=== PATIENT | female | born 1940 | race Caucasian/White ===

== ENCOUNTER → 2017-02-19 | Outpatient (CLI) | payer MEDICARE, OTHER ==
--- NOTE | 2017-02-19 15:47 | US ---
EXAMINATION TYPE: US kidneys/renal and bladder DATE OF EXAM: 02/19/2017 COMPARISON: Ultrasound 03/15/2015 CLINICAL HISTORY: CKD Stage 3 N18.3. EXAM MEASUREMENTS: Right Kidney: 10.0 x 4.0 x 4.2 cm Left Kidney: 10.3 x 4.0 x 4.9 cm Post Void Residual Volume: 36mL Right Kidney: No hydronephrosis or masses seen Left Kidney: No hydronephrosis or masses seen Bladder: wnl Bilateral Jets seen: No Normal Post Void Residual: Yes Cortical thinning is present bilaterally as on previous exam. There is some increase in cortical echo genicity. IMPRESSION: Findings compatible with medical renal disease. The previously identified 1 cm mass at the upper pole the right kidney is not seen definitively on today's exam.
== END | disposition home or self-care (01) ==
LOC: RADUSWWP 14:48
PROVIDERS: ATTEND Internal Medicine Nephrology
DX: N18.3 Chronic kidney disease, stage 3 (moderate) (principal)
CPT/HCPCS: 76770

== ENCOUNTER 2017-10-02 16:03 | Inpatient (IN) | payer MEDICARE, OTHER ==
--- NOTE | 2017-10-02 16:59 | ED ---
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 Per report was 6.9. Patient states she's had some dizziness today no fevers chills nausea vomiting sweats no palpitations no focal weakness or other symptoms reported. No other modifying factors. MD Complaint: abnormal lab - Related Data Home Medications Medication Instructions Recorded Confirmed Raloxifene [Evista] 60 mg PO DAILY 11/05/13 10/02/17 Atorvastatin [Lipitor] 80 mg PO HS 10/15/14 10/02/17 Metoprolol Tartrate [Lopressor] 50 mg PO BID 10/15/14 10/02/17 Spironolactone [Aldactone] 25 mg PO DAILY 11/02/14 10/02/17 Allopurinol [Zyloprim] 100 mg PO DAILY 02/07/17 10/02/17 Cinacalcet HCl [Sensipar] 30 mg PO MOWEFR 02/07/17 10/02/17 Furosemide [Lasix] 40 mg PO DAILY 02/07/17 10/02/17 Insuln Asp Prt/Insulin Aspart 35 units SQ HS 02/07/17 10/02/17 [NovoLOG MIX 70-30 VIAL] Magnesium Oxide [Mag-Ox] 400 mg PO DAILY 02/07/17 10/02/17 cloNIDine HCL [Catapres] 0.2 mg PO BID 02/07/17 10/02/17 Captopril [Capoten] 100 mg PO TID 05/19/17 10/02/17 Rivaroxaban [Xarelto] 20 mg PO HS 05/19/17 10/02/17 Terazosin HCl 1 mg PO HS 05/19/17 10/02/17 Previous Rx's Medication Instructions Recorded Metoprolol Tartrate [Lopressor] 50 mg PO BID tab 05/21/17 Allergies Allergy/AdvReac Type Severity Reaction Status Date / Time No Known Allergies Allergy Verified 10/02/17 16:38 Review of Systems ROS Statement: Those systems with pertinent positive or pertinent negative responses have been documented in the HPI. ROS Other: All systems not noted in ROS Statement are negative. Past Medical History Past Medical History: Coronary Artery Disease (CAD), Chest Pain / Angina, Heart Failure, CVA/TIA, Diabetes Mellitus, Eye Disorder, Hyperlipidemia, Hypertension , Myocardial Infarction ([place]), Osteoarthritis (OA), Renal Disease, Syncope Additional Past Medical History / Comment(s): HX ANEMIA WITH IV IRON 10/12/14. DIABETIC RETINOPATHY. GOUT. SINUS PROBLEMS. CRF Last Myocardial Infarction Date:: UNKNOWN History of Any Multi-Drug Resistant Organisms: None Reported Past Surgical History: Appendectomy, Cardiac Valve Replacement, Cholecystectomy , Coronary Bypass/CABG, Hysterectomy, Tonsillectomy Additional Past Surgical History / Comment(s): TRIPLE BYPASS 1999. colonoscopy. BILAT cataract removal. TILT TABLE-+ RESULT Past Anesthesia/Blood Transfusion Reactions: No Reported Reaction Past Psychological History: No Psychological Hx Reported Smoking Status: Never smoker Past Alcohol Use History: Rare Past Drug Use History: None Reported - Past Family History Father Family Medical History: Pneumonia Additional Family Medical History / Comment(s): Father had TB Mother Family Medical History: Congestive Heart Failure (CHF) Additional Family Medical History / Comment(s): Mother young of CHF General Exam - General Exam Comments Initial Comments: This is a well-developed well-nourished awake alert oriented 3 female Limitations: no limitations General appearance: alert, in no apparent distress Head exam: Present: atraumatic, normocephalic, normal inspection Eye exam: Present: normal appearance, PERRL, EOMI. Absent: scleral icterus, conjunctival injection, periorbital swelling ENT exam: Present: mucous membranes dry Neck exam: Present: normal inspection. Absent: tenderness, meningismus, lymphadenopathy Respiratory exam: Present: normal lung sounds bilaterally. Absent: respiratory distress, wheezes, rales, rhonchi, stridor Cardiovascular Exam: Present: regular rate, normal rhythm, normal heart sounds. Absent: systolic murmur, diastolic murmur, rubs, gallop, clicks GI/Abdominal exam: Present: soft, normal bowel sounds. Absent: distended, tenderness, guarding, rebound, rigid Extremities exam: Present: normal inspection, full ROM, normal capillary refill. Absent: tenderness, pedal edema, joint swelling, calf tenderness Back exam: Present: normal inspection Neurological exam: Present: alert, oriented X3, CN II-XII intact Psychiatric exam: Present: normal affect, normal mood Skin exam: Present: warm, dry, intact, normal color. Absent: rash Course Vital Signs 10/02/17 16:36 Temperature 97.9 F Pulse Rate 59 L Respiratory 20 Rate Blood Pressure 131/66 O2 Sat by Pulse 98 Oximetry Medical Decision Making - Medical Decision Making Review of labs demonstrates a 6.7 potassium also worsening renal function. I did discuss the findings with the patient family members as well as with Dr. Medrano the patient will be admitted for treatment of hyperkalemia also evaluation by nephrology. - Lab Data Result diagrams: 10/02/17 16:44 Lab Results 10/02/17 Range/Units 16:44 Sodium 136 L (137-145) mmol/L Potassium 6.7 H* (3.5-5.1) mmol/L Chloride 105 (98-107) mmol/L Carbon Dioxide 16 L (22-30) mmol/L Anion Gap 15 mmol/L BUN 92 H* (7-17) mg/dL Creatinine 1.97 H (0.52-1.04) mg/dL Est GFR (CKD-EPI)AfAm 28 (>60 ml/min/1.73 sqM) Est GFR (CKD-EPI)NonAf 24 (>60 ml/min/1.73 sqM) Glucose 387 H (74-99) mg/dL Calcium 10.4 H (8.4-10.2) mg/dL Total Bilirubin 0.3 (0.2-1.3) mg/dL AST 19 (14-36) U/L ALT 17 (9-52) U/L Alkaline Phosphatase 125 (38-126) U/L Total Protein 7.0 (6.3-8.2) g/dL Albumin 3.8 (3.5-5.0) g/dL - EKG Data -: EKG Interpreted by Me (Sinus bradycardia rate of 56 TX interval 186 QRS duration 96 QT since QTC 4) Critical Care Time Critical Care Time: Yes Critical Care Time: 31 minutes of critical care time which includes initial presentation with history physical labs x-rays. Reevaluation the patient. Admission orders discussed with the patient family discuss with the admitting physician documentation of the above Disposition Clinical Impression: Hyperkalemia, Renal failure syndrome Disposition: ADMITTED IP TO THIS HOSP Condition: Stable Is patient prescribed a controlled substance at discharge?: No Referrals: Saurabh Medrano MD [Primary Care Provider] - 1-2 days
[2017-10-02 17:22] LABS: Albumin 3.8 g/dL (3.5-5.0); Calcium 10.4 mg/dL (8.4-10.2); Total Bilirubin 0.3 mg/dL (0.2-1.3)
[2017-10-02 17:24] LABS: Potassium 6.7 mmol/L (3.5-5.1)
[2017-10-02] MEDS ORDERED: SODIUM CHLORIDE 0.9% 1,000 ML IV STA ×2 (17:28)
[2017-10-02] MEDS ORDERED: SODIUM POLYSTYRENE SULFONATE 15 GM/60 ML BOTTLE PO ONE (17:29)
[2017-10-02] MEDS ORDERED: INSULIN REGULAR 100 UNIT/ML VIAL IV ONE (17:30)
[2017-10-02] MEDS ORDERED: DEXTROSE 50%-WATER 50 ML SYRINGE IVP STA (17:31)
[2017-10-02] MEDS ORDERED: NALOXONE 0.4 MG/ML 1 ML VIAL IV PRN (18:01)
[2017-10-02] MEDS ORDERED: FUROSEMIDE 10 MG/ML 4 ML VIAL IV STA (18:09)
[2017-10-02 21:53] LABS: Glucose,Whole Blood 181 mg/dL (75-99)
[2017-10-02] MEDS: METOPROLOL TARTRATE 50 MG TAB PO SCH (21:59)
[2017-10-02] MEDS: ATORVASTATIN 80 MG TAB PO SCH (21:59)
[2017-10-02] MEDS: CINACALCET 30 MG TAB PO SCH (22:00)
[2017-10-02] MEDS ORDERED: CAPTOPRIL 50 MG TAB PO SCH (22:00)
[2017-10-02] MEDS: DOXAZOSIN 1 MG TAB PO SCH (22:00)
[2017-10-02] MEDS: cloNIDine HCL 0.2 MG TAB PO SCH ×2 (22:00→22:01)
[2017-10-02] MEDS: RIVAROXABAN 20 MG TAB PO SCH (22:00)
[2017-10-02] MEDS: INSULN ASP PRT/INSULIN ASPART 100 UNIT/ML 10 ML VIAL SQ SCH (22:01)
[2017-10-02] MEDS ORDERED: SODIUM BICARB 8.4% 50 ML SYR (1 MEQ/ML) IV STA (22:45)
[2017-10-03 03:23] VITALS: BMI 27.8
[2017-10-03 07:54] LABS: Glucose,Whole Blood 94 mg/dL (75-99)
[2017-10-03 08:04] LABS: Calcium 9.7 mg/dL (8.4-10.2); Potassium 4.9 mmol/L (3.5-5.1)
[2017-10-03] MEDS ORDERED: FUROSEMIDE 40 MG TAB PO SCH (09:00)
[2017-10-03] MEDS: RALOXIFENE 60 MG TAB PO SCH (09:16)
[2017-10-03] MEDS: MAGNESIUM OXIDE 400 MG TAB PO SCH (09:16)
[2017-10-03] MEDS: ALLOPURINOL 100 MG TAB PO SCH (09:16)
[2017-10-03] MEDS: METOPROLOL TARTRATE 50 MG TAB PO SCH ×2 (09:16→21:17)
--- NOTE | 2017-10-03 10:18 | P.NPCON ---
History of Present Illness - Reason for Consult acute renal failure, hyperkalemia - History of Present Illness Reason for consultation: Acute kidney injury and hyperkalemia History of present illness: Patient is a 77-year-old female seen in renal consultation for acute kidney injury on chronic kidney disease. Patient has chronic kidney disease stage III secondary to nephrosclerosis with baseline creatinine near 1.7-1.8. Her creatinine was 1.97 on admission and is down to 1.72 today. Yesterday the lab called me to alert me about her potassium level of 6.7. I subsequently spoke to her daughter and advised her to go to the hospital. Patient states he does take Motrin about once every day for arthritic pain. Additionally she is also on captopril and spironolactone for blood pressure control. It is also noted that her blood sugar was 387 upon admission. She received IV Lasix along with IV insulin, IV bicarb and Kayexalate in the emergency room. Potassium level this morning is 4.9. Admits to good urine output. No hematuria or dysuria. Hemodynamically stable. No vomiting or diarrhea. Denies chest pain or shortness of breath. Does have history of diabetes mellitus. Vital signs are stable. General: The patient appeared well nourished and normally developed. HEENT: Head exam is unremarkable. Neck is without jugular venous distension. LUNGS: Lungs are clear to auscultation and percussion. Breath sounds decreased. HEART: Rate and Rhythm are regular. First and second heart sounds normal. No murmurs, rubs or gallops. ABDOMEN: Abdominal exam reveals normal bowel sounds. Non-tender and non- distended. No evidence of peritonitis. EXTREMITITES: No clubbing, cyanosis, or edema. Past Medical History Past Medical History: Coronary Artery Disease (CAD), Chest Pain / Angina, Heart Failure, CVA/TIA, Diabetes Mellitus, Eye Disorder, Hyperlipidemia, Hypertension , Myocardial Infarction ([place]), Osteoarthritis (OA), Renal Disease, Syncope Additional Past Medical History / Comment(s): HX ANEMIA WITH IV IRON 10/12/14. DIABETIC RETINOPATHY. GOUT. SINUS PROBLEMS. CRF, blind in right eye Last Myocardial Infarction Date:: UNKNOWN History of Any Multi-Drug Resistant Organisms: None Reported Past Surgical History: Appendectomy, Cardiac Valve Replacement, Cholecystectomy , Coronary Bypass/CABG, Hysterectomy, Tonsillectomy Additional Past Surgical History / Comment(s): TRIPLE BYPASS 1999. colonoscopy. BILAT cataract removal. TILT TABLE-+ RESULT Past Anesthesia/Blood Transfusion Reactions: No Reported Reaction Past Psychological History: No Psychological Hx Reported Additional Psychological History / Comment(s): Pt lives with her daughter, Mary. She is fairly independent. She uses a walker at times. She has no home care agency. She gets to appt with her daughter driving her or uses a cab. Smoking Status: Former smoker Past Alcohol Use History: Rare Additional Past Alcohol Use History / Comment(s): Pt states she started smoking when she was 18 or 19yrs old and quit in 1996 Past Drug Use History: None Reported - Past Family History Father Family Medical History: Pneumonia Additional Family Medical History / Comment(s): Father had TB Mother Family Medical History: Congestive Heart Failure (CHF) Additional Family Medical History / Comment(s): Mother young of CHF Medications and Allergies Home Medications Medication Instructions Recorded Confirmed Type Raloxifene [Evista] 60 mg PO DAILY 11/05/13 10/02/17 History Atorvastatin [Lipitor] 80 mg PO HS 10/15/14 10/02/17 History Spironolactone [Aldactone] 25 mg PO DAILY 11/02/14 10/02/17 History Allopurinol [Zyloprim] 100 mg PO DAILY 02/07/17 10/02/17 History Cinacalcet HCl [Sensipar] 30 mg PO DIRECTED 02/07/17 10/02/17 History Furosemide [Lasix] 40 mg PO DAILY 02/07/17 10/02/17 History Insuln Asp Prt/Insulin Aspart 27 units SQ HS 02/07/17 10/02/17 History [NovoLOG MIX 70-30 VIAL] Magnesium Oxide [Mag-Ox] 400 mg PO DAILY 02/07/17 10/02/17 History cloNIDine HCL [Catapres] 0.2 mg PO BID 02/07/17 10/02/17 History Rivaroxaban [Xarelto] 20 mg PO W/SUPPER 05/19/17 10/02/17 History Terazosin HCl 1 mg PO HS 05/19/17 10/02/17 History Metoprolol Tartrate [Lopressor] 50 mg PO BID tab 05/21/17 10/02/17 Rx Albuterol Nebulized [Ventolin 2.5 mg INHALATION RT-Q6H PRN 10/02/17 10/02/17 History Nebulized] Ibuprofen 800 mg PO QID PRN 10/02/17 10/02/17 History Insuln Asp Prt/Insulin Aspart 130 unit SQ QAM 10/02/17 10/02/17 History [NovoLOG MIX 70-30 VIAL] Lisinopril 40 mg PO DAILY 10/02/17 10/02/17 History Allergies Allergy/AdvReac Type Severity Reaction Status Date / Time No Known Allergies Allergy Verified 10/02/17 18:46 Physical Exam Vitals: Vital Signs Temp Pulse Pulse Resp BP BP Pulse Ox 10/03/17 08:40 97.4 F L 62 18 145/57 99 10/03/17 03:00 18 10/03/17 02:48 96.2 F L 56 L 18 117/54 95 10/03/17 01:56 97.4 F L 55 L 18 112/55 96 10/03/17 01:00 97.5 F L 56 L 18 123/56 98 10/02/17 22:00 68 18 167/72 99 10/02/17 20:20 64 16 134/64 98 10/02/17 19:44 59 L 18 127/69 98 10/02/17 18:20 64 18 137/62 97 10/02/17 16:36 97.9 F 59 L 20 131/66 98 Intake and Output 10/02/17 10/03/17 10/03/17 22:59 06:59 14:59 Intake Total 700 Balance 700 Intake: Intake, IV Titration 450 Amount Sodium Chloride 0.9% 1, 450 000 ml @ 75 mls/hr IV . [id number] [facility] Rx#:[id number] Oral 250 Other: Voiding Method Diaper # Voids 2 Weight 76 kg 76.5 kg Results - Lab Results Most recent lab results Calcium 9.7 mg/dL (8.4-10.2) 10/03/17 07:04 10/03/17 07:04 Assessment and Plan Plan: assessment: #1. Nonoliguric acute kidney injury mostly prerenal secondary to diuresis. Creatinine was 1.97 on admission and is down to 1.72 today. #2. Hyperkalemia which is multifactorial - etiologies include use of nonsteroidals, captopril and Aldactone. Additionally hyperglycemia and metabolic acidosis are also contributing factors. Improved with medical management. #3. Metabolic acidosis secondary to acute kidney injury. Improved. #4. Chronic kidney disease stage III secondary to nephrosclerosis with baseline creatinine in the range of 1.7-1.8. #5. Hypertension with chronic kidney disease. Controlled. #6. Insulin-dependent diabetes mellitus. Plan: Continue normal saline at 50 mL an hour. Continue to hold spironolactone and MIGUEL inhibitor for now. Hold Lasix for now as well. I advised her to avoid nonsteroidals on a regular basis. I also advised her to maintain tighter control of her blood sugars. Potential discharge today. She will need to follow-up as an outpatient in the next 1 week. Thank you for the consultation. I will continue to follow the patient with you during her hospital stay.
[2017-10-03] MEDS ORDERED: ALBUTEROL NEBULIZED 2.5 MG/3 ML INHALATION PRN (11:08)
[2017-10-03 11:30] LABS: Cholesterol 112 mg/dL (<200); HDL Cholesterol 26 mg/dL (40-60); LDL Cholesterol,Calculated 64 mg/dL (0-99); Triglycerides 112 mg/dL (<150)
[2017-10-03 11:46] LABS: Glucose,Whole Blood 154 mg/dL (75-99)
[2017-10-03] MEDS: SODIUM CHLORIDE 0.9% 1,000 ML IV SCH (14:22)
[2017-10-03 15:29] LABS: Hemoglobin A1C 8.1 % (4.0-6.0)
--- NOTE | 2017-10-03 18:01 | PN ---
PROGRESS NOTE DATE OF SERVICE: 10/03/2017. CHIEF COMPLAINT: Acute exacerbation of chronic renal failure. HISTORY OF PRESENT ILLNESS: This lady is feeling well. She has had no nausea. She waits Nephrology evaluation. PHYSICAL EXAM: CHEST: Clear. Cardiac exam is normal. Abdomen is soft, nontender. IMPRESSION: 1. Acute exacerbation chronic renal failure. 2. Hyperkalemia. 3. Poorly-controlled insulin dependent diabetes mellitus. 4. Hypertension. PLAN: Continue current program and repeat potassium and renal function. MMODL / IJN: [id number] /
--- NOTE | 2017-10-03 18:16 | HP ---
HISTORY AND PHYSICAL CHIEF COMPLAINT: Elevated potassium. HISTORY OF PRESENT ILLNESS: This is another admission for this 77-year-old white female who has end-stage renal disease, hypertension and diabetes. She went to her grinder watch parts, who kelsie some blood and called her that her potassium was over 6. She feels fine. She came to the emergency room, where she was admitted. REVIEW OF SYSTEMS: She is having no lightheadedness, dizziness, fatigue, shortness of breath, nausea, vomiting, palpitations, weakness, muscle cramps, etc. She is having no other complaints, including vomiting, diarrhea, etc. Past medical history, family history, and personal and social histories reveal that she is NOT ALLERGIC TO ANY MEDICATIONS. She is on: 1. Lisinopril 40 mg once a day. 2. Spironolactone 25 mg once a day. 3. Clonidine 0.2 twice a day. 4. Metoprolol 50 mg twice a day. 5. Atorvastatin 80 mg at bedtime. 6. Allopurinol 100 mg once a day. 7. Captopril 100 mg 3 times a day. 8. Furosemide 40 mg once a day. 9. Vitamin D. 10.NovoLog 70/30 130 units in the morning and 70 at night. 11.Raloxifene 60 mg once a day. 12.Albuterol nebulizer. 13.Terazosin 1 mg once a day. Remainder of her history is unremarkable and unchanged otherwise. She has had some difficulty with congestive heart failure, and her diabetes and blood pressure are rarely under good control. It is not certain that she follows medication directions. She smoked, but has quit. PHYSICAL EXAMINATION: Blood pressure 124/76, pulse 66, respirations 14. She is afebrile. GENERAL: She appeared to be slightly pale and in no acute distress. Skin color is normal. Skin is warm and dry. Lymph nodes are not enlarged. Head, ears, eyes, nose, mouth and throat are normal. Neck veins are not distended. Thyroid is not enlarged. Chest is clear. Cardiac exam is normal. The abdomen is soft, nontender without any visceromegaly or masses. Bowel sounds are present. Extremities are normal. Neurologically she is intact. She is admitted to the hospital with the diagnoses: 1. Hyperkalemia. 2. Chronic renal failure. 3. Acute exacerbation of renal failure, probably due to prerenal azotemia. 4. Uncontrolled insulin-dependent diabetes mellitus. 5. Poorly controlled hypertension. PLAN: 1. Bed rest. 2. IV fluids. 3. Lower potassium. 4. Consult with Nephrology. MEHRAN / LUCIANN: [id number] /
[2017-10-03 19:53] LABS: Glucose,Whole Blood 364 mg/dL (75-99)
[2017-10-03] MEDS: cloNIDine HCL 0.2 MG TAB PO SCH (21:16)
[2017-10-03] MEDS: DOXAZOSIN 1 MG TAB PO SCH (21:16)
[2017-10-03] MEDS: ATORVASTATIN 80 MG TAB PO SCH (21:16)
[2017-10-03] MEDS: INSULN ASP PRT/INSULIN ASPART 100 UNIT/ML 10 ML VIAL SQ SCH (21:16)
[2017-10-03] MEDS: RIVAROXABAN 20 MG TAB PO SCH (21:17)
[2017-10-04] MEDS ORDERED: INSULN ASP PRT/INSULIN ASPART 100 UNIT/ML 10 ML VIAL SQ SCH (07:30)
[2017-10-04 07:53] LABS: Glucose,Whole Blood 65 mg/dL (75-99)
[2017-10-04 07:56] LABS: Glucose,Whole Blood 95 mg/dL (75-99)
[2017-10-04 08:02] VITALS: RESP 20; TEMP 97.3
[2017-10-04] MEDS: cloNIDine HCL 0.2 MG TAB PO SCH (08:11)
[2017-10-04] MEDS: MAGNESIUM OXIDE 400 MG TAB PO SCH (08:11)
[2017-10-04] MEDS: RALOXIFENE 60 MG TAB PO SCH (08:11)
[2017-10-04] MEDS: ALLOPURINOL 100 MG TAB PO SCH (08:11)
[2017-10-04] MEDS: METOPROLOL TARTRATE 50 MG TAB PO SCH (08:11)
[2017-10-04] MEDS: SODIUM CHLORIDE 0.9% 1,000 ML IV SCH (08:14)
[2017-10-04 08:17] LABS: Calcium 9.7 mg/dL (8.4-10.2); Potassium 4.5 mmol/L (3.5-5.1)
[2017-10-04] MEDS ORDERED: LISINOPRIL 20 MG TAB PO SCH (09:00)
[2017-10-04 11:16] LABS: Glucose,Whole Blood 106 mg/dL (75-99)
[2017-10-04] MEDS: CINACALCET 30 MG TAB PO SCH (13:30)
--- NOTE | 2017-10-04 13:52 | P.PN ---
Subjective Patient is seen in follow-up for acute kidney injury on chronic kidney disease. Patient has chronic kidney disease stage III secondary to nephrosclerosis with baseline creatinine in the range of 1.7-1.9. Patient presented to the hospital with hyperkalemia. Potassium level was 6.7 on admission and improved with medical management. It is 4.5 today. Creatinine was also 1.9 on admission and is down to 1.45 today. Blood pressure was high this morning. Spironolactone and Lasix were held at this time. She is eager to go home. No active complaints at this time. Vital signs are stable. General: The patient appeared well nourished and normally developed. HEENT: Head exam is unremarkable. Neck is without jugular venous distension. LUNGS: Lungs are clear to auscultation and percussion. Breath sounds decreased. HEART: Rate and Rhythm are regular. First and second heart sounds normal. No murmurs, rubs or gallops. ABDOMEN: Abdominal exam reveals normal bowel sounds. Non-tender and non- distended. No evidence of peritonitis. EXTREMITITES: No clubbing, cyanosis, or edema. Objective - Vital Signs Vital signs: Vital Signs Temp 97.3 F L 10/04/17 07:00 Pulse 83 10/04/17 07:00 Resp 20 10/04/17 07:00 BP 193/82 10/04/17 07:00 Pulse Ox 98 10/04/17 07:00 Intake & Output 10/03/17 10/04/17 10/04/17 18:59 06:59 18:59 Intake Total 1820 Balance 1820 Weight 77.5 kg Intake: Intake, IV Titration 300 Amount Sodium Chloride 0.9% 1, 300 000 ml @ 50 mls/hr IV . Q20H [facility] Rx#:[id number] Oral 1520 Other: Voiding Method Diaper Diaper # Voids 3 1 - Labs CBC & Chem 7: 10/04/17 07:27 Labs: Abnormal Lab Results - Last 24 Hours (Table) 10/03/17 10/03/17 10/04/17 Range/Units 07:04 19:50 07:27 Chloride 108 H (98-107) mmol/L BUN 67 H (7-17) mg/dL Creatinine 1.45 H (0.52-1.04) mg/dL Glucose 56 L (74-99) mg/dL POC Glucose (mg/dL) 364 H (75-99) mg/dL Hemoglobin A1c 8.1 H (4.0-6.0) % 10/04/17 10/04/17 Range/Units 07:33 11:13 Chloride (98-107) mmol/L BUN (7-17) mg/dL Creatinine (0.52-1.04) mg/dL Glucose (74-99) mg/dL POC Glucose (mg/dL) 65 L 106 H (75-99) mg/dL Hemoglobin A1c (4.0-6.0) % Assessment and Plan Plan: assessment: #1. Nonoliguric acute kidney injury mostly prerenal secondary to diuresis. Creatinine was 1.97 on admission and is down to 1.45 today. #2. Hyperkalemia which is multifactorial - etiologies include use of nonsteroidals, captopril and Aldactone. Additionally hyperglycemia and metabolic acidosis are also contributing factors. Improved with medical management. #3. Metabolic acidosis secondary to acute kidney injury. Improved. #4. Chronic kidney disease stage III secondary to nephrosclerosis with baseline creatinine near 1.7. #5. Hypertension with chronic kidney disease. #6. Insulin-dependent diabetes mellitus. Plan: Hep-Lock IV fluids. Continue to hold spironolactone and diuretics for now. I advised her to avoid nonsteroidals on a regular basis. I also advised her to maintain tighter control of her blood sugars. Potential discharge today if blood pressure better controlled. She has an appointment in the office for next week.
[2017-10-04 13:55] VITALS: BP 137/62; PULSE 58
--- NOTE | 2017-10-04 15:39 | CDI ---
Last Revision, May 2017 Documentation Clarification Form Date: 10/04/18 From: Cat Boyle RN, CCDS Admit Date: 10/02/2017 6:01:00 PM Patient Name: Anya Mejia Visit Number: [id number] Discharge Date: ATTENTION: The Clinical Documentation Specialists (CDI) and [facility] Coding Staff appreciate your assistance in clarifying documentation. Please respond to the clarification below the line at the bottom and electronically sign. The CDI & [facility] Coding staff will review the response and follow-up if needed. Please note: Queries are made part of the Legal Health Record. If you have any questions, please contact the author of this message via ITS. Dr. Saurabh Medrano The patient has diabetes, as indicated on progress note 10/13/17. History/Risk Factors: Coronary Artery disease, CVA/TIA, Diabetes mellitus, Hypertension Heart failure Clinical Indicators: In your H/P uncontrolled insulin-dependent diabetes mellitus is documented. Glucose, 10/02 181, 10/03 94, 154, 364 Hwmoglobin Alc 8.1 Treatment: Monitor Glucose Insulin coverage Per orders In order to capture the severity of Illness and necessary documentation specificity, please clarify: DM Type 1 DM Type 2 Other, please specify Unable to Determine Please continue to document in your progress notes and discharge summary in order to capture severity of illness and risk of mortality. Include clinical findings that support your diagnosis. MTDD
--- NOTE | 2017-10-04 20:59 | DS ---
DISCHARGE SUMMARY CHIEF COMPLAINT: Renal failure and hyperkalemia. HISTORY OF PRESENT ILLNESS AND PHYSICAL EXAM: Details of this lady's history and physical can be found in the initial workup. LABORATORY STUDIES: While she was in the hospital, she had laboratory studies details of which can be found in the laboratory section of her chart. COURSE IN THE HOSPITAL: After admission, she was placed on bedrest, started on intravenous fluids and seen by Nephrology. Potassium came back down. Renal function improved. It is felt that she could go home on the and she will go home on her usual diet and activity and regular medications except she will be kept off of Motrin and Aldactone. She will be seen in the office in a day or 2. We will follow her renal function, electrolytes. FINAL DIAGNOSES: 1. Hyperkalemia. 2. Chronic renal failure. 3. Insulin-dependent diabetes mellitus. 4. Hypertension. OPERATIONS: None. CONSULTATION: Nephrology. She is improved. MMODL / LUCIANN: [id number] /
[2017-10-05 04:55] LABS: Glucose,Whole Blood 316 mg/dL (75-99)
--- NOTE | 2017-10-05 10:51 | MISC ---
MISCELLANOUS REPORT QUERY: Diabetes is type 2. MMODL / IJN: [id number] /
== END 2017-10-04 16:30 | disposition home or self-care (01) | DRG 641 ==
LOC: EC 16:03 → 6SEL 18:01 → 5MS5E 10-03 01:55
PROVIDERS: ADMIT Family Medicine; ATTEND Family Medicine
DX: E87.5 Hyperkalemia (principal); N17.9 Acute kidney failure, unspecified; I13.0 Hypertensive heart and chronic kidney disease with heart failure and stage 1 through stage 4 chronic kidney disease, or unspecified chronic kidney disease; E11.22 Type 2 diabetes mellitus with diabetic chronic kidney disease; E11.319 Type 2 diabetes mellitus with unspecified diabetic retinopathy without macular edema; E11.65 Type 2 diabetes mellitus with hyperglycemia; E78.5 Hyperlipidemia, unspecified; E87.2 Acidosis; H54.61 Unqualified visual loss, right eye, normal vision left eye; I25.10 Atherosclerotic heart disease of native coronary artery without angina pectoris; I25.2 Old myocardial infarction; I50.9 Heart failure, unspecified; T50.2X5A Adverse effect of carbonic-anhydrase inhibitors, benzothiadiazides and other diuretics, initial encounter; Z79.01 Long term (current) use of anticoagulants; Z79.4 Long term (current) use of insulin; Z79.899 Other long term (current) drug therapy; Z82.49 Family history of ischemic heart disease and other diseases of the circulatory system; Z86.73 Personal history of transient ischemic attack (TIA), and cerebral infarction without residual deficits; Z87.891 Personal history of nicotine dependence; Z90.710 Acquired absence of both cervix and uterus; Z95.1 Presence of aortocoronary bypass graft; Z95.2 Presence of prosthetic heart valve; N18.3 Chronic kidney disease, stage 3 (moderate); Z79.1 Long term (current) use of non-steroidal anti-inflammatories (NSAID); Z98.42 Cataract extraction status, left eye; Z98.41 Cataract extraction status, right eye
CPT/HCPCS: 36415; 80048; 80053; 80061; 81001; 82728; 83036; 83540; 83550; 83735; 83970; 84100; 84132; 84550; 85025; 93005; 96361; 96372; 96374; 96375; 99291

== ENCOUNTER → 2018-01-15 | Outpatient (CLI) | payer MEDICARE, OTHER ==
[2018-01-15 08:37] LABS: ALT 22 U/L (9-52); AST 23 U/L (14-36); Cholesterol 119 mg/dL (<200); Creatine Kinase 35 U/L (30-135); HDL Cholesterol 37 mg/dL (40-60); LDL Cholesterol,Calculated 57 mg/dL (0-99); Triglycerides 125 mg/dL (<150)
== END | disposition home or self-care (01) ==
LOC: LABWHC1 07:35
PROVIDERS: ATTEND Nurse Practitioner Adult Health
DX: E78.2 Mixed hyperlipidemia (principal)
CPT/HCPCS: 36415; 80061; 82550; 84450; 84460

== ENCOUNTER 2019-07-07 17:27 | Inpatient (IN) | payer MEDICARE, OTHER ==
[2019-07-07] MEDS ORDERED: ONDANSETRON 4 MG/2 ML VIAL IVP STA (17:51)
[2019-07-07] MEDS ORDERED: SODIUM CHLORIDE 0.9% 500 ML 500 ML IV STA ×2 (17:51→18:49)
[2019-07-07] MEDS ORDERED: SODIUM CHLORIDE 0.9% 1,000 ML IV STA ×2 (17:51→18:49)
[2019-07-07] MEDS ORDERED: DICYCLOMINE 10 MG/ML 2 ML AMP IM STA (17:52)
[2019-07-07] MEDS ORDERED: FAMOTIDINE 20 MG/2 ML VIAL IV STA (17:52)
--- NOTE | 2019-07-07 17:55 | ED ---
General Adult HPI - General Chief complaint: Nausea/Vomiting/Diarrhea Stated complaint: N/V/D Time Seen by Provider: 07/07/19 17:37 Source: patient, family, EMS, RN notes reviewed Mode of arrival: EMS Limitations: no limitations - History of Present Illness Initial comments: Patient is a pleasant 78-year-old female presenting to the emergency department with family with complaints of nausea vomiting diarrhea. Onset of symptoms was 3 days ago. Patient has approximate 2 episodes of vomiting as well as 2 episodes of diarrhea daily. Mild abdominal discomfort. Decreased oral intake however is tolerating some fluids. No fevers. No history of chronic abdominal problems. Patient states overall she does not feel that bad. Family member states blood sugars have been in the 300s. - Related Data Home Medications Medication Instructions Recorded Confirmed Raloxifene [Evista] 60 mg PO DAILY 11/05/13 04/17/18 Atorvastatin [Lipitor] 80 mg PO HS 10/15/14 04/17/18 Allopurinol [Zyloprim] 100 mg PO DAILY 02/07/17 04/17/18 Cinacalcet HCl [Sensipar] 30 mg PO DIRECTED 02/07/17 04/17/18 Furosemide [Lasix] 40 mg PO DAILY 02/07/17 04/17/18 Insuln Asp Prt/Insulin Aspart 27 units SQ HS 02/07/17 04/17/18 [NovoLOG MIX 70-30 VIAL] Magnesium Oxide [Mag-Ox] 400 mg PO DAILY 02/07/17 04/17/18 cloNIDine HCL [Catapres] 0.2 mg PO BID 02/07/17 04/17/18 Rivaroxaban [Xarelto] 20 mg PO W/SUPPER 05/19/17 04/17/18 Terazosin HCl 1 mg PO HS 05/19/17 04/17/18 Albuterol Nebulized [Ventolin 2.5 mg INHALATION RT-Q6H PRN 10/02/17 04/17/18 Nebulized] Insuln Asp Prt/Insulin Aspart 130 unit SQ QAM 10/02/17 04/17/18 [NovoLOG MIX 70-30 VIAL] Lisinopril 40 mg PO DAILY 10/02/17 04/17/18 Previous Rx's Medication Instructions Recorded Metoprolol Tartrate [Lopressor] 50 mg PO BID tab 05/21/17 Allergies Allergy/AdvReac Type Severity Reaction Status Date / Time No Known Allergies Allergy Verified 04/17/18 14:01 Review of Systems ROS Statement: Those systems with pertinent positive or pertinent negative responses have been documented in the HPI. ROS Other: All systems not noted in ROS Statement are negative. Constitutional: Denies: fever Eyes: Denies: eye pain ENT: Denies: ear pain Respiratory: Denies: cough, dyspnea Cardiovascular: Denies: chest pain Endocrine: Denies: fatigue Gastrointestinal: Reports: as per HPI, abdominal pain, nausea, vomiting, diarrhea Genitourinary: Denies: dysuria Musculoskeletal: Denies: back pain Skin: Denies: rash Neurological: Denies: confusion Past Medical History Past Medical History: Blood Disorder, Coronary Artery Disease (CAD), Chest Pain / Angina, Heart Failure, CVA/TIA, Diabetes Mellitus, Eye Disorder, Hyperlipidemia, Hypertension, Myocardial Infarction ([place]), Osteoarthritis (OA), Renal Disease, Syncope Additional Past Medical History / Comment(s): HX ANEMIA. DIABETIC RETINOPATHY. GOUT. SINUS PROBLEMS. CRF Last Myocardial Infarction Date:: UNKNOWN History of Any Multi-Drug Resistant Organisms: None Reported Past Surgical History: Appendectomy, Cardiac Valve Replacement, Cholecystectomy, Coronary Bypass/CABG, Hysterectomy, Tonsillectomy Additional Past Surgical History / Comment(s): TRIPLE BYPASS 1999. colonoscopy. BILAT cataract removal. TILT TABLE-+ RESULT Past Anesthesia/Blood Transfusion Reactions: No Reported Reaction Past Psychological History: No Psychological Hx Reported Smoking Status: Former smoker Past Alcohol Use History: None Reported Past Drug Use History: None Reported - Past Family History Father Family Medical History: Pneumonia Additional Family Medical History / Comment(s): Father had TB Mother Family Medical History: Congestive Heart Failure (CHF) Additional Family Medical History / Comment(s): Mother young of CHF General Exam Limitations: no limitations General appearance: alert, in no apparent distress Head exam: Present: normocephalic Eye exam: Present: normal appearance, PERRL ENT exam: Present: mucous membranes dry Neck exam: Present: normal inspection Respiratory exam: Present: normal lung sounds bilaterally Cardiovascular Exam: Present: tachycardia GI/Abdominal exam: Present: soft, tenderness (Mild tenderness epigastrium and mid to right lower abdomen). Absent: distended Extremities exam: Present: normal inspection. Absent: pedal edema, calf tenderness Neurological exam: Present: alert Psychiatric exam: Present: normal affect, normal mood Skin exam: Present: normal color Course Vital Signs 07/07/19 17:29 Temperature 97.5 F L Pulse Rate 124 H Respiratory 18 Rate Blood Pressure 144/71 O2 Sat by Pulse 98 Oximetry Medical Decision Making - Medical Decision Making Patient provide medications for hyperkalemia. He should reevaluated. Patient symptom-free at this time. Patient and family updated. Case discussed in detail with Dr. Medrano, who will admit his patient with nephrology consult. - Lab Data Result diagrams: 07/07/19 17:55 07/07/19 17:55 Lab Results 07/07/19 07/07/19 07/07/19 Range/Units 17:55 17:55 17:55 WBC 12.5 H (3.8-10.6) k/uL RBC 3.24 L (3.80-5.40) m/uL Hgb 9.9 L (11.4-16.0) gm/dL Hct 30.9 L (34.0-46.0) % MCV 95.2 (80.0-100.0) fL MCH 30.5 (25.0-35.0) pg MCHC 32.0 (31.0-37.0) g/dL RDW 14.0 (11.5-15.5) % Plt Count 263 (150-450) k/uL Neutrophils % 85 % Lymphocytes % 11 % Monocytes % 4 % Eosinophils % 0 % Basophils % 0 % Neutrophils # 10.6 H (1.3-7.7) k/uL Lymphocytes # 1.3 (1.0-4.8) k/uL Monocytes # 0.5 (0-1.0) k/uL Eosinophils # 0.0 (0-0.7) k/uL Basophils # 0.0 (0-0.2) k/uL PT 9.9 (9.0-12.0) sec INR 0.9 (<1.2) APTT 16.0 L (22.0-30.0) sec Sodium 141 (137-145) mmol/L Potassium 7.1 H* (3.5-5.1) mmol/L Chloride 115 H (98-107) mmol/L Carbon Dioxide 11 L (22-30) mmol/L Anion Gap 15 mmol/L BUN 119 H* (7-17) mg/dL Creatinine 2.56 H (0.52-1.04) mg/dL Est GFR (CKD-EPI)AfAm 20 (>60 ml/min/1.73 sqM) Est GFR (CKD-EPI)NonAf 18 (>60 ml/min/1.73 sqM) Glucose 365 H (74-99) mg/dL Calcium 11.3 H (8.4-10.2) mg/dL Total Bilirubin 0.6 (0.2-1.3) mg/dL AST 24 (14-36) U/L ALT 16 (4-34) U/L Alkaline Phosphatase 96 (38-126) U/L Total Protein 7.2 (6.3-8.2) g/dL Albumin 4.0 (3.5-5.0) g/dL Amylase 73 (30-110) U/L Lipase 512 H (23-300) U/L Acetone, Qual Negative (Negative) - Radiology Data Radiology results: report reviewed (Computed tomography scan of the abdomen pelvis shows no acute process) Critical Care Time Critical Care Time: Yes Total Critical Care Time: 33 Disposition Clinical Impression: Dehydration, Hyperkalemia Disposition: ADMITTED IP TO THIS [facility] Condition: Serious Is patient prescribed a controlled substance at d/c from ED?: No Referrals: Saurabh Medrano MD [Primary Care Provider] - 1-2 days Decision Time: 19:25
[2019-07-07 18:05] LABS: Basophils % (A) 0 %; Eosinophils % (A) 0 %; HCT 30.9 % (34.0-46.0); HGB 9.9 gm/dL (11.4-16.0); Lymphocytes # (A) 1.3 k/uL (1.0-4.8); Lymphocytes % (A) 11 %; MCH 30.5 pg (25.0-35.0); MCV 95.2 fL (80.0-100.0); Mean Platelet Volume 9.2; Monocytes # (A) 0.5 k/uL (0-1.0); Monocytes % (A) 4 %; Neutrophils # (A) 10.6 k/uL (1.3-7.7); Neutrophils % (A) 85 %; Platelet Count 263 k/uL (150-450); RBC 3.24 m/uL (3.80-5.40); WBC 12.5 k/uL (3.8-10.6)
[2019-07-07 18:18] LABS: ALT 16 U/L (4-34); AST 24 U/L (14-36); African American GFR (CKD) 20 (>60 ml/min/1.73 sqM); Alkaline Phosphatase 96 U/L (38-126); Amylase 73 U/L (30-110); Anion Gap 15 mmol/L; Calcium 11.3 mg/dL (8.4-10.2); Carbon Dioxide 11 mmol/L (22-30); Chloride 115 mmol/L (98-107); Glucose 365 mg/dL (74-99); Non-African American GFR(CKD) 18 (>60 ml/min/1.73 sqM); Sodium 141 mmol/L (137-145); Total Bilirubin 0.6 mg/dL (0.2-1.3); Total Protein 7.2 g/dL (6.3-8.2)
[2019-07-07 18:29] LABS: Blood Urea Nitrogen 119 mg/dL (7-17); Potassium 7.1 mmol/L (3.5-5.1)
[2019-07-07 18:39] LABS: INR 0.9 (<1.2); Prothrombin Time 9.9 sec (9.0-12.0)
[2019-07-07] MEDS ORDERED: INSULIN REGULAR 100 UNIT/ML VIAL IV ONE (18:49)
[2019-07-07] MEDS ORDERED: ALBUTEROL NEBULIZED 2.5 MG/3 ML INHALATION STA (18:49)
[2019-07-07] MEDS ORDERED: SODIUM POLYSTYRENE SULFONATE 15 GM/60 ML BOTTLE PO STA (18:50)
[2019-07-07] MEDS ORDERED: SODIUM BICARB 8.4% 50 ML SYR (1 MEQ/ML) IV STA (18:51)
--- NOTE | 2019-07-07 18:54 | CT ---
EXAMINATION TYPE: CT abdomen pelvis wo con DATE OF EXAM: 07/07/2019 COMPARISON: 03/24/2015 HISTORY: Abdominal pain and vomiting x3 days CT DLP: 577.9 mGycm Automated exposure control for dose reduction was used. Multiple axial sections were obtained from the diaphragm to the floor the pelvis with no contrast. Lung bases are clear of infiltrate. There is no pleural effusion. There is no pericardial effusion. G allbladder is absent. Bile ducts are not dilated. Liver shows no focal defect. Spleen is intact. Stom ach is intact. There is no evidence of pancreatic mass. There is no adrenal mass. Kidneys have normal size. There is no hydronephrosis. There is no retroperi toneal adenopathy. Bladder distends smoothly. There is no inguinal hernia. There is no free fluid in the pelvis. There is no mesenteric edema. There is no ascites or free air. There is no evidence of thickened appendix. There is no sign of a bowel obstruction. Abdominal aorta is atheromatous. Lumbar spine is intact. Bony pelvis is intact. There is mild narrowing of hip joint spaces. There is small umbilical hernia that contains fat. IMPRESSION: Heart appears slightly enlarged. No acute abnormality within the abdomen and pelvis. Mild atheroscler otic vascular disease. No adverse change compared to old exam.
[2019-07-07 19:03] LABS: Amorphous Sediment,Urine Occasional /hpf; Appearance,Urine Cloudy (Clear); Bacteria,Urine Many /hpf; Bilirubin,Urine Negative (Negative); Blood,Urine Moderate (Negative); Color,Urine Light Yellow; Glucose,Urine (UA) 3+ (Negative); Hyaline Casts,Urine 7 /lpf (0-2); Ketones,Urine Negative (Negative); Leukocyte Esterase,Urine Large (Negative); Mucus,Urine Rare /hpf; Nitrite,Urine Negative (Negative); Protein,Urine Negative (Negative); RBC,Urine 3 /hpf (0-5); Squamous Epithelial Cell,Urine 2 /hpf (0-4); Urobilinogen,Urine <2.0 mg/dL (<2.0); WBC,Urine >182 /hpf (0-5)
[2019-07-07] MEDS ORDERED: ONDANSETRON 4 MG/2 ML VIAL IVP PRN (19:25)
[2019-07-07] MEDS ORDERED: NALOXONE 0.4 MG/ML 1 ML VIAL IV PRN (19:25)
[2019-07-07] MEDS ORDERED: SODIUM CHLORIDE 0.9% 1,000 ML IV SCH (19:30)
[2019-07-07 19:46] LABS: Glucose,Whole Blood 219 mg/dL (75-99)
[2019-07-07 21:28] LABS: Glucose,Whole Blood 90 mg/dL (75-99)
[2019-07-07] MEDS ORDERED: DEXTROSE 5% IN WATER 1,000 ML with SODIUM BICARB (1 MEQ/ML) 150 ML IV SCH (22:30)
[2019-07-07 22:50] LABS: Calcium 10.5 mg/dL (8.4-10.2); Potassium 5.8 mmol/L (3.5-5.1)
[2019-07-08 06:03] LABS: Glucose,Whole Blood 224 mg/dL (75-99)
[2019-07-08 06:11] LABS: Basophils % (A) 0 %; Eosinophils # (A) 0.1 k/uL (0-0.7); Eosinophils % (A) 1 %; HCT 24.2 % (34.0-46.0); Lymphocytes # (A) 1.9 k/uL (1.0-4.8); Lymphocytes % (A) 18 %; MCH 30.6 pg (25.0-35.0); MCHC 32.4 g/dL (31.0-37.0); MCV 94.4 fL (80.0-100.0); Monocytes # (A) 0.7 k/uL (0-1.0); Monocytes % (A) 6 %; Neutrophils # (A) 7.6 k/uL (1.3-7.7); Neutrophils % (A) 73 %; Platelet Count 208 k/uL (150-450); RBC 2.57 m/uL (3.80-5.40); RDW 14.1 % (11.5-15.5); WBC 10.4 k/uL (3.8-10.6)
[2019-07-08 06:34] LABS: Calcium 9.8 mg/dL (8.4-10.2); Potassium 4.7 mmol/L (3.5-5.1)
[2019-07-08 07:09] LABS: HGB 7.9 gm/dL (11.4-16.0)
[2019-07-08] MEDS: PANTOPRAZOLE 40 MG/10 ML VIAL IV SCH (08:35)
[2019-07-08] MEDS: INSULIN ASPART (NovoLOG) 100 UNIT/ML VIAL SQ SCH ×4 (08:35→21:06)
[2019-07-08] MEDS ORDERED: LISINOPRIL 20 MG TAB PO SCH (09:00)
--- NOTE | 2019-07-08 09:09 | P.NPCON ---
History of Present Illness - Reason for Consult acute renal failure, hyperkalemia - History of Present Illness Reason for consultation: Acute kidney injury and hyperkalemia History of present illness: Patient is a 78-year-old female seen in renal consultation for acute kidney injury and hyperkalemia. Patient has history of chronic kidney disease stage III with creatinine of 1.8 in November 2018. Her creatinine was 2.56 on admission and is down to 2.0 today. Potassium level was 7.1 and is now normal with medical treatment. Patient presented to the hospital due to nausea vomiting and diarrhea which she states started 3 days ago. Oral intake has been poor. She was taking lisinopril and aldactone outpatient for blood pressure control. She does have history of diabetes mellitus. Denies chest pain or shortness of breath. Diarrhea and vomiting are both improved now. No fever or chills. She denies regular use of nonsteroidals. Denies family history of renal disease. No hematuria or dysuria. Hemodynamically stable. No acute abnormality noted on the CAT scan of abdomen and pelvis. Vital signs are stable. General: The patient appeared well nourished and normally developed. HEENT: Head exam is unremarkable. Neck is without jugular venous distension. LUNGS: Lungs are clear to auscultation and percussion. Breath sounds decreased. HEART: Rate and Rhythm are regular. First and second heart sounds normal. No murmurs, rubs or gallops. ABDOMEN: Abdominal exam reveals normal bowel sounds. Non-tender and non- distended. No evidence of peritonitis. EXTREMITITES: No clubbing, cyanosis, or edema. Past Medical History Past Medical History: Blood Disorder, Coronary Artery Disease (CAD), Chest Pain / Angina, Heart Failure, CVA/TIA, Diabetes Mellitus, Eye Disorder, Hyperlipidemia, Hypertension, Myocardial Infarction ([place]), Osteoarthritis (OA), Renal Disease, Syncope Additional Past Medical History / Comment(s): HX ANEMIA. DIABETIC RETINOPATHY. GOUT. SINUS PROBLEMS. CRF Last Myocardial Infarction Date:: UNKNOWN History of Any Multi-Drug Resistant Organisms: None Reported Past Surgical History: Appendectomy, Cardiac Valve Replacement, Cholecystectomy, Coronary Bypass/CABG, Hysterectomy, Tonsillectomy Additional Past Surgical History / Comment(s): TRIPLE BYPASS 1999. colonoscopy. BILAT cataract removal. TILT TABLE-+ RESULT Past Anesthesia/Blood Transfusion Reactions: No Reported Reaction Past Psychological History: No Psychological Hx Reported Additional Psychological History / Comment(s): Pt lives with her daughter, Mary. She is fairly independent. She uses a walker at times. She has no home care agency. She gets to appt with her daughter driving her or uses a cab. Smoking Status: Former smoker Past Alcohol Use History: None Reported Additional Past Alcohol Use History / Comment(s): Pt states she started smoking when she was 18 or 19yrs old and quit in 1996 Past Drug Use History: None Reported - Past Family History Father Family Medical History: Pneumonia Additional Family Medical History / Comment(s): Father had TB Mother Family Medical History: Congestive Heart Failure (CHF) Additional Family Medical History / Comment(s): Mother young of CHF Medications and Allergies Home Medications Medication Instructions Recorded Confirmed Type Raloxifene [Evista] 60 mg PO DAILY 11/05/13 07/07/19 History Allopurinol [Zyloprim] 200 mg PO DAILY 02/07/17 07/07/19 History Cinacalcet HCl [Sensipar] 30 mg PO WE 02/07/17 07/07/19 History Furosemide [Lasix] 40 mg PO DAILY 02/07/17 07/07/19 History Insuln Asp Prt/Insulin Aspart 45 units SQ HS 02/07/17 07/07/19 History [NovoLOG MIX 70-30 VIAL] Rivaroxaban [Xarelto] 20 mg PO HS 05/19/17 07/07/19 History Terazosin HCl 1 mg PO HS 05/19/17 07/07/19 History Metoprolol Tartrate [Lopressor] 50 mg PO BID tab 05/21/17 07/07/19 Rx Insuln Asp Prt/Insulin Aspart 110 unit SQ QAM 10/02/17 07/07/19 History [NovoLOG MIX 70-30 VIAL] Benazepril HCl 40 mg PO DAILY 07/07/19 07/07/19 History Spironolactone [Aldactone] 25 mg PO DAILY 07/07/19 07/07/19 History cloNIDine HCL 0.3 mg PO BID 07/07/19 07/07/19 History Allergies Allergy/AdvReac Type Severity Reaction Status Date / Time No Known Allergies Allergy Verified 07/07/19 19:42 Physical Exam Vitals: Vital Signs Temp Pulse Pulse Resp BP BP Pulse Ox 07/08/19 03:20 97.9 F 94 16 133/65 97 07/07/19 23:10 98 F 99 16 107/56 95 07/07/19 21:04 97.8 F 100 16 126/59 97 07/07/19 20:54 89 19 119/57 98 07/07/19 20:30 123/59 100 07/07/19 20:00 134/52 99 07/07/19 19:47 107 H 07/07/19 19:37 113 H 07/07/19 19:30 136/69 99 07/07/19 19:00 151/63 98 07/07/19 17:29 97.5 F L 124 H 18 144/71 98 Intake and Output 07/07/19 07/08/19 07/08/19 22:59 06:59 14:59 Intake Total 240 240 Output Total 600 Balance 240 -360 Intake: Oral 240 240 Output: Urine 600 Other: Voiding Method Toilet # Voids 1 Weight 81.647 kg Results - Lab Results Most recent lab results Calcium 9.8 mg/dL (8.4-10.2) 07/08/19 05:40 07/08/19 05:40 07/08/19 05:40 Assessment and Plan Plan: Assessment: 1. Acute kidney injury mostly prerenal secondary to intravascular volume depletion from vomiting and diarrhea and further worsened with the use of lisinopril. Creatinine was 2.56 on admission and is down to 2.0 today. 2. Metabolic acidosis secondary to acute kidney injury and diarrhea. Better. 3. Hyperkalemia secondary to acute kidney injury, metabolic acidosis, spironolactone and lisinopril. Better with medical management. 4. Chronic kidney disease stage III with baseline creatinine near 1.8 secondary to nephrosclerosis. No proteinuria noted on UA. 5. Hypercalcemia secondary to volume contraction. Patient has hypercalcemia even as outpatient and is maintained on Sensipar. 6. Nausea vomiting and diarrhea possibly due to gastroenteritis. Improved. 7. Insulin-dependent diabetes mellitus. Plan: Discontinue bicarbonate drip. Start normal saline at 50 mL an hour. Hold off on diuretics and lisinopril at this time. Add oral sodium bicarbonate. Hold off on Sensipar at this time as calcium level is in the normal range today. Repeat electrolytes in the morning. Thank you for the consultation. I will continue to follow the patient with you during her hospital stay.
[2019-07-08] MEDS: SODIUM BICARBONATE TAB 650 MG TAB PO SCH ×2 (12:05→21:06)
[2019-07-08] MEDS: SODIUM CHLORIDE 0.9% 1,000 ML IV SCH (12:05)
[2019-07-08 12:20] LABS: Glucose,Whole Blood 193 mg/dL (75-99)
[2019-07-08 17:15] LABS: Glucose,Whole Blood 167 mg/dL (75-99)
[2019-07-08 20:53] LABS: Glucose,Whole Blood 215 mg/dL (75-99)
[2019-07-08] MEDS ORDERED: RIVAROXABAN 20 MG TAB PO SCH (21:00)
--- NOTE | 2019-07-08 23:53 | HP ---
HISTORY AND PHYSICAL CHIEF COMPLAINT: Nausea, vomiting, diarrhea, dehydration and renal failure. HISTORY OF PRESENT ILLNESS: This lady developed probable viral gastroenteritis with nausea, vomiting, diarrhea. She normally has very poorly controlled diabetes and her hypertension has been well controlled of late. She has a history of CKD. In the emergency room, she was extremely dehydrated and she had a potassium over 7 and GFR was stage IV. She was admitted for rehydration. REVIEW OF SYSTEMS: She denies any neurologic problems, confusion, headaches, change in vision or hearing, chest pain, cough, hemoptysis, sputum production, orthopnea, PND, history of coronary artery disease, abdominal pain, hematemesis, melena, hematochezia, dysuria, frequency, urgency, arthralgias, etc. Past medical history, family history and personal and social histories were unchanged from her last admission. She does not smoke or drink. PHYSICAL EXAMINATION: Blood pressure is 143/79 with a pulse of 89, respirations of 35, and she is afebrile. In general, she appeared to be pale, chronically ill, very dehydrated. Head, ears, eyes, nose, mouth, throat were normal and oral mucosae were very dry. Neck is supple. Neck veins not distended. Carotids normal. Chest is clear. Cardiac exam demonstrates sinus tachycardia. Abdomen is soft and nontender without any masses or visceromegaly. Extremities are normal. Neurological she is intact. IMPRESSION: She is admitted to the hospital with diagnoses: 1. Viral gastroenteritis with intractable nausea, vomiting, diarrhea. 2. Dehydration. 3. Chronic renal failure. 4. Prerenal azotemia. 5. Poorly-controlled insulin-dependent diabetes mellitus. 6. Hypertension. 7. Hyperkalemia. PLAN: 1. Bed rest. 2. IV fluids. 3. Correct hyperkalemia. 4. Control nausea, vomiting, diarrhea. 5. Nephrology consult. MMODL / IJN: [id number] /
--- NOTE | 2019-07-08 23:56 | PN ---
PROGRESS NOTE DATE OF SERVICE: 07/08/2019. CHIEF COMPLAINT: Dehydration and renal failure. HISTORY OF PRESENT ILLNESS: This lady is feeling much better. Nausea is much improved. Vomiting stopped. Diarrhea is also stopped. PHYSICAL EXAMINATION: She is still quite dehydrated. Chest is clear. Cardiac exam is normal. Abdomen is soft, nontender. Extremities: Normal. IMPRESSION: 1. Gastroenteritis with intractable nausea, vomiting, diarrhea. 2. Dehydration. 3. Hyperkalemia. 4. Insulin-dependent diabetes mellitus. 5. Chronic renal failure. PLAN: Continue with rehydration and await any further recommendations from Nephrology at this time. MMODL / IJN: [id number] /
[2019-07-09 06:25] LABS: Glucose,Whole Blood 157 mg/dL (75-99)
[2019-07-09] MEDS: INSULIN ASPART (NovoLOG) 100 UNIT/ML VIAL SQ SCH ×4 (06:45→21:36)
[2019-07-09] MEDS: SODIUM CHLORIDE 0.9% 1,000 ML IV SCH (06:45)
[2019-07-09 06:48] LABS: Calcium 9.3 mg/dL (8.4-10.2); Magnesium 1.4 mg/dL (1.6-2.3); Potassium 4.8 mmol/L (3.5-5.1)
[2019-07-09] MEDS: SODIUM BICARBONATE TAB 650 MG TAB PO SCH ×2 (09:20→20:16)
[2019-07-09] MEDS: PANTOPRAZOLE 40 MG/10 ML VIAL IV SCH (09:20)
--- NOTE | 2019-07-09 10:32 | P.PN ---
Subjective Patient is seen in follow-up for acute kidney injury on chronic kidney disease. Renal function is improving. Creatinine 1.51 today. Oral intake is good. No vomiting or diarrhea. No chest pain or shortness of breath. Hemodynamically stable. Vital signs are stable. General: The patient appeared well nourished and normally developed. HEENT: Head exam is unremarkable. Neck is without jugular venous distension. LUNGS: Lungs are clear to auscultation and percussion. Breath sounds decreased. HEART: Rate and Rhythm are regular. First and second heart sounds normal. No murmurs, rubs or gallops. ABDOMEN: Abdominal exam reveals normal bowel sounds. Non-tender and non- distended. No evidence of peritonitis. EXTREMITITES: No clubbing, cyanosis, or edema. Objective - Vital Signs Vital signs: Vital Signs Temp 98.2 F 07/09/19 03:32 Pulse 85 07/09/19 03:32 Resp 16 07/09/19 03:32 BP 115/56 07/09/19 03:32 Pulse Ox 96 07/09/19 03:32 Intake & Output 07/08/19 07/09/19 07/09/19 18:59 06:59 18:59 Intake Total 960 Output Total 850 1000 Balance 110 -1000 Weight 76.2 kg Intake: Oral 960 Output: Urine 850 1000 Other: Voiding Method Toilet Toilet # Voids 1 - Labs CBC & Chem 7: 07/08/19 05:40 07/09/19 05:51 Labs: Abnormal Lab Results - Last 24 Hours (Table) 07/08/19 07/08/19 07/08/19 Range/Units 12:19 17:13 20:52 Chloride (98-107) mmol/L BUN (7-17) mg/dL Creatinine (0.52-1.04) mg/dL Glucose (74-99) mg/dL POC Glucose (mg/dL) 193 H 167 H 215 H (75-99) mg/dL Magnesium (1.6-2.3) mg/dL 07/09/19 07/09/19 Range/Units 05:51 06:22 Chloride 109 H (98-107) mmol/L BUN 61 H (7-17) mg/dL Creatinine 1.51 H (0.52-1.04) mg/dL Glucose 143 H (74-99) mg/dL POC Glucose (mg/dL) 157 H (75-99) mg/dL Magnesium 1.4 L (1.6-2.3) mg/dL Microbiology - Last 24 Hours (Table) 07/07/19 17:55 Urine Culture - Final Urine,Voided 07/08/19 04:30 Urine Culture - Preliminary Urine,Clean Catch Assessment and Plan Plan: Assessment: 1. Acute kidney injury mostly prerenal secondary to intravascular volume depletion from vomiting and diarrhea and further worsened with the use of lisinopril. Creatinine was 2.56 on admission and is down to 1.5 today. No proteinuria on UA. 2. Metabolic acidosis secondary to acute kidney injury and diarrhea. Better. 3. Hyperkalemia secondary to acute kidney injury, metabolic acidosis, spironolactone and lisinopril. Better with medical management. 4. Chronic kidney disease stage III with baseline creatinine near 1.8 secondary to nephrosclerosis. No proteinuria noted on UA. 5. Hypercalcemia secondary to volume contraction. Patient has hypercalcemia even as outpatient and is maintained on Sensipar. 6. Nausea vomiting and diarrhea possibly due to gastroenteritis. Improved. 7. Insulin-dependent diabetes mellitus. 8. Hypomagnesemia from poor oral intake and GI losses. Plan: Hep-Lock IV fluids. Hold off on diuretics and lisinopril at this time. Maintain oral sodium bicarbonate. Hold off on Sensipar at this time as calcium level is normal. Replace magnesium. 2 g IV today. Repeat electrolytes in the morning.
[2019-07-09 12:57] LABS: Glucose,Whole Blood 269 mg/dL (75-99)
[2019-07-09] MEDS: MAGNESIUM OXIDE 400 MG TAB PO SCH ×2 (13:03→20:16)
[2019-07-09] MEDS: METOPROLOL SUCCINATE (ER) 25 MG TAB.ER.24H PO SCH (13:03)
[2019-07-09] MEDS: MAGNESIUM SULFATE-D5W PMX 1 GM in DEXTROSE/WATER 1 100ML.BAG IVPB SCH ×2 (13:04→14:15)
--- NOTE | 2019-07-09 14:24 | CDI ---
Documentation Clarification Form Date: 07/09/2019 02:10:56 PM From: Ora Gupta CCS, CCDS Admit Date: 07/07/2019 07:25:00 PM Patient Name: Anya Mejia Visit Number: [id number] Discharge Date: ATTENTION: The Clinical Documentation Specialists (CDI) and [facility] Coding Staff appreciate your assistance in clarifying documentation. Please respond to the clarification below the line at the bottom and electronically sign. The CDI & [facility] Coding staff will review the response and follow-up if needed. Please note: Queries are made part of the Legal Health Record. If you have any questions, please contact the author of this message via ITS. Dr. Saurabh Medrano: Per the ED note & the Nephrology consult, CHF without further specificity is documented. History/Risk Factors: CAD, Angina, CVA/TIA, DM, Hyperlipidemia, Myocardial Infarction, OA, CKD III, former smoker. Clinical Indicators: Presented with nausea, vomiting & diarrhea x3 days, diagnosed with possible viral gastroenteritis. VS: T 97.5*, P 124^, R 18, BP 144/71^, PO 98 RA BMI: 28.8 BNP: Not done Echocardiogram Results (10/15/14): Atrial fibrillation, borderline concentric LVH, Left systolic function moderate-severely impaired w/EF 30-35%. RAD: CT Abdomen/Pelvis: Heart appears enlarged, Mild atherosclerotic vascular disease. Home Rx: Clonidine, Terazosin, Aldactone, Xarelto, Evista, Lopressor, insulin sq, Lasix 40 mg po, Sensipar, Benazepril, Zyloprim Treatment: IV Zofran, IV fl 100, IV fluid bolus, IM Bentyl, IV Pepcid, INH, IV Insulin, IV fluid bolus, IV Na Bicarb, IV Dextrose/Water w/Na Bicarb. Nephrology consult: JOSEPH on CKD III. Hold diuretics & Lisinopril. In your professional opinion, can you please clarify the acuity & type of CHF if known? Congestive Heart Failure ruled out Congestive Heart Failure ruled in, please specify type: o Acute, Chronic or Acute on Chronic o Systolic Heart Failure: o Diastolic Heart Failure: o Systolic & Diastolic Heart Failure: o Other, please specify: o Unable to Determine (Last Revision: September 2017) MTDD
[2019-07-09 17:07] LABS: Glucose,Whole Blood 235 mg/dL (75-99)
[2019-07-09] MEDS ORDERED: RIVAROXABAN 15 MG TAB PO SCH (21:00)
[2019-07-09 21:17] LABS: Glucose,Whole Blood 249 mg/dL (75-99)
--- NOTE | 2019-07-09 22:49 | PN ---
PROGRESS NOTE CHIEF COMPLAINT: Dehydration, renal failure, diabetes and prerenal azotemia. HISTORY OF PRESENT ILLNESS: This lady is feeling fine, is offering no complaints of chest pain, shortness of breath, abdominal pain, nausea, vomiting, etc. Vital signs are normal. She is in atrial fibrillation and her heart rate is 90 beats per minute. Hydration is slightly improved. She is still very dry. Chest is clear and the cardiac exam reveals her atrial fibrillation. Abdomen is soft, nontender. Extremities are normal. IMPRESSION: 1. Gastroenteritis with nausea, vomiting and dehydration. 2. Prerenal azotemia. 3. Chronic renal failure. 4. Hyperkalemia. PLAN: 1. Move to Med/Surg and stop telemetry. 2. Continue with hydration and monitoring of her renal function. MMODL / IJN: [id number] /
[2019-07-10 06:50] VITALS: BP 160/66; RESP 17; TEMP 98.3
[2019-07-10 06:59] LABS: Glucose,Whole Blood 194 mg/dL (75-99)
[2019-07-10 07:23] VITALS: PULSE 130
[2019-07-10] MEDS: MAGNESIUM OXIDE 400 MG TAB PO SCH (07:28)
[2019-07-10] MEDS: METOPROLOL SUCCINATE (ER) 25 MG TAB.ER.24H PO SCH (07:28)
[2019-07-10] MEDS: SODIUM BICARBONATE TAB 650 MG TAB PO SCH (07:28)
[2019-07-10] MEDS: INSULIN ASPART (NovoLOG) 100 UNIT/ML VIAL SQ SCH ×2 (07:37→11:52)
[2019-07-10 08:47] LABS: Calcium 9.9 mg/dL (8.4-10.2); Magnesium 1.8 mg/dL (1.6-2.3); Potassium 4.4 mmol/L (3.5-5.1)
[2019-07-10] MEDS ORDERED: PANTOPRAZOLE 40 MG TABLET PO SCH (09:00)
--- NOTE | 2019-07-10 10:16 | CDI ---
Documentation Clarification Form Date: 07/10/2019 10:06:31 AM From: Ora SilvestreGuptaPIERO, CCDS Admit Date: 07/07/2019 07:25:00 PM Patient Name: Anya Mejia Visit Number: [id number] Discharge Date: ATTENTION: The Clinical Documentation Specialists (CDI) and [facility] Coding Staff appreciate your assistance in clarifying documentation. Please respond to the clarification below the line at the bottom and electronically sign. The CDI & [facility] Coding staff will review the response and follow-up if needed. Please note: Queries are made part of the Legal Health Record. If you have any questions, please contact the author of this message via ITS. Dr. Saurabh Medrano: Atrial Fibrillation is documented in the 07/09 attending progress note without further specificity. History/Risk Factors: Clinical Indicators: Presented with nausea, vomiting, diarrhea, dehydration & renal failure. Diagnosed with viral gastroenteritis & JOSEPH. EKG/telemetry: R 105 sinus tachycardia. Noted to be in atrial fibrillation on telemetry 07/09 per progress note. Treatment: IV Zofran, IV fluid 100, IV fluid bolus x3, IM Bentyl, IV Pepcid, IV Insulin, IV Na Bicarb, IV Protonix. 07/08 po Xarelto. 07/09: IV Mag Sulfate, po Toprol & Xarelto. Home meds include: Xarelto, Aldactone, Evista, Lopressor, Insulin sq, Lasix, Zyloprim. Consults: Nephrology. In your professional opinion, can you please clarify the type of Atrial Fibrillation, if known? Chronic/Permanent Paroxysmal Persistent Other, please specify Unable to determine (Last Revision: September 2017) MTDD
--- NOTE | 2019-07-10 11:00 | ECHOF ---
Referral Reason:CHF MEASUREMENTS -------- HEIGHT: 162.6 cm WEIGHT: 75.7 kg BP: 140/73 RVIDd: 2.9 cm (< 3.3) IVSd: 1.2 cm (0.6 - 1.1) LVIDd: 4.9 cm (3.9 - 5.3) LVPWd: 1.2 cm (0.6 - 1.1) IVSs: 1.5 cm LVIDs: 3.0 cm LVPWs: 1.5 cm LA Diam: 3.5 cm (2.7 - 3.8) LAESV Index (A-L): 33.78 ml/m Ao Diam: 2.9 cm (2.0 - 3.7) AV Cusp: 2.0 cm (1.5 - 2.6) MV EXCURSION: 21.258 mm (> 18.000) MV EF SLOPE: 107 mm/s (70 - 150) EPSS: 0.5 cm MV E Pal: 0.82 m/s MV DecT: 232 ms MV A Pal: 0.71 m/s MV E/A Ratio: 1.15 RAP: 5.00 mmHg RVSP: 41.05 mmHg TAPSE: 18.22 mm FINDINGS -------- Sinus rhythm. This was a technically good study. The left ventricular size is normal. There is borderline concentric left ventricular hypertrophy. Overall left ventricular systolic function is normal with, an EF between 60 - 65 %. The right ventricle is normal in size. LA is midly dilated 29-33ml/m2. The right atrium is normal in size. Aneurysmal Interatrial septum. There is mild aortic valve sclerosis. The mitral valve leaflets are mildly thickened. Mild mitral annular calcification present. Mild m itral regurgitation is present. Moderate tricuspid regurgitation present. There is mild pulmonary hypertension. The right ventric ular systolic pressure, as measured by Doppler, is 41.05mmHg. Trace/mild (physiologic) pulmonic regurgitation. The aortic root size is normal. Normal inferior vena cava with normal inspiratory collapse consistent with estimated right atrial pre ssure of 5 mmHg. There is no pericardial effusion. CONCLUSIONS -------- 1. Sinus rhythm. 2. This was a technically good study. 3. The left ventricular size is normal. 4. There is borderline concentric left ventricular hypertrophy. 5. Overall left ventricular systolic function is normal with, an EF between 60 - 65 %. 6. The right ventricle is normal in size. 7. LA is midly dilated 29-33ml/m2. 8. The right atrium is normal in size. 9. Aneurysmal Interatrial septum. 10. There is mild aortic valve sclerosis. 11. The mitral valve leaflets are mildly thickened. 12. Mild mitral annular calcification present. 13. Mild mitral regurgitation is present. 14. Moderate tricuspid regurgitation present. 15. There is mild pulmonary hypertension. 16. The right ventricular systolic pressure, as measured by Doppler, is 41.05mmHg. 17. Trace/mild (physiologic) pulmonic regurgitation. 18. The aortic root size is normal. 19. Normal inferior vena cava with normal inspiratory collapse consistent with estimated right atrial pressure of 5 mmHg. 20. There is no pericardial effusion. LACE MENDER: Carolyn Morales RDCS
--- NOTE | 2019-07-10 11:10 | P.PN ---
Subjective Patient is seen in follow-up for acute kidney injury on chronic kidney disease. Renal function is improving. Creatinine 1.3 today. Oral intake is good. No vomiting or diarrhea. No chest pain or shortness of breath. Hemodynamically stable. No active complaints at this time. Vital signs are stable. General: The patient appeared well nourished and normally developed. HEENT: Head exam is unremarkable. Neck is without jugular venous distension. LUNGS: Lungs are clear to auscultation and percussion. Breath sounds decreased. HEART: Rate and Rhythm are regular. First and second heart sounds normal. No murmurs, rubs or gallops. ABDOMEN: Abdominal exam reveals normal bowel sounds. Non-tender and non- distended. No evidence of peritonitis. EXTREMITITES: No clubbing, cyanosis, or edema. Objective - Vital Signs Vital signs: Vital Signs Temp 98.3 F 07/10/19 06:49 Pulse 130 H 07/10/19 07:15 Resp 17 07/10/19 06:49 BP 160/66 07/10/19 06:49 Pulse Ox 95 07/10/19 06:49 Intake & Output 07/09/19 07/10/19 07/10/19 18:59 06:59 18:59 Intake Total 580 240 220 Output Total 900 Balance -320 240 220 Intake: Oral 580 240 220 Output: Urine 900 Other: Voiding Method Toilet Toilet Toilet # Voids 2 2 - Labs CBC & Chem 7: 07/08/19 05:40 07/10/19 07:55 Labs: Abnormal Lab Results - Last 24 Hours (Table) 07/09/19 07/09/19 07/09/19 Range/Units 12:24 17:05 21:12 BUN (7-17) mg/dL Creatinine (0.52-1.04) mg/dL Glucose (74-99) mg/dL POC Glucose (mg/dL) 269 H 235 H 249 H (75-99) mg/dL 07/10/19 07/10/19 Range/Units 06:57 07:55 BUN 34 H (7-17) mg/dL Creatinine 1.30 H (0.52-1.04) mg/dL Glucose 190 H (74-99) mg/dL POC Glucose (mg/dL) 194 H (75-99) mg/dL Microbiology - Last 24 Hours (Table) 07/08/19 04:30 Urine Culture - Final Urine,Clean Catch Assessment and Plan Plan: Assessment: 1. Acute kidney injury mostly prerenal secondary to intravascular volume depletion from vomiting and diarrhea and further worsened with the use of lisinopril. Creatinine was 2.56 on admission and is down to 1.3 today. No proteinuria on UA. 2. Metabolic acidosis secondary to acute kidney injury and diarrhea. Better. 3. Hyperkalemia secondary to acute kidney injury, metabolic acidosis, spironolactone and lisinopril. Better with medical management. 4. Chronic kidney disease stage III with baseline creatinine near 1.8 secondary to nephrosclerosis. No proteinuria noted on UA. 5. Hypercalcemia secondary to volume contraction. Patient has hypercalcemia even as outpatient and is maintained on Sensipar. 6. Nausea vomiting and diarrhea possibly due to gastroenteritis. Improved. 7. Insulin-dependent diabetes mellitus. 8. Hypomagnesemia from poor oral intake and GI losses. Better. 9. Hypertension with chronic kidney disease. Plan: Discontinue sodium bicarbonate. Hold off on Sensipar at this time as calcium level is normal. Resume lisinopril 20 mg once daily. Hold off on Lasix at this time. If notices worsening of edema or greater than 3 pound weight gain then she can resume Lasix 40 mg orally once daily. She will follow-up with her PCP next week and in our office in 1-2 weeks.
[2019-07-10] MEDS ORDERED: LISINOPRIL 20 MG TAB PO SCH (11:15)
[2019-07-10] MEDS ORDERED: BISACODYL 5 MG TABLET.DR PO STA (11:17)
[2019-07-10 11:51] LABS: Glucose,Whole Blood 274 mg/dL (75-99)
--- NOTE | 2019-07-11 07:23 | DS ---
DISCHARGE SUMMARY CHIEF COMPLAINT: Nausea and diarrhea, dehydration, hyperkalemia, and renal failure. HISTORY OF PRESENT ILLNESS AND PHYSICAL EXAM: Details of this lady's history and physical can be found in the initial workup. LABORATORY STUDIES: While she was in the hospital, she had laboratory studies, details of which can be found in the laboratory section of her chart. COURSE IN HOSPITAL: After admission, she was placed on bedrest, started on intravenous fluids and watched and followed by Nephrology. As she rehydrated, her kidney function improved and returned to baseline. She is doing well and it was felt that she could be discharged on 07/10 and she will go home on her usual activity and diet and medications except she will be kept off Aldactone. She will be followed up in the office in a few days. FINAL DIAGNOSES: 1. Viral gastroenteritis. 2. Dehydration. 3. Intractable nausea and vomiting. 4. Hyperkalemia. 5. Chronic renal failure. 6. Prerenal azotemia. 7. Insulin-dependent diabetes mellitus. OPERATIONS: None. CONSULTATIONS: Nephrology. She is improved. MMODL / LUCIANN: [id number] /
--- NOTE | 2019-07-16 10:46 | MISC ---
MISCELLANOUS REPORT Congestive heart failure, ruled in systolic and diastolic. Atrial fib, chronic permanent. MMODL / IJN: [id number] /
== END 2019-07-10 13:30 | disposition home or self-care (01) | DRG 392 ==
LOC: EC 17:27 → 3SCARD 19:25 → 6NMEDSUR 07-09 14:40
PROVIDERS: ADMIT Family Medicine; ATTEND Family Medicine
DX: A08.4 Viral intestinal infection, unspecified (principal); E87.2 Acidosis; N17.9 Acute kidney failure, unspecified; I13.0 Hypertensive heart and chronic kidney disease with heart failure and stage 1 through stage 4 chronic kidney disease, or unspecified chronic kidney disease; I50.42 Chronic combined systolic (congestive) and diastolic (congestive) heart failure; I48.20 Chronic atrial fibrillation, unspecified; E11.22 Type 2 diabetes mellitus with diabetic chronic kidney disease; E11.319 Type 2 diabetes mellitus with unspecified diabetic retinopathy without macular edema; E11.65 Type 2 diabetes mellitus with hyperglycemia; E78.5 Hyperlipidemia, unspecified; E83.42 Hypomagnesemia; E83.52 Hypercalcemia; E86.0 Dehydration; E87.5 Hyperkalemia; I25.10 Atherosclerotic heart disease of native coronary artery without angina pectoris; I25.2 Old myocardial infarction; N18.3 Chronic kidney disease, stage 3 (moderate); Z79.01 Long term (current) use of anticoagulants; Z79.4 Long term (current) use of insulin; Z79.899 Other long term (current) drug therapy; Z82.49 Family history of ischemic heart disease and other diseases of the circulatory system; Z86.73 Personal history of transient ischemic attack (TIA), and cerebral infarction without residual deficits; Z87.891 Personal history of nicotine dependence; Z90.710 Acquired absence of both cervix and uterus; Z90.49 Acquired absence of other specified parts of digestive tract; Z95.1 Presence of aortocoronary bypass graft; Z95.2 Presence of prosthetic heart valve
CPT/HCPCS: 36415; 74176; 80048; 80053; 81001; 82009; 82150; 83690; 83735; 83880; 85025; 85610; 85730; 87086; 93005; 93306; 94640; 96361; 96372; 96374; 96375; 99291

== ENCOUNTER 2019-07-17 04:25 | Emergency (ER) | payer MEDICARE, OTHER ==
[2019-07-17 04:35] VITALS: RESP 20
[2019-07-17 04:40] LABS: Glucose,Whole Blood 96 mg/dL (75-99)
--- NOTE | 2019-07-17 04:53 | ED ---
Recheck HPI - General Chief Complaint: Recheck/Abnormal Lab/Rx Stated Complaint: Altered Mental Status DM1 Source: EMS Mode of arrival: EMS Limitations: no limitations - History of Present Illness Initial Comments: Anya wilkerson 78-year-old female insulin-dependent diabetic is brought to the ER today for evaluation of hypoglycemia. Per family the patient seemed to be altered this morning not making any sense, she got very pale and diaphoretic, they checked her sugar noted that it was in the 40s. EMS was contacted. They did attempt to give the patient oral glucose and upon EMS arrival patient was still somewhat confused but her glucose was in the 90s, she was able take 2 more tubes of oral glucose and her mental status improved. Patient did take her normal insulin yesterday evening after eating [facility] for dinner but she did not have a bedtime snack which she usually has. She also manages her own insulin and there is possibility that she had a double dose prior to going to bed. - Related Data Home Medications Medication Instructions Recorded Confirmed Raloxifene [Evista] 60 mg PO DAILY 11/05/13 07/07/19 Allopurinol [Zyloprim] 200 mg PO DAILY 02/07/17 07/07/19 Cinacalcet HCl [Sensipar] 30 mg PO WE 02/07/17 07/07/19 Furosemide [Lasix] 40 mg PO DAILY 02/07/17 07/07/19 Insuln Asp Prt/Insulin Aspart 45 units SQ HS 02/07/17 07/07/19 [NovoLOG MIX 70-30 VIAL] Rivaroxaban [Xarelto] 20 mg PO HS 05/19/17 07/07/19 Benazepril HCl 40 mg PO DAILY 07/07/19 07/07/19 Previous Rx's Medication Instructions Recorded Metoprolol Tartrate [Lopressor] 50 mg PO BID tab 05/21/17 Magnesium Oxide [Mag-Ox] 400 mg PO BID #60 tab 07/10/19 Allergies Allergy/AdvReac Type Severity Reaction Status Date / Time No Known Allergies Allergy Verified 07/17/19 04:35 Review of Systems ROS Statement: Those systems with pertinent positive or pertinent negative responses have been documented in the HPI. ROS Other: All systems not noted in ROS Statement are negative. Past Medical History Past Medical History: Blood Disorder, Coronary Artery Disease (CAD), Chest Pain / Angina, Heart Failure, CVA/TIA, Diabetes Mellitus, Eye Disorder, Hyperlipidemia, Hypertension, Myocardial Infarction (ID), Osteoarthritis (OA), Renal Disease, Syncope Additional Past Medical History / Comment(s): HX ANEMIA. DIABETIC RETINOPATHY. GOUT. SINUS PROBLEMS. CRF Last Myocardial Infarction Date:: UNKNOWN History of Any Multi-Drug Resistant Organisms: None Reported Past Surgical History: Appendectomy, Cardiac Valve Replacement, Cholecystectomy, Coronary Bypass/CABG, Hysterectomy, Tonsillectomy Additional Past Surgical History / Comment(s): TRIPLE BYPASS 2000. colonoscopy. BILAT cataract removal. TILT TABLE-+ RESULT Past Anesthesia/Blood Transfusion Reactions: No Reported Reaction Past Psychological History: No Psychological Hx Reported Smoking Status: Former smoker Past Alcohol Use History: None Reported Past Drug Use History: None Reported - Past Family History Father Family Medical History: Pneumonia Additional Family Medical History / Comment(s): Father had TB Mother Family Medical History: Congestive Heart Failure (CHF) Additional Family Medical History / Comment(s): Mother young of CHF General Exam - General Exam Comments Initial Comments: Physical Exam GENERAL: Patient is well-developed and well-nourished. Patient is nontoxic and well-hydrated and is in no distress. HENT: Normocephalic, Atraumatic. EYES: PERRL, EOMI PULMONARY: Unlabored respirations. CARDIOVASCULAR: RRR Warm and well perfused extremities ABDOMEN: Non-distended SKIN: No rashes or bruising : Deferred NEUROLOGIC: Alert and oriented Normal speech Normal gait MUSCULOSKELETAL: Moving all extremities with no apparent injury PSYCHIATRIC: No SI/HI Limitations: no limitations Course Vital Signs 07/17/19 07/17/19 04:33 06:25 Pulse Rate 68 62 Respiratory 20 20 Rate Blood Pressure 169/68 144/98 O2 Sat by Pulse 99 98 Oximetry Medical Decision Making - Medical Decision Making The patient was seen and evaluated history was obtained from patient, history, medical record and EMS 78-year-old female insulin-dependent diabetic had a hypoglycemic episode with altered mental status at home today this resolved with oral glucose she is now back to her baseline she was recently admitted for dehydration and acute kidney injury with urinary tract infection therefore we will repeat urinalysis today, patient is awake alert oriented she's eating bread with peanut butter and drinking apple juice The patient ate 2 pieces of bread with peanut butter she drink 2 boxes of apple juice she was observed for 2 hours and remained awake alert oriented family is comfortable with plan for discharge home at this time Patient did provide a urine sample however was eager for discharge home and chose to be discharged prior to results - Lab Data Lab Results 07/17/19 07/17/19 Range/Units 04:39 05:41 POC Glucose (mg/dL) 96 101 H (75-99) mg/dL POC Glu Materials Analyst ID Dora Roy Frankie Lucia Disposition Clinical Impression: Hypoglycemia due to insulin Disposition: HOME SELF-CARE Condition: Stable Instructions (If sedation given, give patient instructions): Hypoglycemia in a Person with Diabetes (ED) Is patient prescribed a controlled substance at d/c from ED?: No Referrals: Saurabh Medrano MD [Primary Care Provider] - 1-2 days
[2019-07-17 05:45] LABS: Glucose,Whole Blood 101 mg/dL (75-99)
[2019-07-17 06:38] VITALS: BP 144/98; PULSE 62
== END 2019-07-17 06:38 | disposition home or self-care (01) ==
LOC: EC 04:25
DX: E10.649 Type 1 diabetes mellitus with hypoglycemia without coma (principal); T38.3X5A Adverse effect of insulin and oral hypoglycemic [antidiabetic] drugs, initial encounter; I25.119 Atherosclerotic heart disease of native coronary artery with unspecified angina pectoris; I13.0 Hypertensive heart and chronic kidney disease with heart failure and stage 1 through stage 4 chronic kidney disease, or unspecified chronic kidney disease; I50.9 Heart failure, unspecified; N18.9 Chronic kidney disease, unspecified; E10.22 Type 1 diabetes mellitus with diabetic chronic kidney disease; I25.2 Old myocardial infarction; M10.9 Gout, unspecified; E10.319 Type 1 diabetes mellitus with unspecified diabetic retinopathy without macular edema; D63.1 Anemia in chronic kidney disease; Z87.891 Personal history of nicotine dependence; Z79.01 Long term (current) use of anticoagulants; Z79.4 Long term (current) use of insulin; Z79.899 Other long term (current) drug therapy; Z86.73 Personal history of transient ischemic attack (TIA), and cerebral infarction without residual deficits; Z95.1 Presence of aortocoronary bypass graft; Z95.2 Presence of prosthetic heart valve
CPT/HCPCS: 36415; 99285

== ENCOUNTER → 2019-07-29 | Outpatient (CLI) | payer MEDICARE, OTHER ==
--- NOTE | 2019-07-30 08:05 | US ---
EXAMINATION TYPE: US kidneys/renal and bladder DATE OF EXAM: 07/29/2019 COMPARISON: CT 07/07/2019, US 02/19/2017 CLINICAL HISTORY: N18.3 Chronic kidney disease, stage 3 (moderate). Diabetic EXAM MEASUREMENTS: Right Kidney: 9.7 x 48 x 4.9 cm Left Kidney: 11.5x 5.5 x 4.2 cm Post Void Residual Volume: 150.0 mL Right Kidney: superior pole cyst was seen = 2.3 x 1.8 x 1.9cm as seen on the recent CT; hypoechoic cr escent shaped area noted adjacent to renal periphery suggests sonographic "sweat sign" for renal fail ure. Left Kidney: No hydronephrosis or masses seen Bladder: wnl Bilateral Jets seen: no,only left ureteral jet was seen Normal Post Void Residual: abnormal post void volume as is greater than 50.0ml There is no evidence for hydronephrosis at this point in time. Very mild cortical thinning bilaterall y. No nephrolithiasis is seen. No masses are identified. The urinary bladder is anechoic. IMPRESSION: 1. Abnormal post void residual in the urinary bladder of 150 mL. 2. Right renal cyst appears benign, Bosniak type I. 3. Very mild cortical thinning bilaterally, sequela of chronic medical renal disease. 4. Sonographic "sweat sign" can be seen in renal failure and is noted on the right.
== END | disposition home or self-care (01) ==
LOC: RADUSWWP 16:03
PROVIDERS: ATTEND Internal Medicine Nephrology
DX: N19 Unspecified kidney failure (principal); N28.1 Cyst of kidney, acquired; N32.89 Other specified disorders of bladder
CPT/HCPCS: 76770

== ENCOUNTER 2019-10-10 08:13 | Observation (INO) | payer MEDICARE, OTHER ==
--- NOTE | 2019-10-10 08:36 | ED ---
General Adult HPI - General Chief complaint: Shortness of Breath Stated complaint: SOB Time Seen by Provider: 10/10/19 08:19 Source: patient, RN notes reviewed Mode of arrival: ambulatory Limitations: no limitations - History of Present Illness Initial comments: Patient is a pleasant 79-year-old female presenting to the emergency department with difficulty breathing. Onset of symptoms was a couple of days ago. Patient is somewhat a poor historian. Patient does have some leg edema however states is fairly chronic for her. Patient has known history of CHF. Patient states dyspnea worsens with lying flat and somewhat with exertion. No chest pain. Symptoms are mild at this time. - Related Data Home Medications Medication Instructions Recorded Confirmed Raloxifene [Evista] 60 mg PO DAILY 11/05/13 07/07/19 Allopurinol [Zyloprim] 200 mg PO DAILY 02/07/17 07/07/19 Cinacalcet HCl [Sensipar] 30 mg PO WE 02/07/17 07/07/19 Furosemide [Lasix] 40 mg PO DAILY 02/07/17 07/07/19 Insuln Asp Prt/Insulin Aspart 45 units SQ HS 02/07/17 07/07/19 [NovoLOG MIX 70-30 VIAL] Rivaroxaban [Xarelto] 20 mg PO HS 05/19/17 07/07/19 Benazepril HCl 40 mg PO DAILY 07/07/19 07/07/19 Previous Rx's Medication Instructions Recorded Metoprolol Tartrate [Lopressor] 50 mg PO BID tab 05/21/17 Magnesium Oxide [Mag-Ox] 400 mg PO BID #60 tab 07/10/19 Allergies Allergy/AdvReac Type Severity Reaction Status Date / Time No Known Allergies Allergy Verified 10/10/19 08:24 Review of Systems ROS Statement: Those systems with pertinent positive or pertinent negative responses have been documented in the HPI. ROS Other: All systems not noted in ROS Statement are negative. Constitutional: Denies: fever Eyes: Denies: eye pain ENT: Denies: ear pain Respiratory: Reports: as per HPI, dyspnea Cardiovascular: Reports: edema. Denies: chest pain Endocrine: Reports: fatigue Gastrointestinal: Denies: abdominal pain Genitourinary: Denies: dysuria Musculoskeletal: Denies: back pain Skin: Denies: rash Neurological: Denies: weakness Past Medical History Past Medical History: Blood Disorder, Coronary Artery Disease (CAD), Chest Pain / Angina, Heart Failure, CVA/TIA, Diabetes Mellitus, Eye Disorder, Hyperlipidemia, Hypertension, Myocardial Infarction (AK), Osteoarthritis (OA), Renal Disease, Syncope Additional Past Medical History / Comment(s): HX ANEMIA. DIABETIC RETINOPATHY. GOUT. SINUS PROBLEMS. CRF Last Myocardial Infarction Date:: UNKNOWN History of Any Multi-Drug Resistant Organisms: None Reported Past Surgical History: Appendectomy, Cardiac Valve Replacement, Cholecystectomy, Coronary Bypass/CABG, Hysterectomy, Tonsillectomy Additional Past Surgical History / Comment(s): TRIPLE BYPASS 2000. colonoscopy. BILAT cataract removal. TILT TABLE-+ RESULT Past Anesthesia/Blood Transfusion Reactions: No Reported Reaction Past Psychological History: No Psychological Hx Reported Smoking Status: Former smoker Past Alcohol Use History: None Reported Past Drug Use History: None Reported - Past Family History Father Family Medical History: Pneumonia Additional Family Medical History / Comment(s): Father had TB Mother Family Medical History: Congestive Heart Failure (CHF) Additional Family Medical History / Comment(s): Mother young of CHF General Exam Limitations: no limitations General appearance: alert, in no apparent distress Head exam: Present: normocephalic Eye exam: Present: normal appearance Respiratory exam: Present: decreased breath sounds Cardiovascular Exam: Present: regular rate, normal rhythm GI/Abdominal exam: Present: soft. Absent: tenderness Extremities exam: Present: pedal edema (+2 bilaterally). Absent: calf tendernes s Back exam: Present: normal inspection Neurological exam: Present: alert Psychiatric exam: Present: normal affect, normal mood Skin exam: Present: normal color Course Vital Signs 10/10/19 10/10/19 10/10/19 08:18 09:40 10:14 Temperature 97.5 F L Pulse Rate 88 65 Respiratory 18 16 22 Rate Blood Pressure 162/92 160/96 O2 Sat by Pulse 100 96 Oximetry EKG Findings - EKG Comments: EKG Findings:: Normal sinus rhythm 87. CA 200. QRS 96. QT 406. QTc 48. Norm al axis. Normal QRS. No acute ST change. Medical Decision Making - Medical Decision Making Patient reevaluated and updated. Dr. Medrano has been paged for admission of this patient - Lab Data Result diagrams: 10/10/19 08:41 10/10/19 08:41 Lab Results 10/10/19 10/10/19 10/10/19 Range/Units 08:41 08:41 08:41 WBC 6.9 (3.8-10.6) k/uL RBC 3.59 L (3.80-5.40) m/uL Hgb 10.5 L (11.4-16.0) gm/dL Hct 34.4 (34.0-46.0) % MCV 95.9 (80.0-100.0) fL MCH 29.2 (25.0-35.0) pg MCHC 30.4 L (31.0-37.0) g/dL RDW 15.3 (11.5-15.5) % Plt Count 265 (150-450) k/uL Neutrophils % 64 % Lymphocytes % 26 % Monocytes % 7 % Eosinophils % 1 % Basophils % 0 % Neutrophils # 4.4 (1.3-7.7) k/uL Lymphocytes # 1.8 (1.0-4.8) k/uL Monocytes # 0.5 (0-1.0) k/uL Eosinophils # 0.0 (0-0.7) k/uL Basophils # 0.0 (0-0.2) k/uL Hypochromasia Marked PT 14.9 H (9.0-12.0) sec INR 1.5 H (<1.2) APTT 34.4 H (22.0-30.0) sec D-Dimer 0.99 H (<0.60) mg/L FEU Sodium 136 L (137-145) mmol/L Potassium 4.8 (3.5-5.1) mmol/L Chloride 105 (98-107) mmol/L Carbon Dioxide 21 L (22-30) mmol/L Anion Gap 10 mmol/L BUN 36 H (7-17) mg/dL Creatinine 1.25 H (0.52-1.04) mg/dL Est GFR (CKD-EPI)AfAm 48 (>60 ml/min/1.73 sqM) Est GFR (CKD-EPI)NonAf 42 (>60 ml/min/1.73 sqM) Glucose 339 H (74-99) mg/dL POC Glucose (mg/dL) (75-99) mg/dL POC Glu Felt Finishing Supervisor ID Plasma Lactic Acid Rick (0.7-2.0) mmol/L Calcium 9.5 (8.4-10.2) mg/dL Magnesium 1.8 (1.6-2.3) mg/dL Total Bilirubin 0.3 (0.2-1.3) mg/dL AST 18 (14-36) U/L ALT 14 (4-34) U/L Alkaline Phosphatase 105 (38-126) U/L Lactate Dehydrogenase 382 (313-618) U/L Troponin I (0.000-0.034) ng/mL C-Reactive Protein 11.4 H (<10.0) mg/L NT-Pro-B Natriuret Pep pg/mL Total Protein 6.3 (6.3-8.2) g/dL Albumin 3.4 L (3.5-5.0) g/dL Coronavirus (PCR) (Not Detectd) 10/10/19 10/10/19 10/10/19 Range/Units 08:41 08:41 08:41 WBC (3.8-10.6) k/uL RBC (3.80-5.40) m/uL Hgb (11.4-16.0) gm/dL Hct (34.0-46.0) % MCV (80.0-100.0) fL MCH (25.0-35.0) pg MCHC (31.0-37.0) g/dL RDW (11.5-15.5) % Plt Count (150-450) k/uL Neutrophils % % Lymphocytes % % Monocytes % % Eosinophils % % Basophils % % Neutrophils # (1.3-7.7) k/uL Lymphocytes # (1.0-4.8) k/uL Monocytes # (0-1.0) k/uL Eosinophils # (0-0.7) k/uL Basophils # (0-0.2) k/uL Hypochromasia PT (9.0-12.0) sec INR (<1.2) APTT (22.0-30.0) sec D-Dimer (<0.60) mg/L FEU Sodium (137-145) mmol/L Potassium (3.5-5.1) mmol/L Chloride (98-107) mmol/L Carbon Dioxide (22-30) mmol/L Anion Gap mmol/L BUN (7-17) mg/dL Creatinine (0.52-1.04) mg/dL Est GFR (CKD-EPI)AfAm (>60 ml/min/1.73 sqM) Est GFR (CKD-EPI)NonAf (>60 ml/min/1.73 sqM) Glucose (74-99) mg/dL POC Glucose (mg/dL) (75-99) mg/dL POC Glu Felt Finishing Supervisor ID Plasma Lactic Acid Rick 2.1 H* (0.7-2.0) mmol/L Calcium (8.4-10.2) mg/dL Magnesium (1.6-2.3) mg/dL Total Bilirubin (0.2-1.3) mg/dL AST (14-36) U/L ALT (4-34) U/L Alkaline Phosphatase (38-126) U/L Lactate Dehydrogenase (313-618) U/L Troponin I <0.012 (0.000-0.034) ng/mL C-Reactive Protein (<10.0) mg/L NT-Pro-B Natriuret Pep 23458 pg/mL Total Protein (6.3-8.2) g/dL Albumin (3.5-5.0) g/dL Coronavirus (PCR) (Not Detectd) 10/10/19 10/10/19 Range/Units 08:41 09:37 WBC (3.8-10.6) k/uL RBC (3.80-5.40) m/uL Hgb (11.4-16.0) gm/dL Hct (34.0-46.0) % MCV (80.0-100.0) fL MCH (25.0-35.0) pg MCHC (31.0-37.0) g/dL RDW (11.5-15.5) % Plt Count (150-450) k/uL Neutrophils % % Lymphocytes % % Monocytes % % Eosinophils % % Basophils % % Neutrophils # (1.3-7.7) k/uL Lymphocytes # (1.0-4.8) k/uL Monocytes # (0-1.0) k/uL Eosinophils # (0-0.7) k/uL Basophils # (0-0.2) k/uL Hypochromasia PT (9.0-12.0) sec INR (<1.2) APTT (22.0-30.0) sec D-Dimer (<0.60) mg/L FEU Sodium (137-145) mmol/L Potassium (3.5-5.1) mmol/L Chloride (98-107) mmol/L Carbon Dioxide (22-30) mmol/L Anion Gap mmol/L BUN (7-17) mg/dL Creatinine (0.52-1.04) mg/dL Est GFR (CKD-EPI)AfAm (>60 ml/min/1.73 sqM) Est GFR (CKD-EPI)NonAf (>60 ml/min/1.73 sqM) Glucose (74-99) mg/dL POC Glucose (mg/dL) 329 H (75-99) mg/dL POC Glu Felt Finishing Supervisor ID Brittany Freire Plasma Lactic Acid Rick (0.7-2.0) mmol/L Calcium (8.4-10.2) mg/dL Magnesium (1.6-2.3) mg/dL Total Bilirubin (0.2-1.3) mg/dL AST (14-36) U/L ALT (4-34) U/L Alkaline Phosphatase (38-126) U/L Lactate Dehydrogenase (313-618) U/L Troponin I (0.000-0.034) ng/mL C-Reactive Protein (<10.0) mg/L NT-Pro-B Natriuret Pep pg/mL Total Protein (6.3-8.2) g/dL Albumin (3.5-5.0) g/dL Coronavirus (PCR) Not Detected (Not Detectd) - Radiology Data Radiology results: report reviewed (CT angios chest negative for pulmonary embolism. Moderate to large right-sided effusion.), image reviewed (Chest x-ray shows cardiomegaly. Right base infiltrate with large effusion.) Disposition Clinical Impression: Pleural effusion, Congestive heart failure Disposition: ADMITTED IP TO THIS HOSP Is patient prescribed a controlled substance at d/c from ED?: No Referrals: Saurabh Medrano MD [Primary Care Provider] - 1-2 days Decision Time: 10:53
--- NOTE | 2019-10-10 08:59 | XR ---
EXAMINATION TYPE: XR chest 1V portable DATE OF EXAM: 10/10/2019 HISTORY: Suspected COVID-19 pneumonia. REFERENCE: Previous study dated 05/19/2017. FINDINGS: There has been a midline sternotomy. The heart is enlarged. There is a prominent right-sided pleural effusion. There is a new finding. The re is concomitant airspace disease in the right lung base. The left lung appears clear. IMPRESSION: 1. CARDIOMEGALY. 2. RIGHT BASILAR AIRSPACE DISEASE WITH A LARGE CONCOMITANT EFFUSION.
[2019-10-10 09:03] LABS: Basophils % (A) 0 %; Eosinophils % (A) 1 %; HCT 34.4 % (34.0-46.0); HGB 10.5 gm/dL (11.4-16.0); Hypochromasia Marked; Lymphocytes # (A) 1.8 k/uL (1.0-4.8); Lymphocytes % (A) 26 %; MCH 29.2 pg (25.0-35.0); MCHC 30.4 g/dL (31.0-37.0); MCV 95.9 fL (80.0-100.0); Mean Platelet Volume 8.1; Monocytes # (A) 0.5 k/uL (0-1.0); Monocytes % (A) 7 %; Neutrophils # (A) 4.4 k/uL (1.3-7.7); Neutrophils % (A) 64 %; Platelet Count 265 k/uL (150-450); RBC 3.59 m/uL (3.80-5.40); RDW 15.3 % (11.5-15.5); WBC 6.9 k/uL (3.8-10.6)
[2019-10-10 09:06] LABS: Albumin 3.4 g/dL (3.5-5.0); C Reactive Protein 11.4 mg/L (<10.0); Calcium 9.5 mg/dL (8.4-10.2); Magnesium 1.8 mg/dL (1.6-2.3); Potassium 4.8 mmol/L (3.5-5.1); Total Bilirubin 0.3 mg/dL (0.2-1.3); Total Protein 6.3 g/dL (6.3-8.2)
[2019-10-10 09:28] LABS: INR 1.5 (<1.2); Partial Thromboplastin Time 34.4 sec (22.0-30.0); Prothrombin Time 14.9 sec (9.0-12.0)
[2019-10-10 09:33] LABS: D-Dimer 0.99 mg/L FEU (<0.60)
[2019-10-10] MEDS: INSULIN ASPART (NovoLOG) 100 UNIT/ML VIAL SQ SCH ×4 (09:39→21:18)
[2019-10-10 09:47] LABS: Glucose,Whole Blood 329 mg/dL (75-99)
--- NOTE | 2019-10-10 10:39 | CT ---
EXAMINATION TYPE: CT angio chest DATE OF EXAM: 10/10/2019 10:21 AM COMPARISON: None. HISTORY: SOB, Dyspnea and PE Protocol CT DLP: 488.5 mGycm Automated exposure control for dose reduction was used. CONTRAST: CTA scan of the thorax is performed without and with IV Contrast, patient injected with 100 ml mL of Isovue 370, pulmonary embolism protocol. . FINDINGS: There is a large right-sided pleural effusion. There is associated relaxation atelectasis. There is no significant axillary, internal mammary, mediastinal or hilar adenopathy. There is no laila cardial effusion the heart is enlarged. There is no evidence of pulmonary embolus. There is a small hiatal hernia. Within the abdomen there is a small amount of ascites. There is a 1.9 cm, simple appearing right uppe r pole renal cyst. The gallbladder has been removed. There is mild hypertrophic spondylosis within the spine. IMPRESSION: #1 THIS EXAMINATION IS NEGATIVE FOR PULMONARY EMBOLUS. 2. MODERATE RIGHT-SIDED PLEURAL EFFUSION. 3. CARDIOMEGALY. 4. RIGHT RENAL CYST. 5. MILD DEGENERATIVE CHANGE WITHIN THE SPINE.
[2019-10-10] MEDS ORDERED: ASPIRIN 325 MG TAB PO STA (10:53)
[2019-10-10] MEDS: FUROSEMIDE 10 MG/ML 4 ML VIAL IV SCH ×2 (10:59→19:44)
[2019-10-10] MEDS ORDERED: FUROSEMIDE 40 MG TAB PO SCH (11:30)
[2019-10-10 12:28] VITALS: BMI 34.1
[2019-10-10 12:40] LABS: Glucose,Whole Blood 180 mg/dL (75-99)
[2019-10-10] MEDS: NITROGLYCERIN OINT 1 INCH/GM PACKET TOPICAL SCH ×3 (13:16→21:18)
[2019-10-10] MEDS: LISINOPRIL 20 MG TAB PO SCH (13:16)
[2019-10-10 16:49] LABS: Glucose,Whole Blood 183 mg/dL (75-99)
[2019-10-10 20:58] LABS: Glucose,Whole Blood 238 mg/dL (75-99)
[2019-10-10] MEDS: MAGNESIUM OXIDE 400 MG TAB PO SCH (21:18)
[2019-10-10] MEDS: RIVAROXABAN 20 MG TAB PO SCH (21:18)
[2019-10-10] MEDS: METOPROLOL TARTRATE 50 MG TAB PO SCH (21:18)
[2019-10-10] MEDS: INSULN ASP PRT/INSULIN ASPART 100 UNIT/ML 10 ML VIAL SQ SCH (21:19)
[2019-10-11] MEDS: FUROSEMIDE 10 MG/ML 4 ML VIAL IV SCH ×3 (03:29→19:17)
[2019-10-11 06:55] LABS: Glucose,Whole Blood 86 mg/dL (75-99)
[2019-10-11 07:02] LABS: Albumin 3.1 g/dL (3.5-5.0); Calcium 9.5 mg/dL (8.4-10.2); Total Bilirubin 0.2 mg/dL (0.2-1.3); Total Protein 5.9 g/dL (6.3-8.2)
[2019-10-11] MEDS: INSULIN ASPART (NovoLOG) 100 UNIT/ML VIAL SQ SCH ×4 (07:41→20:37)
[2019-10-11] MEDS ORDERED: ASPIRIN 325 MG TAB PO SCH (09:00)
[2019-10-11] MEDS: NITROGLYCERIN OINT 1 INCH/GM PACKET TOPICAL SCH ×4 (09:05→20:37)
[2019-10-11] MEDS: LISINOPRIL 20 MG TAB PO SCH (09:06)
[2019-10-11] MEDS: METOPROLOL TARTRATE 50 MG TAB PO SCH ×2 (09:06→20:37)
[2019-10-11] MEDS: MAGNESIUM OXIDE 400 MG TAB PO SCH ×2 (09:06→20:37)
[2019-10-11] MEDS: ALLOPURINOL 100 MG TAB PO SCH (09:06)
[2019-10-11 11:35] LABS: Glucose,Whole Blood 193 mg/dL (75-99)
[2019-10-11 17:42] LABS: Glucose,Whole Blood 295 mg/dL (75-99)
--- NOTE | 2019-10-11 17:54 | P.CRDCN ---
History of Present Illness Consult date: 10/11/19 History of present illness: This is Dr. NICHOLS dictating a consult note on this patient Impression:Impression Congestive heart failure That sternal border of the apex Pleural effusion Hypertension Diabetes type 2 Plan: Continue XARELTO Continue antihypertensivTherapy Continue IV Lasix 2-D echo Doppler study History of present illness: Patient presents to the emergency room with difficulty breathing for the last several days It was worse when she lay flat and with exertion She has a history of diabetes She takes XARELTO She has hypertension and dyslipidemia history of CAD and MS and diabetic retinopathy Review of systems No fever chills or rigors No cough phlegm or expectoration No nausea vomiting or diarrhea No hematuria dysuria No muscular skeletal complaints No neurologic complaints No skin lesions On examination Vitals Afebrile 97.6F pulse rate in the 60s Blood pressure 148 over 16 mmHg Soft systolic murmur, apical Normal S1 normal S2 Breath sounds are reduced bilaterallyshe paces Abdomen soft Mild lower extremity edema Review of data Twelve-lead ECG shows sinus rhythm normal AK and QRS Flattened ST segments in the inferior leads. Hemoglobin 10.5 D-dimer 0.99 Sodium 136 potassium 4.8 Elevated glucose BUN 36 creatinine 1.25 GFR in the mid 40s Coronavirus nondetected CT of the chest negative for pulmonary embolism Moderate right-sided pleural effusion 2-D echo Doppler study in June 2019 showed left regular hypertrophy mild with preserved LV systolic function EF 60% Past Medical History Past Medical History: Blood Disorder, Coronary Artery Disease (CAD), Chest Pain / Angina, Heart Failure, CVA/TIA, Diabetes Mellitus, Eye Disorder, Hyperlipidemia, Hypertension, Myocardial Infarction (MS), Osteoarthritis (OA), Renal Disease, Syncope Additional Past Medical History / Comment(s): HX ANEMIA. DIABETIC RETINOPATHY. GOUT. SINUS PROBLEMS. CRF Last Myocardial Infarction Date:: UNKNOWN History of Any Multi-Drug Resistant Organisms: None Reported Past Surgical History: Appendectomy, Cardiac Valve Replacement, Cholecystectomy, Coronary Bypass/CABG, Hysterectomy, Tonsillectomy Additional Past Surgical History / Comment(s): TRIPLE BYPASS 1999. colonoscopy. BILAT cataract removal. TILT TABLE-+ RESULT Past Anesthesia/Blood Transfusion Reactions: No Reported Reaction Past Psychological History: No Psychological Hx Reported Additional Psychological History / Comment(s): Pt lives with her daughterd, Mary and Madison. She is fairly independent. She uses a walker at times. She has no home care agency. She gets to appt with her daughter driving her or uses a cab. Smoking Status: Former smoker Past Alcohol Use History: None Reported Additional Past Alcohol Use History / Comment(s): Pt states she started smoking when she was 18 or 19yrs old and quit in 1996 Past Drug Use History: None Reported - Past Family History Father Family Medical History: Pneumonia Additional Family Medical History / Comment(s): Father had TB Mother Family Medical History: Congestive Heart Failure (CHF) Additional Family Medical History / Comment(s): Mother young of CHF Medications and Allergies Home Medications Medication Instructions Recorded Confirmed Type Raloxifene [Evista] 60 mg PO DAILY 11/05/13 10/10/19 History Allopurinol [Zyloprim] 200 mg PO DAILY 02/07/17 10/10/19 History Cinacalcet HCl [Sensipar] 30 mg PO WEFR 02/07/17 10/10/19 History Insuln Asp Prt/Insulin Aspart 40 units SQ HS 02/07/17 10/10/19 History [NovoLOG MIX 70-30 VIAL] Rivaroxaban [Xarelto] 20 mg PO HS 05/19/17 10/10/19 History Metoprolol Tartrate [Lopressor] 50 mg PO BID tab 05/21/17 10/10/19 Rx Benazepril HCl 40 mg PO DAILY 07/07/19 10/10/19 History Magnesium Oxide [Mag-Ox] 400 mg PO BID #60 tab 07/10/19 10/10/19 Rx Atorvastatin [Lipitor] 80 mg PO DAILY 10/10/19 10/10/19 History Cephalexin [Keflex] 500 mg PO QID 10/10/19 10/10/19 History Insuln Asp Prt/Insulin Aspart 95 unit SQ QAM 10/10/19 10/10/19 History [NovoLOG MIX 70-30 VIAL] Mupirocin 2% Oint [Bactroban 2% 1 applic TOPICAL BID 10/10/19 10/10/19 History Oint] Allergies Allergy/AdvReac Type Severity Reaction Status Date / Time No Known Allergies Allergy Verified 10/10/19 11:45 Physical Exam Vitals: Vital Signs Temp Pulse Resp BP Pulse Ox 10/10/19 11:42 65 18 150/77 97 10/10/19 10:54 64 16 169/91 97 10/10/19 10:14 22 10/10/19 09:40 65 16 160/96 96 10/10/19 08:18 97.5 F L 88 18 162/92 100 Intake and Output 10/10/19 10/10/19 10/10/19 06:59 14:59 22:59 Output Total 250 Balance -250 Output: Urine 250 Other: Voiding Method Toilet # Voids 1 Weight 92.986 kg Results 10/10/19 08:41 10/11/19 05:58 Cardiac Enzymes 10/10/19 10/10/19 Range/Units 08:41 08:41 AST 18 (14-36) U/L Lactate Dehydrogenase 382 (313-618) U/L Troponin I <0.012 (0.000-0.034) ng/mL Coagulation 10/10/19 Range/Units 08:41 PT 14.9 H (9.0-12.0) sec APTT 34.4 H (22.0-30.0) sec CBC 10/10/19 Range/Units 08:41 WBC 6.9 (3.8-10.6) k/uL RBC 3.59 L (3.80-5.40) m/uL Hgb 10.5 L (11.4-16.0) gm/dL Hct 34.4 (34.0-46.0) % Plt Count 265 (150-450) k/uL Comprehensive Metabolic Panel 10/10/19 Range/Units 08:41 Sodium 136 L (137-145) mmol/L Potassium 4.8 (3.5-5.1) mmol/L Chloride 105 (98-107) mmol/L Carbon Dioxide 21 L (22-30) mmol/L BUN 36 H (7-17) mg/dL Creatinine 1.25 H (0.52-1.04) mg/dL Glucose 339 H (74-99) mg/dL Calcium 9.5 (8.4-10.2) mg/dL AST 18 (14-36) U/L ALT 14 (4-34) U/L Alkaline Phosphatase 105 (38-126) U/L Total Protein 6.3 (6.3-8.2) g/dL Albumin 3.4 L (3.5-5.0) g/dL Current Medications Generic Name Dose Route Start Last Admin Trade Name Freq PRN Reason Stop Dose Admin Allopurinol 200 mg 10/11/19 09:00 Zyloprim PO DAILY [facility] Aspirin 325 mg 10/11/19 09:00 Aspirin PO DAILY [facility] Furosemide 40 mg 10/10/19 11:00 10/10/19 10:59 Lasix IV 40 mg Q8H VY Administration Insulin Aspart 0 unit 10/10/19 12:30 10/10/19 17:27 Novolog SQ 2 unit ACHS VY Administration Protocol Insulin Aspart 45 unit 10/10/19 21:00 Novolog Mix 70-30 Vial SQ HS [facility] Lisinopril 40 mg 10/10/19 11:30 10/10/19 13:16 Zestril PO 40 mg DAILY [facility] Administration Magnesium Oxide 400 mg 10/10/19 21:00 Mag-Ox PO BID [facility] Metoprolol Tartrate 50 mg 10/10/19 21:00 Lopressor PO BID [facility] Nitroglycerin 1 inch 10/10/19 13:00 10/10/19 17:27 Nitro-Bid Oint TOPICAL 1 inch QID [facility] Administration Rivaroxaban 20 mg 10/10/19 21:00 Xarelto PO HS [facility] Sodium Chloride 10 ml 10/10/19 21:00 Saline Flush IV BID [facility] Intake and Output 10/10/19 10/10/19 10/10/19 06:59 14:59 22:59 Output Total 250 Balance -250 Output: Urine 250 Other: Voiding Method Toilet # Voids 1 Weight 92.986 kg Patient Weight 10/11/19 06:59 Weight 92.986 kg 10/10/19 08:41 10/10/19 08:41
[2019-10-11 20:23] LABS: Glucose,Whole Blood 270 mg/dL (75-99)
[2019-10-11] MEDS: INSULN ASP PRT/INSULIN ASPART 100 UNIT/ML 10 ML VIAL SQ SCH (20:36)
[2019-10-11] MEDS: RIVAROXABAN 20 MG TAB PO SCH (20:37)
--- NOTE | 2019-10-12 01:19 | HP ---
HISTORY AND PHYSICAL CHIEF COMPLAINT: Acute shortness of breath. HISTORY OF PRESENT ILLNESS: This is another admission for this 79-year-old white female who has a longstanding history of poorly controlled IDDM as well as hypertension. She was seen in the office last week for paronychia of an index finger which was drained. She was doing well. On the day of admission, she suddenly became acutely dyspneic and was brought to the hospital with acute congestive heart failure and was found to have a right pleural effusion. She has had no chest pain, fever, chills, etc. REVIEW OF SYSTEMS: She has had no neurologic problems, abdominal pain, vomiting, diarrhea, melena, hematochezia, dysuria, frequency, urgency, etc. She does have renal failure. She does not smoke. Past medical history, family history and personal and social histories reveals that she has no allergies. She has currently been using Bactroban ointment on the finger along with Keflex 500 mg q.i.d. She takes magnesium 400 mg twice a day, benazepril 40 mg once a day, NovoLog mix 70/30, 80 in the morning and 40 at night, metoprolol 50 mg twice a day, Xarelto 20 mg once a day, raloxifene 60 mg once a day, allopurinol 100 mg twice a day, Sensipar 30 mg once a week, atorvastatin 80 mg at bedtime, furosemide 40 mg once a day, Vicodin p.r.n., albuterol nebulizer. PHYSICAL EXAMINATION: Blood pressure 122/78 with a pulse of 106, respirations of 39, and she is afebrile. In general, she appeared to be acutely short of breath. Skin was dry. Lymph nodes not enlarged. Head, ears, eyes, nose, mouth, and throat were normal. Neck veins were distended. Chest demonstrated poor breath sounds with wheezes, rales and rhonchi throughout. There was dullness at both bases. Cardiac exam demonstrated normal sinus rhythm with tachycardia. There was no definite S3 or S4. Abdomen is soft and nontender. There are no masses or visceromegaly. Extremities are normal. Neurologically, she is intact. She is admitted to the hospital with diagnoses. 1. Acute congestive heart failure. 2. Right pleural effusion. 3. Atherosclerotic cardiovascular disease. 4. History of hypertension. 5. History of uncontrolled insulin-dependent diabetes mellitus. 6. Chronic renal failure. PLAN: 1. Bed rest. 2. IV fluids. 3. IV diuretics. 4. Nasal O2. 5. Echocardiogram. 6. BNP. 7. Troponin. 8. Cardiology consult. MEHRAN / NADEEM: [id number] /
--- NOTE | 2019-10-12 01:36 | PN ---
PROGRESS NOTE DATE OF SERVICE: 10/11/2019 CHIEF COMPLAINT: Acute congestive heart failure. HISTORY OF PRESENT ILLNESS: This lady is doing much better. She has had perfuse diuresis and shortness of breath is much better. PHYSICAL EXAMINATION: Vital signs are normal. She is afebrile. Blood pressure is 148/69 with a pulse of 84, respirations of 32, and she is afebrile. In general, she appeared to be up and about. Color is good. She was not short of breath. Skin was dry. Head, ears, eyes, nose, mouth, and throat were normal. Breath sounds were much improved. There were only occasional rales and breath sounds are still decreased at the bases. Cardiac exam is normal sinus rhythm. Abdomen is soft, nontender. Extremities are normal. IMPRESSION: Acute congestive heart failure. PLAN: 1. Echocardiogram. 2. Continue diuresis. MMODL / IJN: [id number] /
[2019-10-12] MEDS: FUROSEMIDE 10 MG/ML 4 ML VIAL IV SCH (03:45)
[2019-10-12 03:51] LABS: Glucose,Whole Blood 41 mg/dL (75-99)
[2019-10-12 04:02] LABS: Glucose,Whole Blood 39 mg/dL (75-99)
[2019-10-12 04:26] LABS: Glucose,Whole Blood 61 mg/dL (75-99)
[2019-10-12 04:37] LABS: Glucose,Whole Blood 94 mg/dL (75-99)
[2019-10-12 06:15] VITALS: BP 126/84; PULSE 77; TEMP 97.3
[2019-10-12 07:13] LABS: Glucose,Whole Blood 143 mg/dL (75-99)
[2019-10-12] MEDS: INSULIN ASPART (NovoLOG) 100 UNIT/ML VIAL SQ SCH ×2 (07:29→12:34)
[2019-10-12 08:46] LABS: Calcium 9.5 mg/dL (8.4-10.2); Potassium 4.2 mmol/L (3.5-5.1)
[2019-10-12] MEDS ORDERED: INSULN ASP PRT/INSULIN ASPART 100 UNIT/ML 10 ML VIAL SQ SCH (09:00)
[2019-10-12] MEDS ORDERED: ASPIRIN 81 MG PO SCH (09:00)
[2019-10-12] MEDS: LISINOPRIL 20 MG TAB PO SCH (09:16)
[2019-10-12] MEDS: ALLOPURINOL 100 MG TAB PO SCH (09:17)
[2019-10-12] MEDS: METOPROLOL TARTRATE 50 MG TAB PO SCH (09:18)
[2019-10-12] MEDS: MAGNESIUM OXIDE 400 MG TAB PO SCH (09:18)
--- NOTE | 2019-10-12 10:34 | XR ---
EXAMINATION TYPE: XR chest 2V DATE OF EXAM: 10/12/2019 COMPARISON: 07/11/2019 HISTORY: Effusion and shortness of breath. TECHNIQUE: Frontal and lateral views of the chest are obtained. FINDINGS: Improvement in right-sided pleural effusion, previously moderate and now small. There is a ssociated right basilar airspace disease. Markedly enlarged cardiomediastinal silhouette is redemonst rated with post CABG changes. Mild pulmonary vascular congestion is seen. Cholecystectomy clips are n oted on the lateral view. Mild multilevel degenerative change of the spine. IMPRESSION: Improved right-sided pleural effusion previously moderate and now small. Associated left basilar airspace disease likely represents compressive atelectasis.
[2019-10-12 10:48] LABS: Glucose,Whole Blood 257 mg/dL (75-99)
--- NOTE | 2019-10-12 11:05 | P.PN ---
Subjective This is a pleasant 79-year-old female past medical history significant for paroxysmal atrial fibrillation on long-term anticoagulation, hypertension, dyslipidemia, diabetes mellitus and coronary artery disease. She follows in the office with Dr. Ibanez. She is currently being treated for acute exacerbation of diastolic heart failure maintained on IV Lasix. She is seen and examined sitting up at the edge of the bed in no acute distress. She states overall her breathing is greatly improved since admission. She feels that she is back to her baseline. She denies chest pain, orthopnea, dizziness or palpitations. Weight is down to 89 kg from 92 on admission. Blood pressure 126/84 heart rate 77 afebrile maintaining oxygen saturation on room air. Laboratory data reviewed, sodium 137, potassium 4.2 and creatinine 1.36 with a GFR of 38. GENERAL: Well-appearing, well-nourished and in no acute distress. NECK: Supple without JVD or thyromegaly. LUNGS: Breath sounds clear to auscultation bilaterally. Respiration equal and unlabored. No wheezes, rales or rhonchi. Diminished bilaterally. HEART: Regular rate and rhythm with systolic ejection murmur at the apex, no rubs or gallops. S1 and S2 heard. EXTREMITIES: Normal range of motion, no edema. No clubbing or cyanosis. Peripheral pulses intact. ASSESSMENT Acute on chronic diastolic heart failure Paroxysmal atrial fibrillation on long-term anticoagulation, currently maint aining sinus mechanism Chronic kidney disease Hypertension Dyslipidemia Diabetes mellitus PLAN Repeat chest x-ray. Transition to oral diuretics. Repeat renal function in 3-5 days. Clinically stable for discharge from a cardiac perspective if chest x-ray reveals improvement. Follow-up in the office with Dr. Ibanez upon discharge. Nurse Practitioner note has been reviewed, I agree with a documented findings and plan of care. Patient was seen and examined. Objective - Vital Signs Vital signs: Vital Signs Temp 97.3 F L 10/12/19 06:15 Pulse 77 10/12/19 06:15 Resp 20 10/12/19 06:15 BP 126/84 10/12/19 06:15 Pulse Ox 96 10/12/19 06:15 Intake & Output 10/11/19 10/12/19 10/12/19 18:59 06:59 18:59 Intake Total 340 Output Total 400 Balance -60 Weight 89.6 kg Intake: Oral 340 Output: Urine 400 Other: Voiding Method Toilet Toilet # Voids 3 1 1 - Labs CBC & Chem 7: 10/10/19 08:41 10/12/19 08:09 Labs: Abnormal Lab Results - Last 24 Hours (Table) 10/11/19 10/11/19 10/11/19 Range/Units 11:20 17:40 20:09 BUN (7-17) mg/dL Creatinine (0.52-1.04) mg/dL Glucose (74-99) mg/dL POC Glucose (mg/dL) 193 H 295 H 270 H (75-99) mg/dL 10/12/19 10/12/19 10/12/19 Range/Units 03:47 03:51 04:06 BUN (7-17) mg/dL Creatinine (0.52-1.04) mg/dL Glucose (74-99) mg/dL POC Glucose (mg/dL) 41 L 39 L 61 L (75-99) mg/dL 10/12/19 10/12/19 Range/Units 07:12 08:09 BUN 43 H (7-17) mg/dL Creatinine 1.36 H (0.52-1.04) mg/dL Glucose 142 H (74-99) mg/dL POC Glucose (mg/dL) 143 H (75-99) mg/dL Microbiology - Last 24 Hours (Table) 10/10/19 09:45 Blood Culture - Preliminary Blood No Growth after 24 hours
[2019-10-12 11:55] VITALS: RESP 18
[2019-10-12] MEDS ORDERED: FUROSEMIDE 40 MG TAB PO SCH (16:00)
--- NOTE | 2019-10-12 16:50 | DS ---
DISCHARGE SUMMARY CHIEF COMPLAINT: Shortness of breath. HISTORY OF PRESENT ILLNESS AND PHYSICAL EXAM: Details of this lady's history and physical can be found in the initial workup. COURSE IN THE HOSPITAL: After admission, she was placed on bedrest, started in intravenous fluids and diuresed. She was seen by Cardiology. BNP was significantly elevated. Her troponin was normal. After she diuresed, breathing improved and she was doing well it was felt she could go home on 10/11. She will be seen in the office in several days and she will go home on her usual activity, diet and medications in addition to Lasix 40 mg b.i.d. She will be seen in the office in a day or 2. FINAL DIAGNOSES: 1. Acute congestive heart failure (diastolic). 2. Uncontrolled insulin-dependent diabetes mellitus. 3. History of atrial fibrillation atrial fibrillation. 4. Hypertension. OPERATIONS: None. CONSULTATIONS: Cardiology. She is improved. MMTERESAL / LUCIANN: [id number] /
--- NOTE | 2019-10-13 09:00 | ECHOF ---
Referral Reason:CHF MEASUREMENTS -------- HEIGHT: 175.3 cm WEIGHT: 89.4 kg BP: 126/84 RVIDd: 3.9 cm (< 3.3) IVSd: 1.3 cm (0.6 - 1.1) LVIDd: 4.8 cm (3.9 - 5.3) LVPWd: 1.2 cm (0.6 - 1.1) IVSs: 1.9 cm LVIDs: 3.9 cm LVPWs: 1.8 cm LAESV Index (A-L): 37.58 ml/m Ao Diam: 2.1 cm (2.0 - 3.7) AV Cusp: 1.6 cm (1.5 - 2.6) LA Diam: 4.7 cm (2.7 - 3.8) MV EXCURSION: 13.261 mm (> 18.000) MV EF SLOPE: 51 mm/s (70 - 150) EPSS: 1.0 cm MV E Pal: 1.12 m/s MV DecT: 169 ms MV A Pal: 0.41 m/s MV E/A Ratio: 2.74 RAP: 20.00 mmHg RVSP: 56.05 mmHg FINDINGS -------- Sinus rhythm. This was a technically good study. The left ventricular size is normal. There is mild concentric left ventricular hypertrophy. Overa ll left ventricular systolic function is mild-moderately impaired with, an EF between 40 - 45 %. In creased LAP. Grade 3 Diastolic Dysfunction. The right ventricle is moderately enlarged. LA is moderately dilated 34-39 ml/m2 The right atrium is moderately enlarged. The aortic valve is trileaflet and appears structurally normal. The mitral valve is normal. The mitral valve leaflets are mildly thickened. Severe mitral regurgi tation is present. The tricuspid valve appears structurally normal. Severe tricuspid regurgitation present. There is moderate to severe pulmonary hypertension. The right ventricular systolic pressure, as measured by Doppler, is 56.05mmHg. There is no pulmonic regurgitation present. The aortic root size is normal. The inferior vena cava is dilated with no significant inspiratory collapse which is consistent estima florin right atrial pressure of >20 mmHg. There is no pericardial effusion. CONCLUSIONS -------- 1. Sinus rhythm. 2. This was a technically good study. 3. The left ventricular size is normal. 4. There is mild concentric left ventricular hypertrophy. 5. Overall left ventricular systolic function is mild-moderately impaired with, an EF between 40 - 45 %. 6. Increased LAP. Grade 3 Diastolic Dysfunction. 7. The right ventricle is moderately enlarged. 8. LA is moderately dilated 34-39 ml/m2 9. The right atrium is moderately enlarged. 10. The aortic valve is trileaflet and appears structurally normal. 11. The mitral valve is normal. 12. The mitral valve leaflets are mildly thickened. 13. Severe mitral regurgitation is present. 14. The tricuspid valve appears structurally normal. 15. Severe tricuspid regurgitation present. 16. There is moderate to severe pulmonary hypertension. 17. The right ventricular systolic pressure, as measured by Doppler, is 56.05mmHg. 18. There is no pulmonic regurgitation present. 19. The aortic root size is normal. 20. The inferior vena cava is dilated with no significant inspiratory collapse which is consistent es timated right atrial pressure of >20 mmHg. 21. There is no pericardial effusion. SELLING MANAGER: Sissy Mcnair RDCS
== END 2019-10-12 14:21 | disposition home or self-care (01) ==
LOC: EC 08:13 → INTOOBSV 10:53 → 5NMEDONC 10:53
PROVIDERS: ADMIT Family Medicine; ATTEND Family Medicine
DX: I13.0 Hypertensive heart and chronic kidney disease with heart failure and stage 1 through stage 4 chronic kidney disease, or unspecified chronic kidney disease (principal); I50.33 Acute on chronic diastolic (congestive) heart failure; I48.0 Paroxysmal atrial fibrillation; E11.22 Type 2 diabetes mellitus with diabetic chronic kidney disease; N18.9 Chronic kidney disease, unspecified; I25.10 Atherosclerotic heart disease of native coronary artery without angina pectoris; E78.5 Hyperlipidemia, unspecified; I25.2 Old myocardial infarction; E11.319 Type 2 diabetes mellitus with unspecified diabetic retinopathy without macular edema; Z03.818 Encounter for observation for suspected exposure to other biological agents ruled out; M19.90 Unspecified osteoarthritis, unspecified site; D64.9 Anemia, unspecified; M10.9 Gout, unspecified; E11.65 Type 2 diabetes mellitus with hyperglycemia; H57.9 Unspecified disorder of eye and adnexa; Z86.73 Personal history of transient ischemic attack (TIA), and cerebral infarction without residual deficits; Z95.1 Presence of aortocoronary bypass graft; Z87.891 Personal history of nicotine dependence; Z79.899 Other long term (current) drug therapy; Z79.01 Long term (current) use of anticoagulants; Z79.4 Long term (current) use of insulin; Z90.49 Acquired absence of other specified parts of digestive tract; Z90.710 Acquired absence of both cervix and uterus; Z95.2 Presence of prosthetic heart valve; Z82.49 Family history of ischemic heart disease and other diseases of the circulatory system; Z83.6 Family history of other diseases of the respiratory system
CPT/HCPCS: 96376 ×3; 96374; 99285; 36415; 93005; 93306; 85379; 83880; 80053 ×2; 80048; 82728; 83605; 83615; 83735; 84484; 85025; 85610; 85730; 86140; 87040; 84145; 87635; 71045; 71046; 71275; G0378 ×2; J1940 ×3; Q9967

== ENCOUNTER → 2019-10-23 | Outpatient (CLI) | payer MEDICARE, OTHER ==
[2019-10-23 10:32] LABS: Anisocytosis Slight; HCT 27.2 % (34.0-46.0); Hypochromasia Marked; MCH 27.9 pg (25.0-35.0); MCHC 29.8 g/dL (31.0-37.0); MCV 93.7 fL (80.0-100.0); Mean Platelet Volume 7.9; Platelet Count 235 k/uL (150-450); RDW 16.2 % (11.5-15.5); WBC 8.4 k/uL (3.8-10.6)
[2019-10-23 10:41] LABS: HGB 8.1 gm/dL (11.4-16.0)
[2019-10-23 10:57] LABS: Appearance,Urine Clear (Clear); Bilirubin,Urine Negative (Negative); Blood,Urine Negative (Negative); Color,Urine Light Yellow; Glucose,Urine (UA) Negative (Negative); Hyaline Casts,Urine 21 /lpf (0-2); Ketones,Urine Negative (Negative); Leukocyte Esterase,Urine Trace (Negative); Mucus,Urine Rare /hpf; Nitrite,Urine Negative (Negative); Protein,Urine 1+ (Negative); RBC,Urine 1 /hpf (0-5); Specific Gravity,Urine 1.015 (1.001-1.035); Squamous Epithelial Cell,Urine 1 /hpf (0-4); Urobilinogen,Urine <2.0 mg/dL (<2.0); WBC,Urine 9 /hpf (0-5)
[2019-10-23 16:29] LABS: % Iron Saturation 12.26 (12.00-45.00); African American GFR (CKD) 41.9 (60.0-200.0); Anion Gap 10.6 mmol/L (4.00-12.00); BUN/Creat Ratio 37.86 Ratio (12.00-20.00); Calcium 9.6 mg/dL (8.7-10.3); Carbon Dioxide 28.4 mmol/L (21.6-31.8); Magnesium 1.9 mg/dL (1.5-2.4); Non-African American GFR(CKD) 36.2 (60.0-200.0); Phosphorus 3.5 mg/dL (2.4-5.1); Potassium 4.5 mmol/L (3.5-5.5)
[2019-10-23 16:44] LABS: Hemoglobin A1C 8.1 % (4.0-6.0)
[2019-10-23 16:59] LABS: Ferritin 40.2 ng/mL (10.0-291.0)
== END | disposition home or self-care (01) ==
LOC: LABWHC1 09:37
PROVIDERS: ATTEND Internal Medicine Nephrology
DX: D50.9 Iron deficiency anemia, unspecified (principal); E11.22 Type 2 diabetes mellitus with diabetic chronic kidney disease; N18.3 Chronic kidney disease, stage 3 (moderate); E21.3 Hyperparathyroidism, unspecified
CPT/HCPCS: 36415; 80048; 81001; 82306; 82728; 83036; 83540; 83550; 83735; 83970; 84100; 84550; 85027

== ENCOUNTER 2019-10-24 11:01 | Inpatient (IN) | payer MEDICARE, OTHER ==
--- NOTE | 2019-10-24 11:24 | ED ---
General Adult HPI - General Chief complaint: Shortness of Breath Stated complaint: SOB Time Seen by Provider: 10/24/19 11:05 Source: patient, RN notes reviewed, old records reviewed Mode of arrival: wheelchair Limitations: physical limitation - History of Present Illness Initial comments: This is a 79-year-old female presents emergency Department complaining of shortness of breath per patient states she got up this morning and felt fine and she laid down to rest when she got up again she felt short of breath. Patient denies any chest pain or palpitations. Patient denies any recent fever chills cough. Patient states she has underlying congestive heart failure patient states she has not noticed any increased swelling to her legs. Patient denies any abdominal pain patient denies nausea vomiting diarrhea. Patient denies any lightheadedness or dizziness. Patient is currently oxygenating 100% on room air. - Related Data Home Medications Medication Instructions Recorded Confirmed Raloxifene [Evista] 60 mg PO DAILY 11/05/13 10/10/19 Allopurinol [Zyloprim] 200 mg PO DAILY 02/07/17 10/10/19 Cinacalcet HCl [Sensipar] 30 mg PO WEFR 02/07/17 10/10/19 Insuln Asp Prt/Insulin Aspart 40 units SQ HS 02/07/17 10/10/19 [NovoLOG MIX 70-30 VIAL] Rivaroxaban [Xarelto] 20 mg PO HS 05/19/17 10/10/19 Benazepril HCl 40 mg PO DAILY 07/07/19 10/10/19 Atorvastatin [Lipitor] 80 mg PO DAILY 10/10/19 10/10/19 Cephalexin [Keflex] 500 mg PO QID 10/10/19 10/10/19 Insuln Asp Prt/Insulin Aspart 95 unit SQ QAM 10/10/19 10/10/19 [NovoLOG MIX 70-30 VIAL] Mupirocin 2% Oint [Bactroban 2% 1 applic TOPICAL BID 10/10/19 10/10/19 Oint] Previous Rx's Medication Instructions Recorded Metoprolol Tartrate [Lopressor] 50 mg PO BID tab 05/21/17 Magnesium Oxide [Mag-Ox] 400 mg PO BID #60 tab 07/10/19 Aspirin 81 mg PO DAILY #100 chew 10/12/19 Furosemide [Lasix] 40 mg PO BID@0900,1600 #60 tab 10/12/19 Allergies Allergy/AdvReac Type Severity Reaction Status Date / Time No Known Allergies Allergy Verified 10/24/19 11:10 Review of Systems ROS Statement: Those systems with pertinent positive or pertinent negative responses have been documented in the HPI. ROS Other: All systems not noted in ROS Statement are negative. Past Medical History Past Medical History: Blood Disorder, Coronary Artery Disease (CAD), Chest Pain / Angina, Heart Failure, CVA/TIA, Diabetes Mellitus, Eye Disorder, Hyperlipidemia, Hypertension, Myocardial Infarction (MD), Osteoarthritis (OA), Renal Disease, Syncope Additional Past Medical History / Comment(s): HX ANEMIA, DIABETIC RETINOPATHY, GOUT, SINUS PROBLEMS, CRF Last Myocardial Infarction Date:: UNKNOWN History of Any Multi-Drug Resistant Organisms: None Reported Past Surgical History: Appendectomy, Cardiac Valve Replacement, Cholecystectomy, Coronary Bypass/CABG, Hysterectomy, Tonsillectomy Additional Past Surgical History / Comment(s): colonoscopy, BILAT cataract removal Past Anesthesia/Blood Transfusion Reactions: No Reported Reaction Past Psychological History: No Psychological Hx Reported Smoking Status: Former smoker Past Alcohol Use History: None Reported Past Drug Use History: None Reported - Past Family History Father Family Medical History: Pneumonia Additional Family Medical History / Comment(s): Father had TB Mother Family Medical History: Congestive Heart Failure (CHF) Additional Family Medical History / Comment(s): Mother young of CHF General Exam - General Exam Comments Initial Comments: GENERAL: Patient is well-developed and well-nourished. Patient is nontoxic and well- hydrated and is in no acute distress. ENT: Neck is soft and supple. No significant lymphadenopathy is noted. Oropharynx is clear. Moist mucous membranes. Neck has full range of motion without eliciting any pain. EYES: The sclera were anicteric and conjunctiva were pink and moist. Extraocular movements were intact and pupils were equal round and reactive to light. Eyelids were unremarkable. PULMONARY: Patient has diminished breath sounds in the right base CARDIOVASCULAR: There is a regular rate and rhythm without any murmurs gallops or rubs. ABDOMEN: Soft and nontender with normal bowel sounds. No palpable organomegaly was noted. There is no palpable pulsatile mass. SKIN: Skin is clear with no lesions or rashes and otherwise unremarkable. NEUROLOGIC: Patient is alert and oriented x3. Cranial nerves II through XII are grossly intact. Motor and sensory are also intact. Normal speech, volume and content. Symmetrical smile. MUSCULOSKELETAL: Normal extremities with adequate strength and full range of motion. 1+ edema bilaterally LYMPHATICS: No significant lymphadenopathy is noted PSYCHIATRIC: Normal psychiatric evaluation. Limitations: physical limitation Course Vital Signs 10/24/19 10/24/19 10/24/19 11:07 11:17 11:30 Temperature 97.4 F L Pulse Rate 64 65 60 Respiratory 20 23 13 Rate Blood Pressure 139/71 139/75 O2 Sat by Pulse 100 100 Oximetry 10/24/19 10/24/19 10/24/19 11:37 11:38 12:00 Temperature 97.9 F Pulse Rate 61 60 Respiratory 18 18 21 Rate Blood Pressure 139/75 143/77 O2 Sat by Pulse 100 100 Oximetry 10/24/19 12:30 Temperature Pulse Rate 60 Respiratory 20 Rate Blood Pressure 145/74 O2 Sat by Pulse 100 Oximetry Medical Decision Making - Medical Decision Making Patient's EKG shows normal sinus rhythm at 63 bpm MN interval is 204 QRS is 100 QT intervals 494 QTC is 505 per patient's EKG shows no ST segment elevation or depression however patient does have prolonged Q-wave. Patient had an elevated d-dimer however she was on Xarelto and Dr. Tucker and did not want a CT of the chest or VQ scan at this time he will evaluate the patient later. He did agree to admit the patient admitted the patient wrote admitting orders. I gave the patient Lasix in the emergency department he continued on the floor. - Lab Data Result diagrams: 10/24/19 11:30 10/24/19 11:30 Lab Results 10/24/19 10/24/19 10/24/19 Range/Units 11:25 11:30 11:30 WBC 8.1 (3.8-10.6) k/uL RBC 3.03 L (3.80-5.40) m/uL Hgb 8.5 L (11.4-16.0) gm/dL Hct 28.0 L (34.0-46.0) % MCV 92.4 (80.0-100.0) fL MCH 28.1 (25.0-35.0) pg MCHC 30.4 L (31.0-37.0) g/dL RDW 16.2 H (11.5-15.5) % Plt Count 268 (150-450) k/uL Neutrophils % 66 % Lymphocytes % 23 % Monocytes % 7 % Eosinophils % 1 % Basophils % 0 % Neutrophils # 5.4 (1.3-7.7) k/uL Lymphocytes # 1.9 (1.0-4.8) k/uL Monocytes # 0.6 (0-1.0) k/uL Eosinophils # 0.1 (0-0.7) k/uL Basophils # 0.0 (0-0.2) k/uL Hypochromasia Marked Anisocytosis Slight PT 13.0 H (9.0-12.0) sec INR 1.3 H (<1.2) APTT 28.3 (22.0-30.0) sec D-Dimer 0.84 H (<0.60) mg/L FEU Sodium (137-145) mmol/L Potassium (3.5-5.1) mmol/L Chloride (98-107) mmol/L Carbon Dioxide (22-30) mmol/L Anion Gap mmol/L BUN (7-17) mg/dL Creatinine (0.52-1.04) mg/dL Est GFR (CKD-EPI)AfAm (>60 ml/min/1.73 sqM) Est GFR (CKD-EPI)NonAf (>60 ml/min/1.73 sqM) Glucose (74-99) mg/dL Plasma Lactic Acid Rick (0.7-2.0) mmol/L Calcium (8.4-10.2) mg/dL Magnesium (1.6-2.3) mg/dL Total Bilirubin (0.2-1.3) mg/dL AST (14-36) U/L ALT (4-34) U/L Alkaline Phosphatase (38-126) U/L Troponin I (0.000-0.034) ng/mL NT-Pro-B Natriuret Pep pg/mL Total Protein (6.3-8.2) g/dL Albumin (3.5-5.0) g/dL Coronavirus (PCR) Not Detected (Not Detectd) 10/24/19 10/24/19 10/24/19 Range/Units 11:30 11:30 11:30 WBC (3.8-10.6) k/uL RBC (3.80-5.40) m/uL Hgb (11.4-16.0) gm/dL Hct (34.0-46.0) % MCV (80.0-100.0) fL MCH (25.0-35.0) pg MCHC (31.0-37.0) g/dL RDW (11.5-15.5) % Plt Count (150-450) k/uL Neutrophils % % Lymphocytes % % Monocytes % % Eosinophils % % Basophils % % Neutrophils # (1.3-7.7) k/uL Lymphocytes # (1.0-4.8) k/uL Monocytes # (0-1.0) k/uL Eosinophils # (0-0.7) k/uL Basophils # (0-0.2) k/uL Hypochromasia Anisocytosis PT (9.0-12.0) sec INR (<1.2) APTT (22.0-30.0) sec D-Dimer (<0.60) mg/L FEU Sodium 141 (137-145) mmol/L Potassium 4.6 (3.5-5.1) mmol/L Chloride 105 (98-107) mmol/L Carbon Dioxide 24 (22-30) mmol/L Anion Gap 12 mmol/L BUN 55 H (7-17) mg/dL Creatinine 1.45 H (0.52-1.04) mg/dL Est GFR (CKD-EPI)AfAm 40 (>60 ml/min/1.73 sqM) Est GFR (CKD-EPI)NonAf 35 (>60 ml/min/1.73 sqM) Glucose 119 H (74-99) mg/dL Plasma Lactic Acid Rick 2.3 H* (0.7-2.0) mmol/L Calcium 9.4 (8.4-10.2) mg/dL Magnesium 2.3 (1.6-2.3) mg/dL Total Bilirubin 0.5 (0.2-1.3) mg/dL AST 25 (14-36) U/L ALT 12 (4-34) U/L Alkaline Phosphatase 66 (38-126) U/L Troponin I <0.012 (0.000-0.034) ng/mL NT-Pro-B Natriuret Pep pg/mL Total Protein 6.3 (6.3-8.2) g/dL Albumin 3.4 L (3.5-5.0) g/dL Coronavirus (PCR) (Not Detectd) 10/24/19 Range/Units 11:30 WBC (3.8-10.6) k/uL RBC (3.80-5.40) m/uL Hgb (11.4-16.0) gm/dL Hct (34.0-46.0) % MCV (80.0-100.0) fL MCH (25.0-35.0) pg MCHC (31.0-37.0) g/dL RDW (11.5-15.5) % Plt Count (150-450) k/uL Neutrophils % % Lymphocytes % % Monocytes % % Eosinophils % % Basophils % % Neutrophils # (1.3-7.7) k/uL Lymphocytes # (1.0-4.8) k/uL Monocytes # (0-1.0) k/uL Eosinophils # (0-0.7) k/uL Basophils # (0-0.2) k/uL Hypochromasia Anisocytosis PT (9.0-12.0) sec INR (<1.2) APTT (22.0-30.0) sec D-Dimer (<0.60) mg/L FEU Sodium (137-145) mmol/L Potassium (3.5-5.1) mmol/L Chloride (98-107) mmol/L Carbon Dioxide (22-30) mmol/L Anion Gap mmol/L BUN (7-17) mg/dL Creatinine (0.52-1.04) mg/dL Est GFR (CKD-EPI)AfAm (>60 ml/min/1.73 sqM) Est GFR (CKD-EPI)NonAf (>60 ml/min/1.73 sqM) Glucose (74-99) mg/dL Plasma Lactic Acid Rick (0.7-2.0) mmol/L Calcium (8.4-10.2) mg/dL Magnesium (1.6-2.3) mg/dL Total Bilirubin (0.2-1.3) mg/dL AST (14-36) U/L ALT (4-34) U/L Alkaline Phosphatase (38-126) U/L Troponin I (0.000-0.034) ng/mL NT-Pro-B Natriuret Pep 7440 pg/mL Total Protein (6.3-8.2) g/dL Albumin (3.5-5.0) g/dL Coronavirus (PCR) (Not Detectd) Disposition Clinical Impression: Acute pulmonary edema Disposition: ADMITTED IP TO THIS HOSP Referrals: Saurabh Medrano MD [Primary Care Provider] - 1-2 days Time of Disposition: 12:36
[2019-10-24 11:50] LABS: Anisocytosis Slight; Basophils % (A) 0 %; Eosinophils # (A) 0.1 k/uL (0-0.7); Eosinophils % (A) 1 %; HGB 8.5 gm/dL (11.4-16.0); Hypochromasia Marked; Lymphocytes # (A) 1.9 k/uL (1.0-4.8); Lymphocytes % (A) 23 %; MCH 28.1 pg (25.0-35.0); MCHC 30.4 g/dL (31.0-37.0); MCV 92.4 fL (80.0-100.0); Mean Platelet Volume 8.4; Monocytes # (A) 0.6 k/uL (0-1.0); Monocytes % (A) 7 %; Neutrophils # (A) 5.4 k/uL (1.3-7.7); Neutrophils % (A) 66 %; Platelet Count 268 k/uL (150-450); RBC 3.03 m/uL (3.80-5.40); RDW 16.2 % (11.5-15.5); WBC 8.1 k/uL (3.8-10.6)
[2019-10-24 12:02] LABS: Albumin 3.4 g/dL (3.5-5.0); Calcium 9.4 mg/dL (8.4-10.2); Magnesium 2.3 mg/dL (1.6-2.3); Potassium 4.6 mmol/L (3.5-5.1); Total Bilirubin 0.5 mg/dL (0.2-1.3); Total Protein 6.3 g/dL (6.3-8.2)
[2019-10-24 12:05] LABS: INR 1.3 (<1.2); Partial Thromboplastin Time 28.3 sec (22.0-30.0)
--- NOTE | 2019-10-24 12:05 | XR ---
EXAMINATION TYPE: XR chest 2V DATE OF EXAM: 10/24/2019 HISTORY: difficulty breathing. REFERENCE: Previous study dated 10/12/2019. FINDINGS: There has been a midline sternotomy. The heart is enlarged. There is continuing right-sided pleural effusion, not much changed from previo us. There is some patchy airspace disease in the left upper lobe. I could not exclude a developing pn eumonia. IMPRESSION: 1. CARDIOMEGALY. 2. PERSISTENT RIGHT EFFUSION. 3. I COULD NOT EXCLUDE SOME DEVELOPING PNEUMONIA IN THE LEFT UPPER LOBE.
[2019-10-24 12:14] LABS: D-Dimer 0.84 mg/L FEU (<0.60)
[2019-10-24] MEDS ORDERED: FUROSEMIDE 10 MG/ML 4 ML VIAL IV STA (12:33)
[2019-10-24] MEDS ORDERED: FUROSEMIDE 40 MG TAB PO SCH (16:00)
[2019-10-24 17:01] LABS: Glucose,Whole Blood 173 mg/dL (75-99)
--- NOTE | 2019-10-24 17:08 | HP ---
HISTORY AND PHYSICAL CHIEF COMPLAINT: Shortness of breath. HISTORY OF PRESENT ILLNESS: This is another recent admission for this 79-year-old white female with a longstanding history of poorly controlled hypertension, diabetes mellitus. She was in the hospital recently for acute congestive heart failure and responded well. She went home and was doing well, but suddenly on the day of admission, apparently, she became very short of breath and canceled her appointment in the office and went to the emergency room where she was found to be in congestive heart failure. There is no history of chest pain, hemoptysis, pleurisy, fever and chills, etc. REVIEW OF SYSTEMS: Otherwise unremarkable. She has had no neurologic problems, chest pain, abdominal pain, vomiting, diarrhea, melena, hematochezia, renal failure, hematuria, dysuria, etc. Past medical history, family history personal and social histories reveal: ALLERGIC: She is not allergic to any medication. MEDICATIONS: She has been on atorvastatin 80 mg once a day, Lasix 40 mg twice a day, aspirin 81 mg once a day, Keflex and mupirocin for paronychia of the index finger, magnesium 40 mg twice a day, benazepril 40 mg once a day, NovoLog mix 70/ 30 80 in the morning, 40 at night, Metoprolol 50 mg twice a day, Xarelto 20 mg once a day, raloxifene 60 mg once a day, allopurinol 100 mg once a day, Sensipar 30 mg once a week, furosemide 40 mg. Updrafts with albuterol. Past medical history, family history, personal and social history is unremarkable and unchanged from her recent admitting and discharge summary. She used to smoke but does not any longer. She does not drink. PHYSICAL EXAMINATION: Blood pressure 144/88 with a pulse of 106, respirations of 18 and she is afebrile. In general, she appeared to be short of breath. She was slightly pale. Head, ears, eyes, nose, mouth, and throat were normal. Neck veins are not distended. Thyroid is not enlarged. Chest demonstrates poor breath sounds with scattered rales and rhonchi and dullness to percussion at the bases. Cardiac exam demonstrates tachycardia which sounds like atrial fibrillation. Abdomen is soft, nontender without any masses or visceromegaly. Extremities are normal. Neurological is intact. IMPRESSION: 1. Acute congestive heart failure. 2. Chronic diastolic congestive heart failure. 3. Poorly-controlled hypertension. 4. Poorly controlled insulin-dependent diabetes mellitus. PLAN: 1. Bed rest. 2. IV fluids. 3. Diuresis. 4. Cardiology consult. MMTERESAL / LUCIANN: [id number] /
[2019-10-24] MEDS: METOPROLOL TARTRATE 50 MG TAB PO SCH (19:55)
[2019-10-24] MEDS: FUROSEMIDE 10 MG/ML 4 ML VIAL IV SCH (19:55)
[2019-10-24] MEDS: MAGNESIUM OXIDE 400 MG TAB PO SCH (19:55)
[2019-10-24 20:33] LABS: Glucose,Whole Blood 251 mg/dL (75-99)
[2019-10-24] MEDS ORDERED: INSULN ASP PRT/INSULIN ASPART 100 UNIT/ML 10 ML VIAL SQ SCH (21:00)
[2019-10-24] MEDS ORDERED: RIVAROXABAN 20 MG TAB PO SCH (21:00)
[2019-10-25] MEDS: FUROSEMIDE 10 MG/ML 4 ML VIAL IV SCH ×3 (04:55→20:46)
[2019-10-25 06:13] LABS: Glucose,Whole Blood 53 mg/dL (75-99)
[2019-10-25 06:25] LABS: Glucose,Whole Blood 50 mg/dL (75-99)
[2019-10-25 06:45] LABS: Glucose,Whole Blood 81 mg/dL (75-99)
--- NOTE | 2019-10-25 08:57 | P.CRDCN ---
History of Present Illness Consult date: 10/25/19 Requesting physician: Saurabh Medrano Reason for Consult (text): CHF Chief complaint: shortness of breath History of present illness: This is a pleasant 79-year-old female patient who follows with Dr. Ibanez in the office. She'll history of prior CABG, hypertension, heart hyperli pidemia, paroxysmal atrial fibrillation which she is anticoagulated on Xarelto and congestive heart failure. Was recently admitted to the hospital with CHF at which time echocardiogram showed an ejection fraction of 40-45% with severe MR, severe TR and moderate to severe pulmonary hypertension with diastolic dysfunction. Of note in June EF was normal with mild MR, moderate TR and mild pulmonary hypertension. She was diuresed at that time and followed up with Dr. Castellanos in the office on October 21 at which time he was planning to schedule her for a EULALIA to further assess the mitral valve. Her Lasix was increased to 40 mg by mouth twice a day at that time. She presented yesterday after waking up and getting ready to go to her doctor's appointment with Dr. Medrano at which time she developed shortness of breath and a dull pain in her chest which lasted only a few minutes. Shortness of breath persisted and she had her daughter bring her to the emergency room as opposed to going to her physician's office. Upon admission chest x-ray showed cardiomegaly, persistent right pleural effusion and possibility of developing left upper lobe pneumonia. NT proBNP 7440 which was 13,500 during her previous admission but prior to that was 1640. She overall feels her edema is not too bad. She has no complaints of significant orthopnea or PND. She is unaware if she's had any weight gain as she does not weigh herself regularly at home. She tries to follow a low-sodium diet but did have a sub sandwich from a sub shop in the last couple of days. Laboratory values showed hemoglobin of 8.5 and hematocrit of 28 which were previously 10.5 and 34.4 during previous admission. She does admit to having black stools that she noticed yesterday and again this morning. BUN is 55 and creatinine 1.45 this admission which appears to be close to her baseline, creatinine was up to over 2 in June. She's been initiated on IV Lasix. Overall this morning, she feels quite a bit better. Her breathing has improved. She does not ambulate into the bathroom without any difficulties using a walker. Past Medical History Past Medical History: Blood Disorder, Coronary Artery Disease (CAD), Chest Pain / Angina, Heart Failure, CVA/TIA, Diabetes Mellitus, Eye Disorder, Hyperlipidemia, Hypertension, Myocardial Infarction (AR), Osteoarthritis (OA), Renal Disease, Syncope Additional Past Medical History / Comment(s): HX ANEMIA, DIABETIC RETINOPATHY, GOUT, SINUS PROBLEMS, CRF Last Myocardial Infarction Date:: UNKNOWN History of Any Multi-Drug Resistant Organisms: None Reported Past Surgical History: Appendectomy, Cardiac Valve Replacement, Cholecystectomy, Coronary Bypass/CABG, Hysterectomy, Tonsillectomy Additional Past Surgical History / Comment(s): colonoscopy, BILAT cataract removal Past Anesthesia/Blood Transfusion Reactions: No Reported Reaction Past Psychological History: No Psychological Hx Reported Additional Psychological History / Comment(s): Pt lives with her daughterMarlee escalera. She is fairly independent. She uses a walker at times. She has no home care agency. She gets to appt with her daughter driving her or uses a cab. Smoking Status: Former smoker Past Alcohol Use History: None Reported Additional Past Alcohol Use History / Comment(s): Pt states she started smoking when she was 18 or 19yrs old and quit in 1996 Past Drug Use History: None Reported - Past Family History Father Family Medical History: Pneumonia Additional Family Medical History / Comment(s): Father had TB Mother Family Medical History: Congestive Heart Failure (CHF) Additional Family Medical History / Comment(s): Mother young of CHF Medications and Allergies Home Medications Medication Instructions Recorded Confirmed Type Raloxifene [Evista] 60 mg PO DAILY 11/05/13 10/24/19 History Allopurinol [Zyloprim] 200 mg PO DAILY 02/07/17 10/24/19 History Cinacalcet HCl [Sensipar] 30 mg PO WEFR 02/07/17 10/24/19 History Insuln Asp Prt/Insulin Aspart 40 units SQ HS 02/07/17 10/24/19 History [NovoLOG MIX 70-30 VIAL] Rivaroxaban [Xarelto] 20 mg PO HS 05/19/17 10/24/19 History Metoprolol Tartrate [Lopressor] 50 mg PO BID tab 05/21/17 10/24/19 Rx Benazepril HCl 40 mg PO DAILY 07/07/19 10/24/19 History Magnesium Oxide [Mag-Ox] 400 mg PO BID #60 tab 07/10/19 10/24/19 Rx Atorvastatin [Lipitor] 80 mg PO DAILY 10/10/19 10/24/19 History Insuln Asp Prt/Insulin Aspart 95 unit SQ QAM 10/10/19 10/24/19 History [NovoLOG MIX 70-30 VIAL] Mupirocin 2% Oint [Bactroban 2% 1 applic TOPICAL BID 10/10/19 10/24/19 History Oint] Aspirin 81 mg PO DAILY #100 chew 10/12/19 10/24/19 Rx Furosemide [Lasix] 40 mg PO BID@0900,1600 #60 tab 10/12/19 10/24/19 Rx Allergies Allergy/AdvReac Type Severity Reaction Status Date / Time No Known Allergies Allergy Verified 10/24/19 13:01 Physical Exam Vitals: Vital Signs Temp Pulse Pulse Resp BP BP Pulse Ox 10/25/19 03:00 98 F 58 L 16 109/63 100 10/24/19 23:15 98.5 F 60 20 111/56 95 10/24/19 19:15 97.9 F 61 16 136/81 100 10/24/19 15:16 97.8 F 66 16 123/62 100 10/24/19 13:41 16 99 10/24/19 13:04 98 F 58 L 31 H 151/80 100 10/24/19 13:00 98 F 58 L 31 H 151/80 100 10/24/19 12:57 98.7 F 60 18 138/76 100 10/24/19 12:30 60 20 145/74 100 10/24/19 12:00 60 21 143/77 100 10/24/19 11:38 97.9 F 61 18 139/75 100 10/24/19 11:37 18 10/24/19 11:30 60 13 139/75 100 10/24/19 11:17 65 23 10/24/19 11:07 97.4 F L 64 20 139/71 100 Intake and Output 10/24/19 10/25/19 10/25/19 22:59 06:59 14:59 Output Total 900 Balance -900 Output: Urine 900 Other: Weight 82 kg PHYSICAL EXAMINATION: HEENT: Head is atraumatic, normocephalic. Pupils equal, round. Neck is supple. There is no elevated jugular venous pressure. No carotid bruit. HEART EXAMINATION: Heart sounds regular, S1 and S2 with a holosystolic murmur radiating to the axilla. CHEST EXAMINATION: Lungs are clear to auscultation but diminished in the right lower lobe. No chest wall tenderness is noted on palpation or with deep breathing. ABDOMEN: Soft, obese, nontender. Bowel sounds are heard. No organomegaly noted. EXTREMITIES: 2+ peripheral pulses with no evidence of peripheral edema and no calf tenderness noted. NEUROLOGIC patient is awake, alert and oriented x3. . Results 10/24/19 11:30 10/24/19 11:30 Cardiac Enzymes 10/24/19 10/24/19 Range/Units 11:30 11: AST 25 (14-36) U/L Troponin I <0.012 (0.000-0.034) ng/mL Coagulation 10/24/19 Range/Units 11:30 PT 13.0 H (9.0-12.0) sec APTT 28.3 (22.0-30.0) sec CBC 10/24/19 Range/Units 11:30 WBC 8.1 (3.8-10.6) k/uL RBC 3.03 L (3.80-5.40) m/uL Hgb 8.5 L (11.4-16.0) gm/dL Hct 28.0 L (34.0-46.0) % Plt Count 268 (150-450) k/uL Comprehensive Metabolic Panel 10/24/19 Range/Units 11:30 Sodium 141 (137-145) mmol/L Potassium 4.6 (3.5-5.1) mmol/L Chloride 105 (98-107) mmol/L Carbon Dioxide 24 (22-30) mmol/L BUN 55 H (7-17) mg/dL Creatinine 1.45 H (0.52-1.04) mg/dL Glucose 119 H (74-99) mg/dL Calcium 9.4 (8.4-10.2) mg/dL AST 25 (14-36) U/L ALT 12 (4-34) U/L Alkaline Phosphatase 66 (38-126) U/L Total Protein 6.3 (6.3-8.2) g/dL Albumin 3.4 L (3.5-5.0) g/dL Current Medications Generic Name Dose Route Start Last Admin Trade Name Freq PRN Reason Stop Dose Admin Allopurinol 200 mg 10/25/19 09:00 Zyloprim PO DAILY [facility] Aspirin 81 mg 10/25/19 09:00 Aspirin PO DAILY [facility] Atorvastatin Calcium 80 mg 10/25/19 09:00 Lipitor PO DAILY [facility] Cinacalcet 30 mg 10/28/19 09:00 Sensipar PO WEFR [facility] Furosemide 40 mg 10/24/19 21:00 10/25/19 04:55 Lasix IV 40 mg Q8H VY Administration Insulin Aspart 40 unit 10/24/19 21:00 10/24/19 19:55 Novolog Mix 70-30 Vial SQ 40 unit HS VY Administration Insulin Aspart 95 unit 10/25/19 09:00 Novolog Mix 70-30 Vial SQ QAM [facility] Lisinopril 40 mg 10/25/19 09:00 Zestril PO DAILY [facility] Magnesium Oxide 400 mg 10/24/19 21:00 10/24/19 19:55 Mag-Ox PO 400 mg BID VY Administration Metoprolol Tartrate 50 mg 10/24/19 21:00 10/24/19 19:55 Lopressor PO 50 mg BID VY Administration Raloxifene HCl 60 mg 10/25/19 09:00 Evista PO DAILY [facility] Rivaroxaban 20 mg 10/24/19 21:00 10/24/19 19:55 Xarelto PO 20 mg HS VY Administration Intake and Output 10/24/19 10/25/19 10/25/19 22:59 06:59 14:59 Output Total 900 Balance -900 Output: Urine 900 Other: Weight 82 kg 10/24/19 11:30 10/24/19 11:30 EKG Interpretations (text) Sinus rhythm Assessment and Plan Assessment: #1 symptoms of shortness of breath with dull chest discomfort likely secondary to combination of acute on chronic systolic and diastolic congestive heart failure, anemia and possibility of developing pneumonia #2 severe mitral regurgitation #3 paroxysmal atrial fibrillation, anticoagulated on Xarelto #4 anemia with complaints of black stools #5 hypertension #6 chronic kidney disease #7 diabetes #8 history of coronary artery disease status post CABG Plan: From a chemical operations specialist perspective, we recommend continue IV Lasix. We will check stool for occult blood and hold Xarelto for now. Continue to monitor daily weight, intake and output as well as renal function and electrolytes. We will continue to follow the patient for further recommendations accordingly. GENERATION ENGINEERING TECHNOLOGIST note has been reviewed, I agree with a documented findings and plan of care. Patient was seen and examined.
[2019-10-25] MEDS ORDERED: INSULN ASP PRT/INSULIN ASPART 100 UNIT/ML 10 ML VIAL SQ SCH (09:00)
[2019-10-25] MEDS: ALLOPURINOL 100 MG TAB PO SCH (09:38)
[2019-10-25] MEDS: LISINOPRIL 20 MG TAB PO SCH (09:38)
[2019-10-25] MEDS: METOPROLOL TARTRATE 50 MG TAB PO SCH ×2 (09:38→20:46)
[2019-10-25] MEDS: ATORVASTATIN 80 MG TAB PO SCH (09:38)
[2019-10-25] MEDS: RALOXIFENE 60 MG TAB PO SCH (09:39)
[2019-10-25] MEDS: ASPIRIN 81 MG PO SCH (09:39)
[2019-10-25] MEDS: MAGNESIUM OXIDE 400 MG TAB PO SCH ×2 (09:39→20:46)
[2019-10-25 10:30] LABS: Glucose,Whole Blood 114 mg/dL (75-99)
[2019-10-25 12:03] LABS: Glucose,Whole Blood 64 mg/dL (75-99)
[2019-10-25 12:27] LABS: Glucose,Whole Blood 46 mg/dL (75-99)
[2019-10-25 12:27] LABS: Glucose,Whole Blood 47 mg/dL (75-99)
[2019-10-25 12:44] LABS: Glucose,Whole Blood 61 mg/dL (75-99)
[2019-10-25 13:00] LABS: Glucose,Whole Blood 54 mg/dL (75-99)
[2019-10-25 13:17] LABS: Glucose,Whole Blood 65 mg/dL (75-99)
[2019-10-25 13:32] LABS: Glucose,Whole Blood 60 mg/dL (75-99)
[2019-10-25 13:59] LABS: Glucose,Whole Blood 64 mg/dL (75-99)
[2019-10-25 14:21] LABS: Glucose,Whole Blood 73 mg/dL (75-99)
[2019-10-25] MEDS ORDERED: DEXTROSE 50% SYRINGE 50 ML IVP STA (14:28)
[2019-10-25 15:02] LABS: Glucose,Whole Blood 111 mg/dL (75-99)
[2019-10-25 17:14] LABS: Glucose,Whole Blood 48 mg/dL (75-99)
[2019-10-25 17:14] LABS: Glucose,Whole Blood 43 mg/dL (75-99)
[2019-10-25 17:32] LABS: Glucose,Whole Blood 48 mg/dL (75-99)
[2019-10-25 17:50] LABS: Glucose,Whole Blood 65 mg/dL (75-99)
[2019-10-25 18:09] LABS: Glucose,Whole Blood 81 mg/dL (75-99)
[2019-10-25] MEDS ORDERED: DEXTROSE 5% IN WATER 1,000 ML IV SCH (18:15)
[2019-10-25 19:05] LABS: Glucose,Whole Blood 101 mg/dL (75-99)
[2019-10-25 20:00] LABS: Glucose,Whole Blood 93 mg/dL (75-99)
[2019-10-25 21:08] LABS: Glucose,Whole Blood 82 mg/dL (75-99)
[2019-10-25 22:01] LABS: Glucose,Whole Blood 70 mg/dL (75-99)
[2019-10-25 22:36] LABS: Glucose,Whole Blood 114 mg/dL (75-99)
[2019-10-25 23:02] LABS: Glucose,Whole Blood 106 mg/dL (75-99)
[2019-10-26 00:08] LABS: Glucose,Whole Blood 80 mg/dL (75-99)
[2019-10-26 00:58] LABS: Glucose,Whole Blood 69 mg/dL (75-99)
[2019-10-26 01:19] LABS: Glucose,Whole Blood 54 mg/dL (75-99)
[2019-10-26 01:35] LABS: Glucose,Whole Blood 89 mg/dL (75-99)
[2019-10-26 02:01] LABS: Glucose,Whole Blood 112 mg/dL (75-99)
[2019-10-26 02:53] LABS: Glucose,Whole Blood 100 mg/dL (75-99)
[2019-10-26] MEDS: DEXTROSE 5%-0.2% NACL 1,000 ML IV SCH ×2 (03:31→21:47)
[2019-10-26 04:13] LABS: Glucose,Whole Blood 109 mg/dL (75-99)
[2019-10-26 06:01] LABS: Glucose,Whole Blood 101 mg/dL (75-99)
[2019-10-26] MEDS: FUROSEMIDE 10 MG/ML 4 ML VIAL IV SCH ×3 (06:34→21:47)
[2019-10-26] MEDS: INSULIN DETEMIR (LEVEMIR) 100 UNIT/ML SYR SQ SCH ×2 (06:45→17:19)
[2019-10-26 06:54] LABS: Anisocytosis Slight; HCT 25.9 % (34.0-46.0); Hypochromasia Marked; MCH 28.8 pg (25.0-35.0); MCV 92.8 fL (80.0-100.0); Mean Platelet Volume 8.7; Platelet Count 253 k/uL (150-450); RBC 2.79 m/uL (3.80-5.40); RDW 16.6 % (11.5-15.5); WBC 9.3 k/uL (3.8-10.6)
[2019-10-26 07:10] LABS: Glucose,Whole Blood 84 mg/dL (75-99)
[2019-10-26 08:04] LABS: Glucose,Whole Blood 122 mg/dL (75-99)
[2019-10-26 09:01] LABS: Glucose,Whole Blood 121 mg/dL (75-99)
[2019-10-26] MEDS: ALLOPURINOL 100 MG TAB PO SCH (09:39)
[2019-10-26] MEDS: METOPROLOL TARTRATE 50 MG TAB PO SCH ×2 (09:40→21:46)
[2019-10-26] MEDS: ATORVASTATIN 80 MG TAB PO SCH (09:40)
[2019-10-26] MEDS: LISINOPRIL 20 MG TAB PO SCH (09:40)
[2019-10-26] MEDS: ASPIRIN 81 MG PO SCH (09:40)
[2019-10-26] MEDS: MAGNESIUM OXIDE 400 MG TAB PO SCH ×2 (09:40→21:46)
[2019-10-26] MEDS: RALOXIFENE 60 MG TAB PO SCH (09:46)
--- NOTE | 2019-10-26 10:21 | P.PN ---
Subjective Progress Note Date: 10/26/19 This is a pleasant 79-year-old female who follows regularly with Dr. Castellanos in the office. She has a known history of coronary artery disease with prior bypass surgery, hypertension, hyperlipidemia, paroxysmal atrial fibrillation. Patient was seen in consultation yesterday by Dr. Montenegro. Admitted to the hospital with heart failure exacerbation and is currently on IV Lasix. The patient had a recent echocardiogram with Doppler study performed in August which revealed an ejection fraction of 40-45%, severe mitral regurg and severe tricuspid regurg and severe pulmonary hypertension. She was scheduled by Dr. Castellanos to undergo a EULALIA as an outpatient. She presented to the hospital with symptoms of difficulty in breathing. Hemoglobin this morning 8.0. Stool for occult blood has been ordered but has not yet been obtained. Sodium today 133, potassium 5.0, BUN 54 and creatinine 1.5. Patient is currently on IV Lasix. Her weight is down 1 kg today. She sitting up in the chair at the time of my examination this morning, she states this morning that she feels well, through the night last night her sugars were up and down, she states she did not sleep well secondary to that. She continues to have significant bilateral peripheral edema. Objective - Vital Signs Vital signs: Vital Signs Temp 98.2 F 10/26/19 03:18 Pulse 63 10/26/19 03:18 Resp 18 10/26/19 03:18 BP 132/73 10/26/19 03:18 Pulse Ox 100 10/26/19 03:18 Intake & Output 10/25/19 10/26/19 10/26/19 18:59 06:59 18:59 Intake Total 1080 716 240 Output Total 1070 203 Balance 1080 -354 37 Weight 82 kg 81.3 kg Intake: Oral 1080 716 240 Output: Urine 1070 203 Other: # Voids 1 2 1 # Bowel Movements 1 1 - Exam PHYSICAL EXAMINATION: GENERAL: 79-year-old female in no acute distress at the time of my examination HEENT: Head is atraumatic, normocephalic. Pupils equal, round. Sclera anicteric. Conjunctiva are clear. Mucous membranes of the mouth are moist. Neck is supple. There is no elevated jugular venous pressure. No carotid bruit is heard. HEART EXAMINATION: Heart S1 S2 1 holosystolic murmur is heard CHEST EXAMINATION: Lungs are clear with diminished air entry to the bases bilaterally. ABDOMEN: Soft, obese, nontender. Bowel sounds are heard. No organomegaly noted. EXTREMITIES: 2+ peripheral pulses with 2+ evidence of peripheral edema and no calf tenderness noted. NEUROLOGIC patient is awake, alert and oriented 3 . . - Labs CBC & Chem 7: 10/26/19 06:35 10/26/19 06:35 Labs: Abnormal Lab Results - Last 24 Hours (Table) 10/25/19 10/25/19 10/25/19 Range/Units 10:28 12:02 12:22 RBC (3.80-5.40) m/uL Hgb (11.4-16.0) gm/dL Hct (34.0-46.0) % RDW (11.5-15.5) % Sodium (137-145) mmol/L BUN (7-17) mg/dL Creatinine (0.52-1.04) mg/dL POC Glucose (mg/dL) 114 H 64 L 46 L (75-99) mg/dL 10/25/19 10/25/19 10/25/19 Range/Units 12:26 12:42 12:58 RBC (3.80-5.40) m/uL Hgb (11.4-16.0) gm/dL Hct (34.0-46.0) % RDW (11.5-15.5) % Sodium (137-145) mmol/L BUN (7-17) mg/dL Creatinine (0.52-1.04) mg/dL POC Glucose (mg/dL) 47 L 61 L 54 L (75-99) mg/dL 10/25/19 10/25/19 10/25/19 Range/Units 13:15 13:30 13:56 RBC (3.80-5.40) m/uL Hgb (11.4-16.0) gm/dL Hct (34.0-46.0) % RDW (11.5-15.5) % Sodium (137-145) mmol/L BUN (7-17) mg/dL Creatinine (0.52-1.04) mg/dL POC Glucose (mg/dL) 65 L 60 L 64 L (75-99) mg/dL 10/25/19 10/25/19 10/25/19 Range/Units 14:20 15:00 17:10 RBC (3.80-5.40) m/uL Hgb (11.4-16.0) gm/dL Hct (34.0-46.0) % RDW (11.5-15.5) % Sodium (137-145) mmol/L BUN (7-17) mg/dL Creatinine (0.52-1.04) mg/dL POC Glucose (mg/dL) 73 L 111 H 48 L (75-99) mg/dL 10/25/19 10/25/19 10/25/19 Range/Units 17:12 17:30 17:49 RBC (3.80-5.40) m/uL Hgb (11.4-16.0) gm/dL Hct (34.0-46.0) % RDW (11.5-15.5) % Sodium (137-145) mmol/L BUN (7-17) mg/dL Creatinine (0.52-1.04) mg/dL POC Glucose (mg/dL) 43 L 48 L 65 L (75-99) mg/dL 10/25/19 10/25/19 10/25/19 Range/Units 19:04 22:00 22:35 RBC (3.80-5.40) m/uL Hgb (11.4-16.0) gm/dL Hct (34.0-46.0) % RDW (11.5-15.5) % Sodium (137-145) mmol/L BUN (7-17) mg/dL Creatinine (0.52-1.04) mg/dL POC Glucose (mg/dL) 101 H 70 L 114 H (75-99) mg/dL 10/25/19 10/26/19 10/26/19 Range/Units 23:01 00:56 01:19 RBC (3.80-5.40) m/uL Hgb (11.4-16.0) gm/dL Hct (34.0-46.0) % RDW (11.5-15.5) % Sodium (137-145) mmol/L BUN (7-17) mg/dL Creatinine (0.52-1.04) mg/dL POC Glucose (mg/dL) 106 H 69 L 54 L (75-99) mg/dL 10/26/19 10/26/19 10/26/19 Range/Units 01:59 02:52 04:12 RBC (3.80-5.40) m/uL Hgb (11.4-16.0) gm/dL Hct (34.0-46.0) % RDW (11.5-15.5) % Sodium (137-145) mmol/L BUN (7-17) mg/dL Creatinine (0.52-1.04) mg/dL POC Glucose (mg/dL) 112 H 100 H 109 H (75-99) mg/dL 10/26/19 10/26/19 10/26/19 Range/Units 06:00 06:35 06:35 RBC 2.79 L (3.80-5.40) m/uL Hgb 8.0 L (11.4-16.0) gm/dL Hct 25.9 L (34.0-46.0) % RDW 16.6 H (11.5-15.5) % Sodium 133 L (137-145) mmol/L BUN 54 H (7-17) mg/dL Creatinine 1.53 H (0.52-1.04) mg/dL POC Glucose (mg/dL) 101 H (75-99) mg/dL 10/26/19 10/26/19 Range/Units 08:03 09:00 RBC (3.80-5.40) m/uL Hgb (11.4-16.0) gm/dL Hct (34.0-46.0) % RDW (11.5-15.5) % Sodium (137-145) mmol/L BUN (7-17) mg/dL Creatinine (0.52-1.04) mg/dL POC Glucose (mg/dL) 122 H 121 H (75-99) mg/dL Assessment and Plan Plan: Assessment and plan #1 systolic congestive heart failure acute on chronic #2 anemia #3 possible pneumonia #4 severe mitral regurgitation #5 paroxysmal atrial fibrillation, anticoagulated with Xarelto at home, this is currently on hold. #6 chronic kidney disease #7 diabetes #8 coronary artery disease with prior bypass surgery. Plan From cardiology's perspective, we'll continue current dose of IV Lasix, continue to monitor the patient's intake and output. Xarelto continues to be on hold. Further recommendations to follow. DNP note has been reviewed, I agree with a documented findings and plan of care. Patient was seen and examined.
[2019-10-26 11:10] LABS: Glucose,Whole Blood 110 mg/dL (75-99)
--- NOTE | 2019-10-26 11:24 | CDI ---
Documentation Clarification Form Date: 10/26/2019 11:17:35 AM From: Ruby Wells RN, CCDS Admit Date: 10/24/2019 12:37:00 PM Patient Name: Anya Mejia Visit Number: [id number] ATTENTION: The Clinical Documentation Specialists (CDI) and [facility] Coding Staff appreciate your assistance in clarifying documentation. Please respond to the clarification below the line at the bottom and electronically sign. The CDI & [facility] Coding staff will review the response and follow-up if needed. Please note: Queries are made part of the Legal Health Record. If you have any questions, please contact the author of this message via ITS. Dr. Saurabh Medrano Anemia is documented in the cardiology and requires further specificity. History/Risk Factors Blood disorder, CAD, CHF, DM, HTN, VT, Chronic renal disease, Anemia: Clinical indicators: C/O black tarry stools this admission 10/23-10/25 Hemoglobin: 8.5/8 10/23-10/25 Hematocrit: 28/25.9 Treatment: ASA 81 mg PO QD D5.45 NS @ 50 cc/hr Labs as ordered. In order to capture the severity of condition, please clarify the type of anemia and etiology if known. Acute on chronic blood loss anemia Chronic blood loss anemia Iron deficiency anemia Drug induced anemia Nutritional anemia Anemia of chronic kidney disease Anemia of chronic disease Unable to determine Other, please specify (Last Form Revision: August 2019) MTDD
--- NOTE | 2019-10-26 11:35 | CDI ---
Documentation Clarification Form Date: 10/26/2019 11:32:30 AM From: Ruby Wells RN, CCDS Admit Date: 10/24/2019 12:37:00 PM Patient Name: Anya Mejia Visit Number: [id number] ATTENTION: The Clinical Documentation Specialists (CDI) and [facility] Coding Staff appreciate your assistance in clarifying documentation. Please respond to the clarification below the line at the bottom and electronically sign. The CDI & [facility] Coding staff will review the response and follow-up if needed. Please note: Queries are made part of the Legal Health Record. If you have any questions, please contact the author of this message via ITS. Dr. Saurabh Medrano CKD is documented in the cardiology consult and progress notes and requires further specificity. History/Risk Factors: 10/11 Patients Historical BUN/CR/GFR 43/1.36/38 Clinical Indicators: Current BUN: 55/54 CR: 1.45/1.53 GFR: 35/33 Treatment: D5.45 @ 50 In order to capture the severity of condition, please clarify the stage of the CKD, if known: CKD Stage 1 (GFR > 90) CKD Stage 2 (GFR 60-89) CKD Stage 3 (GFR 30-59) CKD Stage 4 (GFR 15-29) Other, please specify Unable to determine (Last Revision: July 2019) MTDD
[2019-10-26 13:07] LABS: Glucose,Whole Blood 149 mg/dL (75-99)
--- NOTE | 2019-10-26 15:36 | XR ---
EXAMINATION TYPE: XR chest 1V DATE OF EXAM: 10/26/2019 COMPARISON: Prior chest x-ray 10/24/2019 HISTORY: Congestive heart failure TECHNIQUE: frontal view of the chest is obtained on 2 images. FINDINGS: Patient is post median sternotomy. There is no focal air space opacity, pleural effusion, o r pneumothorax seen. The cardiac silhouette size is enlarged. There is persistent elevation of right hemidiaphragm. There are overlying cardiac leads. Aorta is dense. The osseous structures are intact . IMPRESSION: Findings are similar to prior exam. Cardiomegaly and elevated right hemidiaphragm, there may be basilar atelectasis, difficult to exclude effusion and pneumonia.
--- NOTE | 2019-10-26 16:03 | MISC ---
MISCELLANOUS REPORT QUERY: TYPE OF ANEMIA: Unable to determine. Type IIIB CKD. MMODL / IJN: [id number] /
[2019-10-26 16:39] LABS: Glucose,Whole Blood 310 mg/dL (75-99)
[2019-10-26 16:47] LABS: Glucose,Whole Blood 273 mg/dL (75-99)
--- NOTE | 2019-10-26 17:09 | PN ---
PROGRESS NOTE DATE OF SERVICE: 10/25/2019 CHIEF COMPLAINT: Congestive heart failure. HISTORY OF PRESENT ILLNESS: This lady is feeling better. She is less short of breath. She has had no fever, chills, etc. Her blood sugars have been quite low, however. PHYSICAL EXAMINATION: She is awake and alert. Head, ears, eyes, nose, mouth, and throat are normal. Chest demonstrates decreased breath sounds with scattered rales throughout. There is dullness to percussion at the right base. Cardiac exam is normal. Abdomen is soft, nontender. IMPRESSION: 1. Congestive heart failure. 2. Pleural effusion. 3. Hypoglycemia. 4. Insulin-dependent diabetes mellitus. PLAN: 1. Continue efforts to continue to bring blood sugars back up. 2. Stop insulin. 3. Continue to treat congestive heart failure. MMODL / IJN: [id number] /
[2019-10-26] MEDS: INSULIN ASPART (NovoLOG) 100 UNIT/ML VIAL SQ SCH ×2 (17:19→21:46)
--- NOTE | 2019-10-26 17:26 | PN ---
PROGRESS NOTE DATE OF SERVICE: 10/26/2019 CHIEF COMPLAINT: Congestive heart failure. HISTORY OF PRESENT ILLNESS: This lady is doing a little bit better. Breathing is improved. Blood sugars are still low. REVIEW OF SYSTEMS: She has had no chest pain, significant shortness of breath, abdominal pain, etc. PHYSICAL EXAMINATION: Chest demonstrates rales posteriorly with decreased breath sounds at the right base. Cardiac exam is normal and the abdomen is soft, nontender. IMPRESSION: 1. Acute congestive heart failure. 2. Pulmonary edema. 3. Anemia. 4. Chronic kidney disease. 5. Insulin-dependent diabetes mellitus. PLAN: 1. Continue with diuresis. 2. Continue to monitor blood sugars. 3. Continue to monitor hemoglobin. 4. She is being seen by Cardiology. MMODL / IJN: [id number] /
[2019-10-26 20:24] LABS: Glucose,Whole Blood 288 mg/dL (75-99)
[2019-10-26] MEDS ORDERED: ACETAMINOPHEN TAB 325 MG TAB PO PRN (23:51)
[2019-10-27] MEDS: FUROSEMIDE 10 MG/ML 4 ML VIAL IV SCH (05:58)
[2019-10-27] MEDS: INSULIN ASPART (NovoLOG) 100 UNIT/ML VIAL SQ SCH ×4 (05:59→21:02)
[2019-10-27 06:00] LABS: Glucose,Whole Blood 91 mg/dL (75-99)
[2019-10-27] MEDS: INSULIN DETEMIR (LEVEMIR) 100 UNIT/ML SYR SQ SCH (07:32)
[2019-10-27] MEDS: ATORVASTATIN 80 MG TAB PO SCH (08:43)
[2019-10-27] MEDS: ALLOPURINOL 100 MG TAB PO SCH (08:43)
[2019-10-27] MEDS: ASPIRIN 81 MG PO SCH (08:44)
[2019-10-27] MEDS: RALOXIFENE 60 MG TAB PO SCH (08:44)
[2019-10-27] MEDS: MAGNESIUM OXIDE 400 MG TAB PO SCH ×2 (08:44→21:02)
[2019-10-27] MEDS: METOPROLOL TARTRATE 50 MG TAB PO SCH ×2 (08:44→21:02)
[2019-10-27 11:47] LABS: Glucose,Whole Blood 207 mg/dL (75-99)
--- NOTE | 2019-10-27 12:19 | PN ---
PROGRESS NOTE Anya is a 79-year-old lady with severe mitral regurgitation who is admitted to hospital with acute exacerbation of chronic congestive heart failure. She has anemia, but is feeling much better today. PHYSICAL EXAM: Afebrile, heart rate is 64 beats per minute. Blood pressure is 133/70, respiratory rate is 18, O2 sat is 98% on room air. Chest exam reveals good air entry bilaterally. Heart exam reveals first and second heart sounds, systolic murmur at the apex. Abdomen is soft. Exam of the extremities did not reveal edema. Peripheral pulses are felt. The patient is currently on aspirin, Lipitor, Lasix 40 mg IV q.8, Zestril, and Lopressor. I will perform a EULALIA on her tomorrow. Xarelto is on hold because of the unexplained anemia and possible GI bleed. ASSESSMENT: 1. Severe mitral regurgitation. 2. Acute exacerbation of chronic congestive heart failure, probably systolic. 3. Coronary artery disease, status post coronary artery bypass grafting. 4. Paroxysmal atrial fibrillation. PLAN: Patient will switch to p.o. Lasix and will undergo EULALIA tomorrow. MMODL / IJN: [id number] /
--- NOTE | 2019-10-27 14:04 | PN ---
PROGRESS NOTE DATE OF SERVICE: 10/27/2019 CHIEF COMPLAINT: Congestive heart failure and uncontrolled diabetes. HISTORY OF PRESENT ILLNESS: This lady is feeling fairly well. Her sugars went up to over 300 yesterday because her Levemir was not given in the morning. She feels well today and she is having less shortness of breath. She has had no chest pain, fever and chills, etc. PHYSICAL EXAMINATION: Vital signs are normal. She is slightly pale. She is awake and alert. Chest is more clear than yesterday with many few rales and a few rhonchi. The cardiac exam is unremarkable and the abdomen is soft, nontender. Extremities are normal. IMPRESSION: 1. Congestive heart failure, acute. 2. Chronic congestive heart failure. 3. Atherosclerotic cardiovascular disease. 4. Uncontrolled insulin-dependent diabetes mellitus. 5. Renal failure. PLAN: Continue with diuresis and increase activity and continue to monitor blood sugars until they are brought under good control. MMODL / IJN: [id number] /
[2019-10-27] MEDS: FUROSEMIDE 40 MG TAB PO SCH ×2 (15:42→21:02)
[2019-10-27] MEDS: LISINOPRIL 20 MG TAB PO SCH (15:42)
[2019-10-27 17:08] LABS: Glucose,Whole Blood 217 mg/dL (75-99)
[2019-10-27 20:57] LABS: Glucose,Whole Blood 181 mg/dL (75-99)
[2019-10-28 06:17] LABS: Glucose,Whole Blood 138 mg/dL (75-99)
[2019-10-28] MEDS: INSULIN ASPART (NovoLOG) 100 UNIT/ML VIAL SQ SCH ×4 (06:18→21:06)
[2019-10-28] MEDS ORDERED: BENZOCAINE SPRAY 1 CAN MUCOUS MEM ONE ×2 (08:55→09:01)
[2019-10-28] MEDS ORDERED: IV FLUID CONTINUATION 1,000 ML IV ONE (08:55)
[2019-10-28] MEDS ORDERED: MIDAZOLAM 2 MG/2 ML VIAL IVP ONE (09:29)
[2019-10-28] MEDS ORDERED: fentaNYL (PF) 50 MCG/ML 2 ML AMP IVP ONE (09:29)
--- NOTE | 2019-10-28 10:25 | ECHOT ---
TRANSESOPHAGEAL ECHOCARDIOGRAM INDICATION: Mitral regurgitation. This is a 79-year-old lady with history of coronary artery disease, status post CABG, ischemic cardiomyopathy with ejection fraction of around 40% to 45%, Who has had episodes of congestive heart failure and has severe mitral regurgitation. The patient was advised to undergo a transesophageal echo to evaluate the mitral valve. The patient had been explained of risks, benefits, and alternatives, understood and accepted. PROCEDURE NOTE: After obtaining informed consent, transesophageal echocardiogram is performed in left lateral position using an Omniplane probe. Local and IV sedation were obtained using Xylocaine spray, intravenous Versed and fentanyl. Patient tolerated the procedure well without any immediate complications. Patient received moderate conscious sedation. Total sedation time was 10 minutes. FINDINGS: 1. Mitral valve appears anatomically normal. The mitral anulus appears dilated with poor coaptation of the mitral valve leaflets. There is severe somewhat of a posteriorly directed mitral regurgitation. 2. Aortic valve appears calcified. There is an echodense lesion attached to the aortic valve of the non coronary cup, which could represent a benign tumor involving the aortic valve or it could represent a healed vegetation. There is no evidence of aortic stenosis or aortic regurgitation. Tricuspid valve shows severe tricuspid regurgitation. 3. Right atrium appears severely enlarged. Right ventricle also appears enlarged. Left atrium appears moderately enlarged. Left ventricle, there is hypokinesis of the inferior wall with an ejection fraction of 40%-45%. 4. Aorta shows moderate to severe atherosclerotic changes. CONCLUSION: 1. Severe mitral regurgitation. 2. Severe tricuspid regurgitation. 3. Severe pulmonary hypertension with RVSP of around 80 mm. 4. Ischemic cardiomyopathy. 5. Possible benign tumor involving aortic valve. PLAN: I am going to review the information with the cardiothoracic surgeon and if they think she is a candidate, given the severe pulmonary hypertension, I am not quite sure if she is a surgical candidate. If she is, then I will perform a cardiac catheterization on her. MMODL / IJN: [id number] /
[2019-10-28] MEDS: MAGNESIUM OXIDE 400 MG TAB PO SCH ×2 (10:40→20:52)
[2019-10-28] MEDS: ALLOPURINOL 100 MG TAB PO SCH (10:40)
[2019-10-28] MEDS: METOPROLOL TARTRATE 50 MG TAB PO SCH ×2 (10:40→20:53)
[2019-10-28] MEDS: INSULIN DETEMIR (LEVEMIR) 100 UNIT/ML SYR SQ SCH (10:40)
[2019-10-28] MEDS: ATORVASTATIN 80 MG TAB PO SCH (10:41)
[2019-10-28] MEDS: FUROSEMIDE 40 MG TAB PO SCH ×3 (10:41→20:53)
[2019-10-28] MEDS: RALOXIFENE 60 MG TAB PO SCH (10:41)
[2019-10-28] MEDS: LISINOPRIL 20 MG TAB PO SCH (10:41)
[2019-10-28] MEDS: ASPIRIN 81 MG PO SCH (10:41)
[2019-10-28] MEDS: CINACALCET 30 MG TAB PO SCH (10:42)
[2019-10-28 10:53] LABS: Glucose,Whole Blood 151 mg/dL (75-99)
[2019-10-28 12:01] LABS: Glucose,Whole Blood 207 mg/dL (75-99)
[2019-10-28 16:36] LABS: Glucose,Whole Blood 220 mg/dL (75-99)
--- NOTE | 2019-10-28 17:11 | PN ---
PROGRESS NOTE DATE OF SERVICE: 10/28/2019 CHIEF COMPLAINT: Congestive heart failure, renal failure and diabetes. HISTORY OF PRESENT ILLNESS: This lady's blood sugars are doing a little bit better. She is being evaluated further by Cardiology. Echocardiogram suggests severe mitral and tricuspid insufficiency with right-sided congestive heart failure and pulmonary hypertension. This may require more aggressive cardiac management. History of present illness is otherwise unremarkable and she states that she is feeling well. PHYSICAL EXAMINATION: She still has rales bilaterally, posteriorly and the cardiac exam is unchanged and the abdomen is soft, nontender. IMPRESSION: 1. Acute congestive heart failure. 2. Chronic congestive heart failure. 3. Atherosclerotic cardiomyopathy. 4. Pulmonary hypertension. PLAN: Continue efforts to manage her heart failure while Cardiology investigate her right- sided failure. MMODL / IJN: [id number] /
[2019-10-28 21:06] LABS: Glucose,Whole Blood 246 mg/dL (75-99)
[2019-10-29 06:38] LABS: Glucose,Whole Blood 94 mg/dL (75-99)
[2019-10-29] MEDS: INSULIN ASPART (NovoLOG) 100 UNIT/ML VIAL SQ SCH ×4 (06:50→21:04)
[2019-10-29] MEDS: INSULIN DETEMIR (LEVEMIR) 100 UNIT/ML SYR SQ SCH (06:52)
[2019-10-29] MEDS: ASPIRIN 81 MG PO SCH (08:42)
[2019-10-29] MEDS: ALLOPURINOL 100 MG TAB PO SCH (08:42)
[2019-10-29] MEDS: LISINOPRIL 20 MG TAB PO SCH (08:42)
[2019-10-29] MEDS: FUROSEMIDE 40 MG TAB PO SCH ×3 (08:42→21:03)
[2019-10-29] MEDS: RALOXIFENE 60 MG TAB PO SCH (08:43)
[2019-10-29] MEDS: MAGNESIUM OXIDE 400 MG TAB PO SCH ×2 (08:43→21:03)
[2019-10-29] MEDS: ATORVASTATIN 80 MG TAB PO SCH (08:43)
[2019-10-29] MEDS: METOPROLOL TARTRATE 50 MG TAB PO SCH ×2 (08:43→21:03)
[2019-10-29 11:58] LABS: Anisocytosis Slight; Basophils % (A) 1 %; Eosinophils % (A) 1 %; HCT 27.3 % (34.0-46.0); HGB 8.2 gm/dL (11.4-16.0); Hypochromasia Marked; Lymphocytes # (A) 2.1 k/uL (1.0-4.8); Lymphocytes % (A) 31 %; MCH 28.2 pg (25.0-35.0); MCHC 30.1 g/dL (31.0-37.0); MCV 93.8 fL (80.0-100.0); Monocytes # (A) 0.5 k/uL (0-1.0); Monocytes % (A) 8 %; Neutrophils # (A) 3.7 k/uL (1.3-7.7); Neutrophils % (A) 56 %; Platelet Count 256 k/uL (150-450); RBC 2.91 m/uL (3.80-5.40); RDW 16.7 % (11.5-15.5); WBC 6.7 k/uL (3.8-10.6)
[2019-10-29 12:03] LABS: Glucose,Whole Blood 232 mg/dL (75-99)
[2019-10-29] MEDS ORDERED: NITROGLYCERIN SL TABS 0.4 MG TAB SUBLINGUAL PRN (12:07)
[2019-10-29] MEDS ORDERED: ATORVASTATIN 80 MG TAB PO STA (12:07)
[2019-10-29] MEDS ORDERED: ALPRAZolam 0.25 MG TAB PO PRN (12:07)
[2019-10-29] MEDS ORDERED: SODIUM CHLORIDE 0.9% 1,000 ML in EMPTY BAG 1 BAG IV ONE (12:07)
[2019-10-29] MEDS ORDERED: ASPIRIN 325 MG TAB PO STA (12:07)
[2019-10-29] MEDS ORDERED: ALPRAZolam 0.5 MG TAB PO PRN (12:07)
[2019-10-29 12:17] LABS: Albumin 3.3 g/dL (3.5-5.0); Calcium 8.9 mg/dL (8.4-10.2); Potassium 4.7 mmol/L (3.5-5.1); Total Bilirubin 0.3 mg/dL (0.2-1.3); Total Protein 6.2 g/dL (6.3-8.2)
--- NOTE | 2019-10-29 13:09 | P.PN ---
Subjective Progress Note Date: 10/29/19 This is a pleasant 79-year-old female who follows regularly with Dr. Castellanos in the office. She has a known history of coronary artery disease with prior bypass surgery, hypertension, hyperlipidemia, paroxysmal atrial fibrillation. Patient was seen in consultation yesterday by Dr. Montenegro. Admitted to the hospital with heart failure exacerbation and is currently on IV Lasix. The patient had a recent echocardiogram with Doppler study performed in August which revealed an ejection fraction of 40-45%, severe mitral regurg and severe tricuspid regurg and severe pulmonary hypertension. She was scheduled by Dr. Castellanos to undergo a EULALIA as an outpatient. She presented to the hospital with symptoms of difficulty in breathing. Hemoglobin this morning 8.0. Stool for occult blood has been ordered but has not yet been obtained. Sodium today 133, potassium 5.0, BUN 54 and creatinine 1.5. Patient is currently on IV Lasix. Her weight is down 1 kg today. She sitting up in the chair at the time of my examination this morning, she states this morning that she feels well, through the night last night her sugars were up and down, she states she did not sleep well secondary to that. She continues to have significant bilateral peripheral edema. 10/29/2019 Patient was seen and examined this morning, doing well overall, blood pressure 120/50. Underwent a EULALIA yesterday which revealed severe mitral regurgitation, severe TR, severe pulmonary hypertension and possible thrombus involving the a ortic valve. Dr. Ibanez did have a lengthy discussion with the patient regarding proceeding with cardiac catheterization, the risks and the benefits were also explained in detail. This will be scheduled for tomorrow. We will also obtain the patient's surgical report. Objective - Vital Signs Vital signs: Vital Signs Temp 97.9 F 10/29/19 12:00 Pulse 61 10/29/19 12:00 Resp 18 10/29/19 12:00 BP 133/61 10/29/19 12:00 Pulse Ox 98 10/29/19 12:00 Intake & Output 10/28/19 10/29/19 10/29/19 18:59 06:59 18:59 Intake Total 1700 240 Output Total 600 Balance 1100 240 Weight 85 kg Intake: IV 40 Invasive Line 1 30 Invasive Line 2 10 Oral 1660 240 Output: Urine 600 Other: Voiding Method Toilet Toilet # Voids 1 - Exam PHYSICAL EXAMINATION: GENERAL: 79-year-old female in no acute distress at the time of my examination HEENT: Head is atraumatic, normocephalic. Pupils equal, round. Sclera anicteric. Conjunctiva are clear. Mucous membranes of the mouth are moist. Neck is supple. There is no elevated jugular venous pressure. No carotid bruit is heard. HEART EXAMINATION: Heart S1 S2 1 holosystolic murmur is heard CHEST EXAMINATION: Lungs are clear with diminished air entry to the bases bilaterally. ABDOMEN: Soft, obese, nontender. Bowel sounds are heard. No organomegaly noted. EXTREMITIES: 2+ peripheral pulses with 1+ evidence of peripheral edema and no calf tenderness noted. NEUROLOGIC patient is awake, alert and oriented 3 . . - Labs CBC & Chem 7: 10/29/19 11:26 10/29/19 11:26 Labs: Abnormal Lab Results - Last 24 Hours (Table) 10/28/19 10/28/19 10/29/19 Range/Units 16:33 21:03 11:26 RBC 2.91 L (3.80-5.40) m/uL Hgb 8.2 L (11.4-16.0) gm/dL Hct 27.3 L (34.0-46.0) % MCHC 30.1 L (31.0-37.0) g/dL RDW 16.7 H (11.5-15.5) % Sodium (137-145) mmol/L BUN (7-17) mg/dL Creatinine (0.52-1.04) mg/dL Glucose (74-99) mg/dL POC Glucose (mg/dL) 220 H 246 H (75-99) mg/dL Total Protein (6.3-8.2) g/dL Albumin (3.5-5.0) g/dL 10/29/19 10/29/19 Range/Units 11:26 12:01 RBC (3.80-5.40) m/uL Hgb (11.4-16.0) gm/dL Hct (34.0-46.0) % MCHC (31.0-37.0) g/dL RDW (11.5-15.5) % Sodium 136 L (137-145) mmol/L BUN 57 H (7-17) mg/dL Creatinine 1.67 H (0.52-1.04) mg/dL Glucose 218 H (74-99) mg/dL POC Glucose (mg/dL) 232 H (75-99) mg/dL Total Protein 6.2 L (6.3-8.2) g/dL Albumin 3.3 L (3.5-5.0) g/dL Assessment and Plan Plan: Assessment and plan #1 systolic congestive heart failure acute on chronic #2 anemia #3 possible pneumonia #4 severe mitral regurgitation #5 paroxysmal atrial fibrillation, anticoagulated with Xarelto at home, this is currently on hold. #6 chronic kidney disease #7 diabetes #8 coronary artery disease with prior bypass surgery. #9 status post a EULALIA which revealed severe mitral regurgitation, severe tricuspid regurg, severe pulmonary hypertension, possible thrombus involving the aortic valve. Plan From cardiology's perspective, the patient has been advised to undergo cardiac catheterization tomorrow, the risks and the benefits were explained to the patient in detail and she is willing to proceed. We will obtain a surgical report from the patient's prior bypass surgery and scheduled for tomorrow with Dr. Ibanez. DNP note has been reviewed, I agree with a documented findings and plan of care. Patient was seen and examined.
--- NOTE | 2019-10-29 14:28 | XR ---
EXAMINATION TYPE: XR chest 2V DATE OF EXAM: 10/29/2019 COMPARISON: Prior chest x-ray 3 days ago. HISTORY: CHF progress study. Shortness of breath. TECHNIQUE: Frontal and lateral views of the chest are obtained. FINDINGS: Post-CABG changes with mediastinal clips and sternal wires redemonstrated. Elevated right h emidiaphragm is seen. There is chronic parenchyma change without suspicious focal air space opacity, pleural effusion, or pneumothorax seen. The cardiac silhouette size remains enlarged with atheroscle rotic aorta. Cholecystectomy clips redemonstrated. The osseous structures remain demineralized. IMPRESSION: Chronic changes and cardiomegaly without acute pulmonary process.
[2019-10-29 15:19] VITALS: BMI 31.1
[2019-10-29 16:55] LABS: Glucose,Whole Blood 176 mg/dL (75-99)
--- NOTE | 2019-10-29 18:34 | PN ---
PROGRESS NOTE CHIEF COMPLAINT: Acute congestive heart failure and cardiomyopathy. HISTORY OF PRESENT ILLNESS: This lady states she is feeling fine. She is not complaining of shortness of breath or chest pain. Echocardiogram is being evaluated by Cardiology, and there could be necessary evaluation by Cardiac Surgery. Blood sugars are stabilized. PHYSICAL EXAMINATION: She is awake and alert. Chest demonstrates scattered rales and rhonchi. Cardiac exam demonstrates what sounds like sinus rhythm with a faint grade 1/6 systolic murmur. Abdomen is soft. Extremities are normal. IMPRESSION: 1. Acute congestive heart failure. 2. Chronic diastolic congestive heart failure. 3. Mitral insufficiency. 4. Tricuspid insufficiency. 5. Poorly controlled insulin-dependent diabetes mellitus. PLAN: Await further guidelines and recommendations from Cardiology. MMODL / IJN: [id number] /
[2019-10-29 20:16] LABS: Glucose,Whole Blood 177 mg/dL (75-99)
[2019-10-30] MEDS: ASPIRIN 81 MG PO SCH (01:25)
[2019-10-30 01:58] LABS: Glucose,Whole Blood 167 mg/dL (75-99)
[2019-10-30 05:55] LABS: Glucose,Whole Blood 176 mg/dL (75-99)
[2019-10-30] MEDS: INSULIN DETEMIR (LEVEMIR) 100 UNIT/ML SYR SQ SCH (06:03)
[2019-10-30] MEDS: MAGNESIUM OXIDE 400 MG TAB PO SCH ×2 (06:06→20:31)
[2019-10-30] MEDS: METOPROLOL TARTRATE 50 MG TAB PO SCH ×2 (06:06→20:31)
[2019-10-30] MEDS: CINACALCET 30 MG TAB PO SCH (06:06)
[2019-10-30] MEDS: ATORVASTATIN 80 MG TAB PO SCH (06:06)
[2019-10-30] MEDS: LISINOPRIL 20 MG TAB PO SCH (06:06)
[2019-10-30] MEDS: FUROSEMIDE 40 MG TAB PO SCH ×3 (06:07→20:31)
[2019-10-30] MEDS: INSULIN ASPART (NovoLOG) 100 UNIT/ML VIAL SQ SCH ×4 (06:07→20:32)
[2019-10-30] MEDS: ALLOPURINOL 100 MG TAB PO SCH (06:07)
[2019-10-30] MEDS: RALOXIFENE 60 MG TAB PO SCH (06:07)
[2019-10-30 11:26] LABS: Glucose,Whole Blood 140 mg/dL (75-99)
[2019-10-30] MEDS ORDERED: fentaNYL (PF) 50 MCG/ML 2 ML AMP IVP ONE (11:47)
[2019-10-30] MEDS ORDERED: LIDOCAINE 1% INJ 10MG/ML (20 ML MDV) SQ ONE ×2 (11:47→11:51)
[2019-10-30] MEDS ORDERED: MIDAZOLAM 2 MG/2 ML VIAL IVP ONE (11:47)
[2019-10-30] MEDS ORDERED: fentaNYL (PF) 50 MCG/ML 2 ML AMP ONE (11:50)
[2019-10-30] MEDS ORDERED: LIDOCAINE 1% INJ 10MG/ML (20 ML MDV) ONE (11:50)
[2019-10-30] MEDS ORDERED: IV FLUID CONTINUATION 1,000 ML IV ONE (11:58)
[2019-10-30] MEDS ORDERED: IOPAMIDOL-370 100ML BTL INJ ONE (12:15)
[2019-10-30] MEDS ORDERED: RX INFO: IV CONTRAST WAS GIVEN 1 EACH MISC MISCELLANE PRN (12:24)
--- NOTE | 2019-10-30 15:20 | CC ---
CARDIAC CATHETERIZATION REPORT INDICATION: Severe mitral regurgitation and recurrent congestive heart failure. PROCEDURE NOTE: After obtaining informed consent, left heart catheterization, coronary angiogram with selective injection of the GIBBONS and the venous graft were performed via the right femoral artery using standard Cayla catheters. The patient has known CAD and has had prior bypass surgery with GIBBONS to LAD and venous graft to D1, D2 recently. She developed congestive heart failure and had severe mitral regurgitation, and I am thinking of referring her for , due to which I advised her to undergo cardiac catheterization. The patient has renal insufficiency and contrast-induced nephropathy and of contrast induced nephropathy. The patient received moderate conscious sedation and total sedation time was 28 minutes. The GIBBONS was engaged using a lucía catheter. The left and the right coronary were engaged using a Cayla size 4 right and left. FINDINGS: 1. HEMODYNAMICS: Left ventricular end-diastolic pressure is 12. There is no significant gradient across the aortic valve. 2. LEFT VENTRICULOGRAM: Not performed. 3. ANGIOGRAPHIC DATA: LEFT MAIN CORONARY ARTERY: Left main artery is a normal-sized vessel and is free of stenosis. Divides into left anterior descending coronary artery and circumflex coronary artery. LEFT ANTERIOR DESCENDING CORONARY ARTERY: LAD is totally occluded in its proximal portion. CIRCUMFLEX CORONARY ARTERY: Circumflex coronary artery gives off a large-caliber OM branch and there is a 60% to 70% ostial stenosis. RIGHT CORONARY ARTERY: Right coronary artery is a large dominant vessel with diffuse disease. In the proximal RCA there is a 40% to 50% stenosis noted. Selective injection of the GIBBONS to the LAD was suboptimal, but the GIBBONS appears patent. The venous graft to the D1, D2 appears patent. Proximal and distal anastomotic sites are free of significant disease, as is the cantwell diagonal branch. CONCLUSION: 1. Total occlusion of the LAD with patent GIBBONS to LAD and the venous graft to diagonal 1 and 2. 2. Mild to moderate nonobstructive disease above in circumflex coronary artery and right coronary artery. PLAN: Patient's management is going to be in the form of aggressive risk factor modification and optimal medical therapy, and she will be discharged home tomorrow. I will arrange for an outpatient evaluation for mitral surgery. MMODL / IJN: [id number] /
--- NOTE | 2019-10-30 16:05 | PN ---
PROGRESS NOTE DATE OF SERVICE: 10/30/2019. CHIEF COMPLAINT: Congestive heart failure and mitral valve disease. HISTORY OF PRESENT ILLNESS: This lady is going down for a cardiac cath today for coronary artery evaluation. Further recommendations will be made after that. At present time she is doing well and is not complaining of any chest pain, shortness of breath, etc. PHYSICAL EXAMINATION: She is awake and alert. Vital signs are normal. Chest is quite clear except for occasional scattered rales posteriorly. Cardiac exam is unchanged with a faint murmur. The abdomen is soft and nontender. IMPRESSION: 1. Acute congestive heart failure. 2. Atherosclerotic cardiomyopathy. 3. Chronic congestive heart failure. 4. Mitral valve and tricuspid valve insufficiency. 5. Diabetes. 6. Renal failure. PLAN: Await results of cardiac cath regarding any further recommendations. MMODL / IJN: [id number] /
[2019-10-30] MEDS: SODIUM CHLORIDE 0.9% 1,000 ML IV SCH (16:09)
[2019-10-30 16:34] LABS: Glucose,Whole Blood 167 mg/dL (75-99)
[2019-10-30 20:12] LABS: Glucose,Whole Blood 277 mg/dL (75-99)
[2019-10-31 00:05] VITALS: RESP 18
[2019-10-31] MEDS: SODIUM CHLORIDE 0.9% 1,000 ML IV SCH ×2 (02:50→08:51)
[2019-10-31 06:08] LABS: Glucose,Whole Blood 223 mg/dL (75-99)
[2019-10-31] MEDS: INSULIN DETEMIR (LEVEMIR) 100 UNIT/ML SYR SQ SCH (06:38)
[2019-10-31] MEDS: INSULIN ASPART (NovoLOG) 100 UNIT/ML VIAL SQ SCH ×2 (06:38→12:13)
[2019-10-31] MEDS: MAGNESIUM OXIDE 400 MG TAB PO SCH (08:47)
[2019-10-31] MEDS: ASPIRIN 81 MG PO SCH (08:47)
[2019-10-31] MEDS: ATORVASTATIN 80 MG TAB PO SCH (08:47)
[2019-10-31] MEDS: METOPROLOL TARTRATE 50 MG TAB PO SCH (08:47)
[2019-10-31] MEDS: FUROSEMIDE 40 MG TAB PO SCH (08:47)
[2019-10-31] MEDS: ALLOPURINOL 100 MG TAB PO SCH (08:47)
[2019-10-31] MEDS: RALOXIFENE 60 MG TAB PO SCH (08:48)
[2019-10-31] MEDS: LISINOPRIL 20 MG TAB PO SCH (08:48)
[2019-10-31 08:54] VITALS: TEMP 97.9
--- NOTE | 2019-10-31 11:05 | P.PN ---
Subjective Progress Note Date: 10/31/19 This is a pleasant 79-year-old female who follows regularly with Dr. Castellanos in the office. She has a known history of coronary artery disease with prior bypass surgery, hypertension, hyperlipidemia, paroxysmal atrial fibrillation. Patient was seen in consultation yesterday by Dr. Montenegro. Admitt ed to the hospital with heart failure exacerbation and is currently on IV Lasix. The patient had a recent echocardiogram with Doppler study performed in August which revealed an ejection fraction of 40-45%, severe mitral regurg and severe tricuspid regurg and severe pulmonary hypertension. She was scheduled by Dr. Castellanos to undergo a EULALIA as an outpatient. She presented to the hospital with symptoms of difficulty in breathing. Hemoglobin this morning 8.0. Stool for occult blood has been ordered but has not yet been obtained. Sodium today 133, potassium 5.0, BUN 54 and creatinine 1.5. Patient is currently on IV Lasix. Her weight is down 1 kg today. She sitting up in the chair at the time of my examination this morning, she states this morning that she feels well, through the night last night her sugars were up and down, she states she did not sleep well secondary to that. She continues to have significant bilateral peripheral edema. 10/29/2019 Patient was seen and examined this morning, doing well overall, blood pressure 120/50. Underwent a EULALIA yesterday which revealed severe mitral regurgitation, severe TR, severe pulmonary hypertension and possible thrombus involving the aortic valve. Dr. Ibanez did have a lengthy discussion with the patient regarding proceeding with cardiac catheterization, the risks and the benefits were also explained in detail. This will be scheduled for tomorrow. We will also obtain the patient's surgical report. 10/30: Yesterday, patient underwent heart catheterization with Dr. Minda Ibanez that revealed total occlusion of the LAD with patent GIBBONS to LAD and venous graft to diagonal 1 and 2. Mild to moderate nonobstructive disease in circumflex and right coronary artery. Plan for medical management. Patient denies having any chest pain, shortness of breath, lightheadedness or dizziness. She states she has been up and ambulating to the bathroom. No repeat lab work. Physical examination VS: Afebrile, heart rate 64, blood pressure 123/71, pulse ox 97% on room air Gen: This is a 79-year-old female. Patient is resting in bed and appears to be in no acute distress. HEENT: Head is atraumatic, normocephalic. Pupils equal, round. Sclerae is anicteric. NECK: Supple. No JVD. No lymphadenopathy. No thyromegaly. LUNGS: Clear to auscultation. No wheezes or rhonchi. No intercostal retractions. HEART: Regular rate and rhythm. Holosystolic murmur. ABDOMEN: Soft. Bowel sounds are present. No masses. No tenderness. EXTREMITIES: No pedal edema. No calf tenderness. NEUROLOGICAL: Patient is awake, alert and oriented x3. Cranial nerves 2 through 12 are grossly intact. Assessment: Acute on chronic systolic heart failure Anemia Possible pneumonia Severe mitral regurgitation Paroxysmal atrial fibrillation Chronic kidney disease Diabetes Coronary artery disease with prior CABG Status post EULALIA that revealed severe mitral regurgitation, severe tricuspid regurgitation, severe pulmonary hypertension, possible thrombus involving the aortic valve Plan: Patient is cleared for discharge from cardiology Patient will follow up with Dr. Castellanos in the office with plan for referral for mitral surgery. Nurse practitioner note has been reviewed, I agree with documented findings and plan of care. Patient was seen and examined. Objective - Vital Signs Vital signs: Vital Signs Temp 97.9 F 10/31/19 08:51 Pulse 64 10/31/19 08:51 Resp 18 10/31/19 08:51 BP 123/71 10/31/19 08:51 Pulse Ox 97 10/31/19 08:51 Intake & Output 10/30/19 10/31/19 10/31/19 18:59 06:59 18:59 Intake Total 630 462 300 Output Total 250 Balance 630 212 300 Weight 85.4 kg Intake: IV 150 Oral 480 462 300 Output: Urine 250 Other: Voiding Method Toilet # Voids 2 1 - Labs CBC & Chem 7: 10/29/19 11:26 10/29/19 11:26 Labs: Abnormal Lab Results - Last 24 Hours (Table) 10/30/19 10/30/19 10/30/19 Range/Units 11:24 16:32 20:11 POC Glucose (mg/dL) 140 H 167 H 277 H (75-99) mg/dL 10/31/19 Range/Units 06:07 POC Glucose (mg/dL) 223 H (75-99) mg/dL
[2019-10-31 11:33] VITALS: BP 121/75; PULSE 60
[2019-10-31 12:05] LABS: Glucose,Whole Blood 205 mg/dL (75-99)
--- NOTE | 2019-10-31 22:18 | DS ---
DISCHARGE SUMMARY CHIEF COMPLAINT: Difficulty breathing. HISTORY OF PRESENT ILLNESS AND PHYSICAL EXAMINATION: Details of this lady's history and physical can be found in the initial workup. LABORATORY STUDIES: While she was in the hospital, she had laboratory studies, details of which can be found in the laboratory section of her chart. COURSE IN HOSPITAL: After admission, she was placed on bedrest and started on intravenous fluids and treated for congestive heart failure. She was seen and followed by Cardiology. She eventually underwent a cardiac cath and was found to have significant coronary artery disease with an occluded LAD, but there was collateral circulation. It appeared that she had significant mitral insufficiency and though it was felt she could be discharged, arrangements will be made for her to be evaluated at a tertiary hospital. She will be sent home on her usual activity medications and be followed closely in the office. FINAL DIAGNOSES: 1. Acute congestive heart failure with pulmonary edema. 2. Atherosclerotic cardiomyopathy. 3. Coronary artery disease. 4. Mitral insufficiency. 5. Insulin-dependent diabetes mellitus. OPERATIONS: Cardiac cath. CONSULTATIONS: Cardiology. She is improved. MMUVALDO / LUCIANN: [id number] /
== END 2019-10-31 13:01 | disposition home or self-care (01) | DRG 286 ==
LOC: EC 11:01 → 3SCARD 12:37
PROVIDERS: ADMIT Family Medicine; ATTEND Family Medicine
PROC: B2131ZZ Fluoroscopy of Multiple Coronary Artery Bypass Grafts using Low Osmolar Contrast (ICD-10-PCS; principal; 2019-10-30 11:40)
PROC: B2111ZZ Fluoroscopy of Multiple Coronary Arteries using Low Osmolar Contrast (ICD-10-PCS; principal; 2019-10-30 11:40)
PROC: 4A023N7 Measurement of Cardiac Sampling and Pressure, Left Heart, Percutaneous Approach (ICD-10-PCS; principal; 2019-10-30 11:40)
DX: I13.0 Hypertensive heart and chronic kidney disease with heart failure and stage 1 through stage 4 chronic kidney disease, or unspecified chronic kidney disease (principal); I50.43 Acute on chronic combined systolic (congestive) and diastolic (congestive) heart failure; M19.90 Unspecified osteoarthritis, unspecified site; D64.9 Anemia, unspecified; E11.22 Type 2 diabetes mellitus with diabetic chronic kidney disease; E11.319 Type 2 diabetes mellitus with unspecified diabetic retinopathy without macular edema; E11.65 Type 2 diabetes mellitus with hyperglycemia; I25.10 Atherosclerotic heart disease of native coronary artery without angina pectoris; I08.1 Rheumatic disorders of both mitral and tricuspid valves; E78.5 Hyperlipidemia, unspecified; I27.20 Pulmonary hypertension, unspecified; I48.0 Paroxysmal atrial fibrillation; N18.9 Chronic kidney disease, unspecified; I42.9 Cardiomyopathy, unspecified; I25.82 Chronic total occlusion of coronary artery; Z11.59 Encounter for screening for other viral diseases; N14.1 Nephropathy induced by other drugs, medicaments and biological substances; T50.8X5A Adverse effect of diagnostic agents, initial encounter; Z79.82 Long term (current) use of aspirin; Z79.4 Long term (current) use of insulin; Z79.899 Other long term (current) drug therapy; Z79.01 Long term (current) use of anticoagulants; Z82.49 Family history of ischemic heart disease and other diseases of the circulatory system; Z95.1 Presence of aortocoronary bypass graft; Z95.2 Presence of prosthetic heart valve; Z87.891 Personal history of nicotine dependence; Z86.73 Personal history of transient ischemic attack (TIA), and cerebral infarction without residual deficits; Z90.710 Acquired absence of both cervix and uterus; Z90.49 Acquired absence of other specified parts of digestive tract; Z98.890 Other specified postprocedural states; Z98.42 Cataract extraction status, left eye; Z98.41 Cataract extraction status, right eye; Z83.6 Family history of other diseases of the respiratory system; I25.2 Old myocardial infarction
CPT/HCPCS: 36415; 71045; 71046; 80048; 80053; 81001; 82306; 82728; 83036; 83540; 83550; 83605; 83735; 83880; 83970; 84100; 84484; 84550; 85025; 85027; 85379; 85610; 85730; 87635; 93005; 93312; 93320; 93325; 93458; 96374; 99285

== ENCOUNTER 2019-11-26 07:42 | Day surgery (SDC) | payer MEDICARE, OTHER ==
[2019-11-24 13:21] VITALS: BMI 32.1
[~2019-11-26 07:42] MED LIST: ALPRAZolam 0.25 MG TAB PO PRN; ALPRAZolam 0.5 MG TAB PO PRN; ASPIRIN 325 MG TAB PO STA; NITROGLYCERIN SL TABS 0.4 MG TAB SUBLINGUAL PRN; SODIUM CHLORIDE 0.9% 1,000 ML in EMPTY BAG 1 BAG IV ONE
[2019-11-26] MEDS ORDERED: SODIUM CHLORIDE 0.9% 1,000 ML IV ONE (08:25)
[2019-11-26 08:26] LABS: Glucose,Whole Blood 376 mg/dL (75-99)
[2019-11-26] MEDS ORDERED: INSULIN ASPART (NovoLOG) 100 UNIT/ML VIAL SQ ONE (08:41)
[2019-11-26 10:02] LABS: Calcium 10.4 mg/dL (8.4-10.2); Potassium 4.6 mmol/L (3.5-5.1)
[2019-11-26 10:05] LABS: Anisocytosis Slight; Basophils # (A) 0.1 k/uL (0-0.2); Basophils % (A) 1 %; Eosinophils # (A) 0.1 k/uL (0-0.7); Eosinophils % (A) 1 %; HCT 34.1 % (34.0-46.0); HGB 10.2 gm/dL (11.4-16.0); Hypochromasia Moderate; Lymphocytes # (A) 3.1 k/uL (1.0-4.8); Lymphocytes % (A) 29 %; MCH 26.1 pg (25.0-35.0); MCHC 29.8 g/dL (31.0-37.0); Mean Platelet Volume 8.3; Monocytes # (A) 0.8 k/uL (0-1.0); Monocytes % (A) 7 %; Neutrophils # (A) 6.5 k/uL (1.3-7.7); Neutrophils % (A) 61 %; Platelet Count 316 k/uL (150-450); RDW 16.2 % (11.5-15.5); WBC 10.7 k/uL (3.8-10.6)
[2019-11-26 10:06] LABS: MCV 87.6 fL (80.0-100.0)
[2019-11-26 11:37] LABS: Glucose,Whole Blood 279 mg/dL (75-99)
== END 2019-11-26 13:03 | disposition home or self-care (01) ==
LOC: CATHCVL 07:42
PROVIDERS: ATTEND Internal Medicine Interventional Cardiology
DX: I34.0 Nonrheumatic mitral (valve) insufficiency (principal); Z95.1 Presence of aortocoronary bypass graft; I25.810 Atherosclerosis of coronary artery bypass graft(s) without angina pectoris; I11.0 Hypertensive heart disease with heart failure; I50.22 Chronic systolic (congestive) heart failure; E78.5 Hyperlipidemia, unspecified; E11.9 Type 2 diabetes mellitus without complications; M19.90 Unspecified osteoarthritis, unspecified site; I48.0 Paroxysmal atrial fibrillation; I65.23 Occlusion and stenosis of bilateral carotid arteries; Z80.9 Family history of malignant neoplasm, unspecified; Z82.49 Family history of ischemic heart disease and other diseases of the circulatory system; Z79.01 Long term (current) use of anticoagulants; Z79.818 Long term (current) use of other agents affecting estrogen receptors and estrogen levels; Z79.890 Hormone replacement therapy; Z79.4 Long term (current) use of insulin; Z79.899 Other long term (current) drug therapy; Z53.9 Procedure and treatment not carried out, unspecified reason
CPT/HCPCS: 80048; 85025

== ENCOUNTER → 2019-11-30 | Outpatient (CLI) | payer MEDICARE, OTHER ==
[2019-11-30 19:06] LABS: African American GFR (CKD) 35.7 (60.0-200.0); Anion Gap 5.1 mmol/L (4.00-12.00); Carbon Dioxide 30.9 mmol/L (21.6-31.8); Non-African American GFR(CKD) 30.8 (60.0-200.0)
== END | disposition home or self-care (01) ==
LOC: LABWHC1 08:53
PROVIDERS: ATTEND Internal Medicine Interventional Cardiology
DX: I10 Essential (primary) hypertension (principal)
CPT/HCPCS: 36415; 80051; 82565; 84520

== ENCOUNTER → 2019-12-07 | Outpatient (CLI) | payer MEDICARE, OTHER ==
[2019-12-07 11:32] LABS: Anisocytosis Slight; HGB 9.2 gm/dL (11.4-16.0); Hypochromasia Marked; MCH 27.9 pg (25.0-35.0); MCHC 31.8 g/dL (31.0-37.0); MCV 87.8 fL (80.0-100.0); Mean Platelet Volume 8.5; Platelet Count 224 k/uL (150-450); RBC 3.31 m/uL (3.80-5.40); RDW 16.3 % (11.5-15.5); WBC 11.7 k/uL (3.8-10.6)
== END | disposition home or self-care (01) ==
LOC: LABPAT 10:37
PROVIDERS: ATTEND Internal Medicine Cardiovascular Disease
DX: Z01.818 Encounter for other preprocedural examination (principal); I34.0 Nonrheumatic mitral (valve) insufficiency
CPT/HCPCS: 36415; 80051; 82565; 84520; 85027

== ENCOUNTER 2019-12-11 06:14 | Day surgery (SDC) | payer MEDICARE, OTHER ==
[2019-12-11] MEDS ORDERED: SODIUM CHLORIDE 0.9% 1,000 ML in EMPTY BAG 1 BAG IV ONE (06:30)
[2019-12-11] MEDS ORDERED: NITROGLYCERIN SL TABS 0.4 MG TAB SUBLINGUAL PRN ×2 (06:30→08:24)
[2019-12-11] MEDS ORDERED: ALPRAZolam 0.25 MG TAB PO PRN (06:30)
[2019-12-11] MEDS ORDERED: ALPRAZolam 0.5 MG TAB PO PRN (06:30)
[2019-12-11 06:47] LABS: Glucose,Whole Blood 210 mg/dL (75-99)
[2019-12-11] MEDS ORDERED: INSULIN ASPART (NovoLOG) 100 UNIT/ML VIAL SQ ONE (06:57)
[2019-12-11] MEDS ORDERED: ASPIRIN 325 MG TAB PO ONE (07:00)
[2019-12-11] MEDS ORDERED: ATORVASTATIN 80 MG TAB PO ONE (07:00)
[2019-12-11] MEDS ORDERED: SODIUM CHLORIDE 0.9% 1,000 ML IV ONE (07:02)
[2019-12-11 07:11] LABS: Calcium 9.8 mg/dL (8.4-10.2); Potassium 4.7 mmol/L (3.5-5.1)
[2019-12-11] MEDS ORDERED: fentaNYL (PF) 50 MCG/ML 2 ML AMP ONE (07:16)
[2019-12-11] MEDS ORDERED: LIDOCAINE 1% INJ 10MG/ML (20 ML MDV) ONE (07:16)
[2019-12-11] MEDS ORDERED: fentaNYL (PF) 50 MCG/ML 2 ML AMP IV ONE (07:35)
[2019-12-11] MEDS ORDERED: LIDOCAINE 1% INJ 10MG/ML (20 ML MDV) SQ ONE (07:37)
[2019-12-11] MEDS ORDERED: HEPARIN SODIUM 1,000 UN/ML (10ML VL) ONE (07:39)
[2019-12-11] MEDS: HEPARIN SODIUM 1,000 UN/ML (10ML VL) IV ONE ×2 (07:39→07:48)
[2019-12-11] MEDS ORDERED: NITROGLYCERIN 1000MCG/10ML SYRINGE INTRACORON ONE (07:46)
[2019-12-11] MEDS ORDERED: CLOPIDOGREL 75 MG TAB ONE (07:51)
[2019-12-11] MEDS ORDERED: CLOPIDOGREL 75 MG TAB PO ONE (07:58)
[2019-12-11] MEDS ORDERED: IOPAMIDOL-370 100ML BTL INJ ONE (08:07)
[2019-12-11] MEDS ORDERED: ZOLPIDEM 5 MG TAB PO PRN (08:24)
[2019-12-11] MEDS ORDERED: ATROPINE SULFATE 0.1 MG/ML 10ML SYRINGE IV PRN (08:24)
[2019-12-11] MEDS ORDERED: MAG HYDROX/AL HYDROX/SIMETH 30 ML CUP PO PRN (08:24)
[2019-12-11] MEDS ORDERED: RX INFO: IV CONTRAST WAS GIVEN 1 EACH MISC MISCELLANE PRN (08:24)
[2019-12-11] MEDS ORDERED: SODIUM CHLORIDE 0.9% 1,000 ML IV SCH (08:30)
[2019-12-11] MEDS ORDERED: CINACALCET 30 MG TAB PO SCH (08:30)
[2019-12-11] MEDS ORDERED: METOPROLOL TARTRATE 50 MG TAB PO SCH (09:00)
--- NOTE | 2019-12-11 12:56 | PTCA ---
PERCUTANEOUSTRANS CORORONARY ANGIOGRAPHY CORONARY ANGIOPLASTY AND IFR: Mrs. Mejia is a 79-year-old female with known history of coronary artery disease, followed by Dr. Ibanez, who recently was evaluated, was found to have severe mitral regurgitation. She was evaluated for mitral valve clip, but she had a borderline lesion in the right coronary artery. In view of that, recommendation was made regarding physiological measurement and depending on that, further recommendations will be made. The procedure as well as risks, and complications were discussed with the patient who is in full understanding and agreement. PROCEDURE DETAILS: Patient was brought to [facility] in a fasting semisedated state. After receiving fentanyl and Benadryl and achieving moderate conscious sedated state, using Xylocaine anesthesia and Seldinger technique, a 6-Finnish sheath was introduced in the right femoral artery. Selective right coronary angiography performed using 6-Finnish FR4 guiding catheter and after cannulating the right coronary ostium, a CCBR-SYNARC plus pressure wire was advanced positioned distally, IFR was measured and at 85%. At that point a 3.5 x 18 mm Xience Keara stent was advanced, deployed and dilated at 16 atmospheres. Following that, the balloon was removed and a 4.0 x 12 mm NC emerge balloon was advanced and two inflations at a maximum of 14 atmospheres were done. Following that, the balloon was withdrawn back in the guiding catheter, and IFR was remeasured at 92%. At that point, the guiding catheter, the balloon and the guidewire were removed. The sheath was removed. Hemostasis was obtained with deployment of an Angio-Seal. There was no immediate complications. Patient was returned to her room in stable condition. Of note, the patient received a total of 8000 units of intravenous heparin, her ACT was measured and followed. She had no significant chest discomfort or EKG changes with the inflation. RESULTS: Successful stenting of the proximal right coronary artery with reduction of stenosis from 70% with abnormal IFR to 0%. RECOMMENDATIONS: Patient will be continued on aspirin, Plavix and statin. The importance of dual antiplatelet treatment were discussed with the patient and her family her are in full understanding and agreement. Once she is stabilized, she will be further evaluated for possible mitral valve clip. Duration of procedure is 37 minutes. MMODL / IJN: [id number] /
[2019-12-11] MEDS: LISINOPRIL 20 MG TAB PO SCH (14:35)
[2019-12-11] MEDS: ALLOPURINOL 100 MG TAB PO SCH (14:36)
[2019-12-11] MEDS: INSULN ASP PRT/INSULIN ASPART 100 UNIT/ML 10 ML VIAL SQ SCH (14:38)
[2019-12-11] MEDS: RALOXIFENE 60 MG TAB PO SCH (14:39)
[2019-12-11] MEDS: MAGNESIUM OXIDE 400 MG TAB PO SCH ×2 (14:39→21:09)
[2019-12-11 16:48] LABS: Glucose,Whole Blood 278 mg/dL (75-99)
[2019-12-11 20:13] LABS: Glucose,Whole Blood 333 mg/dL (75-99)
[2019-12-11] MEDS ORDERED: INSULN ASP PRT/INSULIN ASPART 100 UNIT/ML 10 ML VIAL SQ SCH (21:00)
[2019-12-11] MEDS: METOPROLOL TARTRATE 50 MG TAB PO SCH (21:09)
[2019-12-12 04:47] VITALS: RESP 18
[2019-12-12 06:08] LABS: Glucose,Whole Blood 133 mg/dL (75-99)
[2019-12-12] MEDS: ALLOPURINOL 100 MG TAB PO SCH (08:37)
[2019-12-12] MEDS: MAGNESIUM OXIDE 400 MG TAB PO SCH (08:38)
[2019-12-12] MEDS: LISINOPRIL 20 MG TAB PO SCH (08:38)
[2019-12-12] MEDS: INSULN ASP PRT/INSULIN ASPART 100 UNIT/ML 10 ML VIAL SQ SCH (08:38)
[2019-12-12] MEDS: RALOXIFENE 60 MG TAB PO SCH (08:39)
[2019-12-12] MEDS: METOPROLOL TARTRATE 50 MG TAB PO SCH (08:39)
[2019-12-12 08:43] LABS: Glucose,Whole Blood 218 mg/dL (75-99)
[2019-12-12] MEDS ORDERED: ASPIRIN 81 MG PO SCH (09:00)
[2019-12-12] MEDS ORDERED: ATORVASTATIN 80 MG TAB PO SCH (09:00)
[2019-12-12] MEDS ORDERED: CLOPIDOGREL 75 MG TAB PO SCH (09:00)
[2019-12-12 09:02] LABS: Calcium 9.2 mg/dL (8.4-10.2); Potassium 4.6 mmol/L (3.5-5.1)
--- NOTE | 2019-12-12 10:32 | PN ---
PROGRESS NOTE Mrs. Mejia is a 79-year-old female followed by Dr. Ibanez. History of coronary artery disease, history of mitral valve disease who has been evaluated for mitral valve clip, had a borderline lesion in the RCA. Underwent IFR yesterday that was hemodynamically significant, underwent stenting of that vessel. She is doing well today. Her breathing is stable. She denies any chest pain. No dizziness. No palpitation. She continues to be on aspirin once a day, Lipitor 80 mg daily, Sensipar, Plavix 75 mg daily, insulin, lisinopril 40 mg daily, metoprolol tartrate 50 mg twice a day, Evista. PHYSICAL EXAMINATION: Blood pressure 136/57 with a heart rate in 60s. Lungs: Clear. Heart regular rate and rhythm S1, S2. No S3 with a holosystolic murmur in the apex. No diastolic murmur. Abdomen soft, nontender. Extremities: No edema. Right femoral no hematoma. LAB DATA: BUN and creatinine 37 and 1.06. Potassium 4.6. EKG revealed no acute changes. IMPRESSION: 1. Status post stenting of the RCA with positive IFR. 2. History of mitral valve disease. 3. Hypertension. 4. Chronic kidney disease. 5. Diabetes. 6. Hyperlipidemia. RECOMMENDATION: Patient will be discharged home today and followed as an outpatient with Dr. Ibanez. MMODL / LUCIANN: [id number] /
[2019-12-12 11:49] VITALS: BP 147/63; PULSE 63; TEMP 98.3
[2019-12-12 12:01] LABS: Glucose,Whole Blood 93 mg/dL (75-99)
[2019-12-12 12:04] VITALS: BMI 33.3
--- NOTE | 2019-12-12 19:11 | PN ---
PROGRESS NOTE CHIEF COMPLAINT: Coronary artery disease. HISTORY OF PRESENT ILLNESS: This lady is doing well. She has had no issues. She has had no pain, arrhythmias, shortness of breath, etc. PHYSICAL EXAMINATION: Chest is clear. Cardiac exam is normal. Abdomen is soft, nontender. IMPRESSION: 1. Coronary artery disease. 2. Hypertension. 3. Uncontrolled insulin-dependent diabetes mellitus. PLAN: She may be going home today following her stenting of the proximal right coronary artery. MMODL / IJN: [id number] /
--- NOTE | 2019-12-12 20:11 | CONS ---
CONSULTATION CHIEF COMPLAINT: Right carotid occlusive disease and CAD. HISTORY OF PRESENT ILLNESS: This lady is brought in for evaluation for coronary artery disease. She has had a stent placed in the past. She has been found to have significant carotid stenosis on the right and is being evaluated for coronary artery disease in view of recent development of congestive heart failure and a prior history of stenting. REVIEW OF SYSTEMS: She has had no chest pain. She has had no recent syncope, particular difficulty with shortness of breath, fever, chills, etc. PAST MEDICAL HISTORY, FAMILY HISTORY AND PERSONAL AND SOCIAL HISTORIES: Can be found in her admitting workup. Her blood pressure has been well controlled lately, but not her blood sugars. She has not been very compliant with management of her diabetes over the years. She used to smoke but she does not any longer. PHYSICAL EXAMINATION: Blood pressure 132/70 with a pulse 65 and regular, respirations 16 and she is afebrile. In general, she appeared to be slightly overweight and in no acute distress. Skin color is normal, skin is warm, dry. Lymph nodes not enlarged. Head, ears, eyes, nose, mouth, and throat were normal and there was a right carotid bruit. Chest was clear to auscultate auscultation and percussion. Cardiac exam was normal sinus rhythm. The. abdomen is soft, nontender. Extremities normal. Neurologically she is intact. She was admitted to the hospital with diagnoses: 1. Coronary artery disease. 2. Carotid occlusive disease. 3. Atherosclerotic cardiovascular disease. 4. Hypertension. 5. Poorly controlled insulin-dependent diabetes mellitus. 6. Renal failure. RECOMMENDATION: None at this time. MMODL / IJN: [id number] /
== END 2019-12-12 13:10 | disposition home or self-care (01) ==
LOC: CATHCVL 06:14 → 3SCARD 08:07 → CATHCVL 12-12 13:10
PROVIDERS: ATTEND Internal Medicine Interventional Cardiology
DX: I25.10 Atherosclerotic heart disease of native coronary artery without angina pectoris (principal); I13.0 Hypertensive heart and chronic kidney disease with heart failure and stage 1 through stage 4 chronic kidney disease, or unspecified chronic kidney disease; E11.22 Type 2 diabetes mellitus with diabetic chronic kidney disease; E11.65 Type 2 diabetes mellitus with hyperglycemia; N18.9 Chronic kidney disease, unspecified; I50.22 Chronic systolic (congestive) heart failure; Z87.891 Personal history of nicotine dependence; R60.0 Localized edema; E78.5 Hyperlipidemia, unspecified; I65.23 Occlusion and stenosis of bilateral carotid arteries; I48.0 Paroxysmal atrial fibrillation; I25.5 Ischemic cardiomyopathy; Z95.1 Presence of aortocoronary bypass graft; Z79.01 Long term (current) use of anticoagulants; Z79.890 Hormone replacement therapy; Z79.4 Long term (current) use of insulin; Z79.899 Other long term (current) drug therapy
CPT/HCPCS: 93571; 80048 ×2; C9600; C1769 ×2; C1760; C1887; C1725; C1894; C1874; J2001; J3010; J1644; Q9967

== ENCOUNTER → 2019-12-29 | Outpatient (CLI) | payer MEDICARE, OTHER ==
[2019-12-30 01:35] LABS: African American GFR (CKD) 41.9 (60.0-200.0); Anion Gap 6.5 mmol/L (4.00-12.00); BUN/Creat Ratio 31.43 Ratio (12.00-20.00); Calcium 9.6 mg/dL (8.7-10.3); Carbon Dioxide 27.5 mmol/L (21.6-31.8); Non-African American GFR(CKD) 36.2 (60.0-200.0); Potassium 4.3 mmol/L (3.5-5.5)
== END | disposition home or self-care (01) ==
LOC: LABWHC1 13:26
PROVIDERS: ATTEND Internal Medicine Nephrology
DX: N18.3 Chronic kidney disease, stage 3 (moderate) (principal)
CPT/HCPCS: 36415; 80048

== ENCOUNTER → 2020-11-07 | Outpatient (CLI) | payer MEDICARE, OTHER ==
[2020-11-07 19:16] LABS: HCT 36.4 % (37.2-46.3); HGB 11.4 g/dL (12.0-15.0); MCH 30.2 pg (27.0-32.0); MCHC 31.3 g/dL (32.0-37.0); MCV 96.6 fL (80.0-97.0); Mean Platelet Volume 11.6 fL (9.5-12.2); Platelet Count 278 X 10*3/uL (140-440); RBC 3.77 X 10*6/uL (4.10-5.20); RDW 13.6 % (11.5-14.5); WBC 9.97 X 10*3/uL (4.50-10.00)
[2020-11-07 19:44] LABS: % Iron Saturation 19.53 (12.00-45.00); African American GFR (CKD) 45.5 (60.0-200.0); Albumin 4.1 g/dL (3.80-4.90); Albumin/Globulin Ratio 1.52 (1.60-3.17); Anion Gap 10.2 mmol/L (4.00-12.00); BUN/Creat Ratio 23.85 Ratio (12.00-20.00); Calcium 9.8 mg/dL (8.7-10.3); Carbon Dioxide 28.8 mmol/L (21.6-31.8); Chol/HDL Ratio 4.08; Globulin 2.7 g/dL (1.6-3.3); LDL Cholesterol,Calculated 88.4 mg/dL (0.0-131.0); Non-African American GFR(CKD) 39.3 (60.0-200.0); Phosphorus 3.6 mg/dL (2.4-5.1); Potassium 4.8 mmol/L (3.5-5.5); Total Bilirubin 0.3 mg/dL (0.2-1.2); Total Protein 6.8 g/dL (6.2-8.2); Uric Acid 7.5 mg/dL (2.9-7.7); VLDL Calculation 34.6 mg/dL (5.00-40.00)
[2020-11-07 19:52] LABS: Ferritin 76.6 ng/mL (10.0-291.0)
== END | disposition home or self-care (01) ==
LOC: LABWHC1 11:45
PROVIDERS: ATTEND Nurse Practitioner Family
DX: N18.30 Chronic kidney disease, stage 3 unspecified (principal); E78.2 Mixed hyperlipidemia; D64.9 Anemia, unspecified; N39.0 Urinary tract infection, site not specified; R80.9 Proteinuria, unspecified; N25.81 Secondary hyperparathyroidism of renal origin; E55.9 Vitamin D deficiency, unspecified
CPT/HCPCS: 36415; 80053; 80061; 82306; 82728; 83540; 83550; 83735; 83970; 84100; 84550; 85027

== ENCOUNTER → 2021-05-02 | Outpatient (CLI) | payer MEDICARE, OTHER ==
[2021-05-02 15:13] LABS: Basophils # (A) 0.05 X 10*3/uL (0.00-0.10); Basophils % (A) 0.6 %; Eosinophils # (A) 0.05 X 10*3/uL (0.04-0.35); Eosinophils % (A) 0.6 %; HCT 36.7 % (37.2-46.3); HGB 11.7 g/dL (12.0-15.0); Lymphocytes # (A) 2.81 X 10*3/uL (0.90-5.00); Lymphocytes % (A) 32.3 %; MCH 30.3 pg (27.0-32.0); MCHC 31.9 g/dL (32.0-37.0); MCV 95.1 fL (80.0-97.0); Mean Platelet Volume 11.6 fL (9.5-12.2); Monocytes # (A) 0.89 X 10*3/uL (0.20-1.00); Monocytes % (A) 10.2 %; Neutrophils # (A) 4.87 X 10*3/uL (1.80-7.70); Neutrophils % (A) 56.1 %; Platelet Count 256 X 10*3/uL (140-440); RBC 3.86 X 10*6/uL (4.10-5.20); RDW 13.4 % (11.5-14.5); WBC 8.69 X 10*3/uL (4.50-10.00)
[2021-05-02 18:51] LABS: % Iron Saturation 16.91 (12.00-45.00); African American GFR (CKD) 46.8 (60.0-200.0); Anion Gap 15.3 mmol/L (4.00-12.00); BUN/Creat Ratio 34.41 Ratio (12.00-20.00); Blood Urea Nitrogen 43.7 mg/dL (9.0-27.0); Calcium 10.8 mg/dL (8.7-10.3); Carbon Dioxide 20.8 mmol/L (21.6-31.8); Ferritin 80.1 ng/mL (10.0-291.0); Magnesium 2.2 mg/dL (1.5-2.4); Non-African American GFR(CKD) 40.4 (60.0-200.0); Phosphorus 3.6 mg/dL (2.4-5.1); Potassium 5.1 mmol/L (3.5-5.5)
== END | disposition home or self-care (01) ==
LOC: LABWHC1 09:25
PROVIDERS: ATTEND Internal Medicine Nephrology
DX: N18.32 Chronic kidney disease, stage 3b (principal); M10.9 Gout, unspecified; N39.0 Urinary tract infection, site not specified; D64.9 Anemia, unspecified; R80.9 Proteinuria, unspecified
CPT/HCPCS: 36415; 80048; 82040; 82306; 82728; 83540; 83550; 83735; 83970; 84100; 84550; 85025

== ENCOUNTER → 2021-06-05 | Outpatient (CLI) | payer MEDICARE, OTHER ==
--- NOTE | 2021-06-05 19:35 | US ---
EXAMINATION TYPE: US kidneys/renal and bladder DATE OF EXAM: 06/05/2021 COMPARISON: multiple US's , most recent dated 07/29/[address] dated 07/07/2019 CLINICAL HISTORY: N18.32 CHRONIC KIDNEY DISEASE STAGE 3. EXAM MEASUREMENTS: Right Kidney: 11.2 x 5.0 x 5.1 cm Left Kidney: 10.6 x 4.5 x 4.6 cm Post Void Residual Volume: 389.02 mL Right Kidney: fluid in renal pelvis , even post void Left Kidney: Cortical medullary differentiation maintained bilaterally, no masses seen Bladder: wnl Normal Post Void Residual: no Urinary bladder is anechoic. IMPRESSION: There is mild bilateral pelviectasis, interval finding. There is an elevated post void residual bladd er volume present
== END | disposition home or self-care (01) ==
LOC: RADUSWWP 16:21
PROVIDERS: ATTEND Internal Medicine Nephrology
DX: N18.32 Chronic kidney disease, stage 3b (principal)
CPT/HCPCS: 76770

== ENCOUNTER 2021-07-17 14:39 | Inpatient (IN) | payer MEDICARE, OTHER ==
[2021-07-17] MEDS ORDERED: SODIUM CHLORIDE 0.9% 1,000 ML IV STA (15:27)
[2021-07-17] MEDS ORDERED: SODIUM CHLORIDE 0.9% 1,000 ML IV ONE (15:28)
[2021-07-17 15:42] LABS: Basophils % (A) 0 %; Eosinophils % (A) 0 %; HCT 43.3 % (34.0-46.0); HGB 13.2 gm/dL (11.4-16.0); Hypochromasia Moderate; Lymphocytes # (A) 1.1 k/uL (1.0-4.8); Lymphocytes % (A) 10 %; MCH 30.5 pg (25.0-35.0); MCHC 30.6 g/dL (31.0-37.0); MCV 99.7 fL (80.0-100.0); Mean Platelet Volume 8.4; Monocytes # (A) 0.4 k/uL (0-1.0); Monocytes % (A) 4 %; Neutrophils # (A) 9.5 k/uL (1.3-7.7); Neutrophils % (A) 84 %; Platelet Count 466 k/uL (150-450); RBC 4.34 m/uL (3.80-5.40); RDW 13.3 % (11.5-15.5); WBC 11.2 k/uL (3.8-10.6)
[2021-07-17 15:53] LABS: ALT 15 U/L (4-34); AST 23 U/L (14-36); African American GFR (CKD) 30 (>60 ml/min/1.73 sqM); Albumin 3.4 g/dL (3.5-5.0); Alcohol <10 mg/dL; Alkaline Phosphatase 111 U/L (38-126); Anion Gap 17 mmol/L; Blood Urea Nitrogen 87 mg/dL (7-17); Calcium 12.6 mg/dL (8.4-10.2); Carbon Dioxide 17 mmol/L (22-30); Chloride 108 mmol/L (98-107); Lactic Acid, Venous 4.4 mmol/L (0.7-2.0); Non-African American GFR(CKD) 26 (>60 ml/min/1.73 sqM); Sodium 142 mmol/L (137-145); Total Bilirubin 0.9 mg/dL (0.2-1.3); Total Protein 6.8 g/dL (6.3-8.2)
[2021-07-17 15:54] LABS: INR 0.9 (<1.2); Partial Thromboplastin Time 24.9 sec (22.0-30.0); Prothrombin Time 10.2 sec (9.0-12.0)
[2021-07-17 15:58] LABS: Appearance,Urine Turbid (Clear); Bacteria,Urine Many /hpf; Bilirubin,Urine Negative (Negative); Blood,Urine Moderate (Negative); Budding Yeast,Urine Few /hpf; Color,Urine Light Yellow; Glucose,Urine (UA) 4+ (Negative); Ketones,Urine 1+ (Negative); Leukocyte Esterase,Urine Large (Negative); Mucus,Urine Occasional /hpf; Nitrite,Urine Negative (Negative); Protein,Urine Trace (Negative); RBC,Urine 7 /hpf (0-5); Specific Gravity,Urine 1.023 (1.001-1.035); Squamous Epithelial Cell,Urine 1 /hpf (0-4); Urobilinogen,Urine <2.0 mg/dL (<2.0); WBC,Urine >182 /hpf (0-5)
[2021-07-17 16:02] LABS: Amphetamine Screen,Urine Not Detected (NotDetected); Barbiturate Screen,Urine Not Detected (NotDetected); Benzodiazepines Screen,Urine Not Detected (NotDetected); Cocaine Screen,Urine Not Detected (NotDetected); Methadone Screen, Urine Not Detected (NotDetected); Opiate Screen,Urine Not Detected (NotDetected); Oxycodone Screen, Urine Not Detected (NotDetected); Phencyclidine Screen,Urine Not Detected (NotDetected); Tricyclic Antidepressant,Urine Not Detected (NotDetected); Urn Cannabinoid Scrn Not Detected (NotDetected)
[2021-07-17 16:06] LABS: Potassium 5.7 mmol/L (3.5-5.1)
[2021-07-17 16:07] LABS: Glucose 701 mg/dL (74-99)
--- NOTE | 2021-07-17 16:31 | CT ---
EXAMINATION TYPE: CT brain wo con DATE OF EXAM: 07/17/2021 HISTORY: altered mental status CT DLP: 1183 mGycm. Automated Exposure Control for Dose Reduction was Utilized. TECHNIQUE: CT scan of the head is performed without contrast. COMPARISON: CT brain May 19, 2017 FINDINGS: There is no acute intracranial hemorrhage or midline shift identified. 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 There is moderate to severe low-attenuation in the periventricu lar white matter consistent with chronic small vessel ischemic change. Dependent fluid left maxillary sinus. Patchy fluid left ethmoid sinuses. Posterior opacification right sphenoid sinus. Globes are i ntact bilaterally. IMPRESSION: No acute intracranial hemorrhage or midline shift. There is moderate to severe diffuse cerebral atrophy and chronic small vessel ischemic change redemonstrated with some interval progressi on from 2017 CT thought present. Acute paranasal sinus disease now suspected, correlate clinically.
--- NOTE | 2021-07-17 16:33 | XR ---
EXAMINATION TYPE: XR chest 2V DATE OF EXAM: 07/17/2021 COMPARISON: Chest x-ray 10/29/[address] 10/10/2019 HISTORY: Altered mental status TECHNIQUE: Frontal and lateral views of the chest are obtained. FINDINGS: There is no focal air space opacity, pleural effusion, or pneumothorax seen. The cardiac silhouette size is likely enlarged, patient is rotated. Patient is post median sternotomy. Aorta is d ense. There are overlying leads. The osseous structures are intact. There are coronary artery calcif ications. Interstitium appears somewhat increased. Surgical clips present in the upper abdomen. IMPRESSION: Postop changes. Suspect cardiomegaly. Coronary artery disease, there may be underlying i nterstitial changes within the lungs, follow-up as indicated.
[2021-07-17 17:18] LABS: T4, Free (Free Thyroxine) 1.79 ng/dL (0.78-2.19)
[2021-07-17] MEDS ORDERED: cefTRIAXone IN SWFI 1,000 MG/10 ML SYRINGE IVP STA (17:25)
[2021-07-17] MEDS: INSULIN REGULAR 100 UNIT in SODIUM CHLORIDE 0.9% 100 ML IV SCH (17:27)
--- NOTE | 2021-07-17 17:27 | ED ---
Altered Mental Status HPI - General Chief Complaint: Altered Mental Status Stated Complaint: AMS Source: patient, EMS Mode of arrival: EMS Limitations: no limitations - History of Present Illness Initial Comments: Patient is a 80-year-old female past medical history of diabetes, hypertension, diabetic retinopathy who presents to the emergency department with altered mental status. She does live with her daughters who are at bedside and provide a history. Daughter states that the patient has been confused for at least a week. She has been refusing to take her medications which include her insulin. She was refusing to go to the hospital. Today the patient became progressively altered and therefore they called an ambulance. EMS found her covered in feces and urine. They did an Accu-Chek and their meter read high. Family states the patient has recurrent issues with not taking her medications. They're concerned for UTI due to the odor of her urine. They deny that the patient sustained any type of fall. The remainder of the HPI is limited because of the patient's altered status. - Related Data Home Medications Medication Instructions Recorded Confirmed Raloxifene [Evista] 60 mg PO DAILY 11/05/13 07/17/21 Cinacalcet HCl [Sensipar] 30 mg PO MOWEFR 02/07/17 07/17/21 allopurinoL [Zyloprim] 100 mg PO BID 02/07/17 07/17/21 Rivaroxaban [Xarelto] 20 mg PO HS 05/19/17 07/17/21 Benazepril HCl 40 mg PO DAILY 07/07/19 07/17/21 Atorvastatin [Lipitor] 80 mg PO HS 10/10/19 07/17/21 Insuln Asp Prt/Insulin Aspart 38 units SQ HS 11/24/19 07/17/21 [NovoLOG MIX 70-30 VIAL] Insuln Asp Prt/Insulin Aspart 72 unit SQ DAILY 11/24/19 07/17/21 [NovoLOG MIX 70-30 VIAL] Albuterol Sulfate [Albuterol 2 puff PO Q6H PRN 07/17/21 07/17/21 Sulfate Hfa] Furosemide [Lasix] 40 mg PO BID 07/17/21 07/17/21 Previous Rx's Medication Instructions Recorded Metoprolol Tartrate [Lopressor] 50 mg PO BID tab 05/21/17 Clopidogrel [Plavix] 75 mg PO DAILY #90 tab 12/12/19 Allergies Allergy/AdvReac Type Severity Reaction Status Date / Time No Known Allergies Allergy Verified 07/17/21 16:49 Review of Systems ROS Statement: Those systems with pertinent positive or pertinent negative responses have been documented in the HPI. ROS Other: All systems not noted in ROS Statement are negative. Past Medical History Past Medical History: Blood Disorder, Coronary Artery Disease (CAD), Chest Pain / Angina, Heart Failure, CVA/TIA, Diabetes Mellitus, Eye Disorder, Hyperlipidemia, Hypertension, Myocardial Infarction (IN), Osteoarthritis (OA), Renal Disease, Syncope Additional Past Medical History / Comment(s): HX ANEMIA, DIABETIC RETINOPATHY, GOUT, SINUS PROBLEMS. Last Myocardial Infarction Date:: UNKNOWN History of Any Multi-Drug Resistant Organisms: None Reported Past Surgical History: Appendectomy, Cardiac Valve Replacement, Cholecystectomy, Coronary Bypass/CABG, Hysterectomy, Tonsillectomy Additional Past Surgical History / Comment(s): colonoscopy, bilat. cataract removal Past Anesthesia/Blood Transfusion Reactions: No Reported Reaction Past Psychological History: No Psychological Hx Reported Smoking Status: Former smoker Past Alcohol Use History: None Reported Past Drug Use History: None Reported - Past Family History Father Family Medical History: Pneumonia Additional Family Medical History / Comment(s): Father had TB Mother Family Medical History: Congestive Heart Failure (CHF) Additional Family Medical History / Comment(s): Mother young of CHF General Exam Limitations: no limitations Course Vital Signs 07/17/21 07/17/21 07/17/21 14:40 17:56 19:36 Temperature 97.4 F L Pulse Rate 114 H 90 108 H Respiratory 18 18 18 Rate Blood Pressure 125/68 131/88 143/77 O2 Sat by Pulse 94 L 95 96 Oximetry 07/17/21 21:20 Temperature Pulse Rate 104 H Respiratory 18 Rate Blood Pressure 145/80 O2 Sat by Pulse 95 Oximetry Medical Decision Making - Medical Decision Making Upon arrival patient was placed into room 8. A thorough history and physical e xam was performed. IV is established the patient started on 120 mL of normal saline per hour due to her history of congestive heart failure. Laboratory studies are conducted which demonstrates a creatinine of 1.8. Patient's baseline normally 1.3. Glucose is 701. Lactic acid 4.4. Urinalysis has greater than 182 white blood cells, many white blood cell clumps and many bacteria. Acetone is positive. Covid is detected. Patient is started on an insulin drip with every hour Accu-Cheks. Blood cultures obtained and patient given a dose of Rocephin as her previous medical biology demonstrated that she was sensitive to Rocephin. Patient will be admitted to [address] Medrano who agreed to admit the patient. She remained in serious condition awaiting a bed on the floor. - Lab Data Result diagrams: 07/17/21 15:27 07/17/21 19:28 Lab Results 07/17/21 07/17/21 07/17/21 Range/Units 15:27 15:27 15:27 WBC 11.2 H (3.8-10.6) k/uL RBC 4.34 (3.80-5.40) m/uL Hgb 13.2 (11.4-16.0) gm/dL Hct 43.3 (34.0-46.0) % MCV 99.7 (80.0-100.0) fL MCH 30.5 (25.0-35.0) pg MCHC 30.6 L (31.0-37.0) g/dL RDW 13.3 (11.5-15.5) % Plt Count 466 H (150-450) k/uL MPV 8.4 Neutrophils % 84 % Lymphocytes % 10 % Monocytes % 4 % Eosinophils % 0 % Basophils % 0 % Neutrophils # 9.5 H (1.3-7.7) k/uL Lymphocytes # 1.1 (1.0-4.8) k/uL Monocytes # 0.4 (0-1.0) k/uL Eosinophils # 0.0 (0-0.7) k/uL Basophils # 0.0 (0-0.2) k/uL Hypochromasia Moderate PT 10.2 (9.0-12.0) sec INR 0.9 (<1.2) APTT 24.9 (22.0-30.0) sec Sodium (137-145) mmol/L Potassium (3.5-5.1) mmol/L Chloride (98-107) mmol/L Carbon Dioxide (22-30) mmol/L Anion Gap mmol/L BUN (7-17) mg/dL Creatinine (0.52-1.04) mg/dL Est GFR (CKD-EPI)AfAm (>60 ml/min/1.73 sqM) Est GFR (CKD-EPI)NonAf (>60 ml/min/1.73 sqM) Glucose (74-99) mg/dL POC Glucose (mg/dL) (75-99) mg/dL POC Glu Cloth Weaver ID Lactic Ac Sepsis Rflx Plasma Lactic Acid Rick (0.7-2.0) mmol/L Calcium (8.4-10.2) mg/dL Total Bilirubin (0.2-1.3) mg/dL AST (14-36) U/L ALT (4-34) U/L Alkaline Phosphatase (38-126) U/L Ammonia (<30) umol/L Troponin I (0.000-0.034) ng/mL Total Protein (6.3-8.2) g/dL Albumin (3.5-5.0) g/dL TSH (0.465-4.680) mIU/L Free T4 (0.78-2.19) ng/dL Urine Color Light Yellow Urine Appearance Turbid H (Clear) Urine pH 5.0 (5.0-8.0) Ur Specific Alpine 1.023 (1.001-1.035) Urine Protein Trace H (Negative) Urine Glucose (UA) 4+ H (Negative) Urine Ketones 1+ H (Negative) Urine Blood Moderate H (Negative) Urine Nitrite Negative (Negative) Urine Bilirubin Negative (Negative) Urine Urobilinogen <2.0 (<2.0) mg/dL Ur Leukocyte Esterase Large H (Negative) Urine RBC 7 H (0-5) /hpf Urine WBC >182 H (0-5) /hpf Urine WBC Clumps Many H (None) /hpf Ur Squamous Epith Cells 1 (0-4) /hpf Urine Bacteria Many H (None) /hpf Urine Mucus Occasional H (None) /hpf Urine Yeast (Budding) Few H (None) /hpf Urine Opiates Screen Not Detected (NotDetected) Ur Oxycodone Screen Not Detected (NotDetected) Urine Methadone Screen Not Detected (NotDetected) Ur Propoxyphene Screen Not Detected (NotDetected) Ur Barbiturates Screen Not Detected (NotDetected) U Tricyclic Antidepress Not Detected (NotDetected) Ur Phencyclidine Scrn Not Detected (NotDetected) Ur Amphetamines Screen Not Detected (NotDetected) U Methamphetamines Scrn Not Detected (NotDetected) U Benzodiazepines Scrn Not Detected (NotDetected) Urine Cocaine Screen Not Detected (NotDetected) U Marijuana (THC) Screen Not Detected (NotDetected) Serum Alcohol mg/dL Acetone, Qual (Negative) 07/17/21 07/17/21 07/17/21 Range/Units 15:27 15:30 15:30 WBC (3.8-10.6) k/uL RBC (3.80-5.40) m/uL Hgb (11.4-16.0) gm/dL Hct (34.0-46.0) % MCV (80.0-100.0) fL MCH (25.0-35.0) pg MCHC (31.0-37.0) g/dL RDW (11.5-15.5) % Plt Count (150-450) k/uL MPV Neutrophils % % Lymphocytes % % Monocytes % % Eosinophils % % Basophils % % Neutrophils # (1.3-7.7) k/uL Lymphocytes # (1.0-4.8) k/uL Monocytes # (0-1.0) k/uL Eosinophils # (0-0.7) k/uL Basophils # (0-0.2) k/uL Hypochromasia PT (9.0-12.0) sec INR (<1.2) APTT (22.0-30.0) sec Sodium 142 (137-145) mmol/L Potassium 5.7 H (3.5-5.1) mmol/L Chloride 108 H (98-107) mmol/L Carbon Dioxide 17 L (22-30) mmol/L Anion Gap 17 mmol/L BUN 87 H (7-17) mg/dL Creatinine 1.82 H (0.52-1.04) mg/dL Est GFR (CKD-EPI)AfAm 30 (>60 ml/min/1.73 sqM) Est GFR (CKD-EPI)NonAf 26 (>60 ml/min/1.73 sqM) Glucose 701 H* (74-99) mg/dL POC Glucose (mg/dL) (75-99) mg/dL POC Glu Cloth Weaver ID Lactic Ac Sepsis Rflx Plasma Lactic Acid Rick 4.4 H* (0.7-2.0) mmol/L Calcium 12.6 H (8.4-10.2) mg/dL Total Bilirubin 0.9 (0.2-1.3) mg/dL AST 23 (14-36) U/L ALT 15 (4-34) U/L Alkaline Phosphatase 111 (38-126) U/L Ammonia <9 (<30) umol/L Troponin I 0.020 (0.000-0.034) ng/mL Total Protein 6.8 (6.3-8.2) g/dL Albumin 3.4 L (3.5-5.0) g/dL TSH 0.187 L (0.465-4.680) mIU/L Free T4 1.79 (0.78-2.19) ng/dL Urine Color Urine Appearance (Clear) Urine pH (5.0-8.0) Ur Specific Alpine (1.001-1.035) Urine Protein (Negative) Urine Glucose (UA) (Negative) Urine Ketones (Negative) Urine Blood (Negative) Urine Nitrite (Negative) Urine Bilirubin (Negative) Urine Urobilinogen (<2.0) mg/dL Ur Leukocyte Esterase (Negative) Urine RBC (0-5) /hpf Urine WBC (0-5) /hpf Urine WBC Clumps (None) /hpf Ur Squamous Epith Cells (0-4) /hpf Urine Bacteria (None) /hpf Urine Mucus (None) /hpf Urine Yeast (Budding) (None) /hpf Urine Opiates Screen (NotDetected) Ur Oxycodone Screen (NotDetected) Urine Methadone Screen (NotDetected) Ur Propoxyphene Screen (NotDetected) Ur Barbiturates Screen (NotDetected) U Tricyclic Antidepress (NotDetected) Ur Phencyclidine Scrn (NotDetected) Ur Amphetamines Screen (NotDetected) U Methamphetamines Scrn (NotDetected) U Benzodiazepines Scrn (NotDetected) Urine Cocaine Screen (NotDetected) U Marijuana (THC) Screen (NotDetected) Serum Alcohol <10 mg/dL Acetone, Qual Positive (Negative) 07/17/21 07/17/21 Range/Units 15:53 17:25 WBC (3.8-10.6) k/uL RBC (3.80-5.40) m/uL Hgb (11.4-16.0) gm/dL Hct (34.0-46.0) % MCV (80.0-100.0) fL MCH (25.0-35.0) pg MCHC (31.0-37.0) g/dL RDW (11.5-15.5) % Plt Count (150-450) k/uL MPV Neutrophils % % Lymphocytes % % Monocytes % % Eosinophils % % Basophils % % Neutrophils # (1.3-7.7) k/uL Lymphocytes # (1.0-4.8) k/uL Monocytes # (0-1.0) k/uL Eosinophils # (0-0.7) k/uL Basophils # (0-0.2) k/uL Hypochromasia PT (9.0-12.0) sec INR (<1.2) APTT (22.0-30.0) sec Sodium (137-145) mmol/L Potassium (3.5-5.1) mmol/L Chloride (98-107) mmol/L Carbon Dioxide (22-30) mmol/L Anion Gap mmol/L BUN (7-17) mg/dL Creatinine (0.52-1.04) mg/dL Est GFR (CKD-EPI)AfAm (>60 ml/min/1.73 sqM) Est GFR (CKD-EPI)NonAf (>60 ml/min/1.73 sqM) Glucose (74-99) mg/dL POC Glucose (mg/dL) 533 H (75-99) mg/dL POC Glu Cloth Weaver ID Dubois, Inna Lactic Ac Sepsis Rflx Y Plasma Lactic Acid Rick (0.7-2.0) mmol/L Calcium (8.4-10.2) mg/dL Total Bilirubin (0.2-1.3) mg/dL AST (14-36) U/L ALT (4-34) U/L Alkaline Phosphatase (38-126) U/L Ammonia (<30) umol/L Troponin I (0.000-0.034) ng/mL Total Protein (6.3-8.2) g/dL Albumin (3.5-5.0) g/dL TSH (0.465-4.680) mIU/L Free T4 (0.78-2.19) ng/dL Urine Color Urine Appearance (Clear) Urine pH (5.0-8.0) Ur Specific Alpine (1.001-1.035) Urine Protein (Negative) Urine Glucose (UA) (Negative) Urine Ketones (Negative) Urine Blood (Negative) Urine Nitrite (Negative) Urine Bilirubin (Negative) Urine Urobilinogen (<2.0) mg/dL Ur Leukocyte Esterase (Negative) Urine RBC (0-5) /hpf Urine WBC (0-5) /hpf Urine WBC Clumps (None) /hpf Ur Squamous Epith Cells (0-4) /hpf Urine Bacteria (None) /hpf Urine Mucus (None) /hpf Urine Yeast (Budding) (None) /hpf Urine Opiates Screen (NotDetected) Ur Oxycodone Screen (NotDetected) Urine Methadone Screen (NotDetected) Ur Propoxyphene Screen (NotDetected) Ur Barbiturates Screen (NotDetected) U Tricyclic Antidepress (NotDetected) Ur Phencyclidine Scrn (NotDetected) Ur Amphetamines Screen (NotDetected) U Methamphetamines Scrn (NotDetected) U Benzodiazepines Scrn (NotDetected) Urine Cocaine Screen (NotDetected) U Marijuana (THC) Screen (NotDetected) Serum Alcohol mg/dL Acetone, Qual (Negative) - EKG Data EKG Comments: EKG demonstrates A. fib with a rate of 110. QRS 96. QTC of 457. No acute ST segment elevations. Some ST depression in the inferior and lateral leads. PVC present. Disposition Clinical Impression: JOSEPH (acute kidney injury), DKA (diabetic ketoacidosis), UTI (urinary tract infection), Acute encephalopathy Disposition: ADMITTED IP TO THIS [facility] Condition: Serious Is patient prescribed a controlled substance at d/c from ED?: No Decision to Admit Reason: Admit from EC Decision Date: 07/17/21 Decision Time: 17:35
[2021-07-17 17:31] LABS: Glucose,Whole Blood 533 mg/dL (75-99)
[2021-07-17] MEDS ORDERED: NALOXONE 0.4 MG/ML 1 ML VIAL IV PRN (17:39)
[2021-07-17 18:39] LABS: Glucose,Whole Blood 474 mg/dL (75-99)
[2021-07-17 19:44] LABS: Glucose,Whole Blood 355 mg/dL (75-99)
[2021-07-17 19:56] LABS: Potassium 4.9 mmol/L (3.5-5.1)
[2021-07-17 21:11] LABS: Glucose,Whole Blood 220 mg/dL (75-99)
[2021-07-17] MEDS ORDERED: ALBUTEROL HFA INHALER INHALATION PRN (22:00)
[2021-07-17 22:17] LABS: Glucose,Whole Blood 109 mg/dL (75-99)
[2021-07-17] MEDS: D5-0.45% NACL WITH KCL 20MEQ/L 1,000 ML IV SCH (22:19)
[2021-07-17 23:16] LABS: Glucose,Whole Blood 93 mg/dL (75-99)
[2021-07-17 23:26] LABS: Potassium 4.1 mmol/L (3.5-5.1)
[2021-07-17] MEDS: CLOPIDOGREL 75 MG TAB PO SCH (23:32)
[2021-07-17] MEDS: ATORVASTATIN 80 MG TAB PO SCH (23:32)
[2021-07-17] MEDS: RIVAROXABAN 20 MG TAB PO SCH (23:32)
[2021-07-17 23:55] LABS: Glucose,Whole Blood 104 mg/dL (75-99)
[2021-07-18 01:08] LABS: Glucose,Whole Blood 125 mg/dL (75-99)
[2021-07-18 02:25] LABS: Glucose,Whole Blood 140 mg/dL (75-99)
[2021-07-18 03:38] LABS: Glucose,Whole Blood 143 mg/dL (75-99)
[2021-07-18 04:37] LABS: Glucose,Whole Blood 186 mg/dL (75-99)
[2021-07-18 05:21] LABS: Glucose,Whole Blood 228 mg/dL (75-99)
[2021-07-18 05:30] LABS: Basophils % (A) 0 %; Eosinophils # (A) 0.1 k/uL (0-0.7); Eosinophils % (A) 1 %; HGB 13.1 gm/dL (11.4-16.0); Hypochromasia Slight; Lymphocytes # (A) 1.3 k/uL (1.0-4.8); Lymphocytes % (A) 12 %; MCHC 31.1 g/dL (31.0-37.0); MCV 96.5 fL (80.0-100.0); Mean Platelet Volume 8.1; Monocytes # (A) 0.7 k/uL (0-1.0); Monocytes % (A) 6 %; Neutrophils # (A) 8.6 k/uL (1.3-7.7); Neutrophils % (A) 78 %; Platelet Count 432 k/uL (150-450); RBC 4.35 m/uL (3.80-5.40); RDW 13.8 % (11.5-15.5)
[2021-07-18 05:32] LABS: Calcium 12.1 mg/dL (8.4-10.2); Potassium 4.6 mmol/L (3.5-5.1)
[2021-07-18] MEDS: D5-0.45% NACL WITH KCL 20MEQ/L 1,000 ML IV SCH ×2 (05:58→13:59)
[2021-07-18 06:19] LABS: Glucose,Whole Blood 247 mg/dL (75-99)
[2021-07-18 07:33] LABS: Glucose,Whole Blood 358 mg/dL (75-99)
[2021-07-18 08:37] LABS: Glucose,Whole Blood 320 mg/dL (75-99)
[2021-07-18] MEDS: allopurinoL 100 MG TAB PO SCH ×2 (08:48→21:09)
[2021-07-18] MEDS: CLOPIDOGREL 75 MG TAB PO SCH (08:48)
[2021-07-18 09:35] LABS: Glucose,Whole Blood 354 mg/dL (75-99)
[2021-07-18 11:43] LABS: Glucose,Whole Blood 386 mg/dL (75-99)
[2021-07-18] MEDS ORDERED: VANCOMYCIN IV PER PHARMACY 1 EACH MISC MISCELLANE PRN (11:53)
[2021-07-18] MEDS: INSULIN ASPART (NovoLOG) 100 UNIT/ML VIAL SQ SCH ×3 (12:00→21:10)
[2021-07-18] MEDS: SODIUM CHLORIDE 0.9% 1,000 ML IV SCH ×2 (12:01→21:09)
[2021-07-18] MEDS: INSULIN REGULAR 100 UNIT in SODIUM CHLORIDE 0.9% 100 ML IV SCH (12:02)
[2021-07-18 12:22] VITALS: BMI 29.7
--- NOTE | 2021-07-18 12:49 | HP ---
HISTORY AND PHYSICAL CHIEF COMPLAINT: Dehydration, general debility and confusion. HISTORY OF PRESENT ILLNESS: This is another admission for this 80-year-old white female who is a fairly noncompliant individual. She has had coronary artery disease and has had a CABG. She has insulin-dependent diabetes, but never takes her insulin appropriately. She has been being maintained at home by her family. She was last in the office in March of 2021. The family states that she does not take her medications and has not eaten or had much to drink in the last 6 or 7 days. They brought her to the emergency room, where she was weak, dehydrated and disoriented. REVIEW OF SYSTEMS: Unobtainable. Past medical history, family history, and personal and social histories reveal that she has a history of coronary artery disease, hypertension, chronic renal failure, hyperlipidemia. She does not smoke or drink. She has had a hysterectomy, appendectomy, cholecystectomy, CABG. PHYSICAL EXAMINATION: Blood pressure is 125/68 with a pulse of 102, respirations of 18, temperature 97.4, pulse ox 95. She appears to be weak, lethargic and extremely dehydrated. Head, ears, eyes, nose, mouth and throat demonstrate skin dehydration and dry mucous membranes. Neck veins are not distended. Chest is clear. Cardiac exam demonstrates a regular rate and rhythm. The abdomen is soft and nontender without any visceromegaly or masses detectable. There is a midline sternotomy scar. Extremities are unremarkable except that her hands are slightly cyanotic, but there are adequate peripheral pulses. Neurologically she is confused, but does not have any focal neurologic findings. She is admitted to the hospital with the diagnoses: 1. Diabetic ketoacidosis. 2. Dehydration. 3. Delirium. 4. History of hypertension. 5. History of uncontrolled diabetes. 6. History of coronary artery disease, status post coronary artery bypass grafting. 7. History of renal failure. PLAN: 1. Bedrest. 2. IV fluids. 3. DKA protocol. 4. Rehydrate. 5. Child Protective Services Social Worker consult. MMODL / IJN: [id number] /
[2021-07-18] MEDS: VANCOMYCIN 1,500 MG in SODIUM CHLORIDE 0.9% 250 ML IVPB SCH (13:51)
[2021-07-18 16:33] LABS: Glucose,Whole Blood 491 mg/dL (75-99)
[2021-07-18] MEDS ORDERED: INSULIN DETEMIR (LEVEMIR) 100 UNIT/ML SYR SQ STA (16:48)
[2021-07-18] MEDS ORDERED: INSULIN ASPART (NovoLOG) 100 UNIT/ML VIAL SQ ONE (17:00)
--- NOTE | 2021-07-18 19:55 | PN ---
PROGRESS NOTE DATE OF SERVICE: 07/18/2021 CHIEF COMPLAINT: DKA, dehydration and delirium. HISTORY OF PRESENT ILLNESS: This lady has improved. She is a little bit more alert. Her blood sugar is still quite high, although she is out of ketoacidosis. PHYSICAL EXAMINATION: She is extremely dehydrated. She is awake but lethargic. She is not appropriate. Chest is clear. Cardiac exam demonstrates tachycardia. Abdomen is soft, nontender. Upper extremities are slightly cool and cyanotic, but the feet are well perfused. IMPRESSION: 1. Diabetic ketoacidosis. 2. Delirium. 3. Renal failure. 4. Sepsis with positive blood culture for Gram-positives. PLAN: 1. Continue with rehydration. 2. Stop insulin drip and go to a basal bolus program with sliding scale. 3. Marcell vancomycin based on positive blood culture. 4. Continue to monitor laboratory studies and manage her diabetes. MMODL / IJN: [id number] /
[2021-07-18 20:13] LABS: Glucose,Whole Blood 344 mg/dL (75-99)
[2021-07-18] MEDS: ATORVASTATIN 80 MG TAB PO SCH (21:09)
[2021-07-18] MEDS: RIVAROXABAN 20 MG TAB PO SCH (21:09)
[2021-07-19] MEDS: SODIUM CHLORIDE 0.9% 1,000 ML IV SCH ×4 (06:13→20:35)
[2021-07-19 06:14] LABS: Glucose,Whole Blood 75 mg/dL (75-99)
[2021-07-19] MEDS: INSULIN ASPART (NovoLOG) 100 UNIT/ML VIAL SQ SCH ×4 (06:15→20:34)
[2021-07-19] MEDS: INSULIN DETEMIR (LEVEMIR) 100 UNIT/ML SYR SQ SCH (06:21)
[2021-07-19] MEDS ORDERED: INSULIN DETEMIR (LEVEMIR) 100 UNIT/ML SYR SQ SCH (07:00)
[2021-07-19] MEDS: CLOPIDOGREL 75 MG TAB PO SCH (09:09)
[2021-07-19] MEDS: allopurinoL 100 MG TAB PO SCH ×2 (09:09→20:04)
[2021-07-19 11:20] LABS: Glucose,Whole Blood 222 mg/dL (75-99)
[2021-07-19] MEDS: VANCOMYCIN 1,500 MG in SODIUM CHLORIDE 0.9% 250 ML IVPB SCH (12:34)
--- NOTE | 2021-07-19 13:46 | CDI ---
Documentation Clarification Form Date: 07/19/2021 01:27:55 PM From: Cat Boyle RN, CCDS Admit Date: 07/17/2021 05:39:00 PM Patient Name: Anya Mejia Visit Number: [id number] Discharge Date: ATTENTION: The Clinical Documentation Specialists (CDI) and [facility] Coding Staff appreciate your assistance in clarifying documentation. Please respond to the clarification below the line at the bottom and electronically sign. The CDI & [facility] Coding staff will review the response and follow-up if needed. Please note: Queries are made part of the Legal Health Record. If you have any questions, please contact the author of this message via ITS. Dr. Saurabh Medrano Your patient has the documented symptom of Altered Mental Status emergency department acute encephalopathy is documented. Additional clarification regarding the etiology/cause of this symptom is requested. History/Risk Factors: Diabetes Mellitus, Hypertension, Diabetic retinopathy, Former smoker Clinical Indicators: 80-year-old female present to emergency department with altered mental status. She has been refusing to take her medications including her insulin. 07/17 Vital signs: 125/68 114 18 97.4 94 % RA 07/17 Labs: WBC 11,2, Glucose 433, 701, Na+ 148, BUN 88, CR 1.55; UA 4+ Glucose, 1+ ketones, Ur Leukocyte Esterase Large WBC .182; Ketones -positive, lactic acid 4.4 EKG: A. FIB rate 110 07/17 CXR: suspect cardiomegaly 07/17 CT Brain: No acute intracranial hemorrhage or midline shift Treatment: Telemetry monitoring Vancomycin HCL 1,500 MG IV Q 24 HRS (PTD) 07/18 Rocephin 1,000 MG IVP X1 (07/17) .9NS 1000 ML Bolus (07/17) Please clarify the etiology of the symptom of Altered Mental Status: [ ] Metabolic Encephalopathy due to (Specify cause) [ ] Other condition (please specify) [ ] Unable to determine (Template Last Revised: July 2020) MTDD
[2021-07-19 15:04] LABS: Basophils % (A) 0 %; Eosinophils % (A) 1 %; HCT 36.8 % (34.0-46.0); HGB 11.4 gm/dL (11.4-16.0); Hypochromasia Slight; Lymphocytes # (A) 1.6 k/uL (1.0-4.8); Lymphocytes % (A) 22 %; MCH 30.1 pg (25.0-35.0); MCV 97.3 fL (80.0-100.0); Mean Platelet Volume 9.2; Monocytes # (A) 0.4 k/uL (0-1.0); Monocytes % (A) 6 %; Neutrophils # (A) 5.2 k/uL (1.3-7.7); Neutrophils % (A) 70 %; Platelet Count 329 k/uL (150-450); RBC 3.78 m/uL (3.80-5.40); RDW 13.6 % (11.5-15.5); WBC 7.5 k/uL (3.8-10.6)
[2021-07-19 15:25] LABS: Albumin 2.5 g/dL (3.5-5.0); Calcium 10.4 mg/dL (8.4-10.2); Potassium 4.6 mmol/L (3.5-5.1); Total Bilirubin 0.3 mg/dL (0.2-1.3); Total Protein 5.3 g/dL (6.3-8.2)
[2021-07-19 16:22] LABS: Glucose,Whole Blood 260 mg/dL (75-99)
--- NOTE | 2021-07-19 16:40 | MISC ---
MISCELLANOUS REPORT Metabolic encephalopathy due to dehydration, chronic renal failure, diabetes, and ASCVD. MMODL / IJN: [id number] /
--- NOTE | 2021-07-19 16:59 | XR ---
EXAMINATION TYPE: XR chest 1V portable DATE OF EXAM: 07/19/2021 COMPARISON: 07/17/2021 HISTORY: Short of breath. COPD TECHNIQUE: FINDINGS: There is some patchy interstitial infiltrates in the periphery of both lungs. There is no o bvious heart failure. There are sternal wires. Heart is slightly enlarged. Thoracic aorta is atheroma tous. There are chest leads. . IMPRESSION: There is some patchy interstitial pneumonia increased compared to recent exam
--- NOTE | 2021-07-19 17:19 | PN ---
PROGRESS NOTE CHIEF COMPLAINT: Delirium, DKA, dehydration. HISTORY OF PRESENT ILLNESS: This lady is doing a little bit better. She is a little bit more alert, but very confused. Hydration is improving. Blood sugars are fluctuating. PHYSICAL EXAMINATION: She is still very dehydrated. Her chest is clear and her cardiac exam is normal. Abdomen is soft, nontender. IMPRESSION: 1. Diabetic ketoacidosis. 2. Dehydration. 3. Renal failure. 4. Uncontrolled diabetes. 5. Delirium. PLAN: 1. Repeat laboratory studies. 2. Slow down IV rate. MMODL / IJN: [id number] /
[2021-07-19] MEDS: RIVAROXABAN 20 MG TAB PO SCH (20:04)
[2021-07-19] MEDS: ATORVASTATIN 80 MG TAB PO SCH (20:05)
[2021-07-19 20:08] LABS: Glucose,Whole Blood 260 mg/dL (75-99)
[2021-07-20 06:02] LABS: Glucose,Whole Blood 192 mg/dL (75-99)
[2021-07-20] MEDS: SODIUM CHLORIDE 0.9% 1,000 ML IV SCH ×3 (06:38→18:36)
[2021-07-20] MEDS: INSULIN DETEMIR (LEVEMIR) 100 UNIT/ML SYR SQ SCH (06:40)
[2021-07-20] MEDS: INSULIN ASPART (NovoLOG) 100 UNIT/ML VIAL SQ SCH ×4 (06:40→21:15)
[2021-07-20] MEDS: allopurinoL 100 MG TAB PO SCH ×2 (08:55→21:15)
[2021-07-20] MEDS: CLOPIDOGREL 75 MG TAB PO SCH (08:55)
[2021-07-20 11:26] LABS: Glucose,Whole Blood 295 mg/dL (75-99)
[2021-07-20] MEDS: VANCOMYCIN 1,500 MG in SODIUM CHLORIDE 0.9% 250 ML IVPB SCH (12:53)
--- NOTE | 2021-07-20 15:32 | CDI ---
Documentation Clarification Form Date: 07/20/2021 03:14:00 PM From: Cat Boyle RN, CCDS Admit Date: 07/17/2021 05:39:00 PM Patient Name: Anya Mejia Visit Number: [id number] Discharge Date: ATTENTION: The Clinical Documentation Specialists (CDI) and [facility] Coding Staff appreciate your assistance in clarifying documentation. Please respond to the clarification below the line at the bottom and electronically sign. The CDI & [facility] Coding staff will review the response and follow-up if needed. Please note: Queries are made part of the Legal Health Record. If you have any questions, please contact the author of this message via ITS. Dr. Saurabh Medrano UTI is documented in the emergency department note on 07/17/21, but not noted in the attending H/P or subsequent documentations. Additional clarification regarding this diagnosis is requested. History/Risk Factors: Diabetes Mellitus, Hypertension, Diabetic retinopathy, Former smoker Clinical Indicators: 80-year-old female present to emergency department with altered mental status. .07/17 Vital signs: 125/68 114 18 97.4 94 % RA 07/17 Labs: WBC 11, 2 Glucose 433, 701, Na+ 148, BUN 88, CR 1.55; UA 4+ Glucose, 1+ ketones, Ur Leukocyte Esterase Large WBC .182; Ketones -positive, lactic acid 4.4 07/17 Urine Culture: >100,000 apparent skin and /or genital august Treatment .9NS 1,000 ML Bolus (07/17) then @130 MLS/HR IV (07/19 Vancomycin 1,500 MG IVPB Q 24 HRS 07/18 (PTD) Please clarify if there is an additional diagnosis associated with the UTI: [ ] UTI only, POA [ ] Sepsis due to UTI, POA [ } UTI ruled out [ ] Contaminated specimen [ ] Other, please specify [ ] Unable to determine (Template Last Revised: August 2020) BID
--- NOTE | 2021-07-20 16:06 | CDI ---
Documentation Clarification Form Date: 07/20/2021 03:38:32 PM From: Cat Boyle RN, CCDS Admit Date: 07/17/2021 05:39:00 PM Patient Name: Anya Mejia Visit Number: [id number] Discharge Date: ATTENTION: The Clinical Documentation Specialists (CDI) and [facility] Coding Staff appreciate your assistance in clarifying documentation. Please respond to the clarification below the line at the bottom and electronically sign. The CDI & [facility] Coding staff will review the response and follow-up if needed. Please note: Queries are made part of the Legal Health Record. If you have any questions, please contact the author of this message via ITS. Dr. Saurabh Medrano COVID is documented in the Emergency Department note with Coronavirus (PCR) Detected on 07/17/21 @ 17:56. but has not been noted by the attending. Please provide further clarification for this lab finding and what we may or may not be treating. Patient history/risk factors: Diabetes Mellitus, Hypertension, Diabetic retinopathy, Former smoker Clinical Indicators: 80-year-old female present to emergency department with altered mental status. she is extremely dehydrated , awake but lethargic. Cardiac exam demonstrates tachycardia. ED documentation has COVID-19 Detected. Patient maintained on COVID isolation per protocol. .07/17 Vital signs: 125/68 114 18 97.4 94 % RA 07/17 Labs: WBC 11, 2 Glucose 433, 701, Na+ 148, BUN 88, CR 1.55; UA 4+ Glucose, 1+ ketones, Ur Leukocyte Esterase Large WBC .182; Ketones -positive, lactic acid 4.4 07/17 Blood Cultures Final: Aerococcus viridans 07/17 CXR: Postop changes. Suspect cardiomegaly. Coronary artery disease, there may be underlying interstitial changes within the lungs. 07/19 CXR There is some patchy interstitial pneumonia increased compared to recent exam Treatment: Telemetry Monitoring CBC, Lytes, Lactic acid Q day per orders Ventolin Inhalers 2 Puff Q6 PRN Neuro check per protocal Monitor O2 Sat's (titrate) Covid-19 isolation per Protocol 9NS 1,000 ML Bolus (07/17) then @130 MLS/HR IV (07/19 - Vancomycin 1,500 MG IVPB Q 24 HRS 07/18 (PTD) In order to capture the severity of condition, please clarify if the above treatment/clinical indicators signify: [ ] COVID-19 Confirmed [ ] Other, please specify [ ] Unable to determine (Last Form Revision: August 2019) MTDD
[2021-07-20 16:16] LABS: Glucose,Whole Blood 267 mg/dL (75-99)
[2021-07-20 20:09] LABS: Glucose,Whole Blood 256 mg/dL (75-99)
--- NOTE | 2021-07-20 20:14 | PN ---
PROGRESS NOTE CHIEF COMPLAINT: Diabetic ketoacidosis, dehydration, renal failure and encephalopathy with delirium. HISTORY OF PRESENT ILLNESS: This lady is a little more alert every day. Hydration is improving. Her blood sugars are still somewhat elevated. PHYSICAL EXAMINATION: She still remains very dehydrated, but more alert. Chest is clear. Cardiac exam is normal. Abdomen is soft, nontender. IMPRESSION: 1. Diabetic ketoacidosis. 2. Dehydration. 3. Uncontrolled diabetes mellitus. 4. Renal failure. 5. Delirium. 6. Dementia. PLAN: Continue with resuscitative IV fluids and follow blood sugars. MMODL / IJN: [id number] /
[2021-07-20] MEDS: RIVAROXABAN 20 MG TAB PO SCH (21:15)
[2021-07-20] MEDS: ATORVASTATIN 80 MG TAB PO SCH (21:15)
[2021-07-21 05:49] LABS: Glucose,Whole Blood 155 mg/dL (75-99)
[2021-07-21] MEDS: INSULIN ASPART (NovoLOG) 100 UNIT/ML VIAL SQ SCH ×4 (06:18→20:37)
[2021-07-21] MEDS: INSULIN DETEMIR (LEVEMIR) 100 UNIT/ML SYR SQ SCH (06:18)
--- NOTE | 2021-07-21 09:17 | CDI ---
Documentation Clarification Form Date: 07/21/2021 08:48:34 AM From: Cat Boyle RN, CCDS Admit Date: 07/17/2021 05:39:00 PM Patient Name: Anya Mejia Visit Number: [id number] Discharge Date: ATTENTION: The Clinical Documentation Specialists (CDI) and [facility] Coding Staff appreciate your assistance in clarifying documentation. Please respond to the clarification below the line at the bottom and electronically sign. The CDI & [facility] Coding staff will review the response and follow-up if needed. Please note: Queries are made part of the Legal Health Record. If you have any questions, please contact the author of this message via ITS. Dr. Saurabh Medrano Unspecified CKD is documented in the H/P and subsequent progress notes. Additional clarification regarding the stage of CKD is requested. History/Risk Factors: Diabetes Mellitus, Hypertension, Diabetic retinopathy, Renal Failure, Heart failure Coronary artery disease Former smoker Patients Historical (10/12/2019) BUN 43, CR 1,36 GFR 38 07/17/21 on admission: BUN 87 CR 1.82 GFR 26 07/19 21 BUN 40 CR 0.92, GFR 60 Clinical Indicators: 80-year-old female present to emergency department with altered mental status, dehydration, Lactic acid 4.4. ED assessment of lab studies demonstrates a creatinine on 1.8. Patient's baseline normally 1.3 per emergency department note. ED impression: Acute kidney injury Treatment: 9NS 1,000 ML Bolus (07/17) then @130 MLS/HR IV (07/19 - Monitor renal function daily x3 and per orders Please clarify the stage of the CKD, and if you are also treating acute kidney injury per emergency department impression: [ ] CKD Stage 1 (GFR > 90) [ ] CKD Stage 2 (GFR 60-89) [ ] CKD Stage 3 (GFR 30-59) [ ] CKD Stage 3a (GFR 45-59) [ ] CKD Stage 3b (GFR 30-44) [ ] Other, please specify [ ] Unable to determine (Template Last revised: July 2020) MTDD
[2021-07-21] MEDS: CLOPIDOGREL 75 MG TAB PO SCH (10:02)
[2021-07-21] MEDS: allopurinoL 100 MG TAB PO SCH ×2 (10:02→20:36)
[2021-07-21 11:47] LABS: Glucose,Whole Blood 200 mg/dL (75-99)
[2021-07-21] MEDS ORDERED: VANCOMYCIN TROUGH DUE 1 EACH MISC MISCELLANE ONE (12:00)
[2021-07-21] MEDS: VANCOMYCIN 1,500 MG in SODIUM CHLORIDE 0.9% 250 ML IVPB SCH (13:09)
[2021-07-21 16:10] LABS: Basophils % (A) 0 %; Eosinophils % (A) 0 %; HCT 33.5 % (34.0-46.0); HGB 10.5 gm/dL (11.4-16.0); Hypochromasia Slight; Lymphocytes # (A) 1.3 k/uL (1.0-4.8); Lymphocytes % (A) 16 %; MCH 30.6 pg (25.0-35.0); MCHC 31.4 g/dL (31.0-37.0); MCV 97.4 fL (80.0-100.0); Mean Platelet Volume 9.3; Monocytes # (A) 0.4 k/uL (0-1.0); Monocytes % (A) 5 %; Neutrophils # (A) 6.6 k/uL (1.3-7.7); Neutrophils % (A) 78 %; Platelet Count 297 k/uL (150-450); RBC 3.43 m/uL (3.80-5.40); RDW 14.4 % (11.5-15.5); WBC 8.5 k/uL (3.8-10.6)
[2021-07-21 16:22] LABS: Albumin 2.1 g/dL (3.5-5.0); Calcium 9.4 mg/dL (8.4-10.2); Potassium 4.9 mmol/L (3.5-5.1); Total Bilirubin 0.3 mg/dL (0.2-1.3); Total Protein 4.7 g/dL (6.3-8.2)
[2021-07-21 16:37] LABS: Glucose,Whole Blood 217 mg/dL (75-99)
[2021-07-21] MEDS: SODIUM CHLORIDE 0.9% 1,000 ML IV SCH ×2 (19:59→20:40)
[2021-07-21 20:36] LABS: Glucose,Whole Blood 170 mg/dL (75-99)
[2021-07-21] MEDS: RIVAROXABAN 20 MG TAB PO SCH (20:36)
[2021-07-21] MEDS: ATORVASTATIN 80 MG TAB PO SCH (20:36)
[2021-07-22 06:21] LABS: Glucose,Whole Blood 156 mg/dL (75-99)
[2021-07-22] MEDS: INSULIN ASPART (NovoLOG) 100 UNIT/ML VIAL SQ SCH ×4 (06:31→20:55)
[2021-07-22] MEDS: SODIUM CHLORIDE 0.9% 1,000 ML IV SCH ×3 (06:32→12:11)
[2021-07-22] MEDS ORDERED: INSULIN DETEMIR (LEVEMIR) 100 UNIT/ML SYR SQ SCH (07:00)
[2021-07-22] MEDS: allopurinoL 100 MG TAB PO SCH ×2 (09:55→20:12)
[2021-07-22] MEDS: CLOPIDOGREL 75 MG TAB PO SCH (09:55)
[2021-07-22 11:35] LABS: Glucose,Whole Blood 312 mg/dL (75-99)
[2021-07-22] MEDS: VANCOMYCIN 1,500 MG in SODIUM CHLORIDE 0.9% 250 ML IVPB SCH (12:10)
[2021-07-22] MEDS: hydrALAZINE HCL 10 MG TAB PO SCH ×2 (12:44→20:12)
[2021-07-22 12:49] LABS: Basophils % (A) 0 %; Eosinophils # (A) 0.1 k/uL (0-0.7); Eosinophils % (A) 1 %; HCT 38.1 % (34.0-46.0); HGB 11.6 gm/dL (11.4-16.0); Hypochromasia Marked; Lymphocytes # (A) 1.5 k/uL (1.0-4.8); Lymphocytes % (A) 18 %; MCH 30.9 pg (25.0-35.0); MCHC 30.6 g/dL (31.0-37.0); Macrocytosis Slight; Mean Platelet Volume 8.7; Monocytes # (A) 0.5 k/uL (0-1.0); Monocytes % (A) 6 %; Neutrophils # (A) 6.1 k/uL (1.3-7.7); Neutrophils % (A) 73 %; Platelet Count 300 k/uL (150-450); RBC 3.77 m/uL (3.80-5.40); RDW 14.1 % (11.5-15.5); WBC 8.4 k/uL (3.8-10.6)
--- NOTE | 2021-07-22 14:02 | XR ---
EXAMINATION TYPE: XR chest 1V DATE OF EXAM: 07/22/2021 CLINICAL HISTORY: Difficulty breathing, CHF, pneumonitis progress study. TECHNIQUE: Single AP portable upright view of the chest is obtained. COMPARISON: Chest x-ray from 3 days earlier FINDINGS: Overlying sternal wires and mediastinal clips redemonstrated. Persistent cardiomegaly with bilateral multifocal increased opacities greatest in the periphery. Small to tiny left pleural effus ion is now felt present. Osseous structures are demineralized. IMPRESSION: Cardiomegaly with bilateral multifocal peripheral increased opacities raising concern for covid-19 infection, correlate clinically. New small to tiny left pleural effusion otherwise no signi ficant change from most recent x-ray.
--- NOTE | 2021-07-22 16:40 | PN ---
PROGRESS NOTE DATE OF SERVICE: 07/21/2021 CHIEF COMPLAINT: Dehydration, DKA and dementia. HISTORY OF PRESENT ILLNESS: This lady is slowly improving. Hydration continues to improve and she becomes more alert, but she is still confused. Blood sugars are improved. PHYSICAL EXAMINATION: Chest is clear. Cardiac exam is normal. Abdomen is soft and nontender. Hydration is much improved and nearly back to normal. IMPRESSION: 1. Diabetic ketoacidosis. 2. Dehydration. 3. Uncontrolled diabetes mellitus. 4. Dementia. 5. Delirium. 6. Generalized weakness and debility. PLAN: 1. Continue with IV fluids and continue to monitor her electrolytes and blood sugars. 2. Physical therapy and occupational therapy. MMODL / IJN: [id number] /
[2021-07-22 16:54] LABS: Glucose,Whole Blood 119 mg/dL (75-99)
--- NOTE | 2021-07-22 17:07 | PN ---
PROGRESS NOTE DATE OF SERVICE: 07/22/2021 CHIEF COMPLAINT: DKA, dementia, dehydration. HISTORY PRESENT ILLNESS: This lady continues to improve as her hydration improves. She is more awake and alert, but still confused. PHYSICAL EXAMINATION: Chest is fairly clear. The cardiac exam is unremarkable. Abdomen is soft, nontender. Extremities are normal. IMPRESSION: 1. Diabetic ketoacidosis, resolved. 2. Poorly controlled insulin-dependent diabetes mellitus. 3. Dementia with delirium. 4. Dehydration. PLAN: Continue with current management and start to think about discharge arrangements and plan. MMODL / IJN: [id number] /
[2021-07-22] MEDS: ATORVASTATIN 80 MG TAB PO SCH (20:12)
[2021-07-22] MEDS: RIVAROXABAN 20 MG TAB PO SCH (20:12)
[2021-07-22 20:35] LABS: Glucose,Whole Blood 136 mg/dL (75-99)
[2021-07-23 06:07] LABS: Glucose,Whole Blood 153 mg/dL (75-99)
[2021-07-23] MEDS: INSULIN ASPART (NovoLOG) 100 UNIT/ML VIAL SQ SCH ×4 (06:48→20:24)
[2021-07-23] MEDS: SODIUM CHLORIDE 0.9% 1,000 ML IV SCH ×4 (06:48→16:57)
[2021-07-23] MEDS: INSULIN DETEMIR (LEVEMIR) 100 UNIT/ML SYR SQ SCH (06:48)
[2021-07-23] MEDS: CLOPIDOGREL 75 MG TAB PO SCH (08:35)
[2021-07-23] MEDS: hydrALAZINE HCL 10 MG TAB PO SCH ×2 (08:35→20:24)
[2021-07-23] MEDS: allopurinoL 100 MG TAB PO SCH ×2 (08:36→20:24)
[2021-07-23 11:50] LABS: Glucose,Whole Blood 226 mg/dL (75-99)
[2021-07-23] MEDS: VANCOMYCIN 1,500 MG in SODIUM CHLORIDE 0.9% 250 ML IVPB SCH (12:45)
--- NOTE | 2021-07-23 13:45 | PN ---
PROGRESS NOTE CHIEF COMPLAINT: DKA, COVID, dehydration and dementia. HISTORY OF PRESENT ILLNESS: This lady is doing quite well. Laboratory studies are in the normal range now. X-ray does show small left pleural effusion and slight increase in lung infiltrates. There is cardiomegaly. PHYSICAL EXAMINATION: Her hydration is much better. Color is fairly normal. Her chest is clear. Cardiac exam is normal. Abdomen is soft, nontender. IMPRESSION: 1. Diabetic ketoacidosis. 2. Dehydration. 3. COVID. 4. Left pleural effusion. PLAN: Continue with current program and slow IV rate. MMODL / IJN: [id number] /
[2021-07-23 16:31] LABS: Glucose,Whole Blood 179 mg/dL (75-99)
[2021-07-23 20:12] LABS: Glucose,Whole Blood 181 mg/dL (75-99)
[2021-07-23] MEDS: RIVAROXABAN 20 MG TAB PO SCH (20:24)
[2021-07-23] MEDS: ATORVASTATIN 80 MG TAB PO SCH (20:24)
[2021-07-24 06:03] LABS: Glucose,Whole Blood 90 mg/dL (75-99)
[2021-07-24] MEDS: INSULIN ASPART (NovoLOG) 100 UNIT/ML VIAL SQ SCH ×4 (06:08→20:38)
[2021-07-24] MEDS: SODIUM CHLORIDE 0.9% 1,000 ML IV SCH ×2 (06:34→20:47)
[2021-07-24] MEDS: CLOPIDOGREL 75 MG TAB PO SCH (09:50)
[2021-07-24] MEDS: hydrALAZINE HCL 10 MG TAB PO SCH ×2 (09:50→20:47)
[2021-07-24] MEDS: INSULIN DETEMIR (LEVEMIR) 100 UNIT/ML SYR SQ SCH (09:50)
[2021-07-24] MEDS: allopurinoL 100 MG TAB PO SCH ×2 (09:50→20:47)
[2021-07-24] MEDS ORDERED: VANCOMYCIN TROUGH DUE 1 EACH MISC MISCELLANE ONE (12:00)
[2021-07-24 12:06] LABS: Glucose,Whole Blood 246 mg/dL (75-99)
--- NOTE | 2021-07-24 13:33 | PN ---
PROGRESS NOTE DATE OF SERVICE: 07/24/2021. CHIEF COMPLAINT: DKA, encephalopathy, dehydration, COVID. HISTORY OF PRESENT ILLNESS: This lady's numbers continue to improve and she is doing well. The initial plan was that she was refusing to go to extended care, now the family feels that this is a necessity and a bed will be sought. PHYSICAL EXAM: Hydration is complete. She is alert but confused. Chest is clear. Cardiac exam is normal. Abdomen is soft and nontender. IMPRESSION: 1. Diabetic ketoacidosis. 2. COVID. 3. Poorly controlled diabetes mellitus. 4. History of hypertension. 5. History of congestive heart failure. 6. History of renal failure. 7. COVID. PLAN: Continue supportive care. Fuel Cell Test Engineer working on discharge plan. ANNABELL / LUCIANN: [id number] /
[2021-07-24] MEDS: VANCOMYCIN 1,500 MG in SODIUM CHLORIDE 0.9% 250 ML IVPB SCH (13:45)
[2021-07-24 16:47] LABS: Glucose,Whole Blood 179 mg/dL (75-99)
[2021-07-24 20:19] LABS: Glucose,Whole Blood 94 mg/dL (75-99)
[2021-07-24] MEDS: ATORVASTATIN 80 MG TAB PO SCH (20:47)
[2021-07-24] MEDS: RIVAROXABAN 20 MG TAB PO SCH (20:47)
[2021-07-25] MEDS: SODIUM CHLORIDE 0.9% 1,000 ML IV SCH (03:14)
[2021-07-25 09:05] LABS: Glucose,Whole Blood 124 mg/dL (75-99)
[2021-07-25] MEDS: INSULIN ASPART (NovoLOG) 100 UNIT/ML VIAL SQ SCH ×2 (09:07→12:40)
[2021-07-25] MEDS: CLOPIDOGREL 75 MG TAB PO SCH (09:10)
[2021-07-25] MEDS: allopurinoL 100 MG TAB PO SCH (09:10)
[2021-07-25] MEDS: INSULIN DETEMIR (LEVEMIR) 100 UNIT/ML SYR SQ SCH (09:10)
[2021-07-25] MEDS: hydrALAZINE HCL 10 MG TAB PO SCH (09:10)
--- NOTE | 2021-07-25 10:18 | CDI ---
Documentation Clarification Form Date: 07/25/2021 09:37:51 AM From: Cat Boyle RN, CCDS Admit Date: 07/17/2021 05:39:00 PM Patient Name: Anya Mejia Visit Number: [id number] Discharge Date: ATTENTION: The Clinical Documentation Specialists (CDI) and [facility] Coding Staff appreciate your assistance in clarifying documentation. Please respond to the clarification below the line at the bottom and electronically sign. The CDI & [facility] Coding staff will review the response and follow-up if needed. Please note: Queries are made part of the Legal Health Record. If you have any questions, please contact the author of this message via ITS. Dr. Sauarbh Medrano Diabetes Mellitus with diabetic ketoacidosis is documented in the H/P and subsequent progress. Additional specificity regarding the diabetes diagnosis is requested. History/Risk Factors: Diabetes Mellitus, Hypertension, Coronary artery disease, Heart failure, renal disease Clinical Indicators: 80-year-old female present with altered mental status, weakness. Acetone is positive. 07/17 Vital signs: 125/68 114 18 97.4 94 % RA 07/17 Labs: WBC 11.2, NA+ 148, CL 114, BUN 88, CR 1.55, Lactic acid 4.4 Glucose 701, Acetone Positive Covid- Detected Treatment: Telemetry Monitoring Insulin Drip per orders (07/17-07/18) Levemir 28 U SQ Daily at 0700 .9ns 1,000 ML IV Bolus then 75 MLS/HR IV 07/17-07/24 Blood Sugar monitoring AC&HS with Standard scale coverage Please clarify the type of diabetes, if known: [ ] Diabetes Type 1 [ ] Diabetes Type 2 [ ] Other, please specify [ ] Unable to Determine (Template Last Revised: August 2020) MTDD
[2021-07-25 10:40] VITALS: BP 158/89; PULSE 81; RESP 16; TEMP 97.8
[2021-07-25 11:38] LABS: Glucose,Whole Blood 141 mg/dL (75-99)
[2021-07-25] MEDS: VANCOMYCIN 1,500 MG in SODIUM CHLORIDE 0.9% 250 ML IVPB SCH (12:42)
--- NOTE | 2021-07-25 12:49 | MISC ---
MISCELLANOUS REPORT QUERY: COVID-19 confirmed. MMODL / IJN: [id number] /
--- NOTE | 2021-07-25 12:49 | MISC ---
MISCELLANOUS REPORT QUERY: UTI only, present on admission. MMODL / IJN: [id number] /
--- NOTE | 2021-07-25 12:52 | MISC ---
MISCELLANOUS REPORT QUERY: Stage is stage IV. MMODL / IJN: [id number] /
--- NOTE | 2021-07-25 12:52 | MISC ---
MISCELLANOUS REPORT QUERY: Type 2 diabetes. MMODL / IJN: [id number] /
--- NOTE | 2021-07-25 15:19 | DS ---
DISCHARGE SUMMARY CHIEF COMPLAINT: DKA, dehydration, delirium. HISTORY OF PRESENT ILLNESS AND PHYSICAL EXAMINATION: Details of this lady's history and physical can be found in the initial workup. LABORATORY STUDIES: While she was in a hospital, laboratory studies, details of which, can be found in the laboratory section of her chart. COURSE IN THE HOSPITAL: After admission she was placed on bedrest on intravenous fluids and DKA protocol. Blood sugars were brought down and her profound 15% dehydration was gradually corrected over 6 or 7 days. She became more awake and alert and was able to move about and eat, but not ambulate. She still remained confused and it was felt that this was largely now related to dementia and not just delirium. She had no issues with her Covid positive chest. Kidney function returned to normal in number. Blood sugars are well controlled. It was felt that she could be transferred to [facility] and she will be followed there. FINAL DIAGNOSIS: 1. Diabetic ketoacidosis. 2. 15% dehydration. 3. Prerenal azotemia. 4. Delirium. 5. Dementia. 6. History of uncontrolled diabetes mellitus. 7. Covid-19. OPERATIONS: None. CONSULTATION: None she is improved. MMODL / IJN: [id number] /
== END 2021-07-25 14:34 | DRG 637 ==
LOC: EC 14:39 → 3SCARD 17:39 → 4SSUR 07-24 22:30
PROVIDERS: ADMIT Family Medicine; ATTEND Family Medicine
DX: E11.10 Type 2 diabetes mellitus with ketoacidosis without coma (principal); G93.41 Metabolic encephalopathy; U07.1 COVID-19; F05 Delirium due to known physiological condition; N17.9 Acute kidney failure, unspecified; N39.0 Urinary tract infection, site not specified; E87.2 Acidosis; N18.4 Chronic kidney disease, stage 4 (severe); E11.319 Type 2 diabetes mellitus with unspecified diabetic retinopathy without macular edema; E78.5 Hyperlipidemia, unspecified; E86.0 Dehydration; F03.90 Unspecified dementia, unspecified severity, without behavioral disturbance, psychotic disturbance, mood disturbance, and anxiety; I11.0 Hypertensive heart disease with heart failure; I25.10 Atherosclerotic heart disease of native coronary artery without angina pectoris; I25.2 Old myocardial infarction; I50.9 Heart failure, unspecified; Z79.01 Long term (current) use of anticoagulants; Z79.02 Long term (current) use of antithrombotics/antiplatelets; Z79.4 Long term (current) use of insulin; E11.65 Type 2 diabetes mellitus with hyperglycemia; E11.22 Type 2 diabetes mellitus with diabetic chronic kidney disease; I12.9 Hypertensive chronic kidney disease with stage 1 through stage 4 chronic kidney disease, or unspecified chronic kidney disease; Z82.49 Family history of ischemic heart disease and other diseases of the circulatory system; Z86.73 Personal history of transient ischemic attack (TIA), and cerebral infarction without residual deficits; Z87.891 Personal history of nicotine dependence; Z90.710 Acquired absence of both cervix and uterus; Z91.19 Patient's noncompliance with other medical treatment and regimen; Z95.1 Presence of aortocoronary bypass graft; Z95.2 Presence of prosthetic heart valve; Z90.89 Acquired absence of other organs; Z98.890 Other specified postprocedural states; Z90.49 Acquired absence of other specified parts of digestive tract; Z91.14 Patient's other noncompliance with medication regimen; Z98.42 Cataract extraction status, left eye; Z98.41 Cataract extraction status, right eye; Z83.6 Family history of other diseases of the respiratory system
CPT/HCPCS: 36415; 70450; 71045; 71046; 80048; 80051; 80053; 80202; 80306; 80320; 81001; 82009; 82140; 82565; 82947; 83036; 83605; 83880; 84100; 84439; 84443; 84484; 84520; 85025; 85610; 85730; 87040; 87086; 87635; 93005; 96361; 96365; 96366; 96375; 99285

== ENCOUNTER → 2021-11-24 | Outpatient (CLI) | payer MEDICARE, OTHER ==
[2021-11-24 12:33] LABS: Creatinine,Urine Random 17.9 mg/dL; Protein/Creatinine Ratio,Urine 0.782
[2021-11-24 18:48] LABS: Basophils # (A) 0.05 X 10*3/uL (0.00-0.10); Basophils % (A) 0.6 %; Eosinophils # (A) 0.06 X 10*3/uL (0.04-0.35); Eosinophils % (A) 0.7 %; HCT 41.2 % (37.2-46.3); HGB 12.6 g/dL (12.0-15.0); Immature Grans, Automated 0.4 %; Lymphocytes # (A) 2.85 X 10*3/uL (0.90-5.00); Lymphocytes % (A) 33.8 %; MCH 26.3 pg (27.0-32.0); MCHC 30.6 g/dL (32.0-37.0); Mean Platelet Volume 11.4 fL (9.5-12.2); Monocytes # (A) 0.68 X 10*3/uL (0.20-1.00); Monocytes % (A) 8.1 %; NRBC Per 100 WBC 0 /100 WBCS (0.0-0.0); Neutrophils # (A) 4.76 X 10*3/uL (1.80-7.70); Neutrophils % (A) 56.4 %; Platelet Count 272 X 10*3/uL (140-440); RBC 4.79 X 10*6/uL (4.10-5.20); RDW 18.7 % (11.5-14.5); WBC 8.43 X 10*3/uL (4.50-10.00)
[2021-11-24 19:12] LABS: % Iron Saturation 21.8 (12.00-45.00); African American GFR (CKD) 45.2 (60.0-200.0); Anion Gap 11.8 mmol/L (10.00-18.00); BUN/Creat Ratio 43.08 Ratio (12.00-20.00); Calcium 11.5 mg/dL (8.7-10.3); Carbon Dioxide 26.2 mmol/L (20.0-27.5); Magnesium 2.3 mg/dL (1.5-2.4); Phosphorus 3.5 mg/dL (2.4-5.1); Potassium 5.1 mmol/L (3.5-5.5); Uric Acid 4.1 mg/dL (2.9-7.7)
[2021-11-24 19:24] LABS: Albumin 4.4 g/dL (3.8-4.9); Ferritin 41.4 ng/mL (10.0-291.0)
[2021-11-24 20:16] LABS: Appearance,Urine Clear (Clear); Bilirubin,Urine Negative (Negative); Blood,Urine Negative (Negative); Color,Urine Yellow (Yellow); Ketones,Urine Negative (Negative); Nitrite,Urine Negative (Negative); Specific Gravity,Urine 1.011 (1.001-1.030); Urobilinogen,Urine 0.2 (0.2,1.0)
== END | disposition home or self-care (01) ==
LOC: LABWHC1 10:13
PROVIDERS: ATTEND Nurse Practitioner Family
DX: N18.32 Chronic kidney disease, stage 3b (principal); N25.81 Secondary hyperparathyroidism of renal origin; E55.9 Vitamin D deficiency, unspecified; M10.9 Gout, unspecified; D64.9 Anemia, unspecified; R80.9 Proteinuria, unspecified
CPT/HCPCS: 36415; 80048; 81003; 82040; 82306; 82570; 82728; 83540; 83550; 83735; 83970; 84100; 84156; 84550; 85025

== ENCOUNTER → 2021-12-08 | Outpatient (CLI) | payer MEDICARE, OTHER ==
[2021-12-08 14:42] LABS: African American GFR (CKD) 37.4 (60.0-200.0); Anion Gap 14.9 mmol/L (10.00-18.00); BUN/Creat Ratio 45.86 Ratio (12.00-20.00); Blood Urea Nitrogen 69.7 mg/dL (9.0-27.0); Calcium 10.2 mg/dL (8.7-10.3); Carbon Dioxide 25.3 mmol/L (20.0-27.5); Non-African American GFR(CKD) 32.3 (60.0-200.0); Potassium 4.9 mmol/L (3.5-5.5)
== END | disposition home or self-care (01) ==
LOC: LABWHC1 09:39
PROVIDERS: ATTEND Nurse Practitioner Family
DX: N18.32 Chronic kidney disease, stage 3b (principal)
CPT/HCPCS: 36415; 80048

== ENCOUNTER → 2022-03-09 | Outpatient (CLI) | payer MEDICARE, OTHER ==
[2022-03-09 22:54] LABS: Basophils # (A) 0.05 X 10*3/uL (0.00-0.10); Basophils % (A) 0.6 %; Eosinophils # (A) 0.03 X 10*3/uL (0.04-0.35); Eosinophils % (A) 0.3 %; HCT 40.3 % (37.2-46.3); HGB 12.8 g/dL (12.0-15.0); Immature Grans, Automated 0.3 %; Lymphocytes # (A) 1.85 X 10*3/uL (0.90-5.00); Lymphocytes % (A) 21.6 %; MCH 29.9 pg (27.0-32.0); MCHC 31.8 g/dL (32.0-37.0); MCV 94.2 fL (80.0-97.0); Mean Platelet Volume 12.2 fL (9.5-12.2); Monocytes # (A) 0.48 X 10*3/uL (0.20-1.00); Monocytes % (A) 5.6 %; NRBC Per 100 WBC 0 /100 WBCS (0.0-0.0); Neutrophils # (A) 6.14 X 10*3/uL (1.80-7.70); Neutrophils % (A) 71.6 %; Platelet Count 270 X 10*3/uL (140-440); RBC 4.28 X 10*6/uL (4.10-5.20); RDW 13.7 % (11.5-14.5); WBC 8.58 X 10*3/uL (4.50-10.00)
[2022-03-09 23:58] LABS: Magnesium 2.2 mg/dL (1.5-2.4); Phosphorus 4.2 mg/dL (2.4-5.1); Uric Acid 5.4 mg/dL (2.9-7.7)
[2022-03-10 00:42] LABS: African American GFR (CKD) 26.8 (60.0-200.0); BUN/Creat Ratio 35.95 Ratio (12.00-20.00); Blood Urea Nitrogen 71.9 mg/dL (9.0-27.0); Calcium 10.5 mg/dL (8.7-10.3); Carbon Dioxide 24.2 mmol/L (20.0-27.5); Non-African American GFR(CKD) 23.2 (60.0-200.0); Potassium 5.5 mmol/L (3.5-5.5)
== END | disposition home or self-care (01) ==
LOC: LABWHC1 13:52
PROVIDERS: ATTEND Nurse Practitioner Family
DX: E21.3 Hyperparathyroidism, unspecified (principal); N18.32 Chronic kidney disease, stage 3b; M10.9 Gout, unspecified; N39.0 Urinary tract infection, site not specified; D64.9 Anemia, unspecified
CPT/HCPCS: 36415; 80048; 82040; 82306; 82728; 83540; 83550; 83735; 83970; 84100; 84550; 85025

== ENCOUNTER 2022-11-01 16:01 | Inpatient (IN) | payer MEDICARE, OTHER ==
--- NOTE | 2022-11-01 17:08 | ED ---
Fall HPI - General Chief Complaint: Fall Stated Complaint: WEAKNESS Time Seen by Provider: 11/01/22 16:18 Source: patient, EMS Mode of arrival: EMS - History of Present Illness Initial Comments: Patient is an 82-year-old female presenting for evaluation post fall. Patient reportedly has been having multiple falls at home, she had a fall last night and hit the back of her head and had a fall today. At this time she is reporting left-sided hip pain. She denies any loss of consciousness, she is on Plavix. She states that when she stands up her legs feel weak and she gets a bit dizzy which causes her to fall. Denies any chest pain or difficulty breathing. No abdominal pain, nausea, vomiting. Answers questions appropriately. - Related Data Home Medications Medication Instructions Recorded Confirmed allopurinoL [Zyloprim] 100 mg PO BID 02/07/17 11/01/22 Furosemide [Lasix] 40 mg PO BID 07/17/21 11/01/22 Aspirin EC [Ecotrin Low Dose] 81 mg PO DAILY 07/28/22 11/01/22 Atorvastatin [Lipitor] 20 mg PO HS 07/28/22 11/01/22 Empagliflozin [Jardiance] 10 mg PO DAILY 07/28/22 11/01/22 Insulin Detemir (Levemir) [Levemir] 30 unit SQ DAILY 07/28/22 11/01/22 Montelukast [Singulair] 10 mg PO DAILY 07/28/22 11/01/22 Raloxifene HCl 60 mg PO DAILY 07/28/22 11/01/22 hydrALAZINE HCL [Apresoline] 25 mg PO TID 07/28/22 11/01/22 Clopidogrel [Plavix] 75 mg PO DAILY 11/01/22 11/01/22 INSULIN ASPART (NovoLOG) [NovoLOG See Protocol SQ ACHS PRN 11/01/22 11/01/22 (formulary)] lisinopriL 40 mg PO DAILY 11/01/22 11/01/22 Previous Rx's Medication Instructions Recorded Metoprolol Tartrate [Lopressor] 50 mg PO BID tab 05/21/17 Cinacalcet [Sensipar] 30 mg PO SuMoWeFr tab 08/01/22 Ferrous Sulfate [Iron (65 MG 325 mg PO BID #60 tab 08/01/22 Elemental)] polyethylene glycoL 3350 [Miralax] 17 gm PO DAILY PRN #21 packet 08/01/22 traMADol HCl [Ultram] 50 mg PO Q6H PRN #28 tab 08/01/22 Allergies Allergy/AdvReac Type Severity Reaction Status Date / Time No Known Allergies Allergy Verified 11/01/22 17:47 Review of Systems ROS Statement: Those systems with pertinent positive or pertinent negative responses have been documented in the HPI. ROS Other: All systems not noted in ROS Statement are negative. Past Medical History Past Medical History: Blood Disorder, Coronary Artery Disease (CAD), Chest Pain / Angina, Heart Failure, CVA/TIA, Diabetes Mellitus, Eye Disorder, Hyperlipidemia, Hypertension, Myocardial Infarction (MD), Osteoarthritis (OA), Renal Disease, Syncope Additional Past Medical History / Comment(s): HX ANEMIA, DIABETIC RETINOPATHY, GOUT, SINUS PROBLEMS. Last Myocardial Infarction Date:: UNKNOWN History of Any Multi-Drug Resistant Organisms: None Reported Past Surgical History: Appendectomy, Cardiac Valve Replacement, Cholecystectomy, Coronary Bypass/CABG, Hysterectomy, Tonsillectomy Additional Past Surgical History / Comment(s): colonoscopy, bilat. cataract removal Past Anesthesia/Blood Transfusion Reactions: No Reported Reaction Additional Past Anesthesia/Blood Transfusion Reaction / Comment(s): Patient reports that she has received blood transfusion in past with no reaction Past Psychological History: No Psychological Hx Reported Smoking Status: Current every day smoker Past Alcohol Use History: None Reported Past Drug Use History: None Reported - Past Family History Father Family Medical History: Pneumonia Additional Family Medical History / Comment(s): Father had TB Mother Family Medical History: Congestive Heart Failure (CHF) Additional Family Medical History / Comment(s): Mother young of CHF General Exam Limitations: no limitations General appearance: alert, in no apparent distress Head exam: Present: atraumatic, normocephalic, normal inspection Eye exam: Present: normal appearance, PERRL, EOMI. Absent: scleral icterus, periorbital swelling Neck exam: Present: normal inspection, full ROM Respiratory exam: Present: normal lung sounds bilaterally. Absent: respiratory distress, wheezes, rales, rhonchi, stridor Cardiovascular Exam: Present: regular rate, normal rhythm, normal heart sounds. Absent: systolic murmur, diastolic murmur, rubs, gallop, clicks Left Hip exam: Present: normal inspection, tenderness Neurological exam: Present: alert, oriented X3, CN II-XII intact Expanded Speech: Present: fluid speech Cranial nerves: EOM's Intact: Normal, Facial Sensation: Normal Motor strength exam: RUE: 5, LUE: 5, RLE: 5, LLE: 5 Eye Response: (4) open spontaneously Motor Response: (6) obeys commands Verbal Response: (5) oriented [place] Total: 15 Psychiatric exam: Present: normal affect, normal mood Skin exam: Present: warm, dry, intact, normal color. Absent: rash Course Vital Signs 11/01/22 11/01/22 11/01/22 16:12 17:49 19:03 Temperature 98.3 F Pulse Rate 85 72 82 Respiratory 16 18 18 Rate Blood Pressure 151/89 152/111 141/85 O2 Sat by Pulse 95 94 L 96 Oximetry 11/01/22 20:47 Temperature Pulse Rate 96 Respiratory Rate Blood Pressure 158/69 O2 Sat by Pulse 97 Oximetry Medical Decision Making - Medical Decision Making Was pt. sent in by a medical professional or institution (ENRIQUE Parra, NON DESTRUCTIVE TESTING INSPECTOR, urgent care, hospital, or fci...) When possible be specific @ -No Did you speak to anyone other than the patient for history (EMS, parent, family, police, friend...)? What history was obtained from this source @ -History supplemented by family Did you review nursing and triage notes (agree or disagree)? Why? @ -I reviewed and agree with nursing and triage notes Were old charts reviewed (outside hosp., previous admission, EMS record, old EKG, old radiological studies, urgent care reports/EKG's, fci records)? Report findings @ -No old charts were reviewed Differential Diagnosis (chest pain, altered mental status, abdominal pain women, abdominal pain men, vaginal bleeding, weakness, fever, dyspnea, syncope, headache, dizziness, GI bleed, back pain, seizure, CVA, palpatations, mental health, musculoskeletal)? @ -MDM Differential Weakness: Hypoglycemia, shock, sepsis, hyponatremia, anemia, infection, MD, ETOH, adverse medicine reaction, overdose, stroke. ... This is not meant to be an all- inclusive list EKG interpreted by me (3pts min.). @ -Atrial fibrillation with ventricular response with aberrant conduction or ventricular premature complexes. Ventricular rate 101. QRS 103. QT 385. QTC 443. Left axis deviation. No ischemic changes. X-rays interpreted by me (1pt min.). @ -Chest x-ray shows chronic changes without acute pulmonary process. COPD changes are noted and there is mild cardiomegaly Hip x-ray shows no acute process CT interpreted by me (1pt min.). @ -CT of the brain and cervical spine shows no acute intracranial process or cervical spine fracture U/S interpreted by me (1pt. min.). @ -None done What testing was considered but not performed or refused? (CT, X-rays, U/S, labs)? Why? @ -None What meds were considered but not given or refused? Why? @ -None Did you discuss the management of the patient with other professionals (professionals i.e. , PA, NON DESTRUCTIVE TESTING INSPECTOR, lab, RT, psych nurse, pediatric social worker, patient placement coordinator, teacher, job placement officer, catalytic case operator)? Give summary @ -I spoke with Dr. Medrano who accepted admission Was smoking cessation discussed for >3mins.? @ -No Was critical care preformed (if so, how long)? @ -No Were there social determinants of health that impacted care today? How? (Homelessness, low income, unemployed, alcoholism, drug addiction, transportation, low edu. Level, literacy, decrease access to med. care, intermediate, rehab)? @ -No Was there de-escalation of care discussed even if they declined (Discuss DNR or withdrawal of care, Hospice)? DNR status @ -No What co-morbidities impacted this encounter? (DM, HTN, Smoking, COPD, CAD, Cancer, CVA, ARF, Chemo, Hep., AIDS, mental health diagnosis, sleep apnea, morbid obesity)? @ -None Was patient admitted / discharged? Hospital course, mention meds given and rou te, prescriptions, significant lab abnormalities, going to OR and other pertinent info. @ -[id number] female presenting for evaluation post fall. She admits to generalized weakness. There appears to be some mild confusion. No focal neurological deficits. She admits to left hip pain. Lab shows WBC 10.9. Lactic acid is 2.4. Glucose is 275. Creatinine 1.61 and BUN 57. Urine shows evidence of UTI. Troponin is elevated 0.187, EKG shows no ischemic changes and patient is not complaining of any chest pain, likely secondary to infection. She is negative for influenza, RSV, and Covid. Negative x-ray of the hip. Chest x-ray shows no acute process. CT is negative for any acute process. Patient will be admitted for UTI and elevated troponin. I spoke with Dr. Emma grove who accepted admission. Patient is agreeable with this plan. I discussed this case with my attending Dr. Carrasco Undiagnosed new problem with uncertain prognosis? @ -No Drug Therapy requiring intensive monitoring for toxicity (Heparin, Nitro, Insulin, Cardizem)? @ -No Were any procedures done? @ -No Diagnosis/symptom? @ -UTI Acute, or Chronic, or Acute on Chronic? @ -Acute Uncomplicated (without systemic symptoms) or Complicated (systemic symptoms)? @ -Complicated Side effects of treatment? @ -No Exacerbation, Progression, or Severe Exacerbation? @ -No Poses a threat to life or bodily function? How? (Chest pain, USA, MD, pneumonia, PE, COPD, DKA, ARF, appy, cholecystitis, CVA, Diverticulitis, Homicidal, Suicidal, threat to staff... and all critical care pts) @ -No Diagnosis/symptom? @Elevated troponin Acute, or Chronic, or Acute on Chronic? @Acute Uncomplicated (without systemic symptoms) or Complicated (systemic symptoms)? @Complicated Side effects of treatment? @ none Exacerbation, Progression, or Severe Exacerbation] @ no Poses a threat to life or bodily function? @Potentially - Lab Data Result diagrams: 11/01/22 17:29 11/01/22 17:29 Lab Results 11/01/22 11/01/22 11/01/22 Range/Units 17:29 17:29 17:29 WBC 10.9 H (3.8-10.6) k/uL RBC 4.30 (3.80-5.40) m/uL Hgb 13.0 (11.4-16.0) gm/dL Hct 39.6 (34.0-46.0) % MCV 92.0 (80.0-100.0) fL MCH 30.1 (25.0-35.0) pg MCHC 32.8 (31.0-37.0) g/dL RDW 14.3 (11.5-15.5) % Plt Count 206 (150-450) k/uL MPV 8.7 Neutrophils % 81 % Lymphocytes % 12 % Monocytes % 6 % Eosinophils % 0 % Basophils % 0 % Neutrophils # 8.8 H (1.3-7.7) k/uL Lymphocytes # 1.3 (1.0-4.8) k/uL Monocytes # 0.7 (0-1.0) k/uL Eosinophils # 0.0 (0-0.7) k/uL Basophils # 0.0 (0-0.2) k/uL PT 9.6 (9.0-12.0) sec INR 0.9 (<1.2) APTT 23.6 (22.0-30.0) sec Sodium (137-145) mmol/L Potassium (3.5-5.1) mmol/L Chloride (98-107) mmol/L Carbon Dioxide (22-30) mmol/L Anion Gap mmol/L BUN (7-17) mg/dL Creatinine (0.52-1.04) mg/dL Est GFR (CKD-EPI)AfAm (>60 ml/min/1.73 sqM) Est GFR (CKD-EPI)NonAf (>60 ml/min/1.73 sqM) Glucose (74-99) mg/dL Lactic Ac Sepsis Rflx Plasma Lactic Acid Rick (0.7-2.0) mmol/L Calcium (8.4-10.2) mg/dL Phosphorus (2.5-4.5) mg/dL Magnesium (1.6-2.3) mg/dL Total Bilirubin (0.2-1.3) mg/dL AST (14-36) U/L ALT (4-34) U/L Alkaline Phosphatase (38-126) U/L Troponin I (0.000-0.034) ng/mL Total Protein (6.3-8.2) g/dL Albumin (3.5-5.0) g/dL TSH (0.465-4.680) mIU/L Urine Color Light Yellow Urine Appearance Cloudy H (Clear) Urine pH 5.5 (5.0-8.0) Ur Specific [place] 1.018 (1.001-1.035) Urine Protein 1+ H (Negative) Urine Glucose (UA) 4+ H (Negative) Urine Ketones Negative (Negative) Urine Blood Small H (Negative) Urine Nitrite Negative (Negative) Urine Bilirubin Negative (Negative) Urine Urobilinogen <2.0 (<2.0) mg/dL Ur Leukocyte Esterase Large H (Negative) Urine RBC 2 (0-5) /hpf Urine WBC >182 H (0-5) /hpf Ur Squamous Epith Cells 1 (0-4) /hpf Urine Bacteria Rare H (None) /hpf Urine Yeast (Budding) Few H (None) /hpf Influenza Type A (PCR) (Not Detectd) Influenza Type B (PCR) (Not Detectd) RSV (PCR) (Not Detectd) SARS-CoV-2 (PCR) (Not Detectd) 11/01/22 11/01/22 11/01/22 Range/Units 17:29 17:29 17:29 WBC (3.8-10.6) k/uL RBC (3.80-5.40) m/uL Hgb (11.4-16.0) gm/dL Hct (34.0-46.0) % MCV (80.0-100.0) fL MCH (25.0-35.0) pg MCHC (31.0-37.0) g/dL RDW (11.5-15.5) % Plt Count (150-450) k/uL MPV Neutrophils % % Lymphocytes % % Monocytes % % Eosinophils % % Basophils % % Neutrophils # (1.3-7.7) k/uL Lymphocytes # (1.0-4.8) k/uL Monocytes # (0-1.0) k/uL Eosinophils # (0-0.7) k/uL Basophils # (0-0.2) k/uL PT (9.0-12.0) sec INR (<1.2) APTT (22.0-30.0) sec Sodium 136 L (137-145) mmol/L Potassium 3.7 (3.5-5.1) mmol/L Chloride 100 (98-107) mmol/L Carbon Dioxide 24 (22-30) mmol/L Anion Gap 12 mmol/L BUN 57 H (7-17) mg/dL Creatinine 1.61 H (0.52-1.04) mg/dL Est GFR (CKD-EPI)AfAm 35 (>60 ml/min/1.73 sqM) Est GFR (CKD-EPI)NonAf 30 (>60 ml/min/1.73 sqM) Glucose 275 H (74-99) mg/dL Lactic Ac Sepsis Rflx Plasma Lactic Acid Rick 2.4 H* (0.7-2.0) mmol/L Calcium 10.1 (8.4-10.2) mg/dL Phosphorus 3.5 (2.5-4.5) mg/dL Magnesium 2.3 (1.6-2.3) mg/dL Total Bilirubin 0.5 (0.2-1.3) mg/dL AST 28 (14-36) U/L ALT 19 (4-34) U/L Alkaline Phosphatase 178 H (38-126) U/L Troponin I 0.187 H* (0.000-0.034) ng/mL Total Protein 7.1 (6.3-8.2) g/dL Albumin 4.0 (3.5-5.0) g/dL TSH (0.465-4.680) mIU/L Urine Color Urine Appearance (Clear) Urine pH (5.0-8.0) Ur Specific [place] (1.001-1.035) Urine Protein (Negative) Urine Glucose (UA) (Negative) Urine Ketones (Negative) Urine Blood (Negative) Urine Nitrite (Negative) Urine Bilirubin (Negative) Urine Urobilinogen (<2.0) mg/dL Ur Leukocyte Esterase (Negative) Urine RBC (0-5) /hpf Urine WBC (0-5) /hpf Ur Squamous Epith Cells (0-4) /hpf Urine Bacteria (None) /hpf Urine Yeast (Budding) (None) /hpf Influenza Type A (PCR) (Not Detectd) Influenza Type B (PCR) (Not Detectd) RSV (PCR) (Not Detectd) SARS-CoV-2 (PCR) (Not Detectd) 11/01/22 11/01/22 11/01/22 Range/Units 17:29 17:29 18:17 WBC (3.8-10.6) k/uL RBC (3.80-5.40) m/uL Hgb (11.4-16.0) gm/dL Hct (34.0-46.0) % MCV (80.0-100.0) fL MCH (25.0-35.0) pg MCHC (31.0-37.0) g/dL RDW (11.5-15.5) % Plt Count (150-450) k/uL MPV Neutrophils % % Lymphocytes % % Monocytes % % Eosinophils % % Basophils % % Neutrophils # (1.3-7.7) k/uL Lymphocytes # (1.0-4.8) k/uL Monocytes # (0-1.0) k/uL Eosinophils # (0-0.7) k/uL Basophils # (0-0.2) k/uL PT (9.0-12.0) sec INR (<1.2) APTT (22.0-30.0) sec Sodium (137-145) mmol/L Potassium (3.5-5.1) mmol/L Chloride (98-107) mmol/L Carbon Dioxide (22-30) mmol/L Anion Gap mmol/L BUN (7-17) mg/dL Creatinine (0.52-1.04) mg/dL Est GFR (CKD-EPI)AfAm (>60 ml/min/1.73 sqM) Est GFR (CKD-EPI)NonAf (>60 ml/min/1.73 sqM) Glucose (74-99) mg/dL Lactic Ac Sepsis Rflx Y Plasma Lactic Acid Rick (0.7-2.0) mmol/L Calcium (8.4-10.2) mg/dL Phosphorus (2.5-4.5) mg/dL Magnesium (1.6-2.3) mg/dL Total Bilirubin (0.2-1.3) mg/dL AST (14-36) U/L ALT (4-34) U/L Alkaline Phosphatase (38-126) U/L Troponin I (0.000-0.034) ng/mL Total Protein (6.3-8.2) g/dL Albumin (3.5-5.0) g/dL TSH 1.000 (0.465-4.680) mIU/L Urine Color Urine Appearance (Clear) Urine pH (5.0-8.0) Ur Specific [place] (1.001-1.035) Urine Protein (Negative) Urine Glucose (UA) (Negative) Urine Ketones (Negative) Urine Blood (Negative) Urine Nitrite (Negative) Urine Bilirubin (Negative) Urine Urobilinogen (<2.0) mg/dL Ur Leukocyte Esterase (Negative) Urine RBC (0-5) /hpf Urine WBC (0-5) /hpf Ur Squamous Epith Cells (0-4) /hpf Urine Bacteria (None) /hpf Urine Yeast (Budding) (None) /hpf Influenza Type A (PCR) Not Detected (Not Detectd) Influenza Type B (PCR) Not Detected (Not Detectd) RSV (PCR) Not Detected (Not Detectd) SARS-CoV-2 (PCR) Not Detected (Not Detectd) Disposition Clinical Impression: UTI (urinary tract infection), Elevated troponin, Generalized weakness Disposition: ADMITTED IP TO THIS HOSP Condition: Fair Time of Disposition: 19:43
[2022-11-01 17:56] LABS: Basophils % (A) 0 %; Eosinophils % (A) 0 %; HCT 39.6 % (34.0-46.0); Lymphocytes # (A) 1.3 k/uL (1.0-4.8); Lymphocytes % (A) 12 %; MCH 30.1 pg (25.0-35.0); MCHC 32.8 g/dL (31.0-37.0); Mean Platelet Volume 8.7; Monocytes # (A) 0.7 k/uL (0-1.0); Monocytes % (A) 6 %; Neutrophils # (A) 8.8 k/uL (1.3-7.7); Neutrophils % (A) 81 %; Platelet Count 206 k/uL (150-450); RDW 14.3 % (11.5-15.5); WBC 10.9 k/uL (3.8-10.6)
[2022-11-01 18:06] LABS: Calcium 10.1 mg/dL (8.4-10.2); Magnesium 2.3 mg/dL (1.6-2.3); Phosphorus 3.5 mg/dL (2.5-4.5); Potassium 3.7 mmol/L (3.5-5.1); Total Bilirubin 0.5 mg/dL (0.2-1.3); Total Protein 7.1 g/dL (6.3-8.2)
--- NOTE | 2022-11-01 18:09 | XR ---
EXAMINATION TYPE: XR Hip LT and AP Pelvis DATE OF EXAM: 11/01/2022 6:02 PM INDICATION: Patient age:Female; 82 years old; Reason for study: fall; COMPARISON: 07/27/2022 TECHNIQUE: The left hip was examined in the frontal and lateral projections and a AP pelvis. FINDINGS: Interval fixation hardware in the left proximal hip. There is sequela prior fracture change s. Atherosclerosis of the arterial vasculature. No evidence for acute process, joint dislocation or s ignificant soft tissue swelling. Surgical clips in the medial occipital left thigh IMPRESSION: 1. No acute process. 2. Sequela of prior left proximal femur fracture.
[2022-11-01 18:13] LABS: INR 0.9 (<1.2); Partial Thromboplastin Time 23.6 sec (22.0-30.0); Prothrombin Time 9.6 sec (9.0-12.0)
--- NOTE | 2022-11-01 18:13 | XR ---
EXAMINATION TYPE: XR chest 2V DATE OF EXAM: 11/01/2022 6:02 PM COMPARISON: Chest radiographs from 07/27/2022 TECHNIQUE: XR chest 2V Frontal and lateral views of the chest. CLINICAL INDICATION:Female, 82 years old with history of Weakness; FINDINGS: Lungs/Pleura: Prominent interstitial lung markings are seen scattered throughout the lungs with ivy ening of the diaphragm and increased lucency of the lung apices. No evidence of focal consolidation, pneumothorax or pleural effusion. Pulmonary vascularity: Unremarkable. Heart/mediastinum: Cardiomediastinal silhouette is unremarkable. Atherosclerotic calcifications are seen in the aorta. Musculoskeletal: No acute osseous pathology. Midline sternotomy wires are noted. Right upper quadrant cholecystectomy clips IMPRESSION: 1. Chronic changes without acute pulmonary process. 2. COPD changes. 3. Mild cardiomegaly.
[2022-11-01 18:18] LABS: Appearance,Urine Cloudy (Clear); Bacteria,Urine Rare /hpf; Bilirubin,Urine Negative (Negative); Blood,Urine Small (Negative); Budding Yeast,Urine Few /hpf; Color,Urine Light Yellow; Glucose,Urine (UA) 4+ (Negative); Ketones,Urine Negative (Negative); Leukocyte Esterase,Urine Large (Negative); Nitrite,Urine Negative (Negative); PH, Urine 5.5 (5.0-8.0); Protein,Urine 1+ (Negative); RBC,Urine 2 /hpf (0-5); Specific Gravity,Urine 1.018 (1.001-1.035); Squamous Epithelial Cell,Urine 1 /hpf (0-4); Urobilinogen,Urine <2.0 mg/dL (<2.0); WBC,Urine >182 /hpf (0-5)
[2022-11-01] MEDS ORDERED: SODIUM CHLORIDE 0.9% 500 ML 500 ML IV ONE (18:20)
--- NOTE | 2022-11-01 18:31 | CT ---
EXAMINATION TYPE: CT brain cspine wo con CT DLP: 1229.6 mGycm, Automated exposure control for dose reduction was used. DATE OF EXAM: 11/01/2022 6:15 PM COMPARISON: 07/17/2021 CLINICAL INDICATION:Female, 82 years old with history of fall; TECHNIQUE: Brain: Multiple axial CT images of the brain were obtained without IV contrast. Cspine: Axial CT images from the skull base to the inferior aspect of T2 we obtained without intraven ous contrast. Coronal and sagittal reformatted images were also reviewed. FINDINGS: Brain: Extra-axial spaces: No abnormal extra-axial fluid collections. Ventricular system: Dilatation in proportion to cerebral atrophy. Cerebral parenchyma: Left caudate nucleus prior injury. Mineralization of the basal ganglia. Left bas al ganglia prior injury suggested. Cerebral atrophy. No acute intraparenchymal hemorrhage or mass eff ect. The starkey-white junction is well differentiated. Scattered hypoattenuating areas are seen within the white matter. Cerebellum: Unremarkable. Mass effect: No evidence of midline shift. Intracranial vasculature: Atherosclerotic calcifications of the intracranial vessels. Soft tissues: Normal. Calvarium/osseous structures: No depressed skull fracture. Paranasal sinuses and mastoid air cells: Moderate scattered paranasal sinus disease. Visualized orbits: Bilateral aphakia Cervical spine: Fracture: No acute fractures visualized. Remote right rib to injury. Osseous structures: Multilevel degenerative disc disease changes with endplate spurring and disc oste ophyte complex's. Occipitalization of the atlas on the occiput. Vertebral alignment: Within normal limits. Spinal canal/Neural Foramina: No evidence of significant spinal canal narrowing. No evidence for sign ificant neural foraminal stenosis. Neck soft tissues: Prevertebral soft tissues are within normal limits. Other: The airway is patent. The lung apices are clear. Atherosclerosis of the carotid bifurcations. IMPRESSION: 1. No acute intracranial process. 2. Remote left caudate nucleus and left basal ganglia lacunar injuries along with nonspecific white matter changes likely secondary to chronic microangiopathy. 3. No evidence of cervical spine fracture. 4. [id number] multilevel degenerative disc disease. 5. Anatomic variant occipitalization of C1 and the occiput.
[2022-11-01] MEDS ORDERED: cefTRIAXone IN SWFI 1,000 MG/10 ML SYRINGE IVP STA (19:26)
[2022-11-01] MEDS ORDERED: NALOXONE 0.4 MG/ML 1 ML VIAL IV PRN (20:17)
[2022-11-01] MEDS ORDERED: SODIUM CHLORIDE 0.9% 1,000 ML IV SCH (20:30)
[2022-11-02] MEDS: FUROSEMIDE 40 MG TAB PO SCH ×2 (09:37→17:11)
[2022-11-02] MEDS: lisinopriL 20 MG TAB PO SCH (09:37)
[2022-11-02] MEDS: METOPROLOL TARTRATE 50 MG TAB PO SCH ×2 (09:37→20:07)
[2022-11-02] MEDS: ASPIRIN 81 MG PO SCH (09:37)
[2022-11-02] MEDS: hydrALAZINE HCL 25 MG TAB PO SCH ×3 (09:37→20:07)
[2022-11-02] MEDS: CLOPIDOGREL 75 MG TAB PO SCH (09:37)
[2022-11-02] MEDS ORDERED: polyethylene glycoL 3350 17 GM POWD.PACK PO PRN (10:54)
[2022-11-02] MEDS ORDERED: traMADol 50 MG TAB PO PRN (10:54)
[2022-11-02] MEDS: IPRATROPIUM-ALBUTEROL 3 ML NEB INHALATION SCH ×3 (11:34→21:30)
[2022-11-02 12:01] LABS: Glucose,Whole Blood 430 mg/dL (70-110)
[2022-11-02] MEDS ORDERED: INSULIN ASPART (NovoLOG) 100 UNIT/ML VIAL SQ ONE (12:59)
[2022-11-02] MEDS ORDERED: DEXTROSE 50% SYRINGE 50 ML IVP PRN ×2 (13:00)
[2022-11-02] MEDS: CINACALCET 30 MG TAB PO SCH (13:53)
[2022-11-02] MEDS: INSULIN DETEMIR (LEVEMIR) 100 UNIT/ML SYR SQ SCH (13:53)
[2022-11-02 15:25] LABS: Glucose,Whole Blood 367 mg/dL (70-110)
[2022-11-02 17:14] LABS: Glucose,Whole Blood 260 mg/dL (70-110)
[2022-11-02] MEDS: INSULIN ASPART (NovoLOG) 100 UNIT/ML VIAL SQ SCH ×2 (18:05→20:07)
[2022-11-02 19:56] LABS: Glucose,Whole Blood 238 mg/dL (70-110)
[2022-11-02] MEDS: FERROUS SULFATE 325 MG TAB PO SCH (20:07)
[2022-11-02] MEDS: allopurinoL 100 MG TAB PO SCH (20:07)
[2022-11-02] MEDS: ATORVASTATIN 20 MG TAB PO SCH (20:07)
[2022-11-03] MEDS: ACETAMINOPHEN TAB 325 MG TAB PO PRN ×2 (00:15→19:26)
[2022-11-03] MEDS: IPRATROPIUM-ALBUTEROL 3 ML NEB INHALATION SCH ×4 (06:04→20:28)
[2022-11-03 06:10] LABS: Glucose,Whole Blood 60 mg/dL (70-110)
[2022-11-03] MEDS: INSULIN ASPART (NovoLOG) 100 UNIT/ML VIAL SQ SCH ×4 (06:28→20:23)
[2022-11-03 06:45] LABS: Glucose,Whole Blood 88 mg/dL (70-110)
[2022-11-03] MEDS ORDERED: INSULIN DETEMIR (LEVEMIR) 100 UNIT/ML SYR SQ SCH (07:00)
[2022-11-03] MEDS: lisinopriL 20 MG TAB PO SCH ×2 (09:34→10:54)
[2022-11-03] MEDS: FERROUS SULFATE 325 MG TAB PO SCH ×2 (09:34→20:22)
[2022-11-03] MEDS: allopurinoL 100 MG TAB PO SCH ×2 (09:34→20:23)
[2022-11-03] MEDS: CLOPIDOGREL 75 MG TAB PO SCH (09:34)
[2022-11-03] MEDS: MONTELUKAST 10 MG TAB PO SCH (09:34)
[2022-11-03] MEDS: RALOXIFENE 60 MG TAB PO SCH (09:34)
[2022-11-03] MEDS: FUROSEMIDE 40 MG TAB PO SCH ×2 (09:34→15:20)
[2022-11-03] MEDS: METOPROLOL TARTRATE 50 MG TAB PO SCH ×2 (09:34→20:22)
[2022-11-03] MEDS: DAPAGLIFLOZIN PROPANEDIOL 5 MG TABLET PO SCH (09:34)
[2022-11-03] MEDS: ASPIRIN 81 MG PO SCH (09:34)
[2022-11-03] MEDS: hydrALAZINE HCL 25 MG TAB PO SCH (10:54)
--- NOTE | 2022-11-03 11:27 | CONS ---
CONSULTATION HISTORY OF PRESENT ILLNESS: Anya is an 82-year-old lady, with history of coronary artery disease, status post CABG; mitral regurgitation, status post mitral clip; chronic systolic heart failure; hypertension; diabetes; who presented to hospital with recurrent falls at home. I evaluated her in the emergency room and did a consult on her, which somehow had not been scribed, so I am redictating it. She has history of persistent atrial fibrillation, but is thought not to be a candidate for anticoagulation because of recurrent falls. We have been consulted because of her extensive cardiac history and elevated BNP and the troponins. The elevated BNP is related to chronic systolic heart failure and troponin elevation is of unclear clinical significance, but could be related to the renal insufficiency. The patient is not in overt heart failure. Does not have leg edema, shortness of breath, PND, or orthopnea. Past medical history is significant for coronary artery disease, status post CABG; cardiomyopathy with severe LV dysfunction; mitral regurgitation, status post mitral clip. The patient had cardiac catheterization and angioplasty in November of 2019. It was her right coronary artery that was intervened upon. PAST MEDICAL HISTORY: Significant for CAD, status post bypass surgery; mitral regurgitation, status post mitral clip; hypertension; diabetes; dyslipidemia; chronic systolic heart failure; permanent atrial fibrillation. MEDICATIONS: At home include: 1. Lisinopril. 2. Ultram. 3. Apresoline. 4. Zyloprim. 5. Singulair. 6. Lopressor. 7. Levemir. 8. Lasix. 9. Plavix. 10.Jardiance. 11.Lipitor. 12.MiraLax. 13.Insulin. ALLERGIES: There are no known drug allergies. FAMILY HISTORY: Negative for premature coronary artery disease. SOCIAL HISTORY: Negative for smoking, EtOH abuse, or drug abuse. REVIEW OF SYSTEMS: 14 out of 14 review of systems has been performed. Pertinents are as documented in exam. PHYSICAL EXAMINATION: VITAL SIGNS: Heart rate is 60 beats per minute. Blood pressure is 93/50. Respiratory rate 18. O2 saturation is 96% on room air. NECK: There is no jugular venous distention. Carotid upstroke is normal. There is no bruit. CHEST: Exam reveals good air entry bilaterally. HEART: Exam reveals first and second heart sounds and a systolic murmur at the apex. ABDOMEN: Soft. EXTREMITIES: Did not reveal any edema. Peripheral pulses are felt. EKG shows atrial fibrillation with nonspecific ST-T wave changes. LABORATORY DATA: As described above. Potassium is 3.7, BUN is 57, creatinine is 1.6, hemoglobin is 13. ASSESSMENT AND PLAN: 1. Recurrent falls - mechanical. 2. Persistent atrial fibrillation with controlled ventricular rate. 3. Chronic systolic heart failure. 4. Elevated troponin secondary to renal insufficiency. 5. Ischemic cardiomyopathy. 6. Coronary artery disease, status post coronary artery bypass graft. 7. Mitral regurgitation, status post mitral clip. PLAN: We will continue the patient on her current medications. MMODL / IJN: [id number] /
--- NOTE | 2022-11-03 11:58 | PN ---
PROGRESS NOTE SUBJECTIVE: Anya is an 82-year-old lady who was admitted to hospital with recurrent falls. From cardiac standpoint, she is free of chest pain or symptoms of heart failure. This morning she is doing well. OBJECTIVE: VITAL SIGNS: Stable. Blood pressure is on the lower side at 93/50. NECK: There is no jugular venous distention. CHEST: Reveals good air entry bilaterally. HEART: Reveals first and second heart sounds. Systolic murmur at the apex. ABDOMEN: Soft. EXTREMITIES: Reveal mild edema. LABORATORY DATA: Hemoglobin is normal at 13. Potassium is 3.7, BUN is 57, creatinine is 1.6. ASSESSMENT: 1. Chronic systolic heart failure. 2. Permanent atrial fibrillation with controlled ventricular rate. 3. Hypotension. 4. CAD, status post CABG. 5. Mitral regurgitation, status post mitral clip. PLAN: The patient will continue the Lasix at 40 b.i.d. I will decrease the dose of lisinopril to 20 mg daily. Hold the hydralazine at this time given the mild hypotension. MMODL / IJN: [id number] /
[2022-11-03 12:04] LABS: Glucose,Whole Blood 285 mg/dL (70-110)
--- NOTE | 2022-11-03 13:50 | CA ---
Transthoracic Echo Report Name: Anya Mejia Age: 82 Gender: F : 1940 Exam Date: 11/02/2022 10:37 Exam Location: [facility] Ht (in): 65 Wt (lb): 137 Ordering Physician: Edmond Ibanez MD ([id number]) Attending/Referring Phys: Shamar MORALES Coding Compliance Manager Carolyn Morales RDCS Procedure CPT: Indications: LV function Cardiac Hx: Technical Quality: Excellent Contrast 1: Total Dose (mL): Contrast 2: Total Dose (mL): MEASUREMENTS (Male / Female) Normal Values 2D ECHO LV Diastolic Diameter PLAX 4.4 cm 4.2 - 5.9 / 3.9 - 5.3 cm LV Systolic Diameter PLAX 3.0 cm IVS Diastolic Thickness 1.1 cm 0.6 - 1.0 / 0.6 - 0.9 cm LVPW Diastolic Thickness 1.1 cm 0.6 - 1.0 / 0.6 - 0.9 cm LV Relative Wall Thickness 0.5 RV Internal Dim ED PLAX 3.1 cm LA Systolic Diameter LX 3.6 cm 3.0 - 4.0 / 2.7 - 3.8 cm LV Diastolic Volume MOD 4C 66.8 cm??? LV Systolic Volume MOD 4C 34.2 cm??? LV Ejection Fraction MOD 4C 48.8 % LV Systolic Length 4C 6.2 cm LV Diastolic Volume MOD 2C 83.1 cm??? LV Systolic Volume MOD 2C 42.7 cm??? LV Ejection Fraction MOD 2C 48.6 % LV Diastolic Length 2C 7.5 cm LV Systolic Length 2C 6.7 cm LA Volume 86.3 cm??? 18 - 58 / 22 - 52 cm??? M-MODE Aortic Root Diameter MM 2.9 cm MV E Point Septal Separation 0.1 cm AV Cusp Separation MM 2.1 cm DOPPLER AV Peak Velocity 142.2 cm/s AV Peak Gradient 8.1 mmHg MV Area PHT 3.8 cm??? MV Deceleration Time 260.8 ms TR Peak Velocity 4600.0 cm/s TR Peak Gradient 8464.0 mmHg Right Ventricular Systolic Press 50.9 mmHg FINDINGS Left Ventricle Left ventricular ejection fraction is estimated at 50 %. Left ventricular cavity size normal. Mildly increased septal wall thickness. Mildly increased posterior wall thickness. Right Ventricle Normal right ventricular size and function. Moderate pulmonary hypertension. Right Atrium Normal right atrial size. Left Atrium Severely increased left atrial volume. Mildly increased left atrial area. Mitral Valve Mitral valve thickened. Mild mitral regurgitation. Mitral annular calcification. Aortic Valve Trileaflet aortic valve. Aortic valve sclerosis. No aortic valve stenosis or regurgitation. Tricuspid Valve Structurally normal tricuspid valve. Moderate tricuspid regurgitation. Pulmonic Valve Structurally normal pulmonic valve. Trace to mild pulmonic regurgitation. Pericardium Normal pericardium. No pericardial effusion. Aorta Normal size aortic root and proximal ascending aorta. CONCLUSIONS Normal LV function Moderate pulmonary hypertension Mild mitral regurgitation Previewed by: Dr. Edmond Ibanez MD (Electronically Signed) Final Date: 03 Nov 2022 13:49
[2022-11-03] MEDS: INSULIN DETEMIR (LEVEMIR) 100 UNIT/ML SYR SQ SCH (15:20)
[2022-11-03 16:05] VITALS: BMI 22.1
[2022-11-03 16:47] LABS: Glucose,Whole Blood 341 mg/dL (70-110)
[2022-11-03 20:05] LABS: Glucose,Whole Blood 417 mg/dL (70-110)
[2022-11-03] MEDS: ATORVASTATIN 20 MG TAB PO SCH (20:22)
[2022-11-04 06:17] LABS: Glucose,Whole Blood 109 mg/dL (70-110)
[2022-11-04] MEDS: INSULIN ASPART (NovoLOG) 100 UNIT/ML VIAL SQ SCH ×4 (06:34→20:11)
[2022-11-04] MEDS: IPRATROPIUM-ALBUTEROL 3 ML NEB INHALATION SCH ×4 (08:44→21:17)
[2022-11-04] MEDS ORDERED: lisinopriL 20 MG TAB PO SCH (09:00)
[2022-11-04] MEDS: ASPIRIN 81 MG PO SCH (09:01)
[2022-11-04] MEDS: FUROSEMIDE 40 MG TAB PO SCH ×2 (09:01→15:33)
[2022-11-04] MEDS: lisinopriL 20 MG TAB PO SCH (09:01)
[2022-11-04] MEDS: FERROUS SULFATE 325 MG TAB PO SCH ×2 (09:01→20:10)
[2022-11-04] MEDS: DAPAGLIFLOZIN PROPANEDIOL 5 MG TABLET PO SCH (09:01)
[2022-11-04] MEDS: CLOPIDOGREL 75 MG TAB PO SCH (09:01)
[2022-11-04] MEDS: MONTELUKAST 10 MG TAB PO SCH (09:01)
[2022-11-04] MEDS: allopurinoL 100 MG TAB PO SCH ×2 (09:02→20:10)
[2022-11-04] MEDS: METOPROLOL TARTRATE 50 MG TAB PO SCH ×2 (09:02→20:11)
[2022-11-04] MEDS: RALOXIFENE 60 MG TAB PO SCH (09:02)
[2022-11-04 11:59] LABS: Glucose,Whole Blood 238 mg/dL (70-110)
[2022-11-04] MEDS: CINACALCET 30 MG TAB PO SCH (12:03)
[2022-11-04 13:46] LABS: Calcium 9.5 mg/dL (8.4-10.2); Potassium 4.1 mmol/L (3.5-5.1)
--- NOTE | 2022-11-04 14:02 | P.PN ---
Subjective Progress Note Date: 11/04/22 History of present illness: This is an 82 year old female admitted to the hospital due to recurrent falls. Patient has no chest pain and no symptoms of heart failure. Patient states she has been doing well overnight. Her blood pressure is 110/59 and heart rate 70. She denies having any lightheadedness or dizziness. No nausea or vomiting. She hasn't had no falls here. She is currently on Lasix 40 mg twice daily and yesterday we decreased her lisinopril to 20 g daily and held hydralazine due to hypotension. Echocardiogram reveals normal LV function, moderate pulmonary hypertension, mild mitral regurgitation. Physical examination: Gen: This is an 82 year old female. She is resting in recliner and appears to be comfortable and in no acute distress VS: reviewed HEENT: Head is atraumatic, normocephalic. Pupils equal, round. Sclerae is anicteric. LUNGS: Clear to auscultation. No wheezes or rhonchi. No intercostal retractions. HEART: Regular rate and rhythm. Systolic murmur at the apex EXTREMITIES: Trace pedal edema. NEUROLOGICAL: Patient is awake, alert and oriented x3. Assessment: Chronic systolic heart failure Permanent atrial fibrillation with controlled ventricular rate Hypotension, improved Coronary artery disease status post CABG Mitral regurgitation status post mitral clip Plan: Continue patient on Lasix 40 mg oral twice daily along with Plavix, atorva statin, metoprolol tartrate and aspirin. Continue lower dose of lisinopril Discontinue hydralazine No plan for any further cardiac workup. Cardiology will sign off and follow on an as-needed basis. Please reconsult for any new concerns. Thank you kindly for this consultation. Nurse practitioner note has been reviewed, I agree with documented findings and plan of care. Patient was seen and examined. Objective - Vital Signs Vital signs: Vital Signs Temp 97.8 F 11/04/22 08:00 Pulse 70 11/04/22 08:57 Resp 16 11/04/22 08:00 BP 110/59 11/04/22 08:00 Pulse Ox 100 11/04/22 08:00 FiO2 Intake & Output 11/03/22 11/04/22 11/04/22 18:59 06:59 18:59 Intake Total 594 240 Output Total 925 850 Balance -331 -610 Weight 60.5 kg Intake: Oral 594 240 Output: Urine 600 850 Uretheral (Reynolds) 300 Post Void Residual 325 Other: Voiding Method Diaper Diaper Diaper External Catheter External Catheter External Catheter # Voids 1 # Bowel Movements 1 - Labs CBC & Chem 7: 11/01/22 17:29 11/04/22 13:10 Labs: Abnormal Lab Results - Last 24 Hours (Table) 11/03/22 11/03/22 11/03/22 Range/Units 12:03 16:45 20:04 POC Glucose (mg/dL) 285 H 341 H 417 H (70-110) mg/dL Microbiology - Last 24 Hours (Table) 11/01/22 17:29 Urine Culture - Preliminary Urine,Voided Gram Neg Bacilli 11/01/22 20:56 Blood Culture - Preliminary Blood
[2022-11-04] MEDS: INSULIN DETEMIR (LEVEMIR) 100 UNIT/ML SYR SQ SCH (15:33)
[2022-11-04 16:43] LABS: Glucose,Whole Blood 338 mg/dL (70-110)
[2022-11-04 20:05] LABS: Glucose,Whole Blood 330 mg/dL (70-110)
[2022-11-04] MEDS: ATORVASTATIN 20 MG TAB PO SCH (20:10)
[2022-11-04] MEDS: ACETAMINOPHEN TAB 325 MG TAB PO PRN (20:15)
[2022-11-04 22:56] LABS: Glucose,Whole Blood 215 mg/dL (70-110)
[2022-11-05] MEDS: ACETAMINOPHEN TAB 325 MG TAB PO PRN (03:53)
[2022-11-05 06:20] LABS: Glucose,Whole Blood 135 mg/dL (70-110)
[2022-11-05] MEDS: INSULIN ASPART (NovoLOG) 100 UNIT/ML VIAL SQ SCH ×3 (06:23→16:51)
--- NOTE | 2022-11-05 07:35 | CONS ---
CONSULTATION CHIEF COMPLAINT: Recurrent falls. HISTORY OF PRESENT ILLNESS: Anya is an 82-year-old lady with history of coronary artery disease, status post prior angioplasty, hypertension, diabetes, dyslipidemia, known CAD status post prior bypass surgery and chronic systolic heart failure, who is admitted to hospital with recurrent falls at home. She has a history of mitral valve repair and chronic renal insufficiency. The patient has persistent atrial fibrillation but is not on anticoagulant because of recurrent falls. At the time of my evaluation this morning, she appears comfortable at rest and is free of symptoms. She has mild troponin elevation at 0.1, 0.1 and 0.1, probably related to underlying renal insufficiency. Her hemoglobin is 13. PAST MEDICAL HISTORY: Significant for coronary artery disease status post bypass surgery, insulin-requiring diabetes, hypertension, dyslipidemia, persistent atrial fibrillation, recurrent falls, history of hip fracture. MEDICATIONS: Medications at home included, 1. Sensipar. 2. Ultram. 3. Apresoline. 4. Zyloprim. 5. Singulair. 6. Lopressor. 7. Levemir. 8. Lasix. 9. Jardiance. 10.Plavix. 11.Lipitor. 12.Aspirin. 13.Insulin. ALLERGIES: No known drug allergies. FAMILY HISTORY: Negative for premature coronary artery disease. SOCIAL HISTORY: Negative for current smoking, EtOH abuse or drug abuse. REVIEW OF SYSTEMS: HEENT: Unremarkable. CARDIAC: As described above. RESPIRATORY: Negative. GI: Negative. GENITOURINARY: Negative. ALLERGY/IMMUNOLOGY: Negative. SKIN: Negative. MUSCULOSKELETAL: Significant for recurrent falls. PSYCHOSOCIAL: Negative. DERM: Negative. CONSTITUTIONAL: Negative. ONCOLOGICAL: Negative. Rest of the system review is not relevant. IMAGING STUDIES: The patient had a cardiac catheterization in October of 2019 that revealed severe 3-vessel coronary artery disease with patent GIBBONS to LAD and venous graft to diagonal with mild to moderate nonobstructive disease involving circumflex coronary artery and right coronary artery. The patient had severe mitral regurgitation and severe pulmonary hypertension. She was thought not to be a candidate for valve repair and subsequently underwent angioplasty of a borderline lesion of right coronary artery and MitraClip at [facility]. PHYSICAL EXAMINATION: VITAL SIGNS: On exam today, heart rate is 89 beats per minute, blood pressure is 127/85, respiratory rate 18, O2 saturation is 94%. CHEST: Reveals diminished air entry bilaterally. HEART: Reveals first and second heart sounds. Systolic murmur at the apex. ABDOMEN: Soft. EXTREMITIES: Exam of extremities reveals bilateral 1+ edema. Peripheral pulses are diminished. ASSESSMENT: 1. Troponin elevation secondary to chronic renal failure. 2. Chronic systolic heart failure. 3. Coronary artery disease, status post coronary artery bypass grafting. 4. History of recurrent falls. 5. Persistent atrial fibrillation with controlled ventricular rate. 6. History of mitral regurgitation, status post MitraClip. PLAN: I will resume her home medications. She is not a candidate for anticoagulant because of recurrent falls. Does not need any further evaluation for the elevated troponins. MMODL / IJN: [id number] /
[2022-11-05] MEDS: MONTELUKAST 10 MG TAB PO SCH (08:27)
[2022-11-05] MEDS: FUROSEMIDE 40 MG TAB PO SCH ×2 (08:27→15:22)
[2022-11-05] MEDS: CLOPIDOGREL 75 MG TAB PO SCH (08:27)
[2022-11-05] MEDS: DAPAGLIFLOZIN PROPANEDIOL 5 MG TABLET PO SCH (08:28)
[2022-11-05] MEDS: allopurinoL 100 MG TAB PO SCH (08:28)
[2022-11-05] MEDS: lisinopriL 20 MG TAB PO SCH (08:28)
[2022-11-05] MEDS: FERROUS SULFATE 325 MG TAB PO SCH (08:28)
[2022-11-05] MEDS: METOPROLOL TARTRATE 50 MG TAB PO SCH (08:28)
[2022-11-05] MEDS: ASPIRIN 81 MG PO SCH (08:28)
[2022-11-05] MEDS: RALOXIFENE 60 MG TAB PO SCH (08:28)
[2022-11-05] MEDS: IPRATROPIUM-ALBUTEROL 3 ML NEB INHALATION SCH ×3 (08:31→15:41)
[2022-11-05] MEDS: CINACALCET 30 MG TAB PO SCH (10:53)
--- NOTE | 2022-11-05 10:57 | P.PN ---
Subjective Progress Note Date: 11/05/22 History of present illness: This is an 82 year old female admitted to the hospital due to recurrent falls. Patient has no chest pain and no symptoms of heart failure. Patient states she has been doing well overnight. Her blood pressure is 110/59 and heart rate 70. She denies having any lightheadedness or dizziness. No nausea or vomiting. She hasn't had no falls here. She is currently on Lasix 40 mg twice daily and yesterday we decreased her lisinopril to 20 g daily and held hydralazine due to hypotension. Echocardiogram reveals normal LV function, moderate pulmonary hypertension, mild mitral regurgitation. 11/05 Patient is seen today in follow-up. She denies any chest pain or shortness of breath. She is on all oral medications. We discontinue hydralazine yesterday his blood pressure was soft. Blood pressure this morning is 145/74, heart rate is running in the 60s and 70s. Physical examination: Gen: This is an 82 year old female. She is resting in recliner and appears to be comfortable and in no acute distress VS: reviewed HEENT: Head is atraumatic, normocephalic. Pupils equal, round. Sclerae is anicteric. LUNGS: Clear to auscultation. No wheezes or rhonchi. No intercostal retractions. HEART: Regular rate and rhythm. Systolic murmur at the apex EXTREMITIES: Trace pedal edema. NEUROLOGICAL: Patient is awake, alert and oriented x3. Assessment: Chronic systolic heart failure Permanent atrial fibrillation with controlled ventricular rate Hypotension, improved Coronary artery disease status post CABG Mitral regurgitation status post mitral clip Plan: Continue patient on Lasix 40 mg oral twice daily along with Plavix, atorvastatin, metoprolol tartrate and aspirin. Continue lower dose of lisinopril Discontinue hydralazine No plan for any further cardiac workup. Cardiology will sign off and follow on an as-needed basis. Please reconsult for any new concerns. Thank you kindly for this consultation. Nurse practitioner note has been reviewed, I agree with documented findings and plan of care. Patient was seen and examined. Objective - Vital Signs Vital signs: Vital Signs Temp 97.7 F 11/05/22 00:00 Pulse 76 11/05/22 08:40 Resp 18 11/05/22 04:00 BP 128/79 11/05/22 04:00 Pulse Ox 97 11/05/22 04:00 FiO2 Intake & Output 11/04/22 11/05/22 11/05/22 18:59 06:59 18:59 Intake Total 608 Output Total 1100 900 Balance -492 -900 Intake: Oral 608 Output: Urine 1100 900 Other: Voiding Method Diaper Diaper External Catheter External Catheter # Voids 1 # Bowel Movements 1 - Labs CBC & Chem 7: 11/01/22 17:29 11/04/22 13:10 Labs: Abnormal Lab Results - Last 24 Hours (Table) 11/04/22 11/04/22 11/04/22 Range/Units 11:56 13:10 16:42 Sodium 136 L (137-145) mmol/L BUN 58 H (7-17) mg/dL Creatinine 1.47 H (0.52-1.04) mg/dL Glucose 225 H (74-99) mg/dL POC Glucose (mg/dL) 238 H 338 H (70-110) mg/dL 11/04/22 11/04/22 11/05/22 Range/Units 20:03 22:54 06:19 Sodium (137-145) mmol/L BUN (7-17) mg/dL Creatinine (0.52-1.04) mg/dL Glucose (74-99) mg/dL POC Glucose (mg/dL) 330 H 215 H 135 H (70-110) mg/dL Microbiology - Last 24 Hours (Table) 11/01/22 17:29 Urine Culture - Final Urine,Voided Proteus mirabilis 11/01/22 20:56 Blood Culture - Preliminary Blood
[2022-11-05 11:39] LABS: Glucose,Whole Blood 233 mg/dL (70-110)
[2022-11-05 12:51] VITALS: RESP 18
[2022-11-05] MEDS: INSULIN DETEMIR (LEVEMIR) 100 UNIT/ML SYR SQ SCH (14:11)
[2022-11-05 15:58] VITALS: BP 103/57; PULSE 65; TEMP 97.8
[2022-11-05 16:37] LABS: Glucose,Whole Blood 264 mg/dL (70-110)
--- NOTE | 2022-11-05 20:50 | DS ---
DISCHARGE SUMMARY CHIEF COMPLAINT: Weakness, hypotension, and elevated troponin. HISTORY OF PRESENT ILLNESS AND PHYSICAL EXAM: Details of this lady's history and physical can be found in the initial workup. LABORATORY STUDIES: While she was in the hospital, she had laboratory studies, details of which can be found in the laboratory section of her chart. COURSE IN THE HOSPITAL: After admission she was placed on bedrest, started on intravenous fluids and she was rehydrated. Her blood pressure came up. She had no further difficulty. Cardiology did not feel that any further intervention was recommended or necessary. She was doing well. It was felt that she could be discharged on . She will go home on her usual activity, diet, and her usual medications. She was having some dysuria and her culture grew out Proteus sensitive to Amoxil and she was sent home on 250 mg 3 times a day. She will be seen in the office in 4 to 5 days. FINAL DIAGNOSES: 1. Hypotension. 2. Dehydration. 3. Elevated troponin. 4. History of hypertension. 5. History of poorly controlled diabetes. 6. Urinary tract infection. OPERATIONS: None. CONSULTATIONS: Cardiology. She is improved. MMODL / IJN: [id number] /
--- NOTE | 2022-11-06 06:23 | PN ---
PROGRESS NOTE DATE OF SERVICE: 11/04/2022 CHIEF COMPLAINT: Mental status changes, urinary tract infection and elevated troponin. HISTORY OF PRESENT ILLNESS: This lady is doing well. She is awake and alert. She has no complaints. She does not have any chest pain, shortness of breath, dysuria, etc. PHYSICAL EXAMINATION: VITAL SIGNS: Normal. CHEST: Clear. CARDIAC: Normal. ABDOMEN: Soft, nontender. IMPRESSION: 1. Hypotension. 2. Dehydration. 3. Elevated troponin. 4. Urinary tract infection. PLAN: Progress activity and continue to monitor. She can probably go home in the next day or 2 if she remains stable. MMODL / IJN: [id number] /
--- NOTE | 2022-11-06 07:52 | HP ---
HISTORY AND PHYSICAL CHIEF COMPLAINT: Hypotension, dizziness, and elevated troponin. HISTORY OF PRESENT ILLNESS: This is another admission for this 82-year-old white female, who has a longstanding history of poorly-controlled diabetes, hypertension, and mild dementia. She was in a senior living and has been at home and doing fairly well, but she became dizzy and lightheaded and was brought to the emergency room. There, she was found to have an elevated troponin, and her BNP was elevated at 5460. REVIEW OF SYSTEMS: She denies any headaches, chest pain, shortness of breath, abdominal pain, focal neurologic deficits, confusion, etc. Past medical history, family history, and personal and social histories can all be found in detail in her previous hospital records. PHYSICAL EXAMINATION: VITAL SIGNS: Blood pressure 90/50, pulse of 73 and regular, respirations are 30, and she is afebrile. GENERAL: She appeared to be in no acute distress. SKIN: Color is normal. Skin is warm and dry LYMPHATICS: Lymph nodes are not enlarged. HEAD, EARS, EYES, NOSE, MOUTH, AND THROAT: Normal. NECK: Neck veins are not distended. Thyroid is not enlarged. CHEST: Clear. CARDIAC: Demonstrating what sounded like normal sinus rhythm with no murmurs or extra sounds. ABDOMEN: Soft and nontender. EXTREMITIES: Normal. IMPRESSION: 1. Hypotension. 2. Elevated troponin. 3. Congestive heart failure. 4. Chronic kidney disease. 5. Mild dementia. PLAN: 1. Bed rest. 2. IV fluids and monitor blood pressure. 3. Serial EKGs and enzymes. MMODL / IJN: [id number] /
--- NOTE | 2022-11-06 07:52 | PN ---
PROGRESS NOTE DATE OF SERVICE: 11/03/2022 CHIEF COMPLAINT: Hypotension, dehydration, and elevated troponin. HISTORY OF PRESENT ILLNESS: This lady is doing well. She has had no other issues. Blood pressure is improving. She has had no nausea, chest pain, shortness of breath, abdominal pain, etc. PHYSICAL EXAMINATION: CHEST: Clear. CARDIAC: Demonstrates an S3 and an S4. ABDOMEN: Soft and nontender. IMPRESSION: 1. Dehydration. 2. Hypotension. 3. Elevated troponin. 4. Urinary tract infection. 5. Congestive heart failure. PLAN: Continue with IV fluids and increase activity and diet. MMODL / IJN: [id number] /
--- NOTE | 2022-11-06 07:53 | PN ---
PROGRESS NOTE DATE OF SERVICE: 11/03/2022 CHIEF COMPLAINT: Hypotension and dehydration. HISTORY OF PRESENT ILLNESS: This lady is doing well. PHYSICAL EXAMINATION: VITAL SIGNS: Normal. GENERAL: She is awake and alert. She is eating and moving about. CHEST: Clear. CARDIAC: Normal. ABDOMEN: Soft and nontender. IMPRESSION: 1. Dehydration. 2. Hypotension. 3. Congestive heart failure. 4. Coronary artery disease. 5. Elevated troponin. 6. Diabetes. PLAN: If she continues to improve, she can probably go home in the next day or 2. MMODL / IJN: [id number] /
== END 2022-11-05 17:49 | disposition home or self-care (01) | DRG 641 ==
LOC: EC 16:01 → 3SCARD 20:19 → OBSVTOIN 11-05 08:04
PROVIDERS: ADMIT Family Medicine; ATTEND Family Medicine
DX: E86.0 Dehydration (principal); N39.0 Urinary tract infection, site not specified; I13.0 Hypertensive heart and chronic kidney disease with heart failure and stage 1 through stage 4 chronic kidney disease, or unspecified chronic kidney disease; I48.21 Permanent atrial fibrillation; I50.22 Chronic systolic (congestive) heart failure; E78.5 Hyperlipidemia, unspecified; E11.22 Type 2 diabetes mellitus with diabetic chronic kidney disease; N18.9 Chronic kidney disease, unspecified; I95.9 Hypotension, unspecified; M10.9 Gout, unspecified; R29.6 Repeated falls; B96.4 Proteus (mirabilis) (morganii) as the cause of diseases classified elsewhere; F03.A0 Unspecified dementia, mild, without behavioral disturbance, psychotic disturbance, mood disturbance, and anxiety; F17.200 Nicotine dependence, unspecified, uncomplicated; R77.8 Other specified abnormalities of plasma proteins; I25.10 Atherosclerotic heart disease of native coronary artery without angina pectoris; I25.5 Ischemic cardiomyopathy; E11.319 Type 2 diabetes mellitus with unspecified diabetic retinopathy without macular edema; Z79.4 Long term (current) use of insulin; Z79.82 Long term (current) use of aspirin; Z79.84 Long term (current) use of oral hypoglycemic drugs; Z79.899 Other long term (current) drug therapy; Z79.02 Long term (current) use of antithrombotics/antiplatelets; Z87.81 Personal history of (healed) traumatic fracture; Z95.1 Presence of aortocoronary bypass graft
CPT/HCPCS: 36415; 70450; 71046; 72125; 73502; 80048; 80053; 81001; 83036; 83605; 83735; 83880; 84100; 84443; 84484; 85025; 85610; 85730; 87040; 87077; 87086; 87186; 87636; 93005; 93306; 94640; 96361; 96374; 99285

== ENCOUNTER 2023-01-13 15:38 | Inpatient (IN) | payer MEDICARE, OTHER ==
--- NOTE | 2023-01-13 16:19 | ED ---
General Adult HPI - General Chief complaint: Urogenital Stated complaint: UTI Time Seen by Provider: 01/13/23 15:55 Source: patient, family, EMS Mode of arrival: EMS Limitations: no limitations - History of Present Illness Initial comments: Patient presents to the ED by ambulance for evaluation with her daughters 2 at bedside. Per daughter, the patient has had UTI symptoms for the past couple of weeks. Per daughter, the patient was seen in the ED 8 days ago and started on a course of Keflex, which she states she is taking as prescribed without any improvement in her symptoms. Daughter states that the patient continues to be generally weak and fatigued. Daughter states that the patient has also been complaining of feeling nauseated at times. Patient admits to having mild suprapubic abdominal pain, dysuria, urinary frequency and hematuria as well. Patient denies any other site of pain, fever or chills, headache, focal neuro deficit, chest pain or pressure, dyspnea, cough or cold symptoms, palpitations, dizziness, syncope, back or flank pain, vomiting or diarrhea, bloody or melanotic stool, or any other symptoms or complaints. - Related Data Home Medications Medication Instructions Recorded Confirmed allopurinoL [Zyloprim] 100 mg PO BID 02/07/17 11/01/22 Aspirin EC [Ecotrin Low Dose] 81 mg PO DAILY 07/28/22 11/01/22 Atorvastatin [Lipitor] 20 mg PO HS 07/28/22 11/01/22 Empagliflozin [Jardiance] 10 mg PO DAILY 07/28/22 11/01/22 Insulin Detemir (Levemir) [Levemir] 30 unit SQ DAILY 07/28/22 11/01/22 Montelukast [Singulair] 10 mg PO DAILY 07/28/22 11/01/22 Raloxifene HCl 60 mg PO DAILY 07/28/22 11/01/22 Clopidogrel [Plavix] 75 mg PO DAILY 11/01/22 11/01/22 INSULIN ASPART (NovoLOG) [NovoLOG See Protocol SQ ACHS PRN 11/01/22 11/01/22 (formulary)] lisinopriL 40 mg PO DAILY 11/01/22 11/01/22 Previous Rx's Medication Instructions Recorded Metoprolol Tartrate [Lopressor] 50 mg PO BID tab 05/21/17 Cinacalcet [Sensipar] 30 mg PO SuMoWeFr tab 08/01/22 Ferrous Sulfate [Iron (65 MG 325 mg PO BID #60 tab 08/01/22 Elemental)] polyethylene glycoL 3350 [Miralax] 17 gm PO DAILY PRN #21 packet 08/01/22 traMADol HCl [Ultram] 50 mg PO Q6H PRN #28 tab 08/01/22 Furosemide [Lasix] 40 mg PO DAILY #30 tab 11/05/22 Cephalexin [Keflex] 500 mg PO BID #20 cap 01/05/23 Allergies Allergy/AdvReac Type Severity Reaction Status Date / Time No Known Allergies Allergy Verified 01/13/23 15:50 Review of Systems ROS Statement: Those systems with pertinent positive or pertinent negative responses have been documented in the HPI. ROS Other: All systems not noted in ROS Statement are negative. Past Medical History Past Medical History: Blood Disorder, Coronary Artery Disease (CAD), Chest Pain / Angina, Heart Failure, CVA/TIA, Diabetes Mellitus, Eye Disorder, Hyperlipidemia, Hypertension, Myocardial Infarction (HI), Osteoarthritis (OA), Renal Disease, Syncope Additional Past Medical History / Comment(s): HX ANEMIA, DIABETIC RETINOPATHY, GOUT, SINUS PROBLEMS. Last Myocardial Infarction Date:: UNKNOWN History of Any Multi-Drug Resistant Organisms: None Reported Past Surgical History: Appendectomy, Cardiac Valve Replacement, Cholecystectomy, Coronary Bypass/CABG, Hysterectomy, Tonsillectomy Additional Past Surgical History / Comment(s): colonoscopy, bilat. cataract removal Past Anesthesia/Blood Transfusion Reactions: No Reported Reaction Additional Past Anesthesia/Blood Transfusion Reaction / Comment(s): Patient reports that she has received blood transfusion in past with no reaction Past Psychological History: No Psychological Hx Reported Smoking Status: Former smoker Past Alcohol Use History: Rare Past Drug Use History: None Reported - Past Family History Father Family Medical History: Pneumonia Additional Family Medical History / Comment(s): Father had TB Mother Family Medical History: Congestive Heart Failure (CHF) Additional Family Medical History / Comment(s): Mother young of CHF General Exam Limitations: no limitations General appearance: alert, in no apparent distress Head exam: Present: normocephalic Eye exam: Present: normal appearance ENT exam: Present: mucous membranes moist Neck exam: Present: other (Trachea is in midline). Absent: tenderness, meningismus Respiratory exam: Present: normal lung sounds bilaterally. Absent: respiratory distress, wheezes, rales, rhonchi, stridor Cardiovascular Exam: Present: regular rate, irregular rhythm, normal heart sounds, other (Normal radial pulses bilaterally) GI/Abdominal exam: Present: soft, normal bowel sounds, other (Mild suprapubic abdominal tenderness). Absent: distended, guarding, rebound Extremities exam: Absent: tenderness, pedal edema, calf tenderness Back exam: Absent: CVA tenderness (R), CVA tenderness (L) Neurological exam: Present: alert, oriented X3, CN II-XII intact. Absent: motor sensory deficit Psychiatric exam: Present: normal affect, normal mood Skin exam: Present: warm, dry, intact, normal color Course Vital Signs 01/13/23 01/13/23 01/13/23 15:41 17:48 18:45 Temperature 97.6 F Pulse Rate 63 59 L 56 L Respiratory 18 18 18 Rate Blood Pressure 86/50 97/84 123/59 O2 Sat by Pulse 100 100 100 Oximetry - Reevaluation(s) Reevaluation #1: 01/13/23 18:34 Patient remains alert and breathing comfortably. Patient's blood pressure has improved with IV fluid administration. Patient denies development of any new symptoms while in the ED. Patient and daughters 2 are aware the patient's test results, and they all agree with hospital admission at this time. 01/13/23 18:52 Case, H&P, test results and ED management thus far were discussed with Dr. Medrano. He accepts hospital admission. He has no further recommendations at this time. EKG Findings - EKG Comments: EKG Findings:: ED physician interpretation (interpreted by me): Atrial fibrillation, ventricular rate of 62 bpm, normal QRS duration, normal QT interval, normal axis, nonspecific ST and T-wave abnormality Medical Decision Making - Medical Decision Making Was pt. sent in by a medical professional or institution (, PA, PHYSICIAN RELATIONS REPRESENTATIVE, urgent care, hospital, or snf...) When possible be specific @ -No Did you speak to anyone other than the patient for history (EMS, parent, family, police, friend...)? What history was obtained from this source @ -History was also obtained from the patient's daughter. Did you review nursing and triage notes (agree or disagree)? Why? @ -I reviewed and agree with nursing and triage notes Were old charts reviewed (outside hosp., previous admission, EMS record, old EKG, old radiological studies, urgent care reports/EKG's, snf records)? Report findings @ -No old charts were reviewed Differential Diagnosis (chest pain, altered mental status, abdominal pain women, abdominal pain men, vaginal bleeding, weakness, fever, dyspnea, syncope, headache, dizziness, GI bleed, back pain, seizure, CVA, palpatations, mental health, musculoskeletal)? @ -Differential Weakness: Hypoglycemia, shock, sepsis, UTI, pyelonephritis, pneumonia, viral illness, hyponatremia, anemia, infection, HI, ETOH, adverse medicine reaction, overdose, abdominal pathology, this is not meant to be an all-inclusive list. EKG interpreted by me (3pts min.). @ -As above X-rays interpreted by me (1pt min.). @ -Chest x-ray was reviewed myself and shows no acute process. I agree with the radiologist's interpretation as above. CT interpreted by me (1pt min.). @ -Noncontrast CT abdomen/pelvis was reviewed myself and shows mild bilateral hydroureteronephrosis without obstructing calculus seen. I agree with the radiologist's interpretation as above. U/S interpreted by me (1pt. min.). @ -None done What testing was considered but not performed or refused? (CT, X-rays, U/S, labs)? Why? @ -None What meds were considered but not given or refused? Why? @ -None Did you discuss the management of the patient with other professionals (professionals i.e. , PA, PHYSICIAN RELATIONS REPRESENTATIVE, lab, RT, psych nurse, social media intern, allied health teacher, teacher, customs patrol officer, housing case manager)? Give summary @ -As above. Was smoking cessation discussed for >3mins.? @ -No Was critical care preformed (if so, how long)? @ -No Were there social determinants of health that impacted care today? How? (Homelessness, low income, unemployed, alcoholism, drug addiction, transportation, low edu. Level, literacy, decrease access to med. care, fdc, rehab)? @ -No Was there de-escalation of care discussed even if they declined (Discuss DNR or withdrawal of care, Hospice)? DNR status @ -No What co-morbidities impacted this encounter? (DM, HTN, Smoking, COPD, CAD, Cancer, CVA, ARF, Chemo, Hep., AIDS, mental health diagnosis, sleep apnea, morbid obesity)? @ -None Was patient admitted / discharged? Hospital course, mention meds given and route, prescriptions, significant lab abnormalities, going to OR and other pertinent info. @ -Patient's UA is suggestive of UTI. Patient has been treated with IV fluids and IV antibiotics in the ED (after cultures were obtained). Patient's calcium and potassium levels are also low and repletion has been initiated in the ED. Patient's CT abdomen/pelvis does not reveal any obstructing calculus. I suspect that the bladder findings seen on CT likely represents blood clot, as she has been passing large blood and clots in her urine. Patient is also noted to be in atrial fibrillation on EKG, and I do not see that the patient has a prior history of atrial fibrillation diagnosis. Will admit the patient to the hospital for continued IV antibiotic treatment and electrolyte repletion. Dr. Medrano has accepted hospital admission. Undiagnosed new problem with uncertain prognosis? @ -No Drug Therapy requiring intensive monitoring for toxicity (Heparin, Nitro, Insulin, Cardizem)? @ -No Were any procedures done? @ -No Diagnosis/symptom? @ -Generalized weakness] Acute, or Chronic, or Acute on Chronic? @ -default Uncomplicated (without systemic symptoms) or Complicated (systemic symptoms)? @ -default Side effects of treatment? @ -No Exacerbation, Progression, or Severe Exacerbation? @ -No Poses a threat to life or bodily function? How? (Chest pain, [place], HI, pneumonia, PE, COPD, DKA, ARF, appy, cholecystitis, CVA, Diverticulitis, Homicidal, Suicidal, threat to staff... and all critical care pts) @ -No Diagnosis/symptom? @ -UTI Acute, or Chronic, or Acute on Chronic? @ -default Uncomplicated (without systemic symptoms) or Complicated (systemic symptoms)? @ -default Side effects of treatment? @ -none Exacerbation, Progression, or Severe Exacerbation] @ -no Poses a threat to life or bodily function? @ -no Diagnosis/symptom? @ -Hypocalcemia Acute, or Chronic, or Acute on Chronic? @ -default Uncomplicated (without systemic symptoms) or Complicated (systemic symptoms)? @ -default Side effects of treatment? @ -none Exacerbation, Progression, or Severe Exacerbation] @ -no Poses a threat to life or bodily function? @ -no Diagnosis/symptom? @ -Hyperkalemia Acute, or Chronic, or Acute on Chronic? @ -default Uncomplicated (without systemic symptoms) or Complicated (systemic symptoms)? @ -default Side effects of treatment? @ -none Exacerbation, Progression, or Severe Exacerbation] @ -no Poses a threat to life or bodily function? @ -no Diagnosis/symptom? @ -Atrial fibrillation Acute, or Chronic, or Acute on Chronic? @ -default Uncomplicated (without systemic symptoms) or Complicated (systemic symptoms)? @ -default Side effects of treatment? @ -none Exacerbation, Progression, or Severe Exacerbation] @ -no Poses a threat to life or bodily function? @ -no - Lab Data Result diagrams: 01/13/23 16:33 01/13/23 16:33 Lab Results 01/13/23 01/13/23 01/13/23 Range/Units 16:33 16:33 16:33 WBC 6.4 (3.8-10.6) k/uL RBC 3.41 L (3.80-5.40) m/uL Hgb 10.8 L (11.4-16.0) gm/dL Hct 32.7 L (34.0-46.0) % MCV 96.0 (80.0-100.0) fL MCH 31.9 (25.0-35.0) pg MCHC 33.2 (31.0-37.0) g/dL RDW 14.6 (11.5-15.5) % Plt Count 247 (150-450) k/uL MPV 8.0 Neutrophils % 76 % Lymphocytes % 15 % Monocytes % 7 % Eosinophils % 1 % Basophils % 0 % Neutrophils # 4.8 (1.3-7.7) k/uL Lymphocytes # 0.9 L (1.0-4.8) k/uL Monocytes # 0.5 (0-1.0) k/uL Eosinophils # 0.0 (0-0.7) k/uL Basophils # 0.0 (0-0.2) k/uL Hypochromasia Slight PT 10.5 (9.0-12.0) sec INR 1.0 (<1.2) APTT 24.0 (22.0-30.0) sec Sodium (137-145) mmol/L Potassium (3.5-5.1) mmol/L Chloride (98-107) mmol/L Carbon Dioxide (22-30) mmol/L Anion Gap mmol/L BUN (7-17) mg/dL Creatinine (0.52-1.04) mg/dL Est GFR (CKD-EPI)AfAm (>60 ml/min/1.73 sqM) Est GFR (CKD-EPI)NonAf (>60 ml/min/1.73 sqM) Glucose (74-99) mg/dL Plasma Lactic Acid Rick (0.7-2.0) mmol/L Calcium (8.4-10.2) mg/dL Magnesium (1.6-2.3) mg/dL Total Bilirubin (0.2-1.3) mg/dL AST (14-36) U/L ALT (4-34) U/L Alkaline Phosphatase (38-126) U/L Troponin I (0.000-0.034) ng/mL Total Protein (6.3-8.2) g/dL Albumin (3.5-5.0) g/dL TSH (0.465-4.680) mIU/L Urine Color Red Urine Appearance Bloody H (Clear) Urine pH 6.0 (5.0-8.0) Ur Specific [place] 1.020 (1.001-1.035) Urine Protein 2+ (Negative) Urine Glucose (UA) 3+ (Negative) Urine Ketones Trace (Negative) Urine Blood Large (Negative) Urine Nitrite Negative (Negative) Urine Bilirubin Negative (Negative) Urine Urobilinogen <2.0 (<2.0) mg/dL Ur Leukocyte Esterase Large (Negative) Urine RBC >182 H (0-5) /hpf Urine WBC >182 H (0-5) /hpf Urine Bacteria Moderate H (None) /hpf 01/13/23 01/13/23 01/13/23 Range/Units 16:33 16:33 16:33 WBC (3.8-10.6) k/uL RBC (3.80-5.40) m/uL Hgb (11.4-16.0) gm/dL Hct (34.0-46.0) % MCV (80.0-100.0) fL MCH (25.0-35.0) pg MCHC (31.0-37.0) g/dL RDW (11.5-15.5) % Plt Count (150-450) k/uL MPV Neutrophils % % Lymphocytes % % Monocytes % % Eosinophils % % Basophils % % Neutrophils # (1.3-7.7) k/uL Lymphocytes # (1.0-4.8) k/uL Monocytes # (0-1.0) k/uL Eosinophils # (0-0.7) k/uL Basophils # (0-0.2) k/uL Hypochromasia PT (9.0-12.0) sec INR (<1.2) APTT (22.0-30.0) sec Sodium 138 (137-145) mmol/L Potassium 2.6 L* (3.5-5.1) mmol/L Chloride 115 H (98-107) mmol/L Carbon Dioxide 15 L (22-30) mmol/L Anion Gap 8 mmol/L BUN 51 H (7-17) mg/dL Creatinine 1.23 H (0.52-1.04) mg/dL Est GFR (CKD-EPI)AfAm 48 (>60 ml/min/1.73 sqM) Est GFR (CKD-EPI)NonAf 42 (>60 ml/min/1.73 sqM) Glucose 122 H (74-99) mg/dL Plasma Lactic Acid [place] 1.6 (0.7-2.0) mmol/L Calcium 6.6 L (8.4-10.2) mg/dL Magnesium 1.6 (1.6-2.3) mg/dL Total Bilirubin 0.2 (0.2-1.3) mg/dL AST 16 (14-36) U/L ALT 11 (4-34) U/L Alkaline Phosphatase 76 (38-126) U/L Troponin I <0.012 (0.000-0.034) ng/mL Total Protein 4.3 L (6.3-8.2) g/dL Albumin 1.9 L (3.5-5.0) g/dL TSH 1.420 (0.465-4.680) mIU/L Urine Color Urine Appearance (Clear) Urine pH (5.0-8.0) Ur Specific [place] (1.001-1.035) Urine Protein (Negative) Urine Glucose (UA) (Negative) Urine Ketones (Negative) Urine Blood (Negative) Urine Nitrite (Negative) Urine Bilirubin (Negative) Urine Urobilinogen (<2.0) mg/dL Ur Leukocyte Esterase (Negative) Urine RBC (0-5) /hpf Urine WBC (0-5) /hpf Urine Bacteria (None) /hpf - Radiology Data Chest x-ray: Chronic changes without evidence for acute process. Noncontrast CT abdomen/pelvis: 1. Mild bilateral hydroureteronephrosis without obstructing calculus. 2. Posterior right urinary bladder wall hyperdense 1.6 cm lesion. This raises concern for malignancy versus blood clot. Correlation with urinalysis is recommended with consideration for direct visualization. 3. Colonic diverticulosis without evidence for acute diverticulitis. 4. 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 Disposition Clinical Impression: Atrial fibrillation, Generalized weakness, Hypocalcemia, Hypokalemia, UTI (urinary tract infection) Disposition: ADMITTED IP TO THIS HOSP Condition: Stable Is patient prescribed a controlled substance at d/c from ED?: No Referrals: Saurabh Medrano MD [Primary Care Provider] - 1-2 days Time of Disposition: 18:53
[2023-01-13] MEDS ORDERED: SODIUM CHLORIDE 0.9% 1,000 ML IV STA (16:30)
--- NOTE | 2023-01-13 17:01 | XR ---
EXAMINATION TYPE: XR chest 1V portable DATE OF EXAM: 01/13/2023 4:57 PM COMPARISON: Chest radiographs from 11/01/2022 TECHNIQUE: XR chest 1V portable Portable AP radiograph of the chest. CLINICAL INDICATION:Female, 82 years old with history of weakness; FINDINGS: Lungs/Pleura: There is no evidence of pleural effusion, focal consolidation, or pneumothorax. Elevat ion of the right hemidiaphragm. Hyperinflation compatible with COPD. Pulmonary vascularity: Unremarkable. Heart/mediastinum: Cardiomediastinal silhouette is enlarged and stable. Atherosclerotic calcificatio ns are seen in the aorta. Musculoskeletal: No acute osseous pathology. Midline sternotomy wires are noted and stable. IMPRESSION: Chronic changes without evidence for acute process.
[2023-01-13 17:19] LABS: Basophils % (A) 0 %; Eosinophils % (A) 1 %; HCT 32.7 % (34.0-46.0); HGB 10.8 gm/dL (11.4-16.0); Hypochromasia Slight; Lymphocytes # (A) 0.9 k/uL (1.0-4.8); Lymphocytes % (A) 15 %; MCH 31.9 pg (25.0-35.0); MCHC 33.2 g/dL (31.0-37.0); Monocytes # (A) 0.5 k/uL (0-1.0); Monocytes % (A) 7 %; Neutrophils # (A) 4.8 k/uL (1.3-7.7); Neutrophils % (A) 76 %; Platelet Count 247 k/uL (150-450); RBC 3.41 m/uL (3.80-5.40); RDW 14.6 % (11.5-15.5); WBC 6.4 k/uL (3.8-10.6)
[2023-01-13 17:24] LABS: Prothrombin Time 10.5 sec (9.0-12.0)
[2023-01-13 17:30] LABS: ALT 11 U/L (4-34); AST 16 U/L (14-36); African American GFR (CKD) 48 (>60 ml/min/1.73 sqM); Albumin 1.9 g/dL (3.5-5.0); Alkaline Phosphatase 76 U/L (38-126); Anion Gap 8 mmol/L; Blood Urea Nitrogen 51 mg/dL (7-17); Calcium 6.6 mg/dL (8.4-10.2); Carbon Dioxide 15 mmol/L (22-30); Chloride 115 mmol/L (98-107); Glucose 122 mg/dL (74-99); Magnesium 1.6 mg/dL (1.6-2.3); Non-African American GFR(CKD) 42 (>60 ml/min/1.73 sqM); Sodium 138 mmol/L (137-145); Total Bilirubin 0.2 mg/dL (0.2-1.3); Total Protein 4.3 g/dL (6.3-8.2)
[2023-01-13 17:41] LABS: Potassium 2.6 mmol/L (3.5-5.1)
[2023-01-13] MEDS ORDERED: POTASSIUM CHLORIDE ER 20 MEQ TAB.ER PO STA (17:43)
[2023-01-13] MEDS ORDERED: POTASSIUM CHLORIDE 20 MEQ in WATER FOR INJECTION 1 100ML.BAG IVPB STA (17:43)
[2023-01-13] MEDS ORDERED: CALCIUM GLUCONATE IN NACL 1 GM in SALINE 1 100ML.BAG IVPB ONE (17:43)
[2023-01-13 18:18] LABS: Appearance,Urine Bloody (Clear); Bilirubin,Urine Negative (Negative); Blood,Urine Large (Negative); Color,Urine Red; Glucose,Urine (UA) 3+ (Negative); Ketones,Urine Trace (Negative); Leukocyte Esterase,Urine Large (Negative); Nitrite,Urine Negative (Negative); Protein,Urine 2+ (Negative); Urobilinogen,Urine <2.0 mg/dL (<2.0)
[2023-01-13 18:19] LABS: Bacteria,Urine Moderate /hpf; RBC,Urine >182 /hpf (0-5); WBC,Urine >182 /hpf (0-5)
--- NOTE | 2023-01-13 18:23 | CT ---
EXAMINATION TYPE: CT abdomen pelvis wo con CT DLP: 362.5 mGycm, Automated exposure control for dose reduction was used. DATE OF EXAM: 01/13/2023 6:11 PM COMPARISON: CT abdomen pelvis most recent from 07/07/2019 . CLINICAL INDICATION:Female, 82 years old with history of lower abdominal pain, hematuria; lower abdom inal pain, hematuria TECHNIQUE: Standard CT of the abdomen and pelvis without IV or oral contrast. Lack of IV or oral co ntrast limits evaluation of solid and hollow organ viscera. Coronal and sagittal reformats were perfo rmed. FINDINGS: LOWER CHEST: Posterior dependent subsegmental atelectasis is noted. Cardiomegaly. Coronary artery daniel cifications. No pericardial effusion. ABDOMEN LIVER: Unremarkable noncontrast appearance GALLBLADDER AND BILE DUCTS: The gallbladder is surgically absent. PANCREAS: Unremarkable noncontrast appearance SPLEEN: Unremarkable noncontrast appearance ADRENAL GLANDS: Unremarkable noncontrast appearance. KIDNEYS AND URETERS: Mild bilateral hydroureteronephrosis without obstructing calculus identified. No nephrolithiasis. PELVIS BLADDER: Hyperdense 1.6 cm lesion within the posterior aspect of the inferior urinary bladder (series 21, image 133). REPRODUCTIVE: The uterus is surgically absent. ABDOMEN & PELVIS STOMACH AND BOWEL: Stomach and duodenum are unremarkable. 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 Dis nandini colonic diverticulosis without evidence for acute diverticulitis. No evidence of bowel obstructio n. PERITONEUM: No evidence of pneumoperitoneum or free fluid. VASCULATURE: Moderate atherosclerotic calcifications are present throughout the abdominal aorta and i ts branches. No evidence of aortic aneurysm. MUSCULOSKELETAL: No acute osseous abnormalities fixation hardware of the left proximal femur. Diffuse bone demineralization. Mild multilevel degenerative disc disease. LYMPH NODES: No gross evidence for lymphadenopathy. SOFT TISSUE/ABDOMINAL WALL: Mild diffuse anasarca. Small fat filled umbilical hernia. Few foci of gas are present in the left anterior abdominal wall soft tissues likely related to medication injection. IMPRESSION: 1. Mild bilateral hydroureteronephrosis without obstructing calculus. 2. Posterior right urinary bladder wall hyperdense 1.6 cm lesion. This raises concern for malignancy versus blood clot. Correlation with urinalysis is recommended with consideration for direct visualiza tion. 3. Colonic diverticulosis without evidence for acute diverticulitis. 4. 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
[2023-01-13] MEDS ORDERED: NALOXONE 0.4 MG/ML 1 ML VIAL IV PRN (18:53)
[2023-01-14] MEDS ORDERED: Magnesium Replacement Protocol 1 EACH MISC MISCELLANE PRN (07:20)
[2023-01-14] MEDS ORDERED: DEXTROSE 50% SYRINGE 50 ML IVP PRN ×2 (07:21)
[2023-01-14 07:55] LABS: Basophils # (A) 0.1 k/uL (0-0.2); Basophils % (A) 1 %; Eosinophils # (A) 0.1 k/uL (0-0.7); Eosinophils % (A) 1 %; HGB 10.7 gm/dL (11.4-16.0); Lymphocytes # (A) 1.4 k/uL (1.0-4.8); Lymphocytes % (A) 20 %; MCH 31.8 pg (25.0-35.0); MCHC 33.3 g/dL (31.0-37.0); MCV 95.4 fL (80.0-100.0); Mean Platelet Volume 8.8; Monocytes # (A) 0.5 k/uL (0-1.0); Monocytes % (A) 7 %; Neutrophils % (A) 70 %; Platelet Count 289 k/uL (150-450); RBC 3.35 m/uL (3.80-5.40); RDW 14.4 % (11.5-15.5); WBC 7.2 k/uL (3.8-10.6)
[2023-01-14 08:34] LABS: ALT 10 U/L (4-34); AST 16 U/L (14-36); African American GFR (CKD) 39 (>60 ml/min/1.73 sqM); Albumin 2.5 g/dL (3.5-5.0); Alkaline Phosphatase 101 U/L (38-126); Anion Gap 7 mmol/L; Blood Urea Nitrogen 53 mg/dL (7-17); Calcium 9.5 mg/dL (8.4-10.2); Carbon Dioxide 22 mmol/L (22-30); Chloride 107 mmol/L (98-107); Glucose 199 mg/dL (74-99); Non-African American GFR(CKD) 33 (>60 ml/min/1.73 sqM); Potassium 4.6 mmol/L (3.5-5.1); Sodium 136 mmol/L (137-145); Total Bilirubin 0.3 mg/dL (0.2-1.3); Total Protein 5.4 g/dL (6.3-8.2)
[2023-01-14 09:56] LABS: Glucose,Whole Blood 183 mg/dL (70-110)
[2023-01-14] MEDS: ACETAMINOPHEN TAB 325 MG TAB PO PRN (10:39)
[2023-01-14] MEDS: MAGNESIUM SULFATE-D5W PMX 1 GM in DEXTROSE/WATER 1 100ML.BAG IVPB SCH ×2 (10:40→13:57)
[2023-01-14] MEDS: INSULIN ASPART (NovoLOG) 100 UNIT/ML VIAL SQ SCH ×4 (10:46→21:17)
[2023-01-14] MEDS ORDERED: polyethylene glycoL 3350 17 GM POWD.PACK PO PRN (10:52)
[2023-01-14] MEDS: SODIUM CHLORIDE 0.9% 1,000 ML IV SCH (13:57)
--- NOTE | 2023-01-14 17:30 | CA ---
Transthoracic Echo Report Name: Anya Mejia Age: 82 Gender: F : 1940 Exam Date: 01/14/2023 15:33 Exam Location: [facility] Ht (in): 65 Wt (lb): 132 Ordering Physician: Saurabh Medrano MD Attending/Referring Phys: Mitchell SALAMANCA Bus Driver/Monitor Jeremy Galo Procedure CPT: Indications: r/o clot Cardiac Hx: Technical Quality: Fair Contrast 1: Total Dose (mL): Contrast 2: Total Dose (mL): MEASUREMENTS (Male / Female) Normal Values 2D ECHO LV Diastolic Diameter PLAX 4.9 cm 4.2 - 5.9 / 3.9 - 5.3 cm LV Systolic Diameter PLAX 3.9 cm IVS Diastolic Thickness 1.3 cm 0.6 - 1.0 / 0.6 - 0.9 cm LVPW Diastolic Thickness 1.0 cm 0.6 - 1.0 / 0.6 - 0.9 cm LV Relative Wall Thickness 0.5 RV Internal Dim ED PLAX 2.6 cm LVOT Diameter 2.0 cm Aortic Root Diameter 2.6 cm LA Systolic Diameter LX 4.3 cm 3.0 - 4.0 / 2.7 - 3.8 cm LV Diastolic Volume MOD BP 53.6 cm??? 67 - 155 / 56 - 104 cm??? LV Systolic Volume MOD BP 29.0 cm??? - 58 / 19 - 49 cm??? LV Ejection Fraction MOD BP 45.9 % >= 55 % LV Cardiac Index MOD BP 1127.2 cm???/min???m??? LV Diastolic Volume MOD 4C 55.9 cm??? LV Systolic Volume MOD 4C 26.8 cm??? LV Ejection Fraction MOD 4C 52.1 % LV Cardiac Index MOD 4C 1334.7 cm???/min???m??? LV Diastolic Length 4C 5.6 cm LV Systolic Length 4C 5.1 cm LV Diastolic Volume MOD 2C 51.1 cm??? LV Systolic Volume MOD 2C 26.6 cm??? LV Ejection Fraction MOD 2C 47.9 % LV Cardiac Index MOD 2C 1122.5 cm???/min???m??? LV Diastolic Length 2C 5.7 cm LV Systolic Length 2C 6.1 cm LA Volume 76.9 cm??? 18 - 58 / 22 - 52 cm??? DOPPLER AV Peak Velocity 130.6 cm/s AV Peak Gradient 6.8 mmHg LVOT Peak Velocity 63.3 cm/s LVOT Peak Gradient 1.6 mmHg AV Area Cont Eq pk 1.5 cm??? MV Peak Velocity 123.0 cm/s MV Peak Gradient 6.1 mmHg MV Mean Velocity 57.4 cm/s MV Mean Gradient 1.7 mmHg MV Velocity Time Integral 28.6 cm MR Peak Velocity 578.1 cm/s MR Peak Gradient 133.7 mmHg Mitral E Point Velocity 99.3 cm/s Mitral A Point Velocity 44.3 cm/s Mitral E to A Ratio 2.2 MV Deceleration Time 153.2 ms MV E' Velocity 9.3 cm/s Mitral E to MV E' Ratio 10.7 TR Peak Velocity 297.4 cm/s TR Peak Gradient 35.4 mmHg Right Ventricular Systolic Press 40.7 mmHg PV Peak Velocity 103.6 cm/s PV Peak Gradient 4.3 mmHg FINDINGS Left Ventricle Mildly increased septal wall thickness. Mildly decreased left ventricular ejection fraction. Left ventricular ejection fraction is estimated at 35-40 %. Right Ventricle Borderline RV enlargment. RVSP= 50mmhg. Right Atrium Moderate right atrial dilatation. RA Area= 15.7cm2 Left Atrium Moderately increased left atrial diameter. LA Volume index= 46ml/m2 Mitral Valve Structurally normal mitral valve. Moderate MR. Aortic Valve Trileaflet aortic valve. Tricuspid Valve Structurally normal tricuspid valve. Moderate to severe TR. Pulmonic Valve Pulmonic valve not well visualized. Mild PI. Pericardium Normal pericardium. Aorta Normal size aortic root and proximal ascending aorta. CONCLUSIONS Mild increased left ventricular wall thickness Left ventricular ejection fraction 35-40% RVSP 50 Moderate mitral regurgitation Moderate to severe tricuspid regurgitation No pericardial effusion Previewed by: Dr. Yousif Torre DO (Electronically Signed) Final Date: 14 January 2023 17:28
[2023-01-14] MEDS: CINACALCET 30 MG TAB PO SCH (17:41)
[2023-01-14 17:46] LABS: Glucose,Whole Blood 323 mg/dL (70-110)
[2023-01-14] MEDS ORDERED: VANCOMYCIN IV PER PHARMACY 1 EACH MISC MISCELLANE PRN (19:41)
[2023-01-14] MEDS ORDERED: VANCOMYCIN 1,250 MG in SODIUM CHLORIDE 0.9% 250 ML IVPB ONE (20:30)
[2023-01-14 21:09] LABS: Glucose,Whole Blood 357 mg/dL (70-110)
[2023-01-14] MEDS: ATORVASTATIN 20 MG TAB PO SCH (21:17)
[2023-01-14] MEDS: FERROUS SULFATE 325 MG TAB PO SCH (21:18)
[2023-01-14] MEDS: allopurinoL 100 MG TAB PO SCH (21:18)
[2023-01-14] MEDS: METOPROLOL TARTRATE 50 MG TAB PO SCH (21:18)
--- NOTE | 2023-01-14 23:51 | HP ---
HISTORY AND PHYSICAL CHIEF COMPLAINT: Generalized weakness and debility. HISTORY OF PRESENT ILLNESS: 82-year-old white female who has had longstanding history of poorly controlled insulin-dependent diabetes mellitus, hypertension, congestive heart failure, renal failure and mild dementia. She has been maintained at home very well by her family seemed to be a lot weaker. She was brought to the emergency room where she was found to be dehydrated. She also had atrial fibrillation which is new for her. Potassium is very low at 2.6. White count 7200 with a hemoglobin of 10.7. BUN was 59 with a creatinine 1.47 and a GFR of 33. Her urine was bloody. She is not on anticoagulant. REVIEW OF SYSTEMS: Difficult to obtain because she is a poor historian. She does seem to be oriented. She is not complaining of chest pain, shortness of breath, abdominal pain, etc Past medical history, family history and personal and social histories reveal that she has been on Jardiance, Lasix, lisinopril, iron, atorvastatin, raloxifene, tramadol, montelukast, insulin, allopurinol, metoprolol, aspirin, clopidogrel. She does not smoke or drink. PHYSICAL EXAMINATION: VITAL SIGNS: Normal. She is afebrile GENERAL: She appears to be awake, but she is dehydrated. She is slightly pale. HEAD, EARS, EYES, NOSE AND MOUTH: Normal except for dry mucous membranes. NECK: Supple. Neck veins not distended. CHEST: Sounded clear with only occasional rales and rhonchi. CARDIAC: Demonstrated an irregularly irregular pulse with a rate of around 80. ABDOMEN: Soft and nontender. EXTREMITIES: Normal. NEUROLOGICALLY: She seemed to be grossly intact. She is admitted to the hospital with diagnosis, 1. Weakness. 2. Dehydration. 3. New onset atrial fibrillation. 4. Hypokalemia. 5. Chronic kidney disease, stage 3b. PLAN: 1. Bed rest. 2. IV fluids. 3. Rehydrate. 4. Echocardiogram. 5. Evaluate hematuria. MMODL / IJN: [id number] /
[2023-01-15] MEDS: SODIUM CHLORIDE 0.9% 1,000 ML IV SCH ×2 (00:34→16:39)
[2023-01-15 06:21] LABS: Glucose,Whole Blood 168 mg/dL (70-110)
[2023-01-15] MEDS: INSULIN ASPART (NovoLOG) 100 UNIT/ML VIAL SQ SCH ×4 (06:26→20:44)
[2023-01-15] MEDS: INSULIN DETEMIR (LEVEMIR) 100 UNIT/ML SYR SQ SCH (06:26)
--- NOTE | 2023-01-15 09:40 | P.GSCN ---
History of Present Illness Consult date: 01/15/23 Reason for Consult: Gross hematuria, bladder lesion Requesting physician: Saurabh Medrano History of present illness: The patient is an 82-year-old white female with multiple medical problems. She was seen in the ER 01/05/2023 with complaints of hematuria and dysuria. She was found to have a UTI and was treated with Keflex. However, she now presents back with weakness and gross hematuria (with clots). CT scan shows a possible bladder lesion. I am consulted for this reason. I spoke with both patient and her daughter, and both state that the development of hematuria is a recent finding. Review of Systems - Constitutional Reports weakness, Denies chills, Denies fever - Cardiovascular Reports high blood pressure, Reports irregular heart beat - Genitourinary Genitourinary: Reports as per HPI Past Medical History Past Medical History: Atrial Fibrillation, Blood Disorder, Coronary Artery Disease (CAD), Chest Pain / Angina, Heart Failure, CVA/TIA, Diabetes Mellitus, Eye Disorder, Hyperlipidemia, Hypertension, Myocardial Infarction ([place]), Osteo arthritis (OA), Renal Disease, Syncope Additional Past Medical History / Comment(s): HX ANEMIA, DIABETIC RETINOPATHY, GOUT, SINUS PROBLEMS. Last Myocardial Infarction Date:: UNKNOWN History of Any Multi-Drug Resistant Organisms: None Reported Past Surgical History: Appendectomy, Cardiac Valve Replacement, Cholecystectomy, Coronary Bypass/CABG, Hysterectomy, Tonsillectomy Additional Past Surgical History / Comment(s): colonoscopy, bilat. cataract removal Past Anesthesia/Blood Transfusion Reactions: No Reported Reaction Additional Past Anesthesia/Blood Transfusion Reaction / Comm: Patient reports that she has received blood transfusion in past with no reaction Past Psychological History: No Psychological Hx Reported Additional Psychological History / Comment(s): Pt lives with her daughters, Mary and Madison. She is fairly independent. She uses a walker at times. She has no home care agency. She gets to appt with her daughter driving her. Smoking Status: Former smoker Past Alcohol Use History: Rare Additional Past Alcohol Use History / Comment(s): Pt states she started smoking when she was 18 or 19yrs old and quit in 1996 Past Drug Use History: None Reported - Past Family History Father Family Medical History: Pneumonia Additional Family Medical History / Comment(s): Father had TB Mother Family Medical History: Congestive Heart Failure (CHF) Additional Family Medical History / Comment(s): Mother young of CHF Medications and Allergies Home Medications Medication Instructions Recorded Confirmed Type allopurinoL [Zyloprim] 100 mg PO BID 02/07/17 01/13/23 History Metoprolol Tartrate [Lopressor] 50 mg PO BID tab 05/21/17 01/13/23 Rx Atorvastatin [Lipitor] 20 mg PO HS 07/28/22 01/13/23 History Empagliflozin [Jardiance] 10 mg PO DAILY 07/28/22 01/13/23 History Insulin Detemir (Levemir) [Levemir] 30 unit SQ DAILY 07/28/22 01/13/23 History Montelukast [Singulair] 10 mg PO DAILY 07/28/22 01/13/23 History Raloxifene HCl 60 mg PO DAILY 07/28/22 01/13/23 History Cinacalcet [Sensipar] 30 mg PO SuMoWeFr tab 08/01/22 01/13/23 Rx Ferrous Sulfate [Iron (65 MG 325 mg PO BID #60 tab 08/01/22 01/13/23 Rx Elemental)] polyethylene glycoL 3350 [Miralax] 17 gm PO DAILY PRN #21 packet 08/01/22 01/13/23 Rx traMADol HCl [Ultram] 50 mg PO Q6H PRN #28 tab 08/01/22 01/13/23 Rx Clopidogrel [Plavix] 75 mg PO DAILY 11/01/22 01/13/23 History INSULIN ASPART (NovoLOG) [NovoLOG See Protocol SQ ACHS 11/01/22 01/13/23 History (formulary)] lisinopriL 40 mg PO DAILY 11/01/22 01/13/23 History Furosemide [Lasix] 40 mg PO DAILY #30 tab 11/05/22 01/13/23 Rx Cephalexin [Keflex] 500 mg PO BID #20 cap 01/05/23 01/13/23 Rx Aspirin 81 mg PO DAILY 01/13/23 01/13/23 History Allergies Allergy/AdvReac Type Severity Reaction Status Date / Time No Known Allergies Allergy Unverified 01/13/23 19:08 Surgical - Exam Vital Signs Temp Pulse Resp BP Pulse Ox 97.6 F 63 18 86/50 100 01/13/23 15:41 01/13/23 15:41 01/13/23 15:41 01/13/23 15:41 01/13/23 15:41 - General well developed, well nourished, no distress - Neck no masses, trachea midline - Respiratory normal respiratory effort - Abdomen Soft, non-distended, no mass. Mild suprapubic tenderness, no guarding or rebound. - Psychiatric oriented to time, oriented to person, oriented to place, speech is normal, memory intact Results - Labs 01/14/23 07:43 01/14/23 07:43 Abnormal Lab Results - Last 24 Hours (Table) 01/14/23 01/14/23 01/14/23 Range/Units 07:43 07:43 09:52 RBC 3.35 L (3.80-5.40) m/uL Hgb 10.7 L (11.4-16.0) gm/dL Hct 32.0 L (34.0-46.0) % Sodium 136 L (137-145) mmol/L BUN 53 H (7-17) mg/dL Creatinine 1.47 H (0.52-1.04) mg/dL Glucose 199 H (74-99) mg/dL POC Glucose (mg/dL) 183 H (70-110) mg/dL Magnesium (1.6-2.3) mg/dL Total Protein 5.4 L (6.3-8.2) g/dL Albumin 2.5 L (3.5-5.0) g/dL 01/14/23 01/14/23 01/15/23 Range/Units 17:43 21:07 05:10 RBC (3.80-5.40) m/uL Hgb (11.4-16.0) gm/dL Hct (34.0-46.0) % Sodium (137-145) mmol/L BUN (7-17) mg/dL Creatinine (0.52-1.04) mg/dL Glucose (74-99) mg/dL POC Glucose (mg/dL) 323 H 357 H (70-110) mg/dL Magnesium 2.5 H (1.6-2.3) mg/dL Total Protein (6.3-8.2) g/dL Albumin (3.5-5.0) g/dL 01/15/23 Range/Units 06:18 RBC (3.80-5.40) m/uL Hgb (11.4-16.0) gm/dL Hct (34.0-46.0) % Sodium (137-145) mmol/L BUN (7-17) mg/dL Creatinine (0.52-1.04) mg/dL Glucose (74-99) mg/dL POC Glucose (mg/dL) 168 H (70-110) mg/dL Magnesium (1.6-2.3) mg/dL Total Protein (6.3-8.2) g/dL Albumin (3.5-5.0) g/dL Microbiology - Last 24 Hours (Table) 01/13/23 16:33 Urine Culture - Final Urine,Clean Catch 01/13/23 16:33 Blood Culture Gram Stain - Preliminary Blood Diabetes panel 01/14/23 Range/Units 07:43 Sodium 136 L (137-145) mmol/L Potassium 4.6 (3.5-5.1) mmol/L Chloride 107 (98-107) mmol/L Carbon Dioxide 22 (22-30) mmol/L BUN 53 H (7-17) mg/dL Creatinine 1.47 H (0.52-1.04) mg/dL Glucose 199 H (74-99) mg/dL Calcium 9.5 (8.4-10.2) mg/dL AST 16 (14-36) U/L ALT 10 (4-34) U/L Alkaline Phosphatase 101 (38-126) U/L Total Protein 5.4 L (6.3-8.2) g/dL Albumin 2.5 L (3.5-5.0) g/dL Calcium panel 01/14/23 Range/Units 07:43 Calcium 9.5 (8.4-10.2) mg/dL Albumin 2.5 L (3.5-5.0) g/dL Pituitary panel 01/14/23 Range/Units 07:43 Sodium 136 L (137-145) mmol/L Potassium 4.6 (3.5-5.1) mmol/L Chloride 107 (98-107) mmol/L Carbon Dioxide 22 (22-30) mmol/L BUN 53 H (7-17) mg/dL Creatinine 1.47 H (0.52-1.04) mg/dL Glucose 199 H (74-99) mg/dL Calcium 9.5 (8.4-10.2) mg/dL Adrenal panel 01/14/23 Range/Units 07:43 Sodium 136 L (137-145) mmol/L Potassium 4.6 (3.5-5.1) mmol/L Chloride 107 (98-107) mmol/L Carbon Dioxide 22 (22-30) mmol/L BUN 53 H (7-17) mg/dL Creatinine 1.47 H (0.52-1.04) mg/dL Glucose 199 H (74-99) mg/dL Calcium 9.5 (8.4-10.2) mg/dL Total Bilirubin 0.3 (0.2-1.3) mg/dL AST 16 (14-36) U/L ALT 10 (4-34) U/L Alkaline Phosphatase 101 (38-126) U/L Total Protein 5.4 L (6.3-8.2) g/dL Albumin 2.5 L (3.5-5.0) g/dL - Imaging CT scan - abdomen: report reviewed, image reviewed Assessment and Plan Assessment: The patient was recently treated for an E. coli UTI. Her hematuria has persisted. CT scan shows a 1.6 cm bladder lesion. (1) Gross hematuria Current Visit: Yes Status: Acute Code(s): R31.0 - GROSS HEMATURIA SNOMED Code(s): 778562648 (2) Abnormal radiologic findings on diagnostic imaging of renal pelvis, ureter, or bladder Current Visit: Yes Status: Acute Code(s): R93.41 - ABN RADLGC FIND ON DX IMAGING RENAL PELV, URETER, OR BLDDR SNOMED Code(s): 019443753 Plan: Patient may be discharged home from my standpoint. The CT scan finding may represent clot or a bladder tumor. Arrangements will be made for the patient to undergo office cystoscopy shortly upon discharge. If she is found to have a bladder tumor, she will be advised to undergo bladder tumor resection. Time with Patient: Greater than 30
[2023-01-15] MEDS: ASPIRIN 81 MG PO SCH (10:12)
[2023-01-15] MEDS: METOPROLOL TARTRATE 50 MG TAB PO SCH ×2 (10:12→20:44)
[2023-01-15] MEDS: CLOPIDOGREL 75 MG TAB PO SCH (10:12)
[2023-01-15] MEDS: allopurinoL 100 MG TAB PO SCH ×2 (10:12→20:44)
[2023-01-15] MEDS: FERROUS SULFATE 325 MG TAB PO SCH ×2 (10:12→20:44)
[2023-01-15] MEDS: MONTELUKAST 10 MG TAB PO SCH (10:12)
[2023-01-15] MEDS: lisinopriL 20 MG TAB PO SCH (10:12)
[2023-01-15] MEDS: DAPAGLIFLOZIN PROPANEDIOL 5 MG TABLET PO SCH (10:49)
[2023-01-15] MEDS: RALOXIFENE 60 MG TAB PO SCH (10:49)
[2023-01-15 11:37] LABS: Glucose,Whole Blood 207 mg/dL (70-110)
[2023-01-15] MEDS ORDERED: VANCOMYCIN 1,000 MG in SODIUM CHLORIDE 0.9% 250 ML IVPB ONE (16:00)
[2023-01-15 16:29] LABS: Glucose,Whole Blood 227 mg/dL (70-110)
[2023-01-15] MEDS: ACETAMINOPHEN TAB 325 MG TAB PO PRN (16:46)
[2023-01-15 18:03] LABS: Basophils % (A) 1 %; Eosinophils # (A) 0.1 k/uL (0-0.7); Eosinophils % (A) 1 %; HCT 33.4 % (34.0-46.0); Hypochromasia Slight; Lymphocytes # (A) 1.6 k/uL (1.0-4.8); Lymphocytes % (A) 21 %; MCH 31.7 pg (25.0-35.0); MCHC 32.9 g/dL (31.0-37.0); MCV 96.3 fL (80.0-100.0); Mean Platelet Volume 7.6; Monocytes # (A) 0.7 k/uL (0-1.0); Monocytes % (A) 9 %; Neutrophils % (A) 66 %; Platelet Count 275 k/uL (150-450); RBC 3.47 m/uL (3.80-5.40); RDW 14.5 % (11.5-15.5); WBC 7.7 k/uL (3.8-10.6)
[2023-01-15 18:17] LABS: ALT 13 U/L (4-34); AST 20 U/L (14-36); African American GFR (CKD) 56 (>60 ml/min/1.73 sqM); Albumin 2.5 g/dL (3.5-5.0); Alkaline Phosphatase 96 U/L (38-126); Anion Gap 8 mmol/L; Blood Urea Nitrogen 38 mg/dL (7-17); Calcium 9.2 mg/dL (8.4-10.2); Carbon Dioxide 15 mmol/L (22-30); Chloride 110 mmol/L (98-107); Glucose 216 mg/dL (74-99); Non-African American GFR(CKD) 49 (>60 ml/min/1.73 sqM); Potassium 4.3 mmol/L (3.5-5.1); Sodium 133 mmol/L (137-145); Total Bilirubin 0.2 mg/dL (0.2-1.3); Total Protein 5.6 g/dL (6.3-8.2)
--- NOTE | 2023-01-15 19:19 | PN ---
PROGRESS NOTE CHIEF COMPLAINT: Generalized weakness, dehydration, and urinary tract infection with possible lesion in the bladder. HISTORY OF PRESENT ILLNESS: This lady is doing fairly well. She is slowly rehydrating. Blood sugars are under fairly good control. PHYSICAL EXAMINATION: CHEST: Clear. CARDIAC: Reveals atrial fibrillation, which is new. ABDOMEN: Soft and nontender. IMPRESSION: 1. General debility and weakness. 2. Dehydration. 3. New-onset atrial fibrillation. 4. Urinary tract infection. 5. Hematuria. 6. Possible bladder lesion. PLAN: 1. Continue with IV fluids and antibiotics. 2. Await results of echocardiogram. 3. She has been seen by Urology, and they will perform a cystoscopy as an outpatient. MMODL / IJN: [id number] /
[2023-01-15 20:16] LABS: Glucose,Whole Blood 238 mg/dL (70-110)
[2023-01-15 20:27] LABS: Poikilocytosis (M) Present
[2023-01-15] MEDS: ATORVASTATIN 20 MG TAB PO SCH (20:44)
[2023-01-16 06:09] LABS: Glucose,Whole Blood 179 mg/dL (70-110)
[2023-01-16] MEDS: SODIUM CHLORIDE 0.9% 1,000 ML IV SCH ×2 (06:09→15:23)
[2023-01-16] MEDS: INSULIN ASPART (NovoLOG) 100 UNIT/ML VIAL SQ SCH ×4 (06:30→21:46)
[2023-01-16] MEDS: INSULIN DETEMIR (LEVEMIR) 100 UNIT/ML SYR SQ SCH (06:36)
[2023-01-16] MEDS: lisinopriL 20 MG TAB PO SCH (07:28)
[2023-01-16] MEDS: allopurinoL 100 MG TAB PO SCH ×2 (07:28→21:48)
[2023-01-16] MEDS: CLOPIDOGREL 75 MG TAB PO SCH (07:28)
[2023-01-16] MEDS: ASPIRIN 81 MG PO SCH (07:28)
[2023-01-16] MEDS: FERROUS SULFATE 325 MG TAB PO SCH ×2 (07:28→21:48)
[2023-01-16] MEDS: MONTELUKAST 10 MG TAB PO SCH (07:28)
[2023-01-16] MEDS: METOPROLOL TARTRATE 50 MG TAB PO SCH ×2 (07:28→21:46)
[2023-01-16] MEDS: RALOXIFENE 60 MG TAB PO SCH (07:29)
[2023-01-16] MEDS: DAPAGLIFLOZIN PROPANEDIOL 5 MG TABLET PO SCH (07:29)
[2023-01-16 09:32] LABS: African American GFR (CKD) 52 (>60 ml/min/1.73 sqM); Non-African American GFR(CKD) 45 (>60 ml/min/1.73 sqM)
[2023-01-16 11:17] LABS: Glucose,Whole Blood 260 mg/dL (70-110)
[2023-01-16] MEDS: CINACALCET 30 MG TAB PO SCH (11:55)
[2023-01-16] MEDS ORDERED: VANCOMYCIN 1,000 MG in SODIUM CHLORIDE 0.9% 250 ML IVPB ONE (14:00)
[2023-01-16] MEDS: ACETAMINOPHEN TAB 325 MG TAB PO PRN (15:18)
[2023-01-16 16:16] LABS: Glucose,Whole Blood 119 mg/dL (70-110)
[2023-01-16 20:13] LABS: Glucose,Whole Blood 101 mg/dL (70-110)
[2023-01-16] MEDS: ATORVASTATIN 20 MG TAB PO SCH (21:48)
[2023-01-17] MEDS: SODIUM CHLORIDE 0.9% 1,000 ML IV SCH (03:45)
--- NOTE | 2023-01-17 04:37 | PN ---
PROGRESS NOTE CHIEF COMPLAINT: New onset atrial fibrillation with general weakness, dehydration and CKD. HISTORY OF PRESENT ILLNESS: This lady is doing much better. She is much more awake and alert. Hydration has greatly improved. She is still in atrial fibrillation. She has been seen by Urology for the potential bladder lesion and hematuria. PHYSICAL EXAMINATION: GENERAL: She is more awake and alert. CHEST: Clear. CARDIAC: Reveals her atrial fibrillation. ABDOMEN: Soft. EXTREMITIES: Normal. Hydration is greatly improved. IMPRESSION: 1. Mental status changes. 2. Atrial fibrillation. 3. Dehydration. 4. Hematuria. 5. Possible bladder lesion. PLAN: Continue with some IV fluids and increase activity and probably home soon. MMODL / IJN: [id number] /
[2023-01-17] MEDS: INSULIN ASPART (NovoLOG) 100 UNIT/ML VIAL SQ SCH ×2 (06:21→13:22)
[2023-01-17] MEDS: INSULIN DETEMIR (LEVEMIR) 100 UNIT/ML SYR SQ SCH ×2 (06:21→09:36)
[2023-01-17 06:22] LABS: Glucose,Whole Blood 68 mg/dL (70-110)
[2023-01-17 08:17] LABS: African American GFR (CKD) 58 (>60 ml/min/1.73 sqM); Non-African American GFR(CKD) 50 (>60 ml/min/1.73 sqM)
[2023-01-17 08:23] LABS: Vancomycin,Random 17.6 ug/mL
[2023-01-17] MEDS: CLOPIDOGREL 75 MG TAB PO SCH (09:31)
[2023-01-17] MEDS: DAPAGLIFLOZIN PROPANEDIOL 5 MG TABLET PO SCH (09:31)
[2023-01-17] MEDS: lisinopriL 20 MG TAB PO SCH (09:31)
[2023-01-17] MEDS: FERROUS SULFATE 325 MG TAB PO SCH (09:31)
[2023-01-17] MEDS: ASPIRIN 81 MG PO SCH (09:31)
[2023-01-17] MEDS: RALOXIFENE 60 MG TAB PO SCH (09:31)
[2023-01-17] MEDS: allopurinoL 100 MG TAB PO SCH (09:31)
[2023-01-17] MEDS: MONTELUKAST 10 MG TAB PO SCH (09:31)
[2023-01-17] MEDS: METOPROLOL TARTRATE 50 MG TAB PO SCH (09:31)
[2023-01-17 09:36] VITALS: BP 128/64; PULSE 72; RESP 16; TEMP 96.6
[2023-01-17 09:36] LABS: Glucose,Whole Blood 144 mg/dL (70-110)
[2023-01-17 11:36] LABS: Glucose,Whole Blood 126 mg/dL (70-110)
--- NOTE | 2023-01-17 11:52 | DS ---
DISCHARGE SUMMARY CHIEF COMPLAINT: New onset atrial fibrillation, dehydration, type 2 diabetes, and CKD. HISTORY OF PRESENT ILLNESS AND PHYSICAL EXAMINATION: Details of this lady's history and physical can be found in the initial workup. LABORATORY STUDIES: While she is in the hospital, she had laboratory studies, details of which can be found in the laboratory section of her chart. COURSE IN THE HOSPITAL: After admission, she was placed on bedrest, started on intravenous fluids, and IV antibiotics. She was rehydrated and electrolytes improved. It was thought that her issues were related to cystitis and she did have a positive blood culture. She had hematuria and CT suggests that there may be a lesion in the bladder. She was seen by Urology and deferred her cystoscopy until she is an outpatient. She did have new onset atrial fibrillation and it persisted. It was felt unsafe to anticoagulate her and this was withheld. She will also be taken off aspirin and Plavix. After she was rehydrated, she regained her usual strength and mentation and was doing well, and the family thought that she would be better served by going to rehab and she will be transferred to [facility] on the . FINAL DIAGNOSES: 1. New onset atrial fibrillation. 2. Urinary tract infection. 3. Hematuria. 4. Dehydration. 5. Type 2 insulin-dependent diabetes mellitus. 6. Chronic kidney disease. 7. Hematuria. 8. Possible bladder wall lesion. 9. Positive blood culture. OPERATIONS: None. CONSULTATIONS: Urology. She is improved. MMODL / IJN: [id number] /
[2023-01-17] MEDS ORDERED: CEPHALEXIN 500 MG CAP PO SCH (13:00)
[2023-01-17] MEDS ORDERED: VANCOMYCIN 1,000 MG in SODIUM CHLORIDE 0.9% 250 ML IVPB SCH (15:00)
--- NOTE | 2023-01-17 19:58 | PN ---
PROGRESS NOTE DATE OF SERVICE: 01/16/2023 CHIEF COMPLAINT: Sepsis, urinary tract infection, dehydration, and new-onset atrial fibrillation. HISTORY OF PRESENT ILLNESS: This lady is doing well. She is rehydrated. She is awake and alert. She is eating, and heart rate is under good control. Blood sugars are good, and her vital signs are normal. She could probably go home any time. PHYSICAL EXAMINATION: CHEST: Clear. CARDIAC: Unchanged with atrial fibrillation. ABDOMEN: Soft and nontender. EXTREMITIES: Normal. IMPRESSION: 1. Septicemia. 2. Urinary tract infection. 3. New-onset atrial fibrillation. 4. History of insulin-dependent diabetes mellitus. PLAN: Probably home any time. MMODL / IJN: [id number] /
== END 2023-01-17 13:34 | disposition home or self-care (01) | DRG 690 ==
LOC: EC 15:38 → 3SCARD 18:55
PROVIDERS: ADMIT Family Medicine; ATTEND Family Medicine
DX: N39.0 Urinary tract infection, site not specified (principal); I13.0 Hypertensive heart and chronic kidney disease with heart failure and stage 1 through stage 4 chronic kidney disease, or unspecified chronic kidney disease; I48.91 Unspecified atrial fibrillation; E11.22 Type 2 diabetes mellitus with diabetic chronic kidney disease; E11.319 Type 2 diabetes mellitus with unspecified diabetic retinopathy without macular edema; E78.5 Hyperlipidemia, unspecified; E83.51 Hypocalcemia; E86.0 Dehydration; E87.6 Hypokalemia; F03.A0 Unspecified dementia, mild, without behavioral disturbance, psychotic disturbance, mood disturbance, and anxiety; I25.10 Atherosclerotic heart disease of native coronary artery without angina pectoris; N18.32 Chronic kidney disease, stage 3b; I50.9 Heart failure, unspecified; Z95.2 Presence of prosthetic heart valve; I25.2 Old myocardial infarction; Z79.02 Long term (current) use of antithrombotics/antiplatelets; Z79.4 Long term (current) use of insulin; Z79.82 Long term (current) use of aspirin; Z79.84 Long term (current) use of oral hypoglycemic drugs; Z79.899 Other long term (current) drug therapy; Z82.49 Family history of ischemic heart disease and other diseases of the circulatory system; Z90.710 Acquired absence of both cervix and uterus; Z95.1 Presence of aortocoronary bypass graft; Z87.891 Personal history of nicotine dependence
CPT/HCPCS: 36415; 71045; 74176; 80053; 80202; 81001; 82565; 83605; 83735; 84443; 84484; 85025; 85610; 85730; 87040; 87077; 87086; 87186; 93005; 93306; 94760; 96361; 96365; 96366; 96367; 96368; 96375; 99285

== ENCOUNTER 2023-05-26 18:01 | Emergency (ER) | payer MEDICARE, OTHER ==
[2023-05-26 18:20] VITALS: RESP 16
[2023-05-26] MEDS ORDERED: MORPHINE SULFATE 2 MG/ML SYRINGE IM ONE (19:52)
[2023-05-26] MEDS ORDERED: ACETAMINOPHEN TAB 500 MG TAB PO STA (19:53)
--- NOTE | 2023-05-26 19:56 | ED ---
General Adult HPI - General Chief complaint: Weakness Stated complaint: weakness Time Seen by Provider: 05/26/23 18:14 Source: EMS Mode of arrival: EMS Limitations: no limitations - History of Present Illness Initial comments: 82 year Old female presenting to the ED with a chief complaint of hip paUr patient's family, reports that this is a chronic issue. States today, patient was on the toilet. Patient reports secondary to pain was having difficulties going from sitting to standing. States at this time family members helped her up. Due to the pain family members report that patient was unable to hold herself completely up and patient fell to the ground while being guided down by both of her family members. Denies head injury at this time. Patient now notes pain of her hips and her knees. No other complaints. - Related Data Home Medications Medication Instructions Recorded Confirmed allopurinoL [Zyloprim] 100 mg PO BID 02/07/17 01/13/23 Atorvastatin [Lipitor] 20 mg PO HS 07/28/22 01/13/23 Empagliflozin [Jardiance] 10 mg PO DAILY 07/28/22 01/13/23 Insulin Detemir (Levemir) [Levemir] 30 unit SQ DAILY 07/28/22 01/13/23 Montelukast [Singulair] 10 mg PO DAILY 07/28/22 01/13/23 Raloxifene HCl 60 mg PO DAILY 07/28/22 01/13/23 INSULIN ASPART (NovoLOG) [NovoLOG See Protocol SQ ACHS 11/01/22 01/13/23 (formulary)] lisinopriL 40 mg PO DAILY 11/01/22 01/13/23 Previous Rx's Medication Instructions Recorded Metoprolol Tartrate [Lopressor] 50 mg PO BID tab 05/21/17 Cinacalcet [Sensipar] 30 mg PO SuMoWeFr tab 08/01/22 Ferrous Sulfate [Iron (65 MG 325 mg PO BID #60 tab 08/01/22 Elemental)] polyethylene glycoL 3350 [Miralax] 17 gm PO DAILY PRN #21 packet 08/01/22 Furosemide [Lasix] 40 mg PO DAILY #30 tab 11/05/22 Cephalexin [Keflex] 500 mg PO QID #60 cap 01/17/23 Allergies Allergy/AdvReac Type Severity Reaction Status Date / Time No Known Allergies Allergy Unverified 01/13/23 19:08 Review of Systems ROS Statement: Those systems with pertinent positive or pertinent negative responses have been documented in the HPI. ROS Other: All systems not noted in ROS Statement are negative. Past Medical History Past Medical History: Atrial Fibrillation, Blood Disorder, Coronary Artery Disease (CAD), Chest Pain / Angina, Heart Failure, CVA/TIA, Diabetes Mellitus, Eye Disorder, Hyperlipidemia, Hypertension, Myocardial Infarction ([place]), Osteoarthritis (OA), Renal Disease, Syncope Additional Past Medical History / Comment(s): HX ANEMIA, DIABETIC RETINOPATHY, GOUT, SINUS PROBLEMS. Last Myocardial Infarction Date:: UNKNOWN History of Any Multi-Drug Resistant Organisms: None Reported Past Surgical History: Appendectomy, Cardiac Valve Replacement, Cholecystectomy, Coronary Bypass/CABG, Hysterectomy, Tonsillectomy Additional Past Surgical History / Comment(s): colonoscopy, bilat. cataract removal Past Anesthesia/Blood Transfusion Reactions: No Reported Reaction Additional Past Anesthesia/Blood Transfusion Reaction / Comment(s): Patient reports that she has received blood transfusion in past with no reaction Past Psychological History: No Psychological Hx Reported Additional Psychological History / Comment(s): Pt lives with her daughters, Mary and Madison. She is fairly independent. She uses a walker at times. She has no home care agency. She gets to appt with her daughter driving her. Smoking Status: Former smoker Past Alcohol Use History: Rare Additional Past Alcohol Use History / Comment(s): Pt states she started smoking when she was 18 or 19yrs old and quit in 1996 Past Drug Use History: None Reported - Past Family History Father Family Medical History: Pneumonia Additional Family Medical History / Comment(s): Father had TB Mother Family Medical History: Congestive Heart Failure (CHF) Additional Family Medical History / Comment(s): Mother young of CHF General Exam Limitations: language barrier (Hard of hearing) General appearance: alert, in no apparent distress Neck exam: Present: normal inspection Respiratory exam: Present: normal lung sounds bilaterally Cardiovascular Exam: Present: regular rate, normal rhythm GI/Abdominal exam: Present: soft Extremities exam: Present: other (Pelvis stable. No pain on log roll of the legs. No shortening or rotation. Strength and Sensation intact of bilateral l ower extremities.) Neurological exam: Present: alert, oriented X3 Skin exam: Present: warm, dry Course Vital Signs 05/26/23 05/26/23 05/26/23 18:11 18:30 19:00 Temperature 97.1 F L Pulse Rate 74 Respiratory 16 Rate Blood Pressure 127/67 127/67 150/85 O2 Sat by Pulse 93 L 96 96 Oximetry 05/26/23 05/26/23 05/26/23 19:30 20:00 20:30 Temperature Pulse Rate Respiratory Rate Blood Pressure 147/118 139/79 139/98 O2 Sat by Pulse 95 97 96 Oximetry Medical Decision Making - Medical Decision Making Was pt. sent in by a medical professional or institution (, PA, DAY HABILITATION SPECIALIST, urgent care, hospital, or long term...) When possible be specific @ -No Did you speak to anyone other than the patient for history (EMS, parent, family, police, friend...)? What history was obtained from this source @ -No Did you review nursing and triage notes (agree or disagree)? Why? @ -I reviewed and agree with nursing and triage notes Were old charts reviewed (outside hosp., previous admission, EMS record, old EKG, old radiological studies, urgent care reports/EKG's, long term records)? Report findings @ -No old charts were reviewed Differential Diagnosis (chest pain, altered mental status, abdominal pain women, abdominal pain men, vaginal bleeding, weakness, fever, dyspnea, syncope, headache, dizziness, GI bleed, back pain, seizure, CVA, palpatations, mental health, musculoskeletal)? @ -Differential Musculoskeletal Muscular strain, contusion, ligament sprain, fracture, arthritis, septic arthritis, bursitis, cellulitis, muscle spasm, nerve compression, DVT, arterial occlusion, herpes zoster, electrolyte abnormality, tumor.... This is not meant to be in all inclusive list EKG interpreted by me (3pts min.). @ -As above X-rays interpreted by me (1pt min.). @ -X-Ray of the pelvis, bilateral femurs, bilateral knees interpreted by me revealing No acute findings. CT interpreted by me (1pt min.). @ -None done U/S interpreted by me (1pt. min.). @ -None done What testing was considered but not performed or refused? (CT, X-rays, U/S, labs)? Why? @ -None What meds were considered but not given or refused? Why? @ -None Did you discuss the management of the patient with other professionals (professionals i.e. , PA, DAY HABILITATION SPECIALIST, lab, RT, psych nurse, social media content specialist, senior planning analyst, teacher, executive officer, porter sample case)? Give summary @ -No Was smoking cessation discussed for >3mins.? @ -No Was critical care preformed (if so, how long)? @ -No Were there social determinants of health that impacted care today? How? (Homelessness, low income, unemployed, alcoholism, drug addiction, transportation, low edu. Level, literacy, decrease access to med. care, assisted, rehab)? @ -No Was there de-escalation of care discussed even if they declined (Discuss DNR or withdrawal of care, Hospice)? DNR status @ -No What co-morbidities impacted this encounter? (DM, HTN, Smoking, COPD, CAD, Cancer, CVA, ARF, Chemo, Hep., AIDS, mental health diagnosis, sleep apnea, morbid obesity)? @ -None Was patient admitted / discharged? Hospital course, mention meds given and route, prescriptions, significant lab abnormalities, going to OR and other pertinent info. @ -Discharge Imaging studies reviewed. At this time no acute findings. However no official read from radiology. At this time, patient reports pain is well controlled and patient and family would like to go home without official radiology read. They state that they will follow-up with their primary care provider within the week. Discharged home in stable condition. Discussed return precautions with patient and family who verbalized agreement. Undiagnosed new problem with uncertain prognosis? @ -No Drug Therapy requiring intensive monitoring for toxicity (Heparin, Nitro, Insulin, Cardizem)? @ -No Were any procedures done? @ -No Diagnosis/symptom? @ -Fall, lower extremity pain Acute, or Chronic, or Acute on Chronic? @ -Acute, Acute on chronic Uncomplicated (without systemic symptoms) or Complicated (systemic symptoms)? @ -Uncomplicated Side effects of treatment? @ -No Exacerbation, Progression, or Severe Exacerbation? @ -No Poses a threat to life or bodily function? How? (Chest pain, [place], [place], pneumonia, PE, COPD, DKA, ARF, appy, cholecystitis, CVA, Diverticulitis, Homicidal, Suicidal, threat to staff... and all critical care pts) @ -No Disposition Clinical Impression: Fall Disposition: HOME SELF-CARE Additional Instructions: Please return to the Emergency Department if symptoms worsen or any other concerns. Please follow-up with your primary care provider. Is patient prescribed a controlled substance at d/c from ED?: No Referrals: Saurabh Medrano MD [Primary Care Provider] - 1-2 days Time of Disposition: 21:22
[2023-05-26 21:57] VITALS: BP 133/91; PULSE 69; TEMP 97.8
--- NOTE | 2023-05-26 23:51 | XR ---
EXAMINATION TYPE: XR pelvis AP view DATE OF EXAM: 05/26/2023 8:26 PM CLINICAL INDICATION:Female, 82 years old with history of pain; [facility] COMPARISON: None TECHNIQUE AND FINDINGS: Frontal view pelvis. Exam is somewhat limited by patient body habitus and soft tissue overlap, as wel l as diffuse osseous demineralization. There are degenerative changes of the lower lumbar spine. Mild bilateral hip arthropathy. Left proximal femoral intramedullary saul and dynamic compression screw, t he tip of which extends to very near the articular surface of the superomedial femoral head. Osseous spur is seen extending superomedially from the region of the lesser trochanter. No acute fracture musa ency or dislocation seen. Unremarkable soft tissues without radiopaque foreign body identified. Mode rate arterial vascular calcifications. IMPRESSION: No acute fracture or dislocation identified, on this single view of the pelvis.
--- NOTE | 2023-05-27 00:18 | XR ---
EXAMINATION TYPE: XR femur bilateral DATE OF EXAM: 05/26/2023 8:27 PM CLINICAL INDICATION:Female, 82 years old with history of pain; [facility] COMPARISON: Multiple prior studies, including CT pelvis 01/13/2023, left hip radiographs 11/01/2022, 09/19/2022, 08/15/2022, and fluoroscopic images during the initial hardware placement on 07/29/2022 TECHNIQUE: The bilateral femurs were imaged in frontal and lateral projections. 8 images total. The bilateral knees were imaged in frontal, oblique, crosstable lateral projections. 6 images total. FINDINGS: There is generalized osseous demineralization. No evidence of lytic/blastic bony lesion. Right femur and knee: Mild right hip osteoarthropathy. No fracture or dislocation is shown involving the right femur. Right knee demonstrates no fracture or dislocation. There is mild to moderate tricom partmental joint space narrowing with some marginal osteophytes. Some chondrocalcinosis is seen invol ving the lateral more so than medial compartments. No sizable joint effusion identified. There are mo derate to heavy arterial vascular calcifications noted. Otherwise unremarkable soft tissues. No radio paque foreign body is seen. Left femur and knee: Mild left hip osteoarthropathy. Intramedullary saul with interlocking horizontal screw within the proximal femur and dynamic compression screw extending through the femoral neck to t he femoral head, the tip of this screw terminates very near the articular surface of the superomedial femoral head; this has not changed in appearance compared to the prior study 09/19/2022, however somet fanny between the 09/19/2022 and 08/15/2022 studies the screw appears to have advanced about 3.5-4 mm from its original termination point. No hardware breakage or perihardware lucency seen. There are changes from healed proximal femoral fracture, and a prominent osteophytic spur is noted extending from the l [place]ermania trochanter superomedially. No acute fracture or destructive process in the left femur. Moderate to heavy arteriovascular calcifications are noted. A couple of surgical clips are again seen in the medial thigh soft tissues. There is mild to moderate tricompartmental joint space narrowing with some marginal osteophytes in the knee. Some chondrocalcinosis is seen involving the lateral more so than medial compartments. No sizable joint effusion identified. IMPRESSION: Bilateral femurs and bilateral knees: 1. Generalized osseous demineralization. No lytic/blastic bony lesion. 2. Mild bilateral hip arthropathy. 3. Status post ORIF of the proximal left femur, with some advancement of the dynamic compression scr ew which seems to have occurred sometime between 09/19/2022 and 08/15/2022. See above. 4. No acute fracture or dislocation. 5. Mild/moderate tricompartmental osteoarthropathy in both knees. 6. Chondrocalcinosis in both knees. This can be seen with CPPD.
--- NOTE | 2023-05-27 00:21 | XR ---
EXAMINATION TYPE: XR knee complete bilateral DATE OF EXAM: 05/26/2023 8:27 PM CLINICAL INDICATION:Female, 82 years old with history of pain; [facility] COMPARISON: Multiple prior studies, including CT pelvis 01/13/2023, left hip radiographs 11/01/2022, 09/19/2022, 08/15/2022, and fluoroscopic images during the initial hardware placement on 07/29/2022 TECHNIQUE: The bilateral femurs were imaged in frontal and lateral projections. 8 images total. The bilateral knees were imaged in frontal, oblique, crosstable lateral projections. 6 images total. FINDINGS: There is generalized osseous demineralization. No evidence of lytic/blastic bony lesion. Right femur and knee: Mild right hip osteoarthropathy. No fracture or dislocation is shown involving the right femur. Right knee demonstrates no fracture or dislocation. There is mild to moderate tricom partmental joint space narrowing with some marginal osteophytes. Some chondrocalcinosis is seen invol ving the lateral more so than medial compartments. No sizable joint effusion identified. There are mo derate to heavy arterial vascular calcifications noted. Otherwise unremarkable soft tissues. There ar e a couple surgical clips seen in the medial calf soft tissues. No unexpected radiopaque foreign body is seen. Left femur and knee: Mild left hip osteoarthropathy. Intramedullary saul with interlocking horizontal screw within the proximal femur and dynamic compression screw extending through the femoral neck to t he femoral head, the tip of this screw terminates very near the articular surface of the superomedial femoral head; this has not changed in appearance compared to the prior study 09/19/2022, however somet fanny between the 09/19/2022 and 08/15/2022 studies the screw appears to have advanced about 3.5-4 mm from its original termination point. No hardware breakage or perihardware lucency seen. There are changes from healed proximal femoral fracture, and a prominent osteophytic spur is noted extending from the l [place]ermania trochanter superomedially. No acute fracture or destructive process in the left femur. Moderate to heavy arteriovascular calcifications are noted. A couple of surgical clips are again seen in the medial thigh soft tissues. There is mild to moderate tricompartmental joint space narrowing with some marginal osteophytes in the knee. Some chondrocalcinosis is seen involving the lateral more so than medial compartments. No sizable joint effusion identified. IMPRESSION: Bilateral femurs and bilateral knees: 1. Generalized osseous demineralization. No lytic/blastic bony lesion. 2. Mild bilateral hip arthropathy. 3. Status post ORIF of the proximal left femur, with some advancement of the dynamic compression scr ew which seems to have occurred sometime between 09/19/2022 and 08/15/2022. See above. 4. No acute fracture or dislocation. 5. Mild/moderate tricompartmental osteoarthropathy in both knees. 6. Chondrocalcinosis in both knees. This can be seen with CPPD.
== END 2023-05-26 21:35 | disposition home or self-care (01) ==
LOC: EC 18:01
DX: M25.569 Pain in unspecified knee (principal); I25.10 Atherosclerotic heart disease of native coronary artery without angina pectoris; I48.91 Unspecified atrial fibrillation; I11.0 Hypertensive heart disease with heart failure; I50.9 Heart failure, unspecified; E78.5 Hyperlipidemia, unspecified; E11.9 Type 2 diabetes mellitus without complications; I25.2 Old myocardial infarction; Z87.891 Personal history of nicotine dependence; Z79.4 Long term (current) use of insulin; Z79.84 Long term (current) use of oral hypoglycemic drugs; Z79.899 Other long term (current) drug therapy; W18.30XA Fall on same level, unspecified, initial encounter
CPT/HCPCS: 73562; 72170; 73552; 99285; 96372; J2270